=== PATIENT | female | born 1935 | race Caucasian/White ===

== ENCOUNTER → 2017-07-09 12:25 | Outpatient (CLI) | payer MEDICARE, SELFPAY ==
[2017-07-09 12:56] LABS: CREATININE FINGERSTICK 1.2 mg/dL (0.55-1.02)
--- NOTE | 2017-07-09 13:00 | CT_ITS ---
STUDY: CTA CHEST REASON FOR EXAM: Female, 82 years old. Dilatation of the aortic root. RADIATION DOSAGE (If Supplied By Facility): CTDIvol = ( 22.95 ) mGy, DLP = ( 491.21 ) mGycm TECHNIQUE: The examination was performed with the intravenous administration of 100 ml of Isovue 370 contrast material. Post-processing of the angiographic images was performed, with multiplanar reformation and 3D reconstruction. Individualized dose optimization techniques were used for this CT. COMPARISON: CTA of the chest, August 03, 2013. FINDINGS: Normal enhancement of the main pulmonary artery and right and left pulmonary arteries. Normal enhancement of the bilateral peripheral pulmonary arteries. There is no demonstrated pulmonary embolism. The root of the aorta measures 4 x 4.2 cm at the level of the pulmonary artery bifurcation (image 165, series 2). This tapers into the arch. There is no demonstrated aortic dissection. Normal heart and pericardium. Normal mediastinum. Normal hilar regions. Normal visualized trachea and bronchi. The lungs are well expanded. Normal pulmonary parenchyma. Normal pleura. Normal chest wall structures. There are degenerative changes of thoracic spine. There is a small type I hiatal hernia unchanged from prior study. CT/CTA Chest W/WO Contrast IMPRESSION: 1. 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 This currently measures 4 x 4.2 cm. 2. Hiatal hernia. Electronically Signed: Ethan Moser DO at 13:19 EST Tel [phone], Service support ,
== END ==
PROVIDERS: Family Provider Internal Medicine; Visit Provider Physician Assistant Medical
DX: I77.810 Thoracic aortic ectasia (principal); I10 Essential (primary) hypertension
CPT/HCPCS: 71275; Q9967

== ENCOUNTER 2017-10-30 11:50 | Emergency (ER) | payer MEDICARE, SELFPAY ==
[2017-10-30 11:52] VITALS: BP 156/82; PULSE 68; RESP 18; TEMP 36.7; O2SAT 97; BMI 30.9
--- NOTE | 2017-10-30 13:59 | ED.VISSUMM ---
- ER Visit Summary Date of Service: 10/30/17 Chief Complaint: Right lower lateral back pain History of Present Illness: The patient is a 82 F landing on her right lower lateral back pain for last 3 days. States is constant. Worse with movement. No recent falls or trauma. No fever. No history of back pain. She is on no blood thinners. She denies any nausea, vomiting or constipation. No dysuria. No urinary retention or incontinence. She has a history of chronic intermittent diarrhea. Denies any melena. Physical Examination: Well-appearing older female. Vital signs are stable afebrile. She does not look septic or toxic. She is in no acute distress. H EENT exam unremarkable. Lungs clear to auscultation. Heart regular rhythm no murmur. Chest wall nontender. Abdomen soft. Nontender nondistended. Normal bowel sounds. No peritoneal signs. No right upper or right lower quadrant tenderness. No pulsatile mass. No distention. No signs of obstruction. She is moving both the upper and lower extremities. They are neurovascularly intact. She is a strong DP pulse. There is no calf tenderness or swelling. She has normal range of motion motor strength and sensation of both lower extremities. The plantar flexion intact. Negative straight leg raise bilaterally. Normal 5 out of 5 motor strength with dorsi and plantar flexion. Cauda equina. Normal medial thigh sensation. Back exam the cervical, thoracic and lumbar spine are all nontender. There is no ecchymosis or bruising. No redness or warmth. Is a tenderness over her right SI joint consistent with acute sciatica. Left is unremarkable.. Test Results: None Emergency Department Course and Treatment: Will be treated with [place] for pain. Treatment Plan: [place] for pain 20 no refill. Ice to her right sciatica. Limited Motrin for inflammation. Follow-up with her primary care physician if not improving. Disposition: Discharge Impression: Right lower lateral back pain secondary to sciatica This note was generated with [employer] dictation software. It may contain incorrect words, spelling, and punctuation that were not noted in review of the chart prior to signing ED Disposition - Plan for ED Patient: Chief Complaint: Back Referrals: Jessica Ingram DO [Primary Care Provider] -
--- NOTE | 2017-10-30 14:04 | DCINST.ED_ITS ---
ED Disposition - Plan for ED Patient: Disposition: Home or Assisted Living Chief Complaint: Back Instructions: ED Sciatica Prescriptions: Hydrocodone Bitart/Apap 5-325 [[place] 5MG-325MG] 1 - 2 tab PO Q4H PRN PRN #20 tab PRN Reason: Pain Referrals: Jessica Ingram DO [Primary Care Provider] - 1 Week if not improving Additional Instructions: Ice to right lower back. Motrin 2 pills twice a day to help with inflammation in the back. [place] for pain. Plenty of fluids and fiber to prevent constipation. Follow-up your primary care physician if not improving.
[2017-10-30] MEDS: HYDROcodone Bitartrate/Apap 5/325 Tablet PO (14:07)
[2017-10-30 14:09] VITALS: BP 152/95; PULSE 65; RESP 16; O2SAT 98
== END 2017-10-30 14:11 | disposition home or self-care (01) ==
PROVIDERS: Emergency Provider Emergency Medicine
DX: M54.41 Lumbago with sciatica, right side (principal); K52.9 Noninfective gastroenteritis and colitis, unspecified; J44.9 Chronic obstructive pulmonary disease, unspecified; I10 Essential (primary) hypertension; Z85.828 Personal history of other malignant neoplasm of skin; Z79.82 Long term (current) use of aspirin; Z79.899 Other long term (current) drug therapy
CPT/HCPCS: 99283

== ENCOUNTER → 2017-10-31 09:46 | Outpatient (CLI) | payer MEDICARE, SELFPAY ==
--- NOTE | 2017-10-31 09:49 | RAD_ITS ---
PROCEDURE: Fluoroscopic guided Hip Injection DATE: October 31, 2017. INDICATION: Female, 82 years old. Chronic left hip pain. PHYSICIAN: Pb Fontaine M.D. MEDICATIONS: 6 mg of betamethasone and 3 cc of 1% lidocaine. 2% Lidocaine administered subcutaneously for local anesthesia. ACCESS SITE: Left hip. NEEDLE: 22-gauge spinal needle. FLUOROSCOPY TIME (if supplied): (33 seconds) minutes/seconds FINDINGS: The risks, benefits, and alternatives to the procedure were explained to the patient. The specific risks of bleeding, infection, and neurovascular injury were detailed and accepted. Witnessed informed consent was obtained. A 22-gauge spinal needle was positioned under right graphic fluoroscopic localization. Approximately 2 cc of Isovue-300 instilled for localization purposes. Medication was then injected. The patient tolerated the procedure well without any immediate complications. RAD/Inj/Asp Samson Jt Should/Hip/Knee IMPRESSION: 1. Successful fluoroscopic guided hip injection. Electronically Signed: Pb Fontaine MD at 11:20 EDT Tel [phone], Service support ,
== END ==
PROVIDERS: Visit Provider Specialist
DX: M25.552 Pain in left hip (principal); G89.29 Other chronic pain; S72.142D Displaced intertrochanteric fracture of left femur, subsequent encounter for closed fracture with routine healing; X58.XXXD Exposure to other specified factors, subsequent encounter
CPT/HCPCS: 20610; 77002; Q9967; J0702

== ENCOUNTER 2018-04-22 10:54 | Emergency (ER) | payer MEDICARE, SELFPAY ==
[2018-04-22 10:55] VITALS: BP 112/82; PULSE 74; RESP 17; TEMP 36.8; O2SAT 93; BMI 31.3
--- NOTE | 2018-04-22 11:16 | RAD_ITS ---
STUDY: X-RAY - ABDOMEN/PELVIS REASON FOR EXAM: Female, 83 years old. Constipation. Recent hip fracture. TECHNIQUE: Two AP supine views of the abdomen and pelvis. COMPARISON: None. FINDINGS: There is elevation of the right hemidiaphragm. There is a moderate amount of colonic fecal material. The visualized liver, spleen and kidneys are grossly normal in size and morphology. Prior cholecystectomy. Normal soft tissue structures. The patient is status post intramedullary pinning of the left intertrochanteric fracture. RAD/Abdomen Single View IMPRESSION: Moderate amount of fecal material is seen in the colon. Electronically Signed: Pb Fontaine MD at 11:39 EST Tel [phone], Service support ,
--- NOTE | 2018-04-22 11:16 | ED.VISSUMM ---
- ER Visit Summary Date of Service: 04/22/18 Chief Complaint: Constipation History of Present Illness: The patient is a 83 F history of hypertension and cholesterol. Patient states the last 3-4 days she said constipation. Mild nausea. No significant pain. No vomiting. No melena. States when she tries to have a bowel movement feels like something is pushing down on her lower rectum and anal area. She does not believe she is around a colonoscopy. She denies any weight change. Today she was able to have a very small bowel move. She denies any fever or chills. No dysuria. Physical Examination: Well-appearing older female. Vital signs are stable. She is afebrile. She is in no distress. H EENT exam unremarkable. Neck nontender. Lungs clear to auscultation bilaterally. Heart regular rhythm no murmur. Abdomen soft. Nontender. Nondistended. Normal bowel sounds. No peritoneal signs. No signs of obstruction. Moving all 4 extremities. Back nontender. Neurologically she is awake alert with no focal motor deficits. Her daughter is present in the room I did a rectal exam with her daughter bedside. There are no external masses. On rectal exam I do not feel any hemorrhoids or internal masses. There was no gross blood. She had hard brown stool. Test Results: Single view KUB shows shows increased stool. Otherwise no acute abnormality. Left prosthetic hip. Read both of myself and the radiologist. Emergency Department Course and Treatment: Repeat exam patient is doing well at 1220. Abdomen benign. She will be discharged home with magnesium citrate. Treatment Plan: Follow-up with primary care physician. Consider outpatient colonoscopy. Disposition: Discharge Impression: Acute constipation This note was generated with [employer] dictation software. It may contain incorrect words, spelling, and punctuation that were not noted in review of the chart prior to signing ED Disposition - Plan for ED Patient: Chief Complaint: Constipation Referrals: Jessica Ingram DO [Primary Care Provider] -
[2018-04-22 11:31] VITALS: BP 115/78; PULSE 78; RESP 14; O2SAT 98
[2018-04-22 12:22] VITALS: BP 121/74; PULSE 72; RESP 15; O2SAT 98
--- NOTE | 2018-04-22 12:22 | ED.DEP ---
ED Disposition - Plan for ED Patient: Disposition: Home or Assisted Living Chief Complaint: Constipation Referrals: Jessica Ingram DO [Primary Care Provider] - 3-5 Days if not improving Additional Instructions: Drink the magnesium citrate and should have a bowel movement within 2 hours. Follow-up with your primary care physician. May want to consider an outpatient colonoscopy.
[2018-04-22] MEDS: Magnesium Citrate 300 ML PO (12:41)
== END 2018-04-22 12:44 | disposition home or self-care (01) ==
PROVIDERS: Emergency Provider Emergency Medicine
DX: K59.00 Constipation, unspecified (principal); I10 Essential (primary) hypertension; Z79.899 Other long term (current) drug therapy; Z85.828 Personal history of other malignant neoplasm of skin; Z96.642 Presence of left artificial hip joint
CPT/HCPCS: 74018; 99282

== ENCOUNTER → 2018-07-31 15:08 | Outpatient (CLI) | payer MEDICARE, SELFPAY ==
--- NOTE | 2018-07-31 15:09 | ECHOD_ITS ---
Reason For Study: Dyspnea/SOB Procedure This was a 2D Doppler, Color Flow transthoracic echocardiogram. The study was technically difficult. Exam performed in department. Left Ventricle Normal LV size. Apical false tendon noted. Left ventricular systolic function is normal. The estimated ejection fraction is 65 %. Diastolic function is indeterminate. No regional wall motion abnormalities noted. Right Ventricle Normal RV size. Normal systolic function. Atria Normal left atrium. Normal right atrium. Prominent eustachian valve. No doppler evidence for ASD. Mitral Valve There is moderate mitral annular calcification. Extension of the mitral annular calcification onto the base of the posterior mitral valve leaflet. Mild (1+) mitral valve insufficiency. Tricuspid Valve Normal tricuspid valve. Trivial tricuspid valve insufficiency. Right ventricular systolic pressure estimated to be 21 mmHg. Aortic Valve Trisinus/trileaflet aortic valve. Normal aortic valve. Trivial aortic valve insufficiency. Pulmonic Valve The pulmonic valve is not well visualized. Trivial pulmonic valve insufficiency. Great Vessels Mildly dilated aortic root. Pericardium/Pleural No pericardial effusion. MMode/2D Measurements & Calculations LVIDd: 3.8 cm IVSd: 1.2 cm Ao root diam: 4.0 cm LVIDs: 2.2 cm LVPWd: 1.1 cm RVDd: 2.8 cm FS: 42.8 % LAV(MOD-bp): 41.5 ml LVAd ap4: 22.0 cm2 SV(MOD-sp4): 38.1 ml LAV(MOD-bp) Indexed: 21.7 ml/m2 EDV(MOD-sp4): 56.4 ml LAV(MOD-sp2): 39.7 ml EDV(sp4-el): 57.9 ml LAV(MOD-sp4): 42.0 ml LVAs ap4: 10.9 cm2 ESV(MOD-sp4): 18.3 ml ESV(sp4-el): 18.2 ml EF(MOD-sp4): 67.5 % EF(sp4-el): 68.6 % SV(sp4-el): 39.7 ml LA A4 area: 15.0 cm2 LA dimension(2D): 3.3 cm RA A4 area: 12.9 cm2 Doppler Measurements & Calculations MV E max kiel: 71.7 cm/sec Lat Peak E' Kiel: 4.4 cm/sec Med Peak E' Kiel: 4.1 cm/sec MV A max kiel: 100.8 cm/sec E/E' lat: 16.3 E/E' med: 17.6 MV E/A: 0.71 Ao V2 max: 118.6 cm/sec LV V1 max: 96.7 cm/sec PA V2 max: 108.8 cm/sec Ao max P.6 mmHg LV V1 max P.7 mmHg Ao V2 mean: 85.9 cm/sec Ao mean P.2 mmHg Ao V2 VTI: 26.2 cm PI end-d kiel: 77.0 cm/sec TR max kiel: 212.2 cm/sec TR max P.0 mmHg Interpretation Summary The study was technically difficult. Left ventricular systolic function is normal. The estimated ejection fraction is 65 %. Apical false tendon noted. There is moderate mitral annular calcification. Extension of the mitral annular calcification onto the base of the posterior mitral valve leaflet. Mild (1+) mitral valve insufficiency. Trivial tricuspid valve insufficiency. Trivial aortic valve insufficiency. Trivial pulmonic valve insufficiency. Mildly dilated aortic root. Right ventricular systolic pressure estimated to be 21 mmHg. Diastolic function is indeterminate. Prominent eustachian valve. Ordering Physician: Chano Whitt Referring Physician: Jessica Ingram Performed By: Salma Whitt, JUANYCS, RVT
== END ==
PROVIDERS: Referring Provider Nurse Practitioner Family; Visit Provider Nurse Practitioner Family
DX: I25.10 Atherosclerotic heart disease of native coronary artery without angina pectoris (principal); I77.810 Thoracic aortic ectasia; R06.09 Other forms of dyspnea
CPT/HCPCS: 93306

== ENCOUNTER → 2018-08-07 14:17 | Outpatient (CLI) | payer MEDICARE, SELFPAY ==
--- NOTE | 2018-08-07 14:21 | CT_ITS ---
STUDY: CTA CHEST REASON FOR EXAM: Female, 83 years old. Thoracic aneurysm RADIATION DOSAGE (If Supplied By Facility): CTDIvol = ( 12.46 ) mGy, DLP = ( 433.88 ) mGycm TECHNIQUE: The examination was performed with the intravenous administration of Isovue 370 100mL IV. Post-processing of the angiographic images was performed, with multiplanar reformation and 3D reconstruction. Individualized dose optimization techniques were used for this CT. COMPARISON: July 09, 2017 and CTA chest FINDINGS: Normal enhancement of the main pulmonary artery and right and left pulmonary arteries. Normal enhancement of the bilateral peripheral pulmonary arteries. There is no demonstrated pulmonary embolism. Borderline dilatation of the ascending aorta measuring up to 4 cm in diameter appears less conspicuous. There is no demonstrated aortic dissection. Normal heart and pericardium. Mild cardiomegaly. Normal mediastinum. Normal hilar regions. Normal visualized trachea and bronchi. The lungs are well expanded. Normal pulmonary parenchyma. Normal pleura. Normal chest wall structures. Normal osseous structures. Small hiatal hernia. CT/CTA Chest W/WO Contrast IMPRESSION: Borderline aneurysmal ectasia ascending aorta appears less conspicuous Electronically Signed: Riaz Saul MD at 18:04 EST , Service support ,
[2018-08-07 14:41] LABS: CREATININE FINGERSTICK 1.2 mg/dL (0.55-1.02)
== END ==
PROVIDERS: Referring Provider Nurse Practitioner Family; Visit Provider Nurse Practitioner Family
DX: I71.9 Aortic aneurysm of unspecified site, without rupture (principal); I77.810 Thoracic aortic ectasia
CPT/HCPCS: 71275; Q9967

== ENCOUNTER 2019-02-11 10:09 | Observation (INO) | payer MEDICARE, SELFPAY ==
[2019-02-11] VITALS (14 sets, daily range): BP systolic 119–156; BP diastolic 71–99; PULSE 69–114; RESP 16–19; TEMP 36.6–36.8; O2SAT 95–99; BMI 29.0; BMI 26.8; BMI 26.9
--- NOTE | 2019-02-11 10:17 | CT_ITS ---
STUDY: CT BRAIN WITHOUT CONTRAST REASON FOR EXAM: Female, 83 years old. Syncopal episode. RADIATION DOSAGE (If Supplied By Facility): CTDIvol = ( 44.99 ) mGy, DLP = ( 745.49 ) mGycm TECHNIQUE: Transaxial CT imaging of the brain was performed without administration of intravenous contrast material. Individualized dose optimization techniques were used for this CT. COMPARISON: No relevant priors. FINDINGS: Normal soft tissue structures. Normal calvarium. There is mild cerebral atrophy with widening of the extra-axial spaces and ventricular dilatation. There are areas of decreased attenuation within the white matter tracts of the supratentorial brain, consistent with microvascular disease changes. Normal basal ganglia and thalami. Normal brainstem. Normal cerebellum. There is no intracranial hemorrhage. There are no findings of an acute ischemic infarction. Atherosclerotic calcification of the vertebral arteries and the cavernous portions of the internal carotid arteries bilaterally. Minimal mucosal thickening of the lateral wall of the left maxillary sinus. CT/Brain/Head without Contrast IMPRESSION: Chronic involutional changes of the brain. Electronically Signed: Pb oFntaine, at 11:08 EDT , Service support ,
--- NOTE | 2019-02-11 10:18 | EKG12_ITS ---
Test Reason : AM Blood Pressure : / mmHG Vent. Rate : 082 BPM Atrial Rate : 082 BPM P-R Int : 200 ms QRS Dur : 078 ms QT Int : 374 ms P-R-T Axes : 064 010 061 degrees QTc Int : 436 ms Sinus rhythm with Premature atrial complexes Inferior infarct , age undetermined Abnormal ECG When compared with ECG of 11-FEB-2019 10:20, MANUAL COMPARISON REQUIRED, DATA IS UNCONFIRMED Confirmed by CHRISTINE ÁLVAREZ ([id number]), online content editor SHWETHA UMAÑA ([id number]) on 02/13/2019 2:06:08 PM Referred By: Leydi Castillo Confirmed By:CHRISTINE ÁLVAREZ
--- NOTE | 2019-02-11 10:23 | ED.DCSUM_ITS ---
History of Present Illness Chief Complaint: Syncope Informant: Patient Onset: Today Context: Sudden Onset Current Severity: Moderate Maximum Severity: Moderate Narrative: The patient presents after syncopal episode. She states she is been in her normal state of health. She was actually doing physical therapy this morning. She states that she did not take her medications this morning. The patient states that over the past few days she is been in her normal state of health. She states that she went to physical therapy and then went to the grocery store with her daughter. States that she got out of the car and was walking in, she began to feel lightheaded and nauseated. She states that she sat down but did not lose consciousness. Shortly thereafter, she was walking through the grocery store and had a return of symptoms. She sat down but then passed out. The patient states she has passed out before. She does think that she struck her head. She denies any vomiting. She has a history of vertigo, but states this feels different. She denies exertional dyspnea or chest pain. Prior similar symptoms: Yes Recent Illness/Hospitalization: No Past Medical History - Allergies and Home Meds Allergies/Adverse Reactions: Allergies No Known Allergies Allergy (Verified 02/11/19 10:12) Primary Care Physician: Jessica Ingram DO [NON-STAFF] - Prior records reviewed: Yes Past Medical History: - Surgical History: - - colonoscopy Smoking Status: Never smoker - Family History Maternal Family History: Reports: Cancer Paternal Family History: Reports: Cancer Review of Systems General: Denies: Chills, Fever, Sweats Eyes: Denies: Visual changes - bilaterally, Diplopia ENT: Denies: Rhinorrhea, Sore throat Cardiovascular: Denies: Chest pain, Palpitations Respiratory: Denies: Dyspnea, Cough, Dyspnea on exertion Gastrointestinal: Denies: Abdominal pain, Nausea, Vomiting, Diarrhea, Melena, Hematochezia Genitourinary: Denies: Dysuria, Hematuria, Frequency Musculoskeletal: Denies: Back pain, Extremity Pain Skin: Denies: Rash, Wounds Neurological: Denies: Headache, Weakness, Numbness Physical Exam Vital Signs/Narrative: Vital Signs Temp Pulse Resp BP Pulse Ox 02/11/19 10:09 98 F 114 H 18 122/74 H 98 Inital Vital Signs reviewed: Yes General: Well nourished, Well developed, No Acute Distress Head: Normocephalic, Atraumatic Eyes: Perrl, EOMI ENT: Moist mucous membranes, No rhinorrhea Neck: Supple, Nontender Cardiovascular: Regular rate, Regular rhythm, No murmurs Respiratory: No distress, CTA bilaterally, Chest nontender Abdomen: Soft, Nontender, Nondistended, Normal bowel sounds Back: Nontender, Normal Inspection Extremities: Nontender, No edema Skin: Normal color, No rash Neurological: Alert, Oriented x3, Cranial nerves II-XII grossly intact, Normal Strength, Normal Sensation Psychological: Normal affect, Normal Mood Diagnostic/Tx/Re-eval Chest X-Ray - ED: 2 View, Normal, Heart, Lungs, Mediastinum Clinical Impression(s) from Imaging Studies Brain CT 02/11/19 10:17 IMPRESSION: Chronic involutional changes of the brain. Electronically Signed: Pb Fontaine, at 11:08 EDT , Service support , Chest X-Ray 02/11/19 10:45 IMPRESSION: Hyperinflation. Findings suggestive of mild linear scarring at the lung bases. Electronically Signed: Pb Fontaine, at 11:09 EDT , Service support , Abnormal Lab Results 02/11/19 02/11/19 10:25 10:25 WBC 9.3 RBC 5.18 Hgb 15.2 H Hct 46.2 MCV 89.2 MCH 29.3 MCHC 32.9 RDW Std Deviation 54.4 H RDW Coeff of Eam 16.9 H Plt Count 315 MPV 10.2 Immature Gran % (Auto) 0.900 Neut % (Auto) 75.2 H Lymph % (Auto) 17.5 L [place] % (Auto) 5.4 Eos % (Auto) 0.6 Baso % (Auto) 0.4 Absolute Neuts (auto) 7.0 Absolute Lymphs (auto) 1.63 Nucleated RBC % 0 Sodium 140 Potassium 4.2 Chloride 108 H Carbon Dioxide 23.0 Anion Gap 9 BUN 17 Creatinine 1.00 Estim Creat Clear Calc 41.30 Est GFR (MDRD) Af Amer 68 Est GFR (MDRD) Non-Af 56 L BUN/Creatinine Ratio 17.0 Glucose 108 H Calcium 9.5 Total Bilirubin 0.90 AST 21 ALT 21 Alkaline Phosphatase 113 Troponin I < 0.015 Total Protein 7.4 Albumin 3.7 Globulin 3.7 Albumin/Globulin Ratio 1.0 - Rhythm Strip Rhythm Strip: Sinus Rhythm Rate: 80 Ectopy: PAC(s) - EKG Initial EKG Interpretation: Sinus Rhythm, No Acute Injury Pattern Prior: Unchanged - Medical Decision Making The patient presents to the emergency department after syncopal event. She states that she was walking, got lightheaded and flushed. She sat down but then passed out. She is still feeling mildly lightheaded. She did strike her head. I obtained a head CT which is unremarkable. EKG shows sinus rhythm without acute ischemic change. The patient was observed. She was still feeling mildly symptomatic. Her x-ray shows no evidence of volume overload. Orthostatics were negative. Screening labs are unremarkable. At this point, given the patient's advanced age and syncopal episode, I do feel that she would benefit from observation with syncope work-up. Patient was discussed with the hospitalist. Impression 1. Syncope ED Disposition - Plan for ED Patient: Referrals: Jessica Ingram DO [NON-STAFF] -
[2019-02-11 10:35] LABS: Absolute Lymphocyte Count 1.63 X10^3/uL (0.83-4.51); Basophil# 0.04 X10^3/uL; Basophil% 0.4 % (0-1); Eosinophil# 0.06 X10^3/uL; Eosinophils% 0.6 % (0-5); Hematocrit 46.2 % (37-47); Hemoglobin 15.2 g/dL (12.0-15.0); Lymphocyte # 1.63 X10^3/ul (4.0); Lymphocyte % 17.5 % (19-41); Mean Corp Hgb Conc 32.9 g/dL (32-36); Mean Corpuscular Hgb 29.3 pg (27.0-32.0); Mean Corpuscular Volume 89.2 fL (81-99); Mean Platelet Vol. 10.2 fl (6.2-12.0); Monocyte% 5.4 % (0-10); NRBC Flagged by Analyzer 0 % (0-5); Neutrophil # 7.02 X10^3/uL (2.7-7.7); Neutrophil % 75.2 % (47-70); Platelet Count 315 K/mm3 (150-450); RBC Distribution Width CV 16.9 % (11.6-14.6); RBC Distribution Width SD 54.4 fl (35.1-43.9); Red Blood Count 5.18 M/mm3 (4.2-5.4); White Blood Count 9.3 K/mm3 (4.4-11.0)
--- NOTE | 2019-02-11 10:45 | RAD_ITS ---
STUDY: X-RAY CHEST REASON FOR EXAM: Female, 83 years old. Shortness of breath. TECHNIQUE: Single AP portable view of the chest. COMPARISON: Comparison is made with prior examination dated November 03, 2016. FINDINGS: EKG electrodes are seen. Hyperinflation. Minimal degree of increased markings at the lung bases suggestive of mild basilar scarring. There is no demonstrated pleural abnormality. Normal size heart. Normal mediastinum and neymar. Normal visualized pulmonary arteries. There is atherosclerotic calcification of the aortic arch with tortuosity. There are diffuse degenerative changes of the visualized thoracic spine. Normal visualized ribs, clavicles, and shoulders. There is no demonstrated abnormality of the visualized soft tissue structures of the upper abdomen. RAD/Chest 1 View (Portable) IMPRESSION: Hyperinflation. Findings suggestive of mild linear scarring at the lung bases. Electronically Signed: Pb Fontaine, at 11:09 EDT , Service support ,
[2019-02-11] MEDS: Ondansetron 4 MG/2 ML Vial IV (10:56)
[2019-02-11] MEDS: 0.9% Normal Saline 1,000 ML 1000 ML IV (10:56)
[2019-02-11 11:01] LABS: AST(SGOT) 21 U/L (15-37); Alanine Aminotransfer ALT/SGPT 21 U/L (13-56); Albumin, Serum 3.7 g/dL (3.2-5.0); Alkaline Phosphatase 113 U/L (45-117); Anion Gap 9 (5-15); BUN 17 mg/dL (7-18); Calcium,Total 9.5 mg/dL (8.5-10.1); Chloride 108 mmol/L (98-107); EST Glomerular Filtration Rate 56 mL/min (>60); Est Glom Filt Rate - Afr Amer 68 mL/min (>60); Globulin 3.7 g/dL (2.2-4.2); Glucose 108 mg/dL (74-106); Potassium 4.2 mmol/L (3.5-5.1); Protein, Total 7.4 g/dL (6.4-8.2); Sodium Level 140 mmol/L (136-145)
--- NOTE | 2019-02-11 11:42 | NURSING ---
PCU SYNCOPE ASHELFAH
[2019-02-11 11:45] LABS: Mucous, Urine 0 SEEN /hpf (<or=2+); Red Blood Cells-Urine 0 SEEN /hpf (0-5)
--- NOTE | 2019-02-11 11:51 | PCM.HP.STD ---
Problem List (1) Syncope Status: Acute (2) Atherosclerosis of [place] coronary artery of [place] heart without angina pectoris Status: Chronic (3) Essential hypertension Status: Chronic (4) Dilated aortic root Status: Chronic (5) PSVT (paroxysmal supraventricular tachycardia) Status: Chronic (6) COPD (chronic obstructive pulmonary disease) Status: Chronic (7) HLD (hyperlipidemia) Status: Chronic Qualifiers: Hyperlipidemia type: pure hypercholesterolemia Qualified Code(s): E78.00 - Pure hypercholesterolemia, unspecified History of Present Illness Date of Admission: 02/11/19 Chief Complaint: Syncope. The patient is a 83 year old F with past medical history as mentioned above presented to the emergency room because of syncope. This morning, patient was at the store for shopping and while walking, she started feeling dizzy, became lightheaded and she sat down. Her daughter in law was with her. Patient felt better and she stood up again, felt dizzy and lightheaded, became nauseated and she passed out for several seconds. According to the patient's [id number], patient passed out only for few seconds and she woke up and became oriented and alert very quick. Patient denied any chest pain at that time, denied palpitation or shortness of breath. Patient states that she did not take her medication this morning and she eat. Also, patient complained of intermittent chest pain, that has been going on for several months, left-sided chest pain, associated with occasional shortness of breath and without aggravating or relieving factors. She mentioned that today before she passed out, she had no chest pain. No reported seizure activity, tongue biting, back rolling of her eyes or incontinence. The [id number] mentioned that she had similar episodes of syncope around 3-4 times in the last 3 months. In the emergency department, patient was slightly tachycardic, other vital signs were stable. Orthostatic vitals were normal. Her routine blood work was unremarkable. LFT was normal. EKG revealed normal sinus rhythm, normal NV interval, normal QRS, normal QTC, no evidence of acute ischemic changes or cardiac arrhythmias. Troponin is negative. Chest x-ray showed hyperinflation, no acute findings. CT scan brain showed no acute hemorrhage or infarct. She is being admitted for syncope for evaluation. Past Medical History Past Medical History (Chronic Problems): Chronic Problems (Last Reviewed 07/08/18 @ 15:03 by Chelo Capps) Atherosclerosis of [place] coronary artery of [place] heart without angina pectoris (Chronic) Essential hypertension (Chronic) Dilated aortic root (Chronic) PSVT (paroxysmal supraventricular tachycardia) (Chronic) COPD (chronic obstructive pulmonary disease) (Chronic) HLD (hyperlipidemia) (Chronic) Medical History: Medical History (Last Reviewed 07/08/18 @ 15:03 by Chelo Capps) Atherosclerosis of [place] coronary artery of [place] heart without angina pectoris (Chronic) I25.10 Essential hypertension (Chronic) I10 Dilated aortic root (Chronic) I77.810 PSVT (paroxysmal supraventricular tachycardia) (Chronic) I47.1 COPD (chronic obstructive pulmonary disease) (Chronic) J44.9 HLD (hyperlipidemia) (Chronic) E78.5 Allergies No Known Allergies Allergy (Verified 02/11/19 10:12) Home Medications: Ambulatory Orders Medication Instructions Recorded Calcium (Elemental) [Os-[place] 500] 500 mg PO BIDCM #1 tab 11/09/16 Cholecalciferol (VIT D3) [Vitamin 1,000 unit PO DAILYCM tab 11/09/16 D3] Folic Acid 1 mg PO BIDCM tab 11/09/16 Alendronate Sodium [Fosamax] 70 mg PO Q7D@0700 #4 tab 11/23/16 Atorvastatin Calcium [Lipitor] 40 mg PO QHS #30 tab 11/23/16 Ferrous Sulfate 325 mg PO DAILYCM #30 tab 11/23/16 amlodipine 10 mg tablet 10 mg PO DAILY 03/27/18 etodolac 500 mg tablet 500 mg PO DAILY PRN tab 03/27/18 lisinopril 20 mg tablet 40 mg PO QDAY tab 03/27/18 metoprolol tartrate 50 mg tablet 50 mg PO DAILY tab 03/27/18 Surgical History: Surgical History (Last Reviewed 07/08/18 @ 15:03 by Chelo Capps) S/p left hip fracture Onset Date: ~2016 Z87.81 Surgical History: - - colonoscopy. Left hip cephalic medullary nail for left hip fracture. Psychiatric History: No pertinent psych hx [employer] History: No pertinent [employer] history Lives: With Family Smoking Status: Former smoker Alcohol: None Drugs: None - *Family History Maternal History Items: Cancer Paternal History Items: Cancer Review of Systems Constitutional: Denies: Anorexia, Chills, Fever, Weakness Eyes: Denies: Blurred vision, Double vision, Drainage, Redness HEENT: Denies: Difficulty Hearing, Ear Pain, Eye Pain, Nasal Congestion, Sore Throat Cardiovascular: Reports: Light Headedness, Syncope. Denies: Chest Pain, Chest Pressure, Chest Tightness, Heaviness, Orthopnea, Palpitations, Paroxysmal Noc. Dyspnea Respiratory: Denies: Cough, Pleuritic Pain, Shortness of Breath, Sputum production, Wheezing Gastrointestinal: Reports: Nausea. Denies: Abdominal Pain, Constipation, Diarrhea, Vomiting Genitourinary: Denies: Dysuria, Frequency, Hematuria Musculoskeletal: Denies: Arm Pain, Back Pain, Foot Pain Skin: Denies: Dryness, Rash Neurological: Denies: Balance problems, Blurred vision, Double vision, Slurred speech, Confusion, Headaches, Incoordination, Numbness Psychiatric: Denies: Anxiety, Depression Endocrine: Denies: Change in Body Habitus, Polydipsia, Polyuria VTE Information - Inpt Only VTE Present on Admission: No VTE Mechan Device Prophylaxis: None VTE Pharm Prophylaxis ordered?: Yes Patient Problems: Active and Suspected Problems (Last Reviewed 07/08/18 @ 15:03 by Chelo Capps) Syncope (Acute) - Physical Exam General: Alert, Oriented x3, Cooperative, No apparent distress HEENT: Atraumatic, PERRLA, EOMI, Normocephalic Oral: Moist Mucosa, No Gingival or Mucosal Lesions/ Ulcerations Neck: Supple, No JVD, Negative Carotid Bruits, Trachea Midline, Thyroid Normal Size and Texture Lungs: Clear to auscultation, Normal air movement, No rhonchi, No wheeze, No rales, Diminished Cardiovascular: Regular rate, Regular Rhythm, Normal S1, Normal S2, No murmurs, PMI Normal Abdomen: Bowel Sounds Present, Soft, Non Tender, Non-Distended, No Hepato-splenomegaly Extremities: No clubbing, No cyanosis, Edema - Nonpitting edema. Skin: No rashes, No breakdown Lymphatic: No Cervical, Supraclavicular, or Inguinal Adenopathy Neurological: Cranial nerves II-XII grossly intact, Motor Exam 5/5 strength throughout Psych/Mental Status: Normal Affect, Appropriate, Alert and oriented to time, place, person, mood and affect Vital Signs Temp Pulse Resp BP Pulse Ox 98 F 91 18 156/76 H 99 02/11/19 10:09 02/11/19 11:39 02/11/19 11:39 02/11/19 11:39 02/11/19 11:39 Oxygen Delivery Method Room Air Weight: 180 lb Body Mass Index (BMI) 29.0 Laboratory Tests Past 24 Hrs 02/11/19 02/11/19 02/11/19 10:25 10:25 11:33 WBC 9.3 RBC 5.18 Hgb 15.2 H Hct 46.2 MCV 89.2 MCH 29.3 MCHC 32.9 RDW Std Deviation 54.4 H RDW Coeff of Ema 16.9 H Plt Count 315 MPV 10.2 Immature Gran % (Auto) 0.900 Neut % (Auto) 75.2 H Lymph % (Auto) 17.5 L [place] % (Auto) 5.4 Eos % (Auto) 0.6 Baso % (Auto) 0.4 Absolute Neuts (auto) 7.0 Absolute Lymphs (auto) 1.63 Nucleated RBC % 0 Sodium 140 Potassium 4.2 Chloride 108 H Carbon Dioxide 23.0 Anion Gap 9 BUN 17 Creatinine 1.00 Estim Creat Clear Calc 41.30 Est GFR (MDRD) Af Amer 68 Est GFR (MDRD) Non-Af 56 L BUN/Creatinine Ratio 17.0 Glucose 108 H Calcium 9.5 Total Bilirubin 0.90 AST 21 ALT 21 Alkaline Phosphatase 113 Troponin I < 0.015 Total Protein 7.4 Albumin 3.7 Globulin 3.7 Albumin/Globulin Ratio 1.0 Urine Color Pending Urine Clarity Pending Urine pH Pending Ur Specific [place] Pending Urine Protein Pending Urine Glucose (UA) Pending Urine Ketones Pending Urine Occult Blood Pending Urine Nitrite Pending Urine Bilirubin Pending Urine Urobilinogen Pending Ur Leukocyte Esterase Pending Urine RBC Pending Urine WBC Pending Ur Squamous Epith Cells Pending Urine Bacteria Pending Urine Mucus Pending Clinical Impression(s) from Imaging Studies Brain CT 02/11/19 10:17 IMPRESSION: Chronic involutional changes of the brain. Electronically Signed: Pb Fontaine, at 11:08 EDT , Service support , Chest X-Ray 02/11/19 10:45 IMPRESSION: Hyperinflation. Findings suggestive of mild linear scarring at the lung bases. Electronically Signed: Pb Fontaine, at 11:09 EDT , Service support , Assessment/Plan All Active Problems (Last Reviewed 07/08/18 @ 15:03 by Chelo Capps) Syncope (Acute) This is an 83 years old female patient presented to the emergency room because of syncope and she is being admitted for evaluation. #1 syncope: Unclear etiology, likely due to cardiogenic etiology. No reported seizure activity. EKG reviewed as above, unremarkable. CT scan brain showed no acute findings. Orthostatic vitals were unremarkable. Routine blood work was unremarkable. Troponin was negative. Plan: Admit to PCU for observation, cardiac monitoring, serial cardiac enzymes, 2D echocardiogram, bilateral carotid Doppler, IV fluids, Tylenol as needed, IV antiemetics, repeat orthostatic vitals tomorrow morning, PT OT evaluation and treatment. #2 intermittent chest pain: Initially, patient did not mention any chest pain but when her daughter and [id number] started talking about seeing a neurologist and cardiology, patient mentioned that she has been having intermittent chest pain. EKG revealed no acute ischemic changes. Troponin is negative. Patient had cardiac catheterization on Oct, 2016 that revealed single visit CAD of the RCA with 10 to 25% stenosis, possibly dilated aortic root. Plan: Cardiac monitoring, serial cardiac enzymes, repeat EKG tomorrow morning. At this time, I do not think patient will need further cardiac work-up if her cardiac enzymes are negative. #3 CAD: Without history of prior cardiac interventions. Plan as above, continue statins, metoprolol and lisinopril. #4 hypertension: Blood pressure stable, continue Norvasc, lisinopril and metoprolol. #5 COPD: Clinically stable, pulse ox is maintained on room air. Plan for albuterol as needed. #6 hyperlipidemia: Continue statins. 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 Plan for 2D echocardiogram as above. #8 DVT prophylaxis on subcu Lovenox. This note was generated with [employer] dictation software. It may contain incorrect words, spelling, and punctuation that were not noted in checking the note before signing. Code Visit OBSV E&M: 30746 Initial observation care L3
[2019-02-11 12:04] LABS: Color, Urine Yellow (Yellow); Glucose, Dipstick Normal (Normal); Ketone-Dipstick Negative (Negative); Leukocyte Esterase-Dipstick 500 /ul (Negative); Nitrite-Dipstick Negative (Negative); Occult Blood-Urine Negative /ul (Negative); Protein-Dipstick Negative (Negative); Urine Bilirubin Dipstick Negative (Negative); Urine Clarity Clear (Clear); Urine Urobilinogen Normal (Normal)
[2019-02-11 12:09] LABS: White Blood Cells 0-5 SEEN /hpf (0-5)
[2019-02-11 12:10] LABS: Bacteria 1+ /hpf (None Seen); Squamous Epithelial Cells - UA 0-5 SEEN /hpf (5-10)
--- NOTE | 2019-02-11 12:19 | CDU_ITS ---
Reason For Study: syncope Rt. Velocities/BP Lt. Velocities/BP Prox CCA 53.9/9.5 cm/sec. Prox CCA 63.0/12.1 cm/sec. Mid CCA 63.0/9.5 cm/sec. Mid CCA 66.9/8.2 cm/sec. Dist CCA 57.8/10.8 cm/sec. Dist CCA 65.6/12.1 cm/sec. Prox ICA 60.4/12.1 cm/sec. Prox ICA 57.8/12.1 cm/sec. Mid ICA 49.9/10.8 cm/sec. Mid ICA 53.8/12.1 cm/sec. Dist ICA 60.4/14.7 cm/sec. Dist ICA 60.4/14.7 cm/sec. Rt. ICA/CCA = 1.0. Lt. ICA/CCA = .9. Prox ECA 104.7 cm/sec. Prox ECA 68.2 cm/sec. Rt. Vert. 53.9/14.7 cm/sec. Lt. Vert. 30.5/8.8 cm/sec. Right Extracranial There is intimal thickening but no significant atherosclerotic plaque noted in the right common carotid artery. There is heterogeneous, irregular atherosclerotic plaque noted in the right internal carotid artery. There is intimal thickening but no significant atherosclerotic plaque noted in the right external carotid artery. Antegrade flow is noted in the right vertebral artery. Left Extracranial There is intimal thickening but no significant atherosclerotic plaque noted in the left common carotid artery. There is intimal thickening but no significant atherosclerotic plaque noted in the left internal carotid artery. There is intimal thickening but no significant atherosclerotic plaque noted in the left external carotid artery. Antegrade flow is noted in the left vertebral artery. Procedure Carotid Duplex 49617. The exam was diagnostic. Exam performed portable in patient room. Interpretation Summary Mild irregular plague right distal common carotid, proximal internal and external carotids. <50% stenosis right internal carotid <50% stenosis right external carotid Intimal thickening left distal common carotid and proximal left internal and external carotids <50% stenosis left internal carotid <50% stenosis left external carotid Patent and antegrade vertebrals bilaterally Ordering Physician: Leydi Castillo Performed By: Jack Etienne RVT
--- NOTE | 2019-02-11 12:19 | ECHOD_ITS ---
Reason For Study: Syncope Procedure This was a 2D Doppler, Color Flow transthoracic echocardiogram. The exam was of adequate technical quality. Exam performed portable in patient room. Left Ventricle Normal LV size. Sigmoid septum. Apical false tendon noted. Left ventricular systolic function is normal. The estimated ejection fraction is 65 %. Diastolic function is indeterminate. Right Ventricle Normal RV size. Normal systolic function. Atria The left atrium is mildly enlarged. Normal right atrium. Prominent eustachian valve. No doppler evidence for ASD. Mitral Valve There is moderate mitral annular calcification. Extension of the mitral annular calcification onto the posterior mitral valve leaflet. Trivial mitral valve insufficiency. Tricuspid Valve Normal tricuspid valve. Trivial tricuspid valve insufficiency. Right ventricular systolic pressure estimated to be 32 mmHg. Aortic Valve Trisinus/trileaflet aortic valve. Normal aortic valve. Pulmonic Valve The pulmonic valve is not well visualized. Trivial pulmonic valve insufficiency. Great Vessels Mildly dilated aortic root. Pericardium/Pleural No pericardial effusion. MMode/2D Measurements & Calculations LVIDd: 3.9 cm IVSd: 1.8 cm Ao root diam: 4.0 cm LVIDs: 1.9 cm LVPWd: 1.1 cm LA dimension: 3.7 cm FS: 50.4 % LAV(MOD-bp): 57.3 ml LA A4 area: 17.5 cm2 RA A4 area: 14.8 cm2 LAV(MOD-bp) Indexed: 30.3 ml/m2 LAV(MOD-sp2): 56.5 ml LAV(MOD-sp4): 50.3 ml Time Measurements MV dec time: 0.21 sec Doppler Measurements & Calculations MV E max kiel: 91.7 cm/sec Lat Peak E' Kiel: 4.5 cm/sec Med Peak E' Kiel: 6.1 cm/sec MV A max kiel: 113.2 cm/sec E/E' lat: 20.6 E/E' med: 15.1 MV E/A: 0.81 MV V2 max: 129.0 cm/sec MV P1/2t max kiel: 124.2 cm/sec Ao V2 max: 113.9 cm/sec MV max P.7 mmHg MV P1/2t: 65.6 msec Ao max P.2 mmHg MV V2 mean: 68.3 cm/sec MV dec slope: 554.7 cm/sec2 MV mean P.3 mmHg MVA(P1/2t): 3.4 cm2 MV V2 VTI: 41.5 cm AI max kiel: 446.5 cm/sec LV V1 max: 100.8 cm/sec MR max kiel: 543.5 cm/sec AI max P.7 mmHg LV V1 max P.1 mmHg MR max P.2 mmHg AI dec slope: 232.5 cm/sec2 AI P1/2t: 562.4 msec PA V2 max: 115.6 cm/sec TR max kiel: 267.5 cm/sec TR max P.7 mmHg Interpretation Summary Left ventricular systolic function is normal. The estimated ejection fraction is 65 %. Sigmoid septum. Apical false tendon noted. The left atrium is mildly enlarged. There is moderate mitral annular calcification. Extension of the mitral annular calcification onto the posterior mitral valve leaflet. Trivial mitral valve insufficiency. Trivial tricuspid valve insufficiency. Trivial pulmonic valve insufficiency. Mildly dilated aortic root. Right ventricular systolic pressure estimated to be 32 mmHg. Diastolic function is indeterminate. Prominent eustachian valve. Ordering Physician: Leydi Castillo Referring Physician: Chase Maxwell M.D. Performed By: Johan Ralph RCS
[2019-02-11] MEDS: 0.9% Normal Saline 1,000 ML 75 ML IV (12:41)
[2019-02-12] VITALS (8 sets, daily range): BP systolic 132–162; BP diastolic 75–105; PULSE 70–141; RESP 18; TEMP 36.6–36.7; O2SAT 95–97
[2019-02-12] MEDS: Enoxaparin 30 MG/0.3 ML Syringe SC (05:01)
--- NOTE | 2019-02-12 05:55 | EKG12_ITS ---
Test Reason : SYNCOPE Blood Pressure : / mmHG Vent. Rate : 076 BPM Atrial Rate : 076 BPM P-R Int : 158 ms QRS Dur : 074 ms QT Int : 366 ms P-R-T Axes : 012 006 056 degrees QTc Int : 411 ms Normal sinus rhythm Possible Inferior infarct , age undetermined Abnormal ECG Confirmed by CHRISTINE ÁLVAREZ ([id number]), research editor SHWETHA UMAÑA ([id number]) on 02/12/2019 1:42:52 PM Referred By: Leydi Castillo Confirmed By:CHRISTINE ÁLVAREZ
--- NOTE | 2019-02-12 07:59 | DCINST_ITS ---
- Discharge Diagnoses Current Active Problems: Current Active and Chronic Problems (Last Updated 02/11/19 @ 11:52 by Leydi Castillo MD) Syncope (Acute) You will use the following diet at home:: Cardiac Your food should be the consistency of: Regular Discharge Activity: Return to Normal Activity Weight Bearing Status: Weight bearing as tolerated Call your doctor if you observe: Fever of 101 or Higher, Shortness of breath, Dizziness, Fainting spells, Chest pain, Increased palpitations (irregular heartbeat), Uncontrolled pain Instructions: Taking Your Blood Pressure, Controlling High Blood Pressure Allergies/Adverse Reactions: Allergies No Known Allergies Allergy (Verified 02/11/19 10:12) Medications to take at Discharge amlodipine 10 mg tablet 10 mg PO DAILY 03/27/18 lisinopril 20 mg tablet 40 mg PO QDAY tab 03/27/18 metoprolol tartrate 50 mg tablet 50 mg PO BID tab 03/27/18 Acetaminophen 500 mg PO PRN PRN 02/11/19 Alendronate Sodium [Fosamax] 70 mg PO Q7D@0700 02/11/19 Aspirin E.C. [Ecotrin] 81 mg PO DAILY@0800 02/11/19 Atorvastatin Calcium [Lipitor] 40 mg PO QHS 02/11/19 Cholecalciferol (VIT D3) [Vitamin D3] 1,000 unit PO DAILYCM 02/11/19 Ferrous Sulfate 325 mg PO DAILYCM 02/11/19 Folic Acid 1 mg PO DAILY 02/11/19 Hydrochlorothiazide [Hctz] 25 mg PO DAILY 02/11/19 Meclizine HCl 25 mg PO TID PRN 02/11/19 Melatonin 5 mg SL QHS PRN 02/11/19 Ondansetron HCl [Zofran] 4 mg PO DAILY PRN 02/11/19 Polyethylene Glycol 3350 [Miralax] 17 gm PO DAILY 02/11/19 Primary Care Physician: Jessica Ingram DO [NON-STAFF] - Please follow up with your Primary Care Physician in: 1 week. Test Results: Test results from this visit will be discussed in further detail at your follow- up appointment, if applicable.
[2019-02-12] MEDS: Lisinopril 40 MG Tablet PO (08:31)
[2019-02-12] MEDS: Ferrous Sulfate 325 MG Tablet PO (08:31)
[2019-02-12] MEDS: amLODIPine 10 MG Tablet PO (08:31)
[2019-02-12] MEDS: Aspirin E.C. 81 MG Tablet PO (08:31)
[2019-02-12] MEDS: Folic Acid 1 MG Tablet PO (08:31)
[2019-02-12] MEDS: Metoprolol Tartrate 50 MG Tablet PO (08:31)
--- NOTE | 2019-02-12 11:46 | PCM.DC.SUM ---
Discharge Date and Diagnosis Date of Admission: 02/11/19 Date of Discharge: 02/12/19 - Primary Discharge Diagnosis #1 syncopal episode, unclear etiology, could be due to vasovagal syncope. #2 intermittent chest pain, ACS ruled out. - Secondary Discharge Diagnosis Chronic Problems (Last Updated 02/11/19 @ 11:52 by Leydi Castillo MD) Atherosclerosis of grayling coronary artery of grayling heart without angina pectoris (Chronic) Essential hypertension (Chronic) Dilated aortic root (Chronic) PSVT (paroxysmal supraventricular tachycardia) (Chronic) COPD (chronic obstructive pulmonary disease) (Chronic) HLD (hyperlipidemia) (Chronic) Hospital Course and Treatment Imaging Results: Clinical Impression(s) from Imaging Studies Brain CT 02/11/19 10:17 IMPRESSION: Chronic involutional changes of the brain. Electronically Signed: Pb Fontaine, at 11:08 EDT , Service support , Chest X-Ray 02/11/19 10:45 IMPRESSION: Hyperinflation. Findings suggestive of mild linear scarring at the lung bases. Electronically Signed: Pb Fontaine, at 11:09 EDT , Service support , Operations: - Procedures: 2-D Echocardiogram, EKG Summary of Care Provided: Patient seen and examined on the day of discharge and appeared to be stable to discharge home. Today, she denies any symptoms. She denies chest pain, shortness of breath, dizziness, lightheadedness, palpitation. Her vital signs have been stable. The patient is a 83 year old F admitted because of syncopal episode for evaluation. Also, she complained of intermittent chest pain that has been going on for some time but not on the day of admission. There was no clear etiology identified for her syncopal episode. Based on her symptoms, her syncopal episode likely cardiogenic and it is unlikely to be neurogenic. No reported seizure activity, tongue biting or incontinence. Her EKG revealed normal sinus rhythm without evidence of cardiac arrhythmias or acute ischemic changes. Troponin was negative. CT scan brain showed no acute findings. Her orthostatic vitals were unremarkable. Her routine blood work was unremarkable. Chest x-ray showed no acute findings. Urinalysis showed no evidence of infection. 2D echocardiogram revealed normal LV size and function, ejection fraction was 65%, mildly dilated aortic root, RVSP of 32, other findings reviewed without evidence of major valvular heart disease that can explain her syncopal episode. Bilateral carotid Doppler revealed less than 50% stenosis of the right and left internal and external carotid arteries. Telemetry showed no evidence of cardiac arrhythmias while patient admitted. Patient had a cardiac catheterization back on Oct, 2016 that showed single-vessel CAD of the RCA with 10 to 25% stenosis. There was no indication to pursue any further cardiac work-up at this time. ACS ruled out. On the day of admission, patient mentioned that she did not take her medication and she did not eat. Her blood sugar was normal on admission. Patient discharged home in a stable medical condition, restarted back on her previous home medications without any changes, recommended to keep close monitoring of her blood pressure and heart rate, follow-up with PCP in 1 week. - Physical Exam General: Alert, Oriented x3, Cooperative, No apparent distress HEENT: Atraumatic, PERRLA, EOMI, Normocephalic Oral: Moist Mucosa, No Gingival or Mucosal Lesions/ Ulcerations Neck: Supple, No JVD, Negative Carotid Bruits, Trachea Midline, Thyroid Normal Size and Texture Lungs: Clear to auscultation, Normal air movement, No rhonchi, No wheeze, No rales, Diminished Cardiovascular: Regular rate, Regular Rhythm, Normal S1, Normal S2, PMI Normal Abdomen: Bowel Sounds Present, Soft, Non Tender, Non-Distended, No Hepato-splenomegaly Extremities: No clubbing, No cyanosis, No edema Skin: No rashes, No breakdown Lymphatic: No Cervical, Supraclavicular, or Inguinal Adenopathy Neurological: Cranial nerves II-XII grossly intact, Motor Exam 5/5 strength throughout Psych/Mental Status: Normal Affect, Appropriate, Alert and oriented to time, place, person, mood and affect Vital Signs Temp Pulse Resp BP Pulse Ox 98.1 F 106 H 18 144/105 H 97 02/12/19 08:30 02/12/19 08:31 02/12/19 08:30 02/12/19 08:30 02/12/19 08:30 Oxygen Delivery Method Room Air Weight: 176 lb 9.444 oz Body Mass Index (BMI) 26.8 Intake and Output for Last 24 Hours 02/10/19 02/11/19 02/12/19 23:59 23:59 23:59 Intake Total 1240 / 1480 1480 / 1480 Balance 1240 / 1480 1480 / 1480 Laboratory Tests Past 24 Hrs 02/11/19 02/11/19 02/11/19 11:33 13:02 16:08 Troponin I < 0.015 < 0.015 Urine Color Yellow Urine Clarity Clear Urine pH 8.0 Ur Specific [place] 1.010 Urine Protein Negative Urine Glucose (UA) Normal Urine Ketones Negative Urine Occult Blood Negative Urine Nitrite Negative Urine Bilirubin Negative Urine Urobilinogen Normal Ur Leukocyte Esterase 500 H Urine RBC 0 SEEN Urine WBC 0-5 SEEN Ur Squamous Epith Cells 0-5 SEEN Urine Bacteria 1+ Urine Mucus 0 SEEN Discharge Activity: Return to Normal Activity Weight Bearing Status: Weight bearing as tolerated Call your doctor if you observe: Fever of 101 or Higher, Shortness of breath, Dizziness, Fainting spells, Chest pain, Increased palpitations (irregular heartbeat), Uncontrolled pain Home Medications: Medications to take at Discharge amlodipine 10 mg tablet 10 mg PO DAILY 03/27/18 lisinopril 20 mg tablet 40 mg PO QDAY tab 03/27/18 metoprolol tartrate 50 mg tablet 50 mg PO BID tab 03/27/18 Acetaminophen 500 mg PO PRN PRN 02/11/19 Alendronate Sodium [Fosamax] 70 mg PO Q7D@0702/11/19 Aspirin E.C. [Ecotrin] 81 mg PO DAILY@0802/11/19 Atorvastatin Calcium [Lipitor] 40 mg PO QHS 02/11/19 Cholecalciferol (VIT D3) [Vitamin D3] 1,000 unit PO DAILYCM 02/11/19 Ferrous Sulfate 325 mg PO DAILYCM 02/11/19 Folic Acid 1 mg PO DAILY 02/11/19 Hydrochlorothiazide [Hctz] 25 mg PO DAILY 02/11/19 Meclizine HCl 25 mg PO TID PRN 02/11/19 Melatonin 5 mg SL QHS PRN 02/11/19 Ondansetron HCl [Zofran] 4 mg PO DAILY PRN 02/11/19 Polyethylene Glycol 3350 [Miralax] 17 gm PO DAILY 02/11/19 Primary Care Physician: Jessica Ingram DO [NON-STAFF] - Please follow up with your Primary Care Physician in: 1 week. Patient Instructions: Controlling High Blood Pressure, Taking Your Blood Pressure Disposition: Home Minutes spent on discharge:: 25 Patient Condition:: Stable Medical Necessity - Tobacco Use Smoking Status: Former smoker Meaningful Use Info Meaningful Use Diagnoses (Choose all that apply): None applicable Code Visit OBSV E&M: 77538 Observation care discharge
== END 2019-02-12 08:00 | disposition home or self-care (01) ==
LOC: ED 11:22 → PCU 11:42
PROVIDERS: Admitting Provider Hospitalist; Emergency Provider Emergency Medicine; Family Provider Internal Medicine; PCP Internal Medicine; Referring Provider Hospitalist; Visit Provider Hospitalist
DX: R55 Syncope and collapse (principal); R07.89 Other chest pain; I25.10 Atherosclerotic heart disease of native coronary artery without angina pectoris; I10 Essential (primary) hypertension; J44.9 Chronic obstructive pulmonary disease, unspecified; E78.5 Hyperlipidemia, unspecified; R94.31 Abnormal electrocardiogram [ECG] [EKG]; I08.1 Rheumatic disorders of both mitral and tricuspid valves; I47.1 Supraventricular tachycardia; I77.819 Aortic ectasia, unspecified site; Z79.899 Other long term (current) drug therapy; Z79.82 Long term (current) use of aspirin; Z87.891 Personal history of nicotine dependence
CPT/HCPCS: 36415; 70450; 71045; 80053; 81001; 84484; 85025; 93005; 93306; 93880; 96361; 96372; 96374; 99218; 99285; J7030; A4216; G0378; J2405

== ENCOUNTER 2019-06-20 15:55 | Emergency (ER) | payer MEDICARE, SELFPAY ==
[2019-06-20 15:55] VITALS: BMI 29.0
[2019-06-20 15:56] VITALS: BP 149/107; PULSE 76; RESP 16; TEMP 36.7; O2SAT 93; BMI 30.7
--- NOTE | 2019-06-20 16:02 | RAD_ITS ---
STUDY: X-RAY CHEST REASON FOR EXAM: Female, 84 years old. Productive cough, shortness of breath TECHNIQUE: PA and lateral views of the chest. COMPARISON: February 11, 2019, November 03, 2016 FINDINGS: The lungs are clear and expanded. There is no demonstrated pleural abnormality. Normal size heart. Normal mediastinum and neymar. Normal visualized pulmonary arteries. Normal visualized aortic arch and descending thoracic aorta. There are diffuse degenerative changes of the visualized thoracic spine. Normal visualized ribs, clavicles, and shoulders. There is no demonstrated abnormality of the visualized soft tissue structures of the upper abdomen. RAD/Chest PA and Lateral IMPRESSION: Lung markings are stable. There is no visualized acute focal infiltrate. Electronically Signed: Alana Alanis MD at 16:22 EST Tel , Service support ,
--- NOTE | 2019-06-20 16:52 | ED.DCSUM_ITS ---
- ER Visit Summary Date of Service: 06/20/19 Chief Complaint: Shortness of breath History of Present Illness: The patient is a 84 F who presents with shortness of breath that began today. Patient states it has been waxing and waning throughout the day. Patient states she did have some slight pain in her chest earlier today but states this has resolved. Patient states it only lasted a few minutes. Patient states nothing makes her chest pain or breathing any worse or any better. Patient admits to a recent upper respiratory infection. Patient has been using Flonase with minimal relief. Patient denies any cough. Patient states she does have a history of COPD. Physical Examination: Vital signs are stable. Patient is afebrile. Patient is in no acute distress. Oral mucosa is pink and moist. Neck is supple. Trachea is midline. There is no JVD. Heart was regular rate and rhythm. Lungs are clear and equal bilaterally. Abdomen is soft. Bowel sounds are normal. There is no tenderness. Cranial nerves II through XII are intact. There are no focal motor or sensory deficits noted. Test Results: PA and lateral chest x-ray was obtained. There is no acute cardiopulmonary process. This was interpreted by the radiologist and myself. Emergency Department Course and Treatment: Patient was given an albuterol inhaler prescription. Patient was instructed to follow-up with her primary care physician in 5 to 7 days. Patient and family understood and were agreeable with the plan. All questions were answered. Disposition: Discharge home Impression: 1. Viral upper respiratory infection 2. COPD This note was generated with [employer] dictation software. It may contain incorrect words, spelling, and punctuation that were not noted in review of the chart prior to signing ED Disposition - Plan for ED Patient: Disposition: Home or Assisted Living Diagnosis: Viral upper respiratory infection, COPD (chronic obstructive pulmonary disease) Instructions: Copd Flare, URI, Viral, No Abx (Adult) Prescriptions: Albuterol Inhaler [Ventolin Hfa] 1 - 2 puff INHALATION Q4H PRN PRN #1 inhaler PRN Reason: Wheezing Prescription Printed Referrals: Chase Maxwell MD [Primary Care Provider] - 5-7 Days
[2019-06-20 17:07] VITALS: RESP 18
== END 2019-06-20 17:10 | disposition home or self-care (01) ==
PROVIDERS: Emergency Provider Emergency Medicine; Family Provider Internal Medicine; PCP Internal Medicine
DX: J44.9 Chronic obstructive pulmonary disease, unspecified (principal); J06.9 Acute upper respiratory infection, unspecified; I10 Essential (primary) hypertension; M81.0 Age-related osteoporosis without current pathological fracture; Z79.82 Long term (current) use of aspirin; Z79.899 Other long term (current) drug therapy
CPT/HCPCS: 71046; 99282

== ENCOUNTER 2020-05-20 20:16 | Emergency (ER) | payer MEDICARE, MEDICAID, SELFPAY ==
[2020-05-20 20:17] VITALS: BP 115/67; PULSE 88; RESP 16; TEMP 36.6; O2SAT 97; BMI 29.0
--- NOTE | 2020-05-20 20:43 | CT_ITS ---
HISTORY: FALL S/P FALL, CHEST PAIN, COVID+ TECHNIQUE: Helically acquired images were obtained of the chest. A radiation dose optimization technique was used for this scan. IV Contrast dosage and agent: None. COMPARISON: Most recent chest x-ray is from about [address] earlier[address] recent [address] scan is from August 07, 2018. Chest CT before that is from July 09, 2017. CT scan of the chest before that is from August 03, 2013. FINDINGS: # of images incl. paperwork: [id number] LUNGS AND LARGE AIRWAYS: Trace dependent atelectasis is present and is similar. Minimal scarring within the lingula is similar. Overall lungs are slightly hyperexpanded. No pulmonary contusion. No pneumonia. PLEURA: No pleural effusions. No pneumothorax. BONES: Chronic mild kyphosis persists. Superior endplate insufficiency fracture at the L1 level is chronic. On the lowest portion of the study, within the L3 vertebral body, which is not been imaged on any of the previous CT scans of the chest, there is a sclerotic focus measuring 2.1 cm within the anterior aspect of the superior portion of the L3 vertebral body that is incompletely imaged. It does not appear to be destructive. It is not expansile. It has fairly well-defined margins. There is no soft tissue component. Many enthesophytes are present at the intervertebral disc spaces. These are greater on the right than the left, away from the pulsation to the descending thoracic aorta. Facet arthropathy is present. There may be some ankylosing to the facet joints within the upper thoracic spine. HEART AND PERICARDIUM: The heart is not enlarged. A tiny pericardial effusion is present. Coronary artery calcific ASCVD is present VESSELS: Elongation of the thoracic aorta with atherosclerotic plaque, but without aneurysm MEDIASTINUM AND MATY: Some mediastinal lymph nodes but these are not pathologic by size or number. Is very small hiatal hernia. SOFT TISSUES: Included thyroid gland is unremarkable. There is no axillary, supraclavicular or lower cervical adenopathy. UPPER ABDOMEN: Cholecystectomy clips. CT/Chest without Contrast IMPRESSION: No acute disease perceived. Within the L3 vertebral body, which has not been imaged on any of the patient's previous chest CTs there is a 2.1 cm sclerotic focus of unknown etiology, but has a benign appearance. Individualized dose optimization techniques were used for this CT. at 2127 Reported and signed by: Sajan Beckwith MD Electronically Signed: Sajan Beckwith MD at 21:26 EST Tel , Service support ,
[2020-05-20] MEDS: oxyCODONE 5 MG Tablet PO (21:01)
--- NOTE | 2020-05-20 21:11 | ED.DCSUM_ITS ---
- ER Visit Summary Date of Service: 05/20/20 Chief Complaint: Left chest wall pain History of Present Illness: The patient is a 85 F who presents with left chest wall pain. She states that earlier today she tripped and fell. She landed on her left-hand side. She is having pain in the left chest wall area. She denies any her head or having any LOC. Pain is worse when she breathes on the left- hand side of her chest wall. She took nothing for this pain at home. She went to [facility] where she had x-rays which were negative and she was discharged home with what sounds like Lidoderm patches. She then came here for a second opinion. She is having no abdominal pain. She denies any back or neck pain. Physical Examination: Vital signs reviewed. HEENT exam unremarkable. Heart is regular rate and rhythm without murmurs. Lungs are clear to auscultation. Her chest is tender in the left upper anterior and lateral chest wall area. No ecchymosis is seen. Abdomen is soft and nontender. Extremities reveal no edema. Skin exam normal. Neurologic exam normal. Test Results: CT of the chest shows chronic changes of the vertebral spine. There are no rib fractures seen. Emergency Department Course and Treatment: Patient was given oxycodone for pain control. Her pain is improved with this. I do not see any acute traumatic injury on imaging. Patient does have Lidoderm patches that she can use at home. I feel that this is appropriate. I do not feel that narcotics would be great since she is already a fall risk. Patient will call her doctor tomorrow for follow-up Treatment Plan: [] Disposition: Discharge Impression: Chest wall contusion This note was generated with [employer] dictation software. It may contain incorrect words, spelling, and punctuation that were not noted in review of the chart prior to signing ED Disposition - Plan for ED Patient: Disposition: Home or Assisted Living Instructions: ED Chest Wall Contusion Referrals: Chase Maxwell MD [Primary Care Provider] -
[2020-05-20 22:00] VITALS: BP 116/71; PULSE 78; RESP 16; O2SAT 98
== END 2020-05-20 22:01 | disposition home or self-care (01) ==
PROVIDERS: Emergency Provider Emergency Medicine; PCP Internal Medicine
DX: S20.219A Contusion of unspecified front wall of thorax, initial encounter (principal); W01.0XXA Fall on same level from slipping, tripping and stumbling without subsequent striking against object, initial encounter; Y93.9 Activity, unspecified; Y92.9 Unspecified place or not applicable; Y99.9 Unspecified external cause status; Z79.82 Long term (current) use of aspirin; Z79.899 Other long term (current) drug therapy
CPT/HCPCS: 71250; 99283

== ENCOUNTER 2021-01-21 17:45 | Emergency (ER) | payer MEDICARE, MEDICAID, SELFPAY ==
[2021-01-21 17:46] VITALS: BP 161/76; PULSE 97; RESP 18; TEMP 36.3; O2SAT 91; BMI 26.1
[2021-01-21 17:47] VITALS: BP 161/76; PULSE 97; RESP 18; TEMP 36.3; O2SAT 91
[2021-01-21 18:29] VITALS: O2SAT 93
[2021-01-21 19:39] VITALS: PULSE 77; O2SAT 98
--- NOTE | 2021-01-21 19:45 | EKG12_ITS ---
Test Reason : SOB Blood Pressure : / mmHG Vent. Rate : 085 BPM Atrial Rate : 074 BPM P-R Int : 178 ms QRS Dur : 080 ms QT Int : 380 ms P-R-T Axes : 074 -06 062 degrees QTc Int : 452 ms Sinus rhythm with Premature supraventricular complexes Inferior infarct , age undetermined Abnormal ECG Confirmed by DONNIE MARSHALL, DARIEN ([id number]), editor newspaper BRUNO HARRISON ([id number]) on 01/25/2021 9:13:16 AM Referred By: Confirmed By:DARIEN FIELDS MD
--- NOTE | 2021-01-21 19:47 | EX.ED.DYSGE1 ---
HPI History of Present Illness Chief Complaint: Cold Sx Informant: patient Narrative Narrative: 85-year-old female presents to the emergency department stating that she does not feel well. States that yesterday she felt lightheaded when she woke today she had clear rhinorrhea. She notes that her voice seems different. She states that she has not had much of a cough. No reported fevers. No diarrhea or headache. No earache. No sore throat. She states that she continues to feel like she may pass out. She occasionally gets nauseous. She was recently admitted at [place] for pulmonary embolism. No chest pain. 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 COPD (chronic obstructive pulmonary disease) Essential hypertension PSVT (paroxysmal supraventricular tachycardia) Pulmonary air embolism Pure hypercholesterolemia Home Medications amlodipine 10 mg tablet 10 mg PO DAILY 03/27/18 [History Last Taken Unknown] lisinopril 20 mg tablet 40 mg PO QDAY tab 03/27/18 [History Last Taken Unknown] metoprolol tartrate 50 mg tablet 50 mg PO BID tab 03/27/18 [History Last Taken Unknown] alendronate 70 mg PO Q7D@0700 02/11/19 [History Last Taken Unknown] aspirin 81 mg PO DAILY@0800 02/11/19 [History Last Taken Unknown] atorvastatin 40 mg PO QHS 02/11/19 [History Last Taken Unknown] cholecalciferol (vitamin D3) 1,000 unit PO DAILYCM 02/11/19 [History Last Taken Unknown] ferrous sulfate 325 mg PO DAILYCM 02/11/19 [History Last Taken Unknown] folic acid 1 mg PO DAILY 02/11/19 [History Last Taken Unknown] hydrochlorothiazide 25 mg PO DAILY 02/11/19 [History Last Taken Unknown] meclizine 25 mg PO TID PRN 02/11/19 [History Last Taken Unknown] melatonin 5 mg SL QHS PRN 02/11/19 [History Last Taken Unknown] ondansetron HCl 4 mg PO DAILY PRN 02/11/19 [History Last Taken Unknown] albuterol sulfate 1 - 2 puff INHALATION Q4H PRN PRN #1 inhaler 06/20/19 [Rx Last Taken Unknown] ondansetron 4 mg PO Q6H PRN PRN #10 tab 01/21/21 [Rx Last Taken Unknown] Allergy/AdvReac Type Severity Reaction Status Date / Time No Known Allergies Allergy Verified 01/21/21 17:47 Surgical History S/p left hip fracture (~2017) Social History Smoking Status: Never smoker caffeine: Yes Type: carbonated beverages, coffee and tea ROS ROS ED Constitutional Constitutional ED: Denies chills or weight loss Eyes Eyes: Denies change in vision or diplopia ENT ENT ED: Reports rhinorrhea; Denies ear pain or sore throat Cardiovascular Cardiovascular: Reports other Details: Intermittent near syncope ; Denies chest pain, orthopnea, palpitations or racing heartbeat Respiratory/Chest Respiratory/Chest: Denies cough, dyspnea or orthopnea Gastrointestinal Gastrointestinal: Reports nausea; Denies abdominal pain, diarrhea or vomiting Genitourinary Genitourinary ED: Denies dysuria, hematuria or urinary frequency Musculoskeletal Musculoskeletal: Denies arthralgias or myalgias Integumentary Denies abscess or rash Neurologic Neurologic: Denies headache(s) or weakness Psychiatric Psychiatric: Denies anxiety, depression, suicidal ideation or suicidal thoughts Endocrine Endocrinology: Denies polydipsia, polyphagia or polyuria Allergic/Immunologic Allergic/Immunologic ED: Denies mouth swelling, tongue swelling or urticaria EXAM Physical Exam Const Vital Signs: 01/21/21 17:46 01/21/21 17:47 01/21/21 18:29 Temperature 97.3 F L 97.3 F L Temperature Source Temporal Temporal Pulse Rate 97 97 Pulse Rate [Lying] Pulse Rate [Sitting] Pulse Rate [Standing] Respiratory Rate 18 18 Respiratory Effort Normal Respiratory Depth Normal Respiratory Pattern Normal Blood Pressure 161/76 H 161/76 H Blood Pressure [Lying] Blood Pressure [Sitting] Blood Pressure [Standing] Blood Pressure Mean 104 104 Blood Pressure Mean [Lying] Blood Pressure Mean [Sitting] Blood Pressure Mean [Standing] Pulse Ox 91 91 Oxygen Delivery Method Room Air Room Air Room Air 01/21/21 19:39 01/21/21 20:49 Temperature Temperature Source Pulse Rate 77 Pulse Rate [Lying] 79 Pulse Rate [Sitting] 75 Pulse Rate [Standing] 75 Respiratory Rate Respiratory Effort Respiratory Depth Respiratory Pattern Blood Pressure Blood Pressure [Lying] 166/98 H Blood Pressure [Sitting] 157/90 H Blood Pressure [Standing] 154/83 H Blood Pressure Mean Blood Pressure Mean [Lying] 120 Blood Pressure Mean [Sitting] 112 Blood Pressure Mean [Standing] 106 Pulse Ox 98 Oxygen Delivery Method Room Air Positive well nourished and well developed General Appearance ED: well developed HEENT Reports normocephalic, head/scalp atraumatic, TM's clear and moist mucous membranes HEENT Narrative: Turbinate edema with clear rhinorrhea Tympanic Membrane ED: Yes TM's clear Eyes PERRL and EOMs intact bilaterally Neck no lymphadenopathy, supple and no JVD Resp normal respiratory effort and clear to auscultation bilaterally Cardio regular rate, regular rhythm and no murmurs GI normal to inspection, nondistended, normoactive bowel sounds and non-tender Palpation: soft Back/Spine no CVA tenderness and normal ROM Extremity normal to inspection General Extremety ED: Negative for edema General Extremity: Negative for edema Neuro oriented x3 and CN's II-XII intact bilaterally Sensorium / Orientation: alert Motor Exam: strength 5/5 throughout Psych mental status grossly normal Mood & Affect: Negative for depressed or tearful Skin no rashes or lesions noted and no wounds MDM MDM MDM Narrative Medical decision making narrative: Patient white count is slightly elevated at 12.1. BMP negative. Troponin 8.9. Chest x-ray is clear. Covid test is negative. She is orthostatic negative. No events on the monitor. This point patient will be discharged home. Lab Data Attestation: I reviewed the patient's lab results. Labs: Laboratory Results - last 24 hr 01/21/21 01/21/21 18:47 18:47 WBC 12.1 H RBC 6.24 H Hgb 17.0 H Hct 54.1 H MCV 86.7 MCH 27.2 MCHC 31.4 L RDW Std Deviation 66.3 H RDW Coeff of Ema 21.8 H Plt Count 416 MPV 10.4 Immature Gran % (Auto) 0.600 Neut % (Auto) 83.0 H Lymph % (Auto) 8.8 L [place] % (Auto) 6.1 Eos % (Auto) 1.1 Baso % (Auto) 0.4 Absolute Neuts (auto) 10.0 H Absolute Lymphs (auto) 1.06 Nucleated RBC % 0 Platelet Estimate ADEQUATE RBC Morphology N CHROM Anisocytosis 1+ Ovalocytes 1+ Sodium 141 Potassium 3.5 Chloride 109 H Carbon Dioxide 25.0 Anion Gap 7 BUN 16 Creatinine 0.93 Estim Creat Clear Calc 42.91 Est GFR (MDRD) Af Amer 74 Est GFR (MDRD) Non-Af 61 BUN/Creatinine Ratio 17.2 Glucose 110 H Calcium 9.2 Troponin I High Sens 8.9 Radiography Diagnostic Testing: Radiology Impression Chest X-Ray 01/21/21 20:05 IMPRESSION: No radiographic evidence of acute cardiopulmonary disease. at 2053 Reported and signed by: Jason Mccloud MD Electronically Signed: Jason Mccloud MD at 20:52 EDT Tel , Service support , EKG Initial EKG: Attestation: I personally reviewed and interpreted this EKG as follows: Comments: Sinus rhythm with PAC with a ventricular rate of 85 bpm Discharge Plan Triage Chief Complaint: Cold Sx ED Provider: Jc Hess Dx/Rx/DC Orders Clinical Impression: Nausea, Near syncope, Viral URI Instructions: ED URI, Viral, No Abx (Adult) Prescriptions: New ondansetron [ondansetron] 4 MG tablet 4 mg PO Q6H PRN PRN (Reason: Nausea) Qty: 10 RF: 0 No Action lisinopril 20 mg tablet 40 mg PO QDAY RF: 0 amlodipine 10 mg tablet 10 mg PO DAILY RF: 0 metoprolol tartrate 50 mg tablet 50 mg PO BID RF: 0 ondansetron HCl 4 MG tablet 4 mg PO DAILY PRN (Reason: Nausea) RF: 0 aspirin 81 MG tablet 81 mg PO DAILY@0800 RF: 0 meclizine 25 MG tablet 25 mg PO TID PRN (Reason: Dizziness) RF: 0 hydrochlorothiazide 25 MG tablet 25 mg PO DAILY RF: 0 atorvastatin 40 MG tablet 40 mg PO QHS RF: 0 alendronate 70 MG tablet 70 mg PO Q7D@0700 RF: 0 ferrous sulfate 325 MG tablet 325 mg PO DAILYCM RF: 0 folic acid 1 MG tablet 1 mg PO DAILY RF: 0 cholecalciferol (vitamin D3) 1,000 UNIT tablet 1,000 unit PO DAILYCM RF: 0 melatonin 5 MG tablet, sublingual 5 mg SL QHS PRN (Reason: Insomnia) RF: 0 albuterol sulfate 1 INHALER inhaler 1 - 2 puff inhalation Q4H PRN PRN (Reason: Wheezing) Qty: 1 RF: 0 Primary Care Provider: Chase Maxwell Referrals: Chase Maxwell MD [Primary Care Provider] - 1 Week if not improving Disposition Disposition: Home, Self Care
[2021-01-21 20:01] LABS: Absolute Lymphocyte Count 1.06 X10^3/uL (0.83-4.51); Basophil# 0.05 X10^3/uL; Basophil% 0.4 % (0-1); Eosinophil# 0.13 X10^3/uL; Eosinophils% 1.1 % (0-5); Hematocrit 54.1 % (37-47); Lymphocyte # 1.06 X10^3/ul (0.83-4.51); Lymphocyte % 8.8 % (19-41); Mean Corp Hgb Conc 31.4 g/dL (32-36); Mean Corpuscular Hgb 27.2 pg (27.0-32.0); Mean Corpuscular Volume 86.7 fL (81-99); Mean Platelet Vol. 10.4 fl (6.2-12.0); Monocyte# 0.74 X10^3/uL; Monocyte% 6.1 % (0-10); NRBC Flagged by Analyzer 0 % (0-5); Neutrophil # 10.01 X10^3/uL (2.7-7.7); POSITIVE MORPHOLOGY YES; Platelet Count 416 K/mm3 (150-450); RBC Distribution Width CV 21.8 % (11.6-14.6); RBC Distribution Width SD 66.3 fl (35.1-43.9); Red Blood Count 6.24 M/mm3 (4.2-5.4); White Blood Count 12.1 K/mm3 (4.4-11.0)
--- NOTE | 2021-01-21 20:05 | RAD_ITS ---
HISTORY: near syncope EXAMINATION/TECHNIQUE: XR Chest 1 View: Portable upright AP chest x-ray COMPARISON: 06/20/19 FINDINGS: LINES/DEVICES: None. LUNGS: Stable coarsening of interstitial markings. No airspace disease, consolidations or pleural effusion. MEDIASTINUM AND CARDIOVASCULAR STRUCTURES: Cardiac silhouette not enlarged. Central airways and mediastinal contour are unremarkable. BONES AND SOFT TISSUES: No acute bony abnormalities. RAD/Chest 1 View (Portable) IMPRESSION: No radiographic evidence of acute cardiopulmonary disease. at 2053 Reported and signed by: Jason Mccloud MD Electronically Signed: Jason Mccloud MD at 20:52 EDT Tel , Service support ,
[2021-01-21] MEDS: Ondansetron 4 MG/2 ML Vial IV (20:08)
[2021-01-21 20:11] LABS: Differential Indicated SCAN CRITERIA MET
[2021-01-21 20:15] LABS: Anion Gap 7 (5-15); BUN 16 mg/dL (7-18); BUN/Creat Ratio 17.2 RATIO (10-20); Calcium,Total 9.2 mg/dL (8.5-10.1); Chloride 109 mmol/L (98-107); Creatinine, Serum 0.93 mg/dL (0.55-1.02); EST Glomerular Filtration Rate 61 mL/min (>60); Est Glom Filt Rate - Afr Amer 74 mL/min (>60); Estimated Creatinine Clearance 42.91 ml/min; Glucose 110 mg/dL (74-106); Potassium 3.5 mmol/L (3.5-5.1); Sodium Level 141 mmol/L (136-145); Troponin-I HS 8.9 pg/mL (3.0-53.7)
[2021-01-21 20:49] VITALS: BP 154/83; BP 157/90; BP 166/98; PULSE 75; PULSE 79
[2021-01-21 20:57] LABS: Anisocytosis 1+; Ovalocyte 1+; Platelet Estimate ADEQUATE (ADEQ); Red Cell Morphology N CHROM NORMAL (NORM C&C)
== END 2021-01-21 21:27 | disposition home or self-care (01) ==
PROVIDERS: Emergency Provider Emergency Medicine; PCP Internal Medicine
DX: R11.0 Nausea (principal); R55 Syncope and collapse; J06.9 Acute upper respiratory infection, unspecified; R42 Dizziness and giddiness; Z20.822 Contact with and (suspected) exposure to COVID-19; D72.829 Elevated white blood cell count, unspecified; J34.89 Other specified disorders of nose and nasal sinuses; I25.10 Atherosclerotic heart disease of native coronary artery without angina pectoris; I10 Essential (primary) hypertension; I47.1 Supraventricular tachycardia; E78.00 Pure hypercholesterolemia, unspecified; J44.9 Chronic obstructive pulmonary disease, unspecified; Z79.82 Long term (current) use of aspirin; Z79.899 Other long term (current) drug therapy; Z86.711 Personal history of pulmonary embolism
CPT/HCPCS: 71045; 80048; 84484; 85025; 87426; 87804; 93005; 96374; 99285; A4216; J2405

== ENCOUNTER 2021-02-03 10:36 | Emergency (ER) | payer MEDICARE, MEDICAID, SELFPAY ==
[2021-02-03 10:38] VITALS: BP 154/84; PULSE 62; RESP 16; TEMP 36.1; O2SAT 100; BMI 27.1
--- NOTE | 2021-02-03 11:42 | RAD_ITS ---
STUDY: X-RAY - RIGHT TIBIA AND FIBULA REASON FOR EXAM: Female, 85 years old. Fall TECHNIQUE: 2 view(s) of the tibia and fibula were obtained. COMPARISON: None. FINDINGS: Normal visualized tibia. Normal visualized fibula. Soft tissue swelling. RAD/Tibia & Fibula 2 Views IMPRESSION: Soft tissue swelling. Electronically Signed: bP Fontaine MD at 11:56 EDT , Service support ,
--- NOTE | 2021-02-03 11:43 | ED.VIS.FALL ---
HPI HPI - Fall History of Present Illness Chief Complaint: Fall Informant: patient and family Narrative Narrative: Patient is an 85-year-old female with a past medical history of blood clots on with a believed to be Eliquis. She presents to the emergency department after a fall injuring her right busby. This fall occurred this past Sunday. She has been able to ambulate but that has been painful to do so. She has not otherwise been treating it with anything. There has been swelling to the anterior part of the busby as well as bruising. She denies any calf pain. No weakness or loss of sensation going down the leg. She has a small skin tear to the left forearm but otherwise denies any other injury. She denies hitting her head or losing consciousness. PFSH [facility] Medical History Ascending aorta dilatation Atherosclerosis of [place] coronary artery of [place] heart without angina pectoris COPD (chronic obstructive pulmonary disease) Essential hypertension PSVT (paroxysmal supraventricular tachycardia) Pulmonary air embolism Pure hypercholesterolemia Home Medications amlodipine 10 mg tablet 10 mg PO DAILY 03/27/18 [History Last Taken Unknown] lisinopril 20 mg tablet 40 mg PO QDAY tab 03/27/18 [History Last Taken Unknown] metoprolol tartrate 50 mg tablet 50 mg PO BID tab 03/27/18 [History Last Taken Unknown] alendronate 70 mg PO Q7D@0700 02/11/19 [History Last Taken Unknown] aspirin 81 mg PO DAILY@0800 02/11/19 [History Last Taken Unknown] atorvastatin 40 mg PO QHS 02/11/19 [History Last Taken Unknown] cholecalciferol (vitamin D3) 1,000 unit PO DAILYCM 02/11/19 [History Last Taken Unknown] ferrous sulfate 325 mg PO DAILYCM 02/11/19 [History Last Taken Unknown] folic acid 1 mg PO DAILY 02/11/19 [History Last Taken Unknown] hydrochlorothiazide 25 mg PO DAILY 02/11/19 [History Last Taken Unknown] meclizine 25 mg PO TID PRN 02/11/19 [History Last Taken Unknown] melatonin 5 mg SL QHS PRN 02/11/19 [History Last Taken Unknown] ondansetron HCl 4 mg PO DAILY PRN 02/11/19 [History Last Taken Unknown] albuterol sulfate 1 - 2 puff INHALATION Q4H PRN PRN #1 inhaler 06/20/19 [Rx Last Taken Unknown] ondansetron 4 mg PO Q6H PRN PRN #10 tab 01/21/21 [Rx Last Taken Unknown] Allergy/AdvReac Type Severity Reaction Status Date / Time No Known Allergies Allergy Verified 02/03/21 10:37 Surgical History S/p left hip fracture (~2017) Social History Smoking Status: Never smoker caffeine: Yes Type: carbonated beverages, coffee and tea ROS ROS ED Constitutional Constitutional ED: Denies chills or fever(s) ENT ENT ED: Denies epistaxis Cardiovascular Cardiovascular: Denies chest pain Respiratory/Chest Respiratory/Chest: Denies cough or dyspnea Gastrointestinal Gastrointestinal: Denies abdominal pain, nausea or vomiting Musculoskeletal Musculoskeletal: Reports myalgias; Denies back pain or neck pain Integumentary Reports Abrasions; Denies rash Neurologic Neurologic: Denies dizziness, headache(s) or weakness EXAM Physical Exam Const Vital Signs: 02/03/21 10:38 Temperature 97.0 F L Temperature Source Temporal Pulse Rate 62 Respiratory Rate 16 Blood Pressure 154/84 H Blood Pressure Mean 107 Pulse Ox 100 Oxygen Delivery Method Room Air Positive well nourished and well developed General Appearance ED: well developed and NAD HEENT Reports normocephalic, head/scalp atraumatic and moist mucous membranes Eyes PERRL and EOMs intact bilaterally Neck supple General: Negative for tenderness Chest Wall inspection of chest normal Resp normal respiratory effort and clear to auscultation bilaterally Auscultation: Negative for rales, rhonchi or wheezes Cardio regular rate, regular rhythm and no murmurs GI normal to inspection, nondistended, normoactive bowel sounds and non-tender Palpation: soft; Negative for guarding or rebound tenderness present Extremity full ROM Neuro no sensory deficits noted Sensorium / Orientation: alert Motor Exam: strength 5/5 throughout Psych mental status grossly normal Skin Skin Narrative: Bruising with mild swelling to the right anterior busby. This is tender to touch. No signs of infection including cellulitis or abscess. This is consistent with previous hematoma/ecchymosis. MDM MDM MDM Narrative Medical decision making narrative: Patient presents the ED for a fall injuring her right busby on blood thinners. This fall occurred 5 days ago. Will check x-ray as the family was concerned she broke this. I believe that this is most likely a contusion given the trauma on the blood thinners. Low concern for blood clot. Will recommend symptomatic treatment with compression, ice, elevation and Tylenol. X-ray did not reveal any evidence of trauma to the bones. This time will recommend symptomatic treatment. Return precautions are reviewed with her. She is to follow-up with her PCP. All questions were answered. Radiography Diagnostic Testing: Radiology Impression Tibia/Fibula X-Ray 02/03/21 11:42 IMPRESSION: Soft tissue swelling. Electronically Signed: Pb Fontaine MD at 11:56 EDT , Service support , Discharge Plan Triage Chief Complaint: Fall ED Provider: Chema Vila Dx/Rx/DC Orders Clinical Impression: Contusion Instructions: Bruises (Contusions) Prescriptions: No Action lisinopril 20 mg tablet 40 mg PO QDAY RF: 0 amlodipine 10 mg tablet 10 mg PO DAILY RF: 0 metoprolol tartrate 50 mg tablet 50 mg PO BID RF: 0 ondansetron HCl 4 MG tablet 4 mg PO DAILY PRN (Reason: Nausea) RF: 0 aspirin 81 MG tablet 81 mg PO DAILY@0800 RF: 0 meclizine 25 MG tablet 25 mg PO TID PRN (Reason: Dizziness) RF: 0 hydrochlorothiazide 25 MG tablet 25 mg PO DAILY RF: 0 atorvastatin 40 MG tablet 40 mg PO QHS RF: 0 alendronate 70 MG tablet 70 mg PO Q7D@0700 RF: 0 ferrous sulfate 325 MG tablet 325 mg PO DAILYCM RF: 0 folic acid 1 MG tablet 1 mg PO DAILY RF: 0 cholecalciferol (vitamin D3) 1,000 UNIT tablet 1,000 unit PO DAILYCM RF: 0 melatonin 5 MG tablet, sublingual 5 mg SL QHS PRN (Reason: Insomnia) RF: 0 albuterol sulfate 1 INHALER inhaler 1 - 2 puff inhalation Q4H PRN PRN (Reason: Wheezing) Qty: 1 RF: 0 ondansetron [ondansetron] 4 MG tablet 4 mg PO Q6H PRN PRN (Reason: Nausea) Qty: 10 RF: 0 Primary Care Provider: Chase Maxwell Referrals: Chase Maxwell MD [Primary Care Provider] - 1 Week if not improving Disposition Disposition: Home, Self Care Discharge Date/Time: 02/03/21 13:20
== END 2021-02-03 13:20 | disposition home or self-care (01) ==
LOC: ED 13:17
PROVIDERS: Emergency Provider Emergency Medicine; PCP Internal Medicine
DX: S51.812A Laceration without foreign body of left forearm, initial encounter (principal); S80.11XA Contusion of right lower leg, initial encounter; W19.XXXA Unspecified fall, initial encounter; Y93.9 Activity, unspecified; Y92.9 Unspecified place or not applicable; Y99.9 Unspecified external cause status; I25.10 Atherosclerotic heart disease of native coronary artery without angina pectoris; I10 Essential (primary) hypertension; I47.1 Supraventricular tachycardia; E78.00 Pure hypercholesterolemia, unspecified; Z79.82 Long term (current) use of aspirin; Z79.899 Other long term (current) drug therapy; Z86.718 Personal history of other venous thrombosis and embolism
CPT/HCPCS: 73590; 99282

== ENCOUNTER 2021-03-13 10:05 | Emergency (ER) | payer MEDICARE, MEDICAID, SELFPAY ==
[2021-03-13 10:06] VITALS: BP 133/86; PULSE 72; RESP 17; TEMP 36.6; O2SAT 99; BMI 26.3
--- NOTE | 2021-03-13 10:22 | CT_ITS ---
STUDY: CT BRAIN WITHOUT CONTRAST REASON FOR EXAM: Female, 86 years old. fall RADIATION DOSAGE (If Supplied By Facility): CTDIvol = ( 44.99 ) mGy, DLP = ( 829.85 ) mGycm TECHNIQUE: Transaxial CT imaging of the brain was performed without administration of intravenous contrast material. Individualized dose optimization techniques were used for this CT. COMPARISON: None. FINDINGS: There is cerebral atrophy with widening of the extra-axial spaces and ventricular dilatation. There are areas of decreased attenuation within the white matter tracts of the supratentorial brain, consistent with microvascular disease changes. There is no intracranial hemorrhage. There are no findings of an acute ischemic infarction. Normal soft tissue structures. Normal visualized paranasal sinuses. CT/Brain/Head without Contrast IMPRESSION: There is no intracranial hemorrhage. Electronically Signed: Nando Livingston MD at 11:28 EDT Tel , Service support ,
--- NOTE | 2021-03-13 10:24 | EX.ED.GENINJ ---
HPI History of Present Illness Chief Complaint: Fall Informant: patient Onset/Context/Timing Onset: Yesterday Mechanism/Context: Fall Location of pain/injuries: Right thigh, Right Knee and Right lower leg Current Severity: Moderate Maximum Severity: Moderate Narrative Narrative: Patient presents after a fall that occurred yesterday. She states she was in a small camper and fell striking her right leg. She did strike her head. She does not believe she lost consciousness. She is on a blood thinner but is unsure which one. After reviewing records it does appear that she is on Eliquis. Patient states this morning when she got up her right leg was hurting her so bad she was unable to walk on it. 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 COPD (chronic obstructive pulmonary disease) Essential hypertension PSVT (paroxysmal supraventricular tachycardia) Pulmonary air embolism Pure hypercholesterolemia Home Medications amlodipine 10 mg tablet 10 mg PO DAILY 03/27/18 [History Last Taken Unknown] lisinopril 20 mg tablet 40 mg PO QDAY tab 03/27/18 [History Last Taken Unknown] metoprolol tartrate 50 mg tablet 50 mg PO BID tab 03/27/18 [History Last Taken Unknown] alendronate 70 mg PO Q7D@0700 02/11/19 [History Last Taken Unknown] aspirin 81 mg PO DAILY@0800 02/11/19 [History Last Taken Unknown] atorvastatin 40 mg PO QHS 02/11/19 [History Last Taken Unknown] cholecalciferol (vitamin D3) 1,000 unit PO DAILYCM 02/11/19 [History Last Taken Unknown] ferrous sulfate 325 mg PO DAILYCM 02/11/19 [History Last Taken Unknown] folic acid 1 mg PO DAILY 02/11/19 [History Last Taken Unknown] hydrochlorothiazide 25 mg PO DAILY 02/11/19 [History Last Taken Unknown] meclizine 25 mg PO TID PRN 02/11/19 [History Last Taken Unknown] melatonin 5 mg SL QHS PRN 02/11/19 [History Last Taken Unknown] ondansetron HCl 4 mg PO DAILY PRN 02/11/19 [History Last Taken Unknown] albuterol sulfate 1 - 2 puff INHALATION Q4H PRN PRN #1 inhaler 06/20/19 [Rx Last Taken Unknown] ondansetron 4 mg PO Q6H PRN PRN #10 tab 01/21/21 [Rx Last Taken Unknown] Allergy/AdvReac Type Severity Reaction Status Date / Time No Known Allergies Allergy Verified 03/13/21 10:06 Surgical History S/p left hip fracture (~2017) Social History Smoking Status: Never smoker caffeine: Yes Type: carbonated beverages, coffee and tea ROS ROS ED Constitutional Constitutional ED: Denies chills or fever(s) Eyes Eyes: Denies change in vision ENT ENT ED: Denies sore throat Cardiovascular Cardiovascular: Denies chest pain Respiratory/Chest Respiratory/Chest: Denies cough or dyspnea Gastrointestinal Gastrointestinal: Denies abdominal pain, diarrhea, nausea or vomiting Genitourinary Genitourinary ED: Denies dysuria Musculoskeletal Musculoskeletal: Reports arthralgias; Denies back pain Integumentary Denies rash Neurologic Neurologic: Reports weakness; Denies headache(s) Allergic/Immunologic Allergic/Immunologic ED: Denies urticaria EXAM Physical Exam Const Vital Signs: 03/13/21 10:06 03/13/21 10:56 Temperature 97.9 F Temperature Source Temporal Pulse Rate 72 Respiratory Rate 17 Respiratory Effort Normal Non-Labored Respiratory Depth Normal Respiratory Pattern Normal Blood Pressure 133/86 H Blood Pressure Mean 101 Pulse Ox 99 Oxygen Delivery Method Room Air Positive well nourished and well developed General Appearance ED: well developed HEENT Reports normocephalic HEENT Narrative: 2 cm long linear scab noted at the hairline along the upper forehead. No surrounding ecchymosis. Eyes PERRL and EOMs intact bilaterally Neck supple Chest Wall inspection of chest normal and palpation of chest normal Resp normal respiratory effort and clear to auscultation bilaterally Cardio regular rate and regular rhythm GI normal to inspection, nondistended, normoactive bowel sounds Palpation: soft Back/Spine no CVA tenderness Extremity Extremity Narrative: Diffuse tenderness to palpation throughout the right lower extremity. Bilateral symmetric edema is noted. Neuro oriented x3 Sensorium / Orientation: alert Psych mental status grossly normal MDM MDM MDM Narrative Medical decision making narrative: CT scan of the head was ordered. Femur and tib-fib x-rays ordered on the right lower extremity. Patient was given Tylenol for pain. Radiography Diagnostic Testing: Radiology Impression Brain CT 03/13/21 10:22 IMPRESSION: There is no intracranial hemorrhage. Electronically Signed: Nando Livingston MD at 11:28 EDT Tel , Service support , Femur X-Ray 03/13/21 10:45 IMPRESSION: 1. No acute fracture of the right femur. 2. 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 3. Faint atherosclerotic vascular calcifications noted. Electronically Signed: Harmeet Moncada MD at 11:18 EDT , Service support , Tibia/Fibula X-Ray 03/13/21 10:45 IMPRESSION: 1. No acute fracture of the right tibia and fibula. 2. Soft tissue swelling in the mid to distal third of the lower leg. 3. Degenerative arthrosis at the right knee. Electronically Signed: Harmeet Moncada MD at 11:19 EDT , Service support , Treatment and Re-Evaluation Comments:: X-rays of the right femur and tib-fib per my interpretation showed no acute fracture. Radiology rotation is reviewed. There is evidence of significant arthrosis of the knee. CT scan of the head reveals no acute hemorrhage. Patient was able to get up and ambulate with a wheeled walker to the restroom and back. Test results discussed with her. Nomi wrap will be applied to the right knee. She has both a cane and walker to use at home. She is to follow-up with her primary care physician in the next 3 to 5 days. Discharge Plan Triage Chief Complaint: Fall ED Provider: Kerry Cruz Dx/Rx/DC Orders Clinical Impression: Right knee sprain Instructions: ED Knee Sprain Prescriptions: No Action lisinopril 20 mg tablet 40 mg PO QDAY RF: 0 amlodipine 10 mg tablet 10 mg PO DAILY RF: 0 metoprolol tartrate 50 mg tablet 50 mg PO BID RF: 0 ondansetron HCl 4 MG tablet 4 mg PO DAILY PRN (Reason: Nausea) RF: 0 aspirin 81 MG tablet 81 mg PO DAILY@0800 RF: 0 meclizine 25 MG tablet 25 mg PO TID PRN (Reason: Dizziness) RF: 0 hydrochlorothiazide 25 MG tablet 25 mg PO DAILY RF: 0 atorvastatin 40 MG tablet 40 mg PO QHS RF: 0 alendronate 70 MG tablet 70 mg PO Q7D@0700 RF: 0 ferrous sulfate 325 MG tablet 325 mg PO DAILYCM RF: 0 folic acid 1 MG tablet 1 mg PO DAILY RF: 0 cholecalciferol (vitamin D3) 1,000 UNIT tablet 1,000 unit PO DAILYCM RF: 0 melatonin 5 MG tablet, sublingual 5 mg SL QHS PRN (Reason: Insomnia) RF: 0 albuterol sulfate 1 INHALER inhaler 1 - 2 puff inhalation Q4H PRN PRN (Reason: Wheezing) Qty: 1 RF: 0 ondansetron [ondansetron] 4 MG tablet 4 mg PO Q6H PRN PRN (Reason: Nausea) Qty: 10 RF: 0 Primary Care Provider: Chase Maxwell Referrals: Chase Maxwell MD [Primary Care Provider] - 3-5 Days Disposition Disposition: Home, Self Care
[2021-03-13] MEDS: Acetaminophen 500 MG Tablet 1000 MG PO (10:33)
--- NOTE | 2021-03-13 10:45 | RAD_ITS ---
STUDY: X-RAY - RIGHT FEMUR REASON FOR STUDY: Female, 86 years old. Injury TECHNIQUE: Frontal and lateral view(s) of the femur on 4 images. COMPARISON: None. FINDINGS: There is some degenerative periarticular spurring of the medial femoral condyle and medial tibial plateau. Otherwise, normal visualized femur. Mild atherosclerotic intimal vascular calcifications are present. There is tricompartmental generative narrowing of the knee joint spaces. There is no demonstrated fracture or destructive process. RAD/Femur Min 2 Views IMPRESSION: 1. No acute fracture of the right femur. 2. 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 3. Faint atherosclerotic vascular calcifications noted. Electronically Signed: Harmeet Moncada MD at 11:18 EDT , Service support ,
--- NOTE | 2021-03-13 10:45 | RAD_ITS ---
STUDY: X-RAY - RIGHT TIBIA AND FIBULA REASON FOR EXAM: Female, 86 years old. Injury TECHNIQUE: 2 view(s) of the tibia and fibula were obtained. COMPARISON: None. FINDINGS: Normal visualized tibia. Normal visualized fibula. There is no demonstrated acute fracture. Moderate to moderately severe narrowing of the medial femorotibial joint compartment at the knee, and mild to moderate narrowing in the lateral compartment. There is chondrocalcinosis in the femorotibial joint compartments. Superficial soft tissue swelling noted in the lateral aspect of the mid to distal right lower leg. RAD/Tibia & Fibula 2 Views IMPRESSION: 1. No acute fracture of the right tibia and fibula. 2. Soft tissue swelling in the mid to distal third of the lower leg. 3. Degenerative arthrosis at the right knee. Electronically Signed: Harmeet Moncada MD at 11:19 EDT , Service support ,
== END 2021-03-13 12:05 | disposition home or self-care (01) ==
PROVIDERS: Emergency Provider Emergency Medicine; PCP Internal Medicine
DX: S83.91XA Sprain of unspecified site of right knee, initial encounter (principal); S09.90XA Unspecified injury of head, initial encounter; W01.10XA Fall on same level from slipping, tripping and stumbling with subsequent striking against unspecified object, initial encounter; Y93.9 Activity, unspecified; Y92.9 Unspecified place or not applicable; Y99.9 Unspecified external cause status; I25.10 Atherosclerotic heart disease of native coronary artery without angina pectoris; J44.9 Chronic obstructive pulmonary disease, unspecified; I47.1 Supraventricular tachycardia; I10 Essential (primary) hypertension; E78.00 Pure hypercholesterolemia, unspecified; Z79.01 Long term (current) use of anticoagulants; Z79.82 Long term (current) use of aspirin; Z79.899 Other long term (current) drug therapy
CPT/HCPCS: 70450; 73552; 73590; 99283

== ENCOUNTER 2021-04-18 14:56 | Emergency (ER) | payer MEDICARE, MEDICAID, SELFPAY ==
[2021-04-18 14:58] VITALS: BP 143/71; PULSE 83; RESP 16; TEMP 36.6; O2SAT 96; BMI 25.8
[2021-04-18 15:52] LABS: Absolute Neutrophil Count 10.6 X10^3/uL (2.0-7.7); Basophil# 0.06 X10^3/uL; Basophil% 0.4 % (0-1); Eosinophils% 0.7 % (0-5); Hemoglobin 17.2 g/dL (12.0-15.0); Lymphocyte % 15.6 % (19-41); Mean Corp Hgb Conc 30.7 g/dL (32-36); Mean Corpuscular Volume 88.1 fL (81-99); Mean Platelet Vol. 10.6 fl (6.2-12.0); Monocyte# 0.56 X10^3/uL; Monocyte% 4.2 % (0-10); NRBC Flagged by Analyzer 0 % (0-5); Neutrophil % 78.6 % (47-70); Platelet Count 421 K/mm3 (150-450); RBC Distribution Width CV 19.1 % (11.6-14.6); RBC Distribution Width SD 58.2 fl (35.1-43.9); Red Blood Count 6.37 M/mm3 (4.2-5.4); White Blood Count 13.5 K/mm3 (4.4-11.0)
[2021-04-18 15:58] LABS: POSITIVE COUNT NO; POSITIVE DIFFERENTIAL NO; POSITIVE MORPHOLOGY NO
[2021-04-18 15:59] LABS: Hematocrit 56.1 % (37-47)
[2021-04-18 16:04] LABS: Anion Gap 5 (5-15); BUN 15 mg/dL (7-18); BUN/Creat Ratio 16.6 RATIO (10-20); Calcium,Total 9.5 mg/dL (8.5-10.1); Chloride 108 mmol/L (98-107); EST Glomerular Filtration Rate 63 mL/min (>60); Est Glom Filt Rate - Afr Amer 76 mL/min (>60); Estimated Creatinine Clearance 43.56 ml/min; Glucose 95 mg/dL (74-106); Potassium 4.3 mmol/L (3.5-5.1); Sodium Level 140 mmol/L (136-145)
--- NOTE | 2021-04-18 17:35 | CT_ITS ---
EXAM: CT SPINE - CERVICAL WITHOUT IV REASON FOR EXAM: Female, 86 years old. NECK PAIN injury Individualized dose optimization techniques were used for this CT. TECHNIQUE: Multiplanar images were obtained of the cervical spine. IV contrast was not utilized. COMPARISON: None. FINDINGS: The vertebral bodies do maintain their height. The odontoid process is intact. There is no anterolisthesis or fracture. No pre-vertebral soft tissue swelling is seen. The intravertebral disc height is lost. There are scattered lymph nodes in the neck. There are degenerative changes of the osseous structures. There is bilateral facet arthropathy. There are scattered levels of foraminal stenosis. There are vascular calcifications. There are vascular calcifications. CT/Spine Cervical without Contras IMPRESSION: Degenerative changes of the cervical spine. There are no acute findings. Electronically Signed: Rafy Fortune MD at 19:41 EST , Service support ,
--- NOTE | 2021-04-18 17:35 | EKG12_ITS ---
Test Reason : SYNCOPE Blood Pressure : / mmHG Vent. Rate : 106 BPM Atrial Rate : 106 BPM P-R Int : 186 ms QRS Dur : 070 ms QT Int : 316 ms P-R-T Axes : 081 -03 062 degrees QTc Int : 419 ms Sinus tachycardia with Premature atrial complexes Anteroseptal infarct , age undetermined , cannot be excluded Abnormal ECG Confirmed by ANGÉLICA MARSHALL, ARLYN ([id number]), editor managing director BRUNO HARRISON ([id number]) on 04/20/2021 9:18:15 AM Referred By: CELESTINE Confirmed By:ARLYN LINDSAY MD
--- NOTE | 2021-04-18 17:35 | CT_ITS ---
STUDY: CT BRAIN WITHOUT CONTRAST REASON FOR EXAM: Female, 86 years old. FALL AFTER SYNCOPE A FEW DAYS AGO HX:COPD,HTN,HLD,PSVT injury TECHNIQUE: Transaxial CT imaging of the brain was performed without administration of intravenous contrast material. Individualized dose optimization techniques were used for this CT. COMPARISON: 03.13.21 FINDINGS: Normal calvarium. Normal soft tissues. Normal size ventricles and extra-axial spaces for the patient''s age. There are areas of decreased attenuation within the white matter tracts of the supratentorial brain, consistent with microvascular disease changes. Normal basal ganglia and thalami. Normal brainstem. Normal cerebellum. There is no intracranial hemorrhage. There are no findings of an acute ischemic infarction. Normal visualized paranasal sinuses. ASPECTS 10 CT/Brain/Head without Contrast IMPRESSION: There are no acute intracranial findings. Electronically Signed: Rafy Fortune MD at 19:40 EST , Service support ,
--- NOTE | 2021-04-18 17:43 | EX.ED.DYSGE1 ---
HPI History of Present Illness Chief Complaint: Syncope Informant: patient and family Narrative Narrative: Patient [id number] presents here with daughter evaluation of right shoulder injury occurring 3 days ago after falling outside. States she was just walking around got lightheaded falling down onto cement. Hit her right shoulder and her head. She states she must of passed out prior. No chest pains or shortness of breath. Denies any cardiac history. She does take Eliquis for history of blood clots. Denies headache or visual changes. Pain worse in right shoulder with movement. She is on [place] at home last dose was 2 hours ago. Denies any back pain. Able to ambulate at home. Denies nausea or vomiting. [facility] Medical History Ascending aorta dilatation Atherosclerosis of [place] coronary artery of [place] heart without angina pectoris COPD (chronic obstructive pulmonary disease) Essential hypertension PSVT (paroxysmal supraventricular tachycardia) Pulmonary air embolism Pure hypercholesterolemia Home Medications amlodipine 10 mg tablet 10 mg PO DAILY 03/27/18 [History Last Taken Unknown] lisinopril 20 mg tablet 40 mg PO QDAY tab 03/27/18 [History Last Taken Unknown] metoprolol tartrate 50 mg tablet 50 mg PO BID tab 03/27/18 [History Last Taken Unknown] alendronate 70 mg PO Q7D@0700 02/11/19 [History Last Taken Unknown] aspirin 81 mg PO DAILY@0800 02/11/19 [History Last Taken Unknown] atorvastatin 40 mg PO QHS 02/11/19 [History Last Taken Unknown] cholecalciferol (vitamin D3) 1,000 unit PO DAILYCM 02/11/19 [History Last Taken Unknown] ferrous sulfate 325 mg PO DAILYCM 02/11/19 [History Last Taken Unknown] folic acid 1 mg PO DAILY 02/11/19 [History Last Taken Unknown] hydrochlorothiazide 25 mg PO DAILY 02/11/19 [History Last Taken Unknown] meclizine 25 mg PO TID PRN 02/11/19 [History Last Taken Unknown] melatonin 5 mg SL QHS PRN 02/11/19 [History Last Taken Unknown] ondansetron HCl 4 mg PO DAILY PRN 02/11/19 [History Last Taken Unknown] albuterol sulfate 1 - 2 puff INHALATION Q4H PRN PRN #1 inhaler 06/20/19 [Rx Last Taken Unknown] ondansetron 4 mg PO Q6H PRN PRN #10 tab 01/21/21 [Rx Last Taken Unknown] nitrofurantoin monohyd/m-cryst [Macrobid] 100 mg PO Q12H 5 Days #10 cap 04/18/21 [Rx Last Taken Unknown] Allergy/AdvReac Type Severity Reaction Status Date / Time No Known Allergies Allergy Verified 04/18/21 15:01 Surgical History S/p left hip fracture (~2017) Social History Smoking Status: Never smoker caffeine: Yes Type: carbonated beverages, coffee and tea ROS ROS ED Constitutional Constitutional ED: Denies chills, fever(s) or sweats Eyes Eyes: Denies change in vision ENT ENT ED: Denies dysphagia or sore throat Cardiovascular Cardiovascular: Denies chest pain, leg edema, palpitations or racing heartbeat Respiratory/Chest Respiratory/Chest: Denies cough, dyspnea or dyspnea on exertion Gastrointestinal Gastrointestinal: Denies abdominal pain, diarrhea, nausea or vomiting Genitourinary Genitourinary ED: Denies dysuria, hematuria or urinary frequency Musculoskeletal Musculoskeletal: Reports other Details: Right shoulder pain ; Denies back pain, extremity pain or neck pain Integumentary Denies rash or wounds Neurologic Neurologic: Denies headache(s), paresthesias or weakness EXAM Physical Exam Const Vital Signs: 04/18/21 14:58 04/18/21 19:00 04/18/21 20:48 Temperature 98 F Temperature Source Temporal Pulse Rate 83 98 74 Respiratory Rate 16 22 H 15 Blood Pressure 143/71 H Blood Pressure Mean 95 Pulse Ox 96 96 Oxygen Delivery Method Room Air Room Air 04/18/21 20:49 Temperature Temperature Source Pulse Rate 74 Respiratory Rate 16 Blood Pressure Blood Pressure Mean Pulse Ox Oxygen Delivery Method Positive well nourished and well developed Constitutional Narrative: Uncomfortable with movement right shoulder. Nontoxic. GCS 15. General Appearance ED: well developed HEENT Reports moist mucous membranes HEENT Narrative: Small ecchymosis contusion right temporal, no bleeding or defects. No lacerations. No hemotympanum. No facial tenderness. normocephalic and atraumatic Eyes PERRL, EOMs intact bilaterally and conjunctivae normal General Eye ED: Yes normal appearance of both eyes Neck no lymphadenopathy and supple Neck Narrative: No midline tenderness or step-offs. General: Negative for tenderness Chest Wall Chest: Negative for tenderness Resp normal respiratory effort and normal air movement Effort and Inspection: symmetric chest movement; Negative for respiratory distress Cardio regular rate, regular rhythm and no murmurs Peripheral Pulses: pulses 2+ throughout GI normal to inspection, nondistended, normoactive bowel sounds and non-tender Palpation: Negative for guarding or rebound tenderness present Back/Spine no CVA tenderness and no thoracic nor lumbar tenderness Cervical Spine: Negative for cervical spine tenderness Thoracic Spine / Upper Back: Negative for thoracic spinal tenderness or paraspinal muscle tenderness Lumbar Spine / Lower Back: Negative for lumbar spinal tenderness Extremity Extremity Narrative: Right upper extremity: No clavicular tenderness or acromioclavicular tenderness. There is ecchymosis of the proximal shoulder without deformities. Pain with movement. Skin intact. No elbow tenderness. Neurovascular intact distally. Left upper extremity without pain. Neuro vas intact distally. Lower extremities bilateral negative logroll. No swelling or deformities. Pulses were intact distally. General Extremety ED: Yes tenderness; Negative for edema General Extremity: Negative for edema Neuro oriented x3 and no sensory deficits noted Sensorium / Orientation: awake and alert Skin no rashes or lesions noted and no wounds MDM MDM MDM Narrative Medical decision making narrative: Patient on Eliquis scalp contusion trauma scans head and neck negative. Treated with fentanyl. X-ray right shoulder negative for fracture reviewed by myself and read by radiology.. Labs white count 13.5. Creatinine 0.9. Urine was added noted signs of infection. Culture sent. She started on Macrobid. For comfort due to pain she did bring in a shoulder sling which was placed on she will remove multiple times a day to move. She has [place] at home. She will follow-up with her PCP. All questions were answered. Patient is being discharged under pandemic conditions under declared global, national and state disaster activation, with limited medical resources. Patient and community understands this. Results discussed in layman's terms to the patient satisfaction. All questions answered in layman's terms. Patient understands importance of follow-up care as directed. Patient has been instructed to return to the ED immediately if new symptoms, problems, or questions occur. We mutually agree with the plan of disposition. The patient understand that they may call or return with any questions or concerns at any time. Lab Data Labs: Laboratory Results - last 24 hr 04/18/21 04/18/21 04/18/21 15:45 15:45 19:43 WBC 13.5 H RBC 6.37 H Hgb 17.2 H Hct 56.1 H MCV 88.1 MCH 27.0 MCHC 30.7 L RDW Std Deviation 58.2 H RDW Coeff of Ema 19.1 H Plt Count 421 MPV 10.6 Immature Gran % (Auto) 0.500 Neut % (Auto) 78.6 H Lymph % (Auto) 15.[address] [place] % (Auto) 4.2 Eos % (Auto) 0.7 Baso % (Auto) 0.4 Absolute Neuts (auto) 10.6 H Absolute Lymphs (auto) 2.10 Nucleated RBC % 0 Sodium 140 Potassium 4.3 Chloride 108 H Carbon Dioxide 27.0 Anion Gap 5 BUN 15 Creatinine 0.90 Estim Creat Clear Calc 43.56 Est GFR (MDRD) Af Amer 76 Est GFR (MDRD) Non-Af 63 BUN/Creatinine Ratio 16.6 Glucose 95 Calcium 9.5 Urine Color Straw Urine Clarity Sl. Cloudy Urine pH 6.0 Ur Specific [place] 1.015 Urine Protein 30 H Urine Glucose (UA) Normal Urine Ketones Negative Urine Occult Blood 10 H Urine Nitrite Positive H Urine Bilirubin Negative Urine Urobilinogen Normal Ur Leukocyte Esterase 100 H Urine RBC 0 SEEN Urine WBC 0-5 SEEN Ur Squamous Epith Cells 0-5 SEEN Urine Bacteria 3+ Urine Mucus 0 SEEN Radiography Diagnostic Testing: Clinical Impression(s) from Imaging Studies Brain CT 04/18/21 17:35 IMPRESSION: There are no acute intracranial findings. Electronically Signed: Rafy Fortune MD at 19:40 EST , Service support , Cervical Spine CT 04/18/21 17:35 IMPRESSION: Degenerative changes of the cervical spine. There are no acute findings. Electronically Signed: Rafy Fortune MD at 19:41 EST , Service support , Shoulder X-Ray 04/18/21 19:20 IMPRESSION: There are no acute findings of the shoulder. Electronically Signed: Rafy Fortune MD at 19:38 EST , Service support , EKG Initial EKG: Attestation: I personally reviewed and interpreted this EKG as follows: Comments: Sinus arrhythmia rate of 106 with PACs. 2 separate runs of sinus tach, noting normal PDP intervals. Discharge Plan Triage Chief Complaint: Syncope Other Complaint: Upper Extremity Injury ED Provider: Jf Oreilly Dx/Rx/DC Orders Clinical Impression: Syncope, Contusion of right shoulder, Contusion of scalp, Acute UTI Instructions: Urinary Tract Infections in Women, Causes of Syncope, ED Scalp Contusion, ED Shoulder Contusion Prescriptions: New nitrofurantoin monohyd/m-cryst [Macrobid] 100 mg capsule 100 mg PO Q12H 5 Days Qty: 10 RF: 0 No Action lisinopril 20 mg tablet 40 mg PO QDAY RF: 0 amlodipine 10 mg tablet 10 mg PO DAILY RF: 0 metoprolol tartrate 50 mg tablet 50 mg PO BID RF: 0 ondansetron HCl 4 MG tablet 4 mg PO DAILY PRN (Reason: Nausea) RF: 0 aspirin 81 MG tablet 81 mg PO DAILY@0800 RF: 0 meclizine 25 MG tablet 25 mg PO TID PRN (Reason: Dizziness) RF: 0 hydrochlorothiazide 25 MG tablet 25 mg PO DAILY RF: 0 atorvastatin 40 MG tablet 40 mg PO QHS RF: 0 alendronate 70 MG tablet 70 mg PO Q7D@0700 RF: 0 ferrous sulfate 325 MG tablet 325 mg PO DAILYCM RF: 0 folic acid 1 MG tablet 1 mg PO DAILY RF: 0 cholecalciferol (vitamin D3) 1,000 UNIT tablet 1,000 unit PO DAILYCM RF: 0 melatonin 5 MG tablet, sublingual 5 mg SL QHS PRN (Reason: Insomnia) RF: 0 albuterol sulfate 1 INHALER inhaler 1 - 2 puff inhalation Q4H PRN PRN (Reason: Wheezing) Qty: 1 RF: 0 ondansetron [ondansetron] 4 MG tablet 4 mg PO Q6H PRN PRN (Reason: Nausea) Qty: 10 RF: 0 Primary Care Provider: hCase Maxwell Referrals: Chase Maxwell MD [Primary Care Provider] - 3-5 Days Activity Restrictions/Additional Instructions: CT head and neck negative. Right shoulder x-ray negative. Use sling for comfort. Remove out of sling and move your arm multiple times a day. Urinary tract infection found on labs. Your antibiotic sent to your pharmacy. Take as prescribed. Follow-up with your doctor for reevaluation. Disposition Disposition: Home, Self Care Discharge Date/Time: 04/18/21 20:49
[2021-04-18] MEDS: fentaNYL 100 MCG/2 ML Ampul 50 MCG IV (18:50)
[2021-04-18 19:00] VITALS: PULSE 98; RESP 22; O2SAT 96
--- NOTE | 2021-04-18 19:20 | RAD_ITS ---
STUDY: XR Shoulder Min 2 Views REASON FOR EXAM: Female, 86 years old. PAIN TECHNIQUE: XR Shoulder Min 2 Views COMPARISON: None. FINDINGS: Normal glenohumeral articulation. There is degenerative arthrosis of the acromioclavicular joint without inferior osseous spur formation. Normal acromion. Normal humeral head and visualized proximal humerus. The soft tissue structures are unremarkable. Normal visualized pulmonary apex. RAD/Shoulder min 2 Views IMPRESSION: There are no acute findings of the shoulder. Electronically Signed: Rafy Fortune MD at 19:38 EST , Service support ,
[2021-04-18 19:50] LABS: Mucous, Urine 0 SEEN /hpf (<or=2+); Red Blood Cells-Urine 0 SEEN /hpf (0-5)
[2021-04-18 19:58] LABS: Color, Urine Straw (Yellow); Glucose, Dipstick Normal (Normal); Ketone-Dipstick Negative (Negative); Leukocyte Esterase-Dipstick 100 /ul (Negative); Nitrite-Dipstick Positive (Negative); Occult Blood-Urine 10 /ul (Negative); Protein-Dipstick 30 mg/dl (Negative); Specific Gravity, Urine 1.015 (1.002-1.030); Urine Bilirubin Dipstick Negative (Negative); Urine Clarity Sl. Cloudy (Clear); Urine Urobilinogen Normal (Normal)
[2021-04-18 20:08] LABS: Bacteria 3+ /hpf (None Seen); Squamous Epithelial Cells - UA 0-5 SEEN /hpf (5-10); White Blood Cells 0-5 SEEN /hpf (0-5)
[2021-04-18] MEDS: Nitrofurantoin Macrocrystals 100 MG Capsule PO (20:41)
[2021-04-18 20:48] VITALS: PULSE 74; RESP 15
[2021-04-18 20:49] VITALS: PULSE 74; RESP 16
== END 2021-04-18 20:49 | disposition home or self-care (01) ==
PROVIDERS: Emergency Provider Emergency Medicine; PCP Internal Medicine
DX: R55 Syncope and collapse (principal); N39.0 Urinary tract infection, site not specified; S00.03XA Contusion of scalp, initial encounter; S40.011A Contusion of right shoulder, initial encounter; W19.XXXA Unspecified fall, initial encounter; Y93.01 Activity, walking, marching and hiking; Y92.9 Unspecified place or not applicable; Y99.9 Unspecified external cause status; I25.10 Atherosclerotic heart disease of native coronary artery without angina pectoris; J44.9 Chronic obstructive pulmonary disease, unspecified; I47.1 Supraventricular tachycardia; I10 Essential (primary) hypertension; E78.00 Pure hypercholesterolemia, unspecified; Z79.82 Long term (current) use of aspirin; Z79.899 Other long term (current) drug therapy; Z86.718 Personal history of other venous thrombosis and embolism
CPT/HCPCS: 70450; 72125; 73030; 80048; 81001; 85025; 87077; 87086; 87088; 87186; 93005; 96374; 99285; A4216

== ENCOUNTER 2021-09-28 14:21 | Emergency (ER) | payer MEDICARE, MEDICAID, SELFPAY ==
[2021-09-28 14:22] VITALS: BP 151/86; PULSE 92; RESP 15; TEMP 36.4; O2SAT 95; BMI 27.1
[2021-09-28 14:32] VITALS: BP 157/93; PULSE 90; RESP 16; TEMP 36.4; O2SAT 97
--- NOTE | 2021-09-28 14:41 | EKG12_ITS ---
Test Reason : SOB Blood Pressure : / mmHG Vent. Rate : 087 BPM Atrial Rate : 087 BPM P-R Int : 214 ms QRS Dur : 074 ms QT Int : 390 ms P-R-T Axes : 080 -43 049 degrees QTc Int : 469 ms Sinus rhythm with 1st degree A-V block with Premature supraventricular complexes Left axis deviation Septal infarct , age undetermined Inferior infarct , age undetermined Abnormal ECG Confirmed by ELOISA MARSHALL, MOLLY ([id number]), video editor BRUNO HARRISON ([id number]) on 09/29/2021 12:48:43 P M Referred By: HOMERO Confirmed By:HENRIETTA MAIN MD
[2021-09-28 14:47] VITALS: BP 127/82; BP 141/81; BP 145/78; PULSE 102; PULSE 90
--- NOTE | 2021-09-28 14:49 | EDS_ITS ---
HPI History of Present Illness Chief Complaint: Shortness of Breath Informant: patient and family Onset/Context/Timing Timing: Intermittent Quality: Positive for Dyspnea on exertion and Wheezing Current Severity: Mild Maximum Severity: Moderate Worsened by: Exertion Relieved by: Rest and Albuterol (But not today) Associated Symptoms Negative for cough Chest Pain: Positive for None Narrative Narrative: Patient presenting with several complaints. She states she is dyspneic and feels like her COPD/wheezing, worse when she walks, it has been going on for multiple weeks, she uses her albuterol inhaler every day, maybe once or twice a day. Today seemed worse, she took some puffs from her albuterol inhaler and did not help. She denies any chest pain but states that she feels some mild tightness in her lungs. She denies any cough, fevers, chills. She has chronic edema in her legs that is unchanged. She is on HCTZ, no furosemide. On Eliquis no bleeding. Additionally, she was sitting on the couch today and feeling okay, she stood up quickly and went to the kitchen to get some cookies and felt lightheaded and then got to the point where she felt near syncopal and nauseated. She sat back down with the help of family, light on the couch, and she ended up feeling better with time. She did not have any palpitations or acute chest discomfort with this, and no other symptoms. She was seen several months ago for similar episode, and she states she gets lightheaded every time she gets up quickly and this has been going on for longer than she can remember. She states she has drank a bottle of water today and it is 2-3 PM. She has been eating normally. Urinating normally, except oftentimes when she has a bowel movement she has some urinary incontinence which is not new. She denies any burning. 1-2 weeks ago, she was admitted overnight at [facility] because she was having some swelling versus drooping on the left side of her lower face and she had a swollen left olecranon process. They told her she may have had a TIA, and they put her on an antibiotic that she is still taking, and the elbow is completely better/gone. She has had some mild diarrhea without blood, however. 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 COPD (chronic obstructive pulmonary disease) Essential hypertension PSVT (paroxysmal supraventricular tachycardia) Pulmonary air embolism Pure hypercholesterolemia Home Medications amlodipine 10 mg tablet 10 mg PO DAILY 03/27/18 [History Last Taken Unknown] lisinopril 20 mg tablet 40 mg PO QDAY tab 03/27/18 [History Last Taken Unknown] metoprolol tartrate 50 mg tablet 50 mg PO BID tab 03/27/18 [History Last Taken Unknown] atorvastatin 40 mg PO QHS 02/11/19 [History Last Taken Unknown] cholecalciferol (vitamin D3) 1,000 unit PO DAILYCM 02/11/19 [History Last Taken Unknown] folic acid 1 mg PO DAILY 02/11/19 [History Last Taken Unknown] hydrochlorothiazide 25 mg PO DAILY 02/11/19 [History Last Taken Unknown] meclizine 25 mg PO TID PRN 02/11/19 [History Last Taken Unknown] melatonin 5 mg SL QHS PRN 02/11/19 [History Last Taken Unknown] albuterol sulfate 1 - 2 puff INHALATION Q4H PRN PRN #1 inhaler 06/20/19 [Rx Last Taken Unknown] ondansetron 4 mg PO Q6H PRN PRN #10 tab 01/21/21 [Rx Last Taken Unknown] amoxicillin 1,000 mg PO BID 09/28/21 [History Last Taken Unknown] apixaban [Eliquis] 5 mg PO BID 09/28/21 [History Last Taken Unknown] clarithromycin 500 mg PO BID 09/28/21 [History Last Taken Unknown] lansoprazole 30 mg PO BID 09/28/21 [History Last Taken Unknown] Allergy/AdvReac Type Severity Reaction Status Date / Time No Known Allergies Allergy Verified 09/28/21 14:25 Surgical History S/p left hip fracture (~2017) Social History Smoking Status: Never smoker caffeine: Yes Type: carbonated beverages, coffee and tea ROS ROS ED Constitutional Constitutional ED: Denies chills or fever(s) Eyes Eyes: Denies change in vision or diplopia ENT ENT ED: Denies rhinorrhea or sore throat Cardiovascular Cardiovascular: Reports lightheadedness and pedal edema; Denies chest pain or palpitations Respiratory/Chest Respiratory/Chest: Reports chest tightness, cough, dyspnea, dyspnea on exertion and wheezing Gastrointestinal Gastrointestinal: Reports diarrhea; Denies abdominal pain, nausea or vomiting Genitourinary Genitourinary ED: Denies dysuria or hematuria Musculoskeletal Musculoskeletal: Denies back pain or neck pain Integumentary Denies abscess or rash Neurologic Neurologic: Denies headache(s), paresthesias or weakness Psychiatric Psychiatric: Denies anxiety or suicidal thoughts EXAM Physical Exam Const Vital Signs: 09/28/21 14:22 09/28/21 14:32 09/28/21 14:47 Temperature 97.6 F L 97.6 F L Temperature Source Temporal Temporal Pulse Rate 92 90 Pulse Rate [Lying] 90 Pulse Rate [Sitting (for 1 minute prior to obtaining)] 90 Pulse Rate [Standing (for 1 minute prior to obtaining)] 102 H Respiratory Rate 15 16 Respiratory Effort Short of Breath Respiratory Depth Normal Respiratory Pattern Normal Blood Pressure 151/86 H 157/93 H Blood Pressure [Lying] 145/78 H Blood Pressure [Sitting (for 1 minute prior to obtaining)] 141/81 H Blood Pressure [Standing (for 1 minute prior to obtaining)] 127/82 H Blood Pressure Mean 107 114 Blood Pressure Mean [Lying] 100 Blood Pressure Mean [Sitting (for 1 minute prior to obtaining)] 101 Blood Pressure Mean [Standing (for 1 minute prior to obtaining)] 97 Pulse Ox 95 97 Oxygen Delivery Method Room Air Room Air 09/28/21 15:04 09/28/21 16:31 Temperature 98.1 F Temperature Source Oral Pulse Rate 88 86 Pulse Rate [Lying] Pulse Rate [Sitting (for 1 minute prior to obtaining)] Pulse Rate [Standing (for 1 minute prior to obtaining)] Respiratory Rate 24 H 19 H Respiratory Effort Respiratory Depth Respiratory Pattern Normal Blood Pressure 149/66 H Blood Pressure [Lying] Blood Pressure [Sitting (for 1 minute prior to obtaining)] Blood Pressure [Standing (for 1 minute prior to obtaining)] Blood Pressure Mean 93 Blood Pressure Mean [Lying] Blood Pressure Mean [Sitting (for 1 minute prior to obtaining)] Blood Pressure Mean [Standing (for 1 minute prior to obtaining)] Pulse Ox 95 Oxygen Delivery Method Room Air Positive well nourished and well developed General Appearance ED: well developed and NAD HEENT Reports moist mucous membranes normocephalic and atraumatic Eyes PERRL and EOMs intact bilaterally Neck full ROM and supple Resp normal respiratory effort and clear to auscultation bilaterally Resp Narrative: diminished throughout, symmetrically Effort and Inspection: able to speak in complete sentences and symmetric chest movement Cardio regular rate, regular rhythm, no murmurs and no JVD Rate: Negative for tachycardic GI non-tender and non-distended Auscultation: normoactive bowel sounds Palpation: soft Back/Spine no CVA tenderness General Back: other FROM Extremity normal to inspection General Extremety ED: Yes edema; Negative for pulses abnormal or tenderness General Extremity: edema bilateral lower extremity Details: moderate; Negative for pulses abnormal Neuro oriented x3, CN's II-XII intact bilaterally and no sensory deficits noted Sensorium / Orientation: awake and alert Motor Exam: strength 5/5 throughout Skin no rashes or lesions noted and no wounds MDM MDM MDM Narrative Medical decision making narrative: Cardiac work-up negative/normal, she has a mild leukocytosis that is nonspecific, 2 view chest x-ray my interpretation is negative for anything acute, radiology in agreement. We did some orthostatics and they were borderline, she did not get hypotensive but she did get lightheaded. I reviewed her prior echo that was done within the past 1 to 2 years. It does not show any type of significant CHF or severe valvular disorders. She was given 500 cc IV fluid bolus, and on reevaluation she was able to stand up and go to bedside commode and back to the bed without any symptoms or dizziness. Additionally, she was given a duo nebulizer treatment and her dyspnea which was mild to begin with, and her chest tightness all resolved and she felt much better. This is an ongoing issue for her. She has no cough or increased sputum production to suggest a true COPD exacerbation, so I do not think steroids are in order or indicated at this time especially given the edema in her legs which could be worsened by steroids. Advised to follow-up for reevaluation, we discussed reasons to return and I advised her to drink more water than she has at home and get up slowly, she does have a walker, I advised her that whenever she has been sitting for a while to get up and use her walker to just stand and pause for a few minutes to get her bearings instead of taking off ambulating initially. Daughter agrees with this, patient is agreeable, she is discharged in stable improved condition. Lab Data Attestation: I reviewed the patient's lab results. Labs: Laboratory Results - last 24 hr 09/28/21 09/28/21 09/28/21 14:50 14:50 14:50 WBC 11.8 H RBC 6.32 H Hgb 14.4 Hct 49.0 H MCV 77.5 L MCH 22.8 L MCHC 29.4 L RDW Std Deviation 58.3 H RDW Coeff of Ema 22.0 H Plt Count 343 Immature Gran % (Auto) 0.600 Neut % (Auto) 77.0 H Lymph % (Auto) 16.2 L [place] % (Auto) 4.5 Eos % (Auto) 1.4 Baso % (Auto) 0.3 Absolute Neuts (auto) 9.1 H Absolute Lymphs (auto) 1.91 Nucleated RBC % 0 RBC Morphology N CHROM Anisocytosis 1+ Ovalocytes 1+ Sodium 138 Potassium 3.9 Chloride 105 Carbon Dioxide 27.0 Anion Gap 6 BUN 13 Creatinine 0.92 Estim Creat Clear Calc 42.61 Est GFR (MDRD) Af Amer 75 Est GFR (MDRD) Non-Af 62 BUN/Creatinine Ratio 14.1 Glucose 141 H Calcium 9.0 Troponin I High Sens 34 B-Natriuretic Peptide 67.6 Radiography Diagnostic Testing: Clinical Impression(s) from Imaging Studies Chest X-Ray 09/28/21 16:05 IMPRESSION: No acute radiographic abnormalities. 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) Comments: PACs Discharge Plan Triage Chief Complaint: Shortness of Breath ED Provider: Don Christensen Dx/Rx/DC Orders Clinical Impression: Dyspnea, COPD (chronic obstructive pulmonary disease), Postural dizziness with near syncope Instructions: Orthostatic Hypotension Prescriptions: No Action lisinopril 20 mg tablet 40 mg PO QDAY RF: 0 amlodipine 10 mg tablet 10 mg PO DAILY RF: 0 metoprolol tartrate 50 mg tablet 50 mg PO BID RF: 0 meclizine 25 MG tablet 25 mg PO TID PRN (Reason: Dizziness) RF: 0 hydrochlorothiazide 25 MG tablet 25 mg PO DAILY RF: 0 atorvastatin 40 MG tablet 40 mg PO QHS RF: 0 folic acid 1 MG tablet 1 mg PO DAILY RF: 0 cholecalciferol (vitamin D3) 1,000 UNIT tablet 1,000 unit PO DAILYCM RF: 0 melatonin 5 MG tablet, sublingual 5 mg SL QHS PRN (Reason: Insomnia) RF: 0 albuterol sulfate 1 INHALER inhaler 1 - 2 puff inhalation Q4H PRN PRN (Reason: Wheezing) Qty: 1 RF: 0 ondansetron [ondansetron] 4 MG tablet 4 mg PO Q6H PRN PRN (Reason: Nausea) Qty: 10 RF: 0 amoxicillin 500 mg capsule 1,000 mg PO BID RF: 0 clarithromycin 500 mg tablet 500 mg PO BID RF: 0 lansoprazole 30 mg capsule,delayed release(DR/EC) 30 mg PO BID RF: 0 Eliquis 5 mg tablet 5 mg PO BID RF: 0 Primary Care Provider: Chase Maxwell Referrals: Chase Maxwell MD [Primary Care Provider] - 3-5 Days Activity Restrictions/Additional Instructions: Drink more fluids throughout the day, and get up slowly, we encourage you to pa use with your walker after getting up when you have been sitting for a while, to ensure that you do not get too lightheaded before you start walking. Disposition Disposition: Home, Self Care
[2021-09-28 15:00] LABS: Absolute Lymphocyte Count 1.91 X10^3/uL (0.83-4.51); Absolute Neutrophil Count 9.1 X10^3/uL (2.0-7.7); Basophil# 0.04 X10^3/uL; Basophil% 0.3 % (0-1); Eosinophil# 0.17 X10^3/uL; Eosinophils% 1.4 % (0-5); Hemoglobin 14.4 g/dL (12.0-15.0); Lymphocyte # 1.91 X10^3/ul (0.83-4.51); Lymphocyte % 16.2 % (19-41); Mean Corp Hgb Conc 29.4 g/dL (32-36); Mean Corpuscular Hgb 22.8 pg (27.0-32.0); Mean Corpuscular Volume 77.5 fL (81-99); Monocyte# 0.53 X10^3/uL; Monocyte% 4.5 % (0-10); NRBC Flagged by Analyzer 0 % (0-5); Neutrophil # 9.06 X10^3/uL (2.7-7.7); POSITIVE MORPHOLOGY YES; Platelet Count 343 K/mm3 (150-450); RBC Distribution Width SD 58.3 fl (35.1-43.9); Red Blood Count 6.32 M/mm3 (4.2-5.4); White Blood Count 11.8 K/mm3 (4.4-11.0)
[2021-09-28 15:02] LABS: Differential Indicated SCAN CRITERIA MET
[2021-09-28] MEDS: Ipratropium/Albuterol Sulfate 3 ML AMPUL.NEB INHALATION (15:02)
[2021-09-28 15:04] VITALS: PULSE 88; RESP 24
[2021-09-28 15:10] LABS: BNP,B-Type NATRIURETIC PEPTIDE 67.6 pg/mL (0-100)
[2021-09-28 15:14] LABS: Anion Gap 6 (5-15); BUN 13 mg/dL (7-18); BUN/Creat Ratio 14.1 RATIO (10-20); Chloride 105 mmol/L (98-107); Creatinine, Serum 0.92 mg/dL (0.55-1.02); EST Glomerular Filtration Rate 62 mL/min (>60); Est Glom Filt Rate - Afr Amer 75 mL/min (>60); Estimated Creatinine Clearance 42.61 ml/min; Glucose 141 mg/dL (74-106); Potassium 3.9 mmol/L (3.5-5.1); Sodium Level 138 mmol/L (136-145); Troponin-I HS 34 pg/mL (3.0-54.0)
[2021-09-28 15:22] LABS: Anisocytosis 1+; Ovalocyte 1+; Red Cell Morphology N CHROM NORMAL (NORM C&C)
--- NOTE | 2021-09-28 16:05 | RAD_ITS ---
INDICATION: dyspnea EXAMINATION/TECHNIQUE: X-RAY - XR Chest 2 Views COMPARISON: 01/21/2021. FINDINGS: The lungs are clear. Tortuous and calcified thoracic aorta. The heart is not enlarged. No pleural effusion or pneumothorax. Degenerative changes of the thoracic spine. RAD/Chest PA and Lateral IMPRESSION: No acute radiographic abnormalities. Electronically Signed: Juan Ramon Gould MD at 16:44 EDT ,
[2021-09-28 16:31] VITALS: BP 149/66; PULSE 86; RESP 19; TEMP 36.7; O2SAT 95
[2021-09-28 17:10] VITALS: BP 167/84; PULSE 103; PULSE 93; RESP 16; RESP 22; TEMP 36.7; O2SAT 97
== END 2021-09-28 17:22 | disposition home or self-care (01) ==
PROVIDERS: Emergency Provider Emergency Medicine; PCP Internal Medicine; Visit Provider Emergency Medicine
DX: R06.00 Dyspnea, unspecified (principal); J44.9 Chronic obstructive pulmonary disease, unspecified; R55 Syncope and collapse; I25.10 Atherosclerotic heart disease of native coronary artery without angina pectoris; E78.00 Pure hypercholesterolemia, unspecified; I10 Essential (primary) hypertension; R60.0 Localized edema; R32 Unspecified urinary incontinence; R19.7 Diarrhea, unspecified
CPT/HCPCS: 71046; 80048; 83880; 84484; 85025; 93005; 94640; 96360; 99285; J7030; A4216

== ENCOUNTER 2022-07-05 11:17 | Inpatient (IN) | payer MEDICARE, MEDICAID, SELFPAY ==
[2022-07-05] VITALS (10 sets, daily range): BP systolic 128–166; BP diastolic 73–95; PULSE 61–96; RESP 16–25; TEMP 36.1–36.8; O2SAT 92–98; BMI 24.2; BMI 29.8
--- NOTE | 2022-07-05 11:40 | CT_ITS ---
STUDY: CT CERVICAL SPINE WITHOUT CONTRAST REASON FOR EXAM: Female, 87 years old. Trauma, pain RADIATION DOSAGE (If Supplied By Facility): CTDIvol = ( 17.09 ) mGy, DLP = ( 393.75 ) mGycm TECHNIQUE: High resolution transaxial imaging was performed without contrast material. Sagittal and coronal images were reconstructed. Individualized dose optimization techniques were used for this CT. COMPARISON: Comparison is made with prior study dated 04/28/2017. FINDINGS: Partial opacification of the medial aspect of the left mastoid air cells. Normal craniovertebral junction. There are degenerative changes of the anterior atlantoaxial articulation. Normal odontoid process. Normal cervical lordosis. Facet joint osteoarthritis. C2-3: Facet joint osteoarthritis and hypertrophy. Mild degree of right neural foraminal stenosis. C3-4: Mild degree of disc space narrowing. Facet joint osteoarthritis and hypertrophy. Mild bilateral neural foraminal stenosis slightly more prominent on the right side. C4-5: Mild degree of disc space narrowing. Facet joint osteoarthritis and hypertrophy on the left side with a moderate degree of left neural foraminal stenosis. C5-6: Mild degree of disc space narrowing. Uncovertebral arthrosis. Facet joint osteoarthritis and hypertrophy with bilateral neural foraminal stenosis. Spondylosis. C6-7: Mild degree of disc space narrowing. Uncovertebral arthrosis and spondylosis. No significant stenosis seen. C7-T1: Normal endplates. Normal disc height and morphology. Normal central canal and intervertebral neuroforamina. Atherosclerotic plaque formation of the carotid bifurcations. CT/Spine Cervical without Contras IMPRESSION: Multilevel degenerative changes, as described above. Electronically Signed: Pb Fontaine MD at 14:03 EST ,
--- NOTE | 2022-07-05 11:40 | CT_ITS ---
STUDY: CT CHEST WITHOUT CONTRAST REASON FOR EXAM: Female, 87 years old. Pain, trauma RADIATION DOSAGE (If Supplied By Facility): CTDIvol = ( 13.48 ) mGy, DLP = ( 495.29 ) mGycm TECHNIQUE: Transaxial imaging was performed without the administration of intravenous contrast material. Multiplanar coronal and sagittal images were reformatted. Individualized dose optimization techniques were used for this CT. COMPARISON: Comparison is made with prior CT scan of the chest dated 05/20/2020. FINDINGS: CHEST There is a 1.3 cm hypodense nodule in the anterior aspect of the left lobe of the thyroid suggestive of a possible adenoma. Stable scarring in the lung apices more prominent on the right lung apex with evidence of bronchiectasis. Stable calcified granuloma in the right upper lobe. Mild increased markings at the lung bases. This has progressed as compared to prior study and most likely represents atelectasis superimposed on progressive scarring. There is also evidence of irregular scarring in the anterior aspect of the left lower lobe. There is no demonstrated pleural abnormality. There are calcifications of the coronary arteries. There are multiple small lymph nodes within the mediastinum, which are normal in size and morphology most compatible with reactive lymph hyperplasia. Normal hilar regions. Normal unenhanced pulmonary arteries. There is atherosclerotic calcification of the aortic arch with tortuosity and elongation of the aortic arch and descending thoracic aorta. There are multi-level degenerative changes of the thoracic spine. Increased kyphosis. Stable mild loss of height of the superior endplate of the L1 vertebrae. Moderate sized hiatal hernia. CT/Chest without Contrast IMPRESSION: Scarring in the lung apices worse on the right side as well as in the lower lobes. Electronically Signed: Pb Fontaine MD at 14:09 EST ,
--- NOTE | 2022-07-05 11:40 | CT_ITS ---
STUDY: CT BRAIN WITHOUT CONTRAST REASON FOR EXAM: Female, 87 years old. Head injury RADIATION DOSAGE (If Supplied By Facility): CTDIvol = ( 44.99 ) mGy, DLP = ( 779.24 ) mGycm TECHNIQUE: Transaxial CT imaging of the brain was performed without administration of intravenous contrast material. Individualized dose optimization techniques were used for this CT. COMPARISON: Comparison is made with prior study dated 04/18/2021. FINDINGS: Normal soft tissue structures. Normal calvarium. There is mild cerebral atrophy with widening of the extra-axial spaces and ventricular dilatation. There are areas of decreased attenuation within the white matter tracts of the supratentorial brain, consistent with microvascular disease changes. Normal basal ganglia and thalami. Normal brainstem. Normal cerebellum. There is no intracranial hemorrhage. There are no findings of an acute ischemic infarction. Atherosclerotic calcification of the vertebral arteries and cavernous portions of the internal carotid arteries bilaterally. Normal visualized paranasal sinuses. CT/Brain/Head without Contrast IMPRESSION: Chronic involutional changes of the brain. Electronically Signed: Pb Fontaine MD at 14:00 EST ,
--- NOTE | 2022-07-05 11:56 | EX.ED.DYSGE1 ---
HPI History of Present Illness Chief Complaint: Other, Pain/Inj Informant: patient and family Narrative Narrative: Patient is an 87-year-old female with history of coronary artery disease, hypertension, ascending aortic dilation, syncope, COPD, proximal SVT and long-term use of Eliquis for atrial fibrillation for the family. She is presenting with multiple falls. Patient supposed to use a walker but does not like to do it. She lives with his other son and [id number]. Her [id number] is currently at the bedside. Apparently patient had a fall last night between 9 and 11 PM. She landed on her knees and then hit her face. No report of loss of conscious. Apparently she just lost her footing. The family picked her up and put her back in bed. Patient another fall between 3 and 4 AM however she was able to get her self back up. She is not sure if she passed out without second fall. She is currently complaining of body aches pretty diffusely but also of some right-sided neck pain and right chest pain. The daughter states that she tries to move around too fast so that is why she does not use her walker. She drinks lots of fluids and I do not think she is dehydrated. No complaints of nausea, vomiting or change with appetite/urination. Patient's chest pain is worse with direct palpation or movement. She states she feels short of breath because of the pain in her chest. Has bruising on her knees from the fall last night. No other complaints at this time. [facility] Medical History Ascending aorta dilatation Atherosclerosis of [place] coronary artery of [place] heart without angina pectoris COPD (chronic obstructive pulmonary disease) Essential hypertension PSVT (paroxysmal supraventricular tachycardia) Pulmonary air embolism Pure hypercholesterolemia Home Medications amlodipine 10 mg tablet 10 mg PO DAILY BLOOD PRESSURE 03/27/18 [History Last Taken 07/05/22] metoprolol tartrate 50 mg tablet 50 mg PO BID HEART 03/27/18 [History Last Taken 07/05/22] atorvastatin 40 mg tablet 40 mg PO QHS CHOLESTROL 02/11/19 [History Last Taken 07/04/22] cholecalciferol (vitamin D3) 25 mcg (1,000 unit) tablet 1,000 unit PO DAILY SUPPLEMENT 02/11/19 [History Last Taken 07/05/22] apixaban 5 mg tablet (Eliquis) 5 mg PO BID BLOOD THINNER 09/28/21 [History Last Taken 07/05/22] albuterol sulfate 90 mcg/actuation aerosol inhaler 1 - 2 puff INHALATION Q4H PRN Wheezing 07/05/22 [History Last Taken Unknown] allopurinol 300 mg tablet 300 mg PO DAILY GOUT 07/05/22 [History Last Taken 07/05/22] cfgvfnz-fzdvnqhub-ocrg tablet 1 tab PO QHS SUPPLEMENT 07/05/22 [History Last Taken 07/04/22] lisinopril 40 mg tablet 40 mg PO DAILY BLOOD PRESSURE 07/05/22 [History Last Taken 07/05/22] meloxicam 15 mg tablet 15 mg PO QHS JOINT PAIN 07/05/22 [History Last Taken 07/04/22] ondansetron 4 mg disintegrating tablet 4 mg PO Q6H PRN Nausea 07/05/22 [History Last Taken Unknown] Allergy/AdvReac Type Severity Reaction Status Date / Time No Known Allergies Allergy Verified 07/05/22 11:21 Surgical History S/p left hip fracture (~2016) Social History Smoking Status: Never smoker caffeine: Yes Type: carbonated beverages, coffee and tea ROS ROS ED Constitutional Constitutional ED: Denies chills or fever(s) Eyes Eyes: Denies blurry vision or change in vision ENT ENT ED: Denies rhinorrhea or sore throat Cardiovascular Cardiovascular: Reports chest pain; Denies palpitations Respiratory/Chest Respiratory/Chest: Reports dyspnea; Denies cough Gastrointestinal Gastrointestinal: Denies abdominal pain, nausea or vomiting Genitourinary Genitourinary ED: Denies dysuria or urinary frequency Musculoskeletal Musculoskeletal: Reports arthralgias, myalgias and neck pain; Denies back pain Integumentary Reports other Details: bruising to bilateral knees ; Denies rash Neurologic Neurologic: Reports weakness; Denies headache(s) or paresthesias Psychiatric Psychiatric: Denies anxiety or depression Hematologic/Lymphatic Hematologic/Lymphatic: Reports easy bleeding and easy bruising EXAM Physical Exam Const Vital Signs: 07/05/22 11:19 07/05/22 11:31 07/05/22 11:31 Temperature 97 F L Temperature Source Temporal Pulse Rate 71 69 Respiratory Rate 18 25 H Respiratory Effort Normal Non-Labored Respiratory Pattern Normal Blood Pressure 166/92 H 152/95 H Blood Pressure Mean 116 114 Pulse Ox 98 95 Oxygen Delivery Method Room Air Room Air 07/05/22 12:30 07/05/22 13:30 Temperature Temperature Source Pulse Rate 61 67 Respiratory Rate 17 19 H Respiratory Effort Respiratory Pattern Blood Pressure 142/73 H 137/85 H Blood Pressure Mean 96 102 Pulse Ox 94 92 Oxygen Delivery Method Room Air Room Air Positive well nourished and well developed General Appearance ED: well developed and NAD HEENT Reports TM's clear and moist mucous membranes HEENT Narrative: Tympanum. No obvious signs of facial or head trauma. Tympanic Membrane ED: Yes TM's clear Eyes PERRL and EOMs intact bilaterally Neck supple Neck Narrative: No midline tenderness. Patient points to her right lateral neck is an area of pain Chest Wall inspection of chest normal Chest Narrative: No chest wall crepitus. Tenderness palpation of the right anterior chest wall. Resp normal respiratory effort and clear to auscultation bilaterally Cardio regular rate, regular rhythm and no murmurs GI normal to inspection, nondistended, normoactive bowel sounds and non-tender Back/Spine no CVA tenderness Cervical Spine: Negative for cervical spine tenderness Thoracic Spine / Upper Back: Negative for thoracic spinal tenderness Lumbar Spine / Lower Back: Negative for lumbar spinal tenderness Extremity Extremity Narrative: No obvious deformity. Pelvis is stable. No rotational deformity of the lower extremities. Patient has prepatellar effusion to the right knee. Normal range of motion of bilateral knees. Normal leg roll bilaterally. Neuro oriented x3, CN's II-XII intact bilaterally and no sensory deficits noted Sensorium / Orientation: alert Motor Exam: strength 5/5 throughout and general weakness Psych mental status grossly normal Mood & Affect: anxious and tearful Skin Skin Narrative: Ecchymosis to the bilateral knees Trauma: Negative for abrasion Wounds: Negative for wounds noted MDM MDM MDM Narrative Medical decision making narrative: Patient presents with 2 falls in the last 24 hours. She is complaining of bilateral knee pain as well as right-sided chest pain which is suspect to be more associated with her fall. She is on chronic anticoagulation with Eliquis. CT of the head obtained to rule out acute intracranial hemorrhage. In addition CT of the neck obtained she is having pain and to rule out cervical spine fracture. These are negative for any acute process. She is complaining of significant chest pain my concern is that she could have pulmonary contusion versus rib fracture. CT of the chest obtained which which does not show any acute process. She does have some chronic scarring. Bilateral knee x-rays as well as right hip/pelvic x-ray shows chronic arthritic changes but no acute fracture or acute bony process. This interpreted by myself as well as radiology. Patient's lab work shows a leukocytosis with a white blood cell count of 17.2. She has elevated immature granulocyte count of 1.3 and neutrophil predominance. BMP is normal as well as her CK and her troponin. Do not think this is ACS. EKG does not show any acute ischemic changes. Urinalysis does show positive nitrates with 0-5 white blood cells and 2+ bacteria. Given her generalized weakness, falls, leukocytosis and urinalysis we will treat her for UTI. I do think should benefit for admission and possible evaluation for physical therapy/OT. She is started on Rocephin and urine culture sent. Patient and family agreeable with plan of care. Patient bam hemodynamically stable to ER. At this time she does not meet criteria for sepsis. Lab Data Attestation: I reviewed the patient's lab results. Labs: Laboratory Results - last 24 hr 07/05/22 07/05/22 07/05/22 11:55 11:55 11:55 WBC 17.2 H RBC 6.77 H Hgb 13.4 Hct 48.8 H MCV 72.1 L MCH 19.8 L MCHC 27.5 L RDW Std Deviation 58.0 H RDW Coeff of Ema 24.3 H Plt Count 367 Immature Gran % (Auto) 1.300 H Neut % (Auto) 84.9 H Lymph % (Auto) 8.1 L [place] % (Auto) 3.1 Eos % (Auto) 2.3 Baso % (Auto) 0.3 Absolute Neuts (auto) 14.6 H Absolute Lymphs (auto) 1.39 Nucleated RBC % 0 Sodium 140 Potassium 4.3 Chloride 111 H Carbon Dioxide 23.0 Anion Gap 6 BUN 24 H Creatinine 0.98 Estim Creat Clear Calc 39.29 Est GFR (MDRD) Af Amer 70 Est GFR (MDRD) Non-Af 58 L BUN/Creatinine Ratio 24.6 H Glucose 111 H Calcium 9.2 Total Creatine Kinase 49 Troponin I High Sens 8 Urine Color Urine Clarity Urine pH Ur Specific [place] Urine Protein Urine Glucose (UA) Urine Ketones Urine Occult Blood Urine Nitrite Urine Bilirubin Urine Urobilinogen Ur Leukocyte Esterase Urine RBC Urine WBC Ur Squamous Epith Cells Urine Bacteria Urine Mucus 07/05/22 13:55 WBC RBC Hgb Hct MCV MCH MCHC RDW Std Deviation RDW Coeff of Ema Plt Count Immature Gran % (Auto) Neut % (Auto) Lymph % (Auto) [place] % (Auto) Eos % (Auto) Baso % (Auto) Absolute Neuts (auto) Absolute Lymphs (auto) Nucleated RBC % Sodium Potassium Chloride Carbon Dioxide Anion Gap BUN Creatinine Estim Creat Clear Calc Est GFR (MDRD) Af Amer Est GFR (MDRD) Non-Af BUN/Creatinine Ratio Glucose Calcium Total Creatine Kinase Troponin I High Sens Urine Color Yellow Urine Clarity Sl Cldy Urine pH 5.0 Ur Specific [place] 1.015 Urine Protein 30 H Urine Glucose (UA) Normal Urine Ketones Negative Urine Occult Blood Negative Urine Nitrite Positive H Urine Bilirubin Negative Urine Urobilinogen Normal Ur Leukocyte Esterase Trace Urine RBC 0 SEEN Urine WBC 0-5 SEEN Ur Squamous Epith Cells 0 SEEN Urine Bacteria 2+ Urine Mucus 0 SEEN Radiography Diagnostic Testing: Clinical Impression(s) from Imaging Studies Brain CT 07/05/22 11:40 IMPRESSION: Chronic involutional changes of the brain. Electronically Signed: Pb Fontaine MD at 14:00 EST , Cervical Spine CT 07/05/22 11:40 IMPRESSION: Multilevel degenerative changes, as described above. Electronically Signed: Pb Fontaine MD at 14:03 EST , Chest CT 07/05/22 11:40 IMPRESSION: Scarring in the lung apices worse on the right side as well as in the lower lobes. Electronically Signed: Pb Fontaine MD at 14:09 EST , Hip/Pelvis X-Ray 07/05/22 13:00 IMPRESSION: Degenerative changes. No acute fracture or dislocation is seen. Electronically Signed: Pb Fontaine MD at 13:56 EST , Knee X-Ray 07/05/22 13:00 IMPRESSION: Degenerative arthrosis. Chondrocalcinosis. Electronically Signed: Pb Fontaine MD at 13:53 EST , Knee X-Ray 07/05/22 13:00 IMPRESSION: Degenerative arthrosis. Chondrocalcinosis. Electronically Signed: Pb Fontaine MD at 13:54 EST , Rhythm Strip Rhythm Strip: Sinus Rhythm Rate: 75 Ectopy: None EKG Initial EKG: Attestation: I personally reviewed and interpreted this EKG as follows: Interpretation: Sinus Rhythm Comments: Sinus rhythm at a rate of 79 bpm First-degree AV block with a NV interval of 212 Normal QRS and QTc Left axis deviation Normal ST segments Compared to prior EKG on 09/28/2021, no significant changes Discharge Plan Dx/Rx/DC Orders Clinical Impression: UTI (urinary tract infection), Fall, Contusion Disposition Disposition: Acute Care Hospital [facility] Discharge Date/Time: 07/05/22 15:40
[2022-07-05 12:07] LABS: Absolute Lymphocyte Count 1.39 X10^3/uL (0.83-4.51); Absolute Neutrophil Count 14.6 X10^3/uL (2.0-7.7); Basophil# 0.05 X10^3/uL; Basophil% 0.3 % (0-1); Eosinophil# 0.39 X10^3/uL; Eosinophils% 2.3 % (0-5); Hematocrit 48.8 % (37-47); Hemoglobin 13.4 g/dL (12.0-15.0); Lymphocyte # 1.39 X10^3/ul (0.83-4.51); Lymphocyte % 8.1 % (19-41); Mean Corp Hgb Conc 27.5 g/dL (32-36); Mean Corpuscular Hgb 19.8 pg (27.0-32.0); Mean Corpuscular Volume 72.1 fL (81-99); Monocyte# 0.54 X10^3/uL; Monocyte% 3.1 % (0-10); NRBC Flagged by Analyzer 0 % (0-5); Neutrophil # 14.64 X10^3/uL (2.7-7.7); Neutrophil % 84.9 % (47-70); POSITIVE MORPHOLOGY YES; Platelet Count 367 K/mm3 (150-450); RBC Distribution Width CV 24.3 % (11.6-14.6); Red Blood Count 6.77 M/mm3 (4.2-5.4); White Blood Count 17.2 K/mm3 (4.4-11.0)
[2022-07-05] MEDS: Ondansetron 4 MG/2 ML Vial IV (12:15)
[2022-07-05] MEDS: Morphine 2 MG/ML Syringe IV (12:15)
[2022-07-05] MEDS: 0.9% Normal Saline 1,000 ML 150 ML IV ×2 (12:15→23:56)
[2022-07-05 12:22] LABS: Anion Gap 6 (5-15); BUN 24 mg/dL (7-18); BUN/Creat Ratio 24.6 RATIO (10-20); Calcium,Total 9.2 mg/dL (8.5-10.1); Chloride 111 mmol/L (98-107); Creatinine, Serum 0.98 mg/dL (0.55-1.02); EST Glomerular Filtration Rate 58 mL/min (>60); Est Glom Filt Rate - Afr Amer 70 mL/min (>60); Estimated Creatinine Clearance 39.29 ml/min; Glucose 111 mg/dL (74-106); Potassium 4.3 mmol/L (3.5-5.1); Sodium Level 140 mmol/L (136-145); Troponin-I HS (w/2H Reflex) 8 pg/mL (3.0-54.0)
[2022-07-05 12:37] LABS: Differential Indicated SCAN CRITERIA MET
--- NOTE | 2022-07-05 13:00 | RAD_ITS ---
STUDY: X-RAY - RIGHT KNEE REASON FOR EXAM: Female, 87 years old. Pain following a fall. TECHNIQUE: 4 view(s) of the knee. COMPARISON: None. FINDINGS: Normal visualized distal femur. Normal visualized proximal tibia and fibula. Normal proximal tibiofibular articulation. There is severe degenerative arthrosis of the medial femorotibial compartment with severe joint space narrowing. Normal lateral femorotibial compartment. There is moderate degenerative arthrosis of the patellofemoral articulation. Chondrocalcinosis. RAD/Knee 4 or More Views IMPRESSION: Degenerative arthrosis. Chondrocalcinosis. Electronically Signed: Pb Fontaine MD at 13:54 EST ,
--- NOTE | 2022-07-05 13:00 | RAD_ITS ---
STUDY: X-RAY - PELVIS AND RIGHT HIP REASON FOR EXAM: Female, 87 years old. Pain, fall TECHNIQUE: 3 views of the pelvis and hip. COMPARISON: None. FINDINGS: There is a non-specific bowel gas pattern. There are atherosclerotic vascular calcifications of the pelvic arteries. There is narrowing with cortical sclerosis and osteophyte formation of the sacroiliac joint consistent with degenerative osteoarthritic changes. Normal bilateral superior and inferior pubic rami. There is narrowing with sclerosis of the pubic symphysis. Normal bilateral ischial tuberosities. Normal visualized femoral head. There is osteoarthritic spur formation of the acetabular rim. There is moderate articular joint space narrowing of the hip. Prior ORIF of the left intertrochanteric fracture utilizing compressive screw and intramedullary arvind fixation device. RAD/HIP, UNI W/ Pelvis 2-3 Views IMPRESSION: Degenerative changes. No acute fracture or dislocation is seen. Electronically Signed: Pb Fontaine MD at 13:56 EST ,
--- NOTE | 2022-07-05 13:00 | RAD_ITS ---
STUDY: X-RAY - LEFT KNEE REASON FOR EXAM: Female, 87 years old. Pain following a fall. Swelling and discoloration. TECHNIQUE: 4 view(s) of the knee. COMPARISON: None. FINDINGS: Medullary arvind is seen within the femur. Normal visualized proximal tibia and fibula. Normal proximal tibiofibular articulation. There is severe degenerative arthrosis of the medial femorotibial compartment with severe joint space narrowing. There is severe degenerative arthrosis of the lateral femorotibial compartment with severe joint space narrowing. There is severe degenerative arthrosis of the patellofemoral articulation. Calcification of the bilateral menisci in keeping with chondrocalcinosis. RAD/Knee 4 or More Views IMPRESSION: Degenerative arthrosis. Chondrocalcinosis. Electronically Signed: Pb Fontaine MD at 13:53 EST ,
[2022-07-05 13:08] LABS: CPK Total, Creatine Kinase 49 U/L (26-192)
[2022-07-05 13:59] LABS: Reflex Troponin-HS? (from REC) Y
[2022-07-05 14:01] LABS: Mucous, Urine 0 SEEN /hpf (<or=2+); Red Blood Cells-Urine 0 SEEN /hpf (0-5); Squamous Epithelial Cells - UA 0 SEEN /hpf (5-10)
[2022-07-05 14:04] LABS: Color, Urine Yellow (Yellow)
[2022-07-05 14:05] LABS: Glucose, Dipstick Normal (Normal); Urine Clarity Sl Cldy (Clear)
[2022-07-05 14:06] LABS: Ketone-Dipstick Negative (Negative); Protein-Dipstick 30 mg/dl (Negative); Specific Gravity, Urine 1.015 (1.002-1.030); Urine Bilirubin Dipstick Negative (Negative)
[2022-07-05 14:07] LABS: Nitrite-Dipstick Positive (Negative); Occult Blood-Urine Negative /ul (Negative); Urine Urobilinogen Normal (Normal)
[2022-07-05 14:08] LABS: Leukocyte Esterase-Dipstick Trace /ul (Negative)
[2022-07-05 14:12] LABS: White Blood Cells 0-5 SEEN /hpf (0-5)
[2022-07-05 14:13] LABS: Bacteria 2+ /hpf (None Seen)
--- NOTE | 2022-07-05 14:48 | HP.PCM.HOS_ITS ---
HPI - General General Date of Admission: 07/05/22 Chief Complaint: mechanical falls HPI Narrative URSULA CRUMP, is a 87 F with a PMH as outlined who presents via the ED on 07/05/2022 with a complaint of mechanical falls. She is on eliquis for afib. She has fallen twice over the last 24 hours. SHe is supposed to use a walker but has not been very compliant with this. She lives with her son and daughter in law. She fell the night before admission, and said she landed on her knees and hit her face. Family assisted back into bed. In the early hours of this morning patient also fell again and there was concern about whether she passed out or not. She was able to get herself back up into bed. He complained of generalized body pain including right-sided neck pain and chest pain which was noted to be mechanical fall. Patient admitted to drinking lots of fluids frequently. She denied any nausea, vomiting, fever or chills or any burning with urination or any offensive urine. Review of systems otherwise negative. Vitals in the ED were blood pressure 137/85, pulse rate of 67 and respiratory rate of 19 and she was saturating at 92% on room air. CBC showed WBC of 17.2 with hemoglobin of 13.4 and platelets of 367. Chemistry shows sodium of 140 with potassium of 4.3 and bicarb of 23. Urinalysis showed evidence of UTI with 2+ bacteria. CT of the brain showed no acute intracranial pathology and CT of the cervical spine showed multilevel degenerative changes. Chest CT showed scarring in the lung apices worse on the right side as well as in the lower lobes. Pelvic x-ray showed degenerative changes and knee x-rays showed degenerative arthrosis and chondrocalcinosis. She has been admitted to be managed for debility due to frequent mechanical falls as well as UTI. [facility] Medical History (Updated 07/05/22 @ 16:33 by Salma Lawler) Ascending aorta dilatation Atherosclerosis of [place] coronary artery of [place] heart without angina pectoris COPD (chronic obstructive pulmonary disease) Dementia Essential hypertension Osteoporosis PSVT (paroxysmal supraventricular tachycardia) Pulmonary air embolism Pure hypercholesterolemia Home Medications amlodipine 10 mg tablet 10 mg PO DAILY BLOOD PRESSURE 03/27/18 [History Last Taken 07/05/22] metoprolol tartrate 50 mg tablet 50 mg PO BID HEART 03/27/18 [History Last Taken 07/05/22] atorvastatin 40 mg tablet 40 mg PO QHS CHOLESTROL 02/11/19 [History Last Taken 07/04/22] cholecalciferol (vitamin D3) 25 mcg (1,000 unit) tablet 1,000 unit PO DAILY SUPPLEMENT 02/11/19 [History Last Taken 07/05/22] apixaban 5 mg tablet (Eliquis) 5 mg PO BID BLOOD THINNER 09/28/21 [History Last Taken 07/05/22] albuterol sulfate 90 mcg/actuation aerosol inhaler 1 - 2 puff INHALATION Q4H PRN Wheezing 07/05/22 [History Last Taken Unknown] allopurinol 300 mg tablet 300 mg PO DAILY GOUT 07/05/22 [History Last Taken 07/05/22] srfsfro-mwwxgjigl-qekq tablet 1 tab PO QHS SUPPLEMENT 07/05/22 [History Last Taken 07/04/22] lisinopril 40 mg tablet 40 mg PO DAILY BLOOD PRESSURE 07/05/22 [History Last Taken 07/05/22] meloxicam 15 mg tablet 15 mg PO QHS JOINT PAIN 07/05/22 [History Last Taken 07/04/22] ondansetron 4 mg disintegrating tablet 4 mg PO Q6H PRN Nausea 07/05/22 [History Last Taken Unknown] Allergy/AdvReac Type Severity Reaction Status Date / Time No Known Allergies Allergy Verified 07/05/22 11:21 Surgical History S/p left hip fracture (~2017) Social History Smoking Status: Former smoker caffeine: Yes Type: carbonated beverages, coffee and tea ROS Constitutional Constitutional: Reports fatigue, malaise and weakness; Denies anorexia, change in weight, chills or fever(s) Eyes Eyes: Denies change in vision ENT HEENT: Denies dysphagia, headache(s) or sore throat Cardiovascular Cardiovascular: Denies chest pain, dyspnea on exertion, edema, lightheadedness, orthopnea, paroxysmal nocturnal dyspnea, rapid heart rate or syncope Respiratory/Chest Respiratory/Chest: Denies cough, dyspnea, productive cough, shortness of breath at rest or shortness of breath with exertion Gastrointestinal Gastrointestinal: Denies abdominal pain, constipation, diarrhea, nausea or vomiting Genitourinary Genitourinary: Denies burning urination, dysuria or urinary frequency Musculoskeletal Musculoskeletal: Denies arthralgias or joint pain Neurologic Neurologic: Reports syncope; Denies confusion, dizziness, focal weakness, headache(s), numbness, seizure-like activity, seizures or tremor(s) Psychiatric Psychiatric: Denies anxiety or depression Hematologic/Lymphatic Hematologic/Lymphatic: Denies anemia Vital Signs Vital Signs Vital Signs: 07/05/22 11:19 07/05/22 11:31 07/05/22 11:31 Temperature 97 F L Temperature Source Temporal Pulse Rate 71 69 Respiratory Rate 18 25 H Respiratory Effort Normal Non-Labored Respiratory Pattern Normal Blood Pressure 166/92 H 152/95 H Blood Pressure Mean 116 114 Pulse Ox 98 95 Oxygen Delivery Method Room Air Room Air 07/05/22 12:30 07/05/22 13:30 Temperature Temperature Source Pulse Rate 61 67 Respiratory Rate 17 19 H Respiratory Effort Respiratory Pattern Blood Pressure 142/73 H 137/85 H Blood Pressure Mean 96 102 Pulse Ox 94 92 Oxygen Delivery Method Room Air Room Air Weight Weight: 150 lb Body Mass Index (BMI) 24.2 Physical Exam Const alert, oriented x3 and no apparent distress General Appearance: cooperative HEENT head/scalp atraumatic, hearing grossly normal bilaterally and moist oral mucous membranes Mouth: oral and palatal mucosa normal Eyes PERRL, EOMs intact bilaterally and conjunctivae normal Neck no lymphadenopathy, supple and no JVD Resp normal respiratory effort, no retractions, no use of accessory muscles and clear to auscultation bilaterally Cardio regular rate, regular rhythm, S1 normal heart sound, S2 normal heart sound and no murmurs GI normal to inspection, nondistended, normoactive bowel sounds, soft to palpation, non-tender and non-distended Extremity normal to inspection, full ROM and no clubbing, cyanosis or edema Neuro oriented x3, CN's II-XII intact bilaterally, moves all extremities and no focal motor deficits Sensorium / Orientation: awake and alert Motor Exam: strength 5/5 throughout Psych affect normal Results Lab / Micro Data Result Diagrams: 07/05/22 11:55 07/05/22 11:55 Labs: Laboratory Results - last 24 hr 07/05/22 11:55: WBC 17.2 H, RBC 6.77 H, Hgb 13.4, Hct 48.8 H, MCV 72.1 L, MCH 19.8 L, MCHC 27.5 L, RDW Std Deviation 58.0 H, RDW Coeff of Ema 24.3 H, Plt Count 367, Immature Gran % (Auto) 1.300 H, Neut % (Auto) 84.9 H, Lymph % (Auto) 8.1 L, [place] % (Auto) 3.1, Eos % (Auto) 2.3, Baso % (Auto) 0.3, Absolute Neuts (auto) 14.6 H, Absolute Lymphs (auto) 1.39, Nucleated RBC % 0 07/05/22 11:55: Sodium 140, Potassium 4.3, Chloride 111 H, Carbon Dioxide 23.0, Anion Gap 6, BUN 24 H, Creatinine 0.98, Estim Creat Clear Calc 39.29, Est GFR (MDRD) Af Amer 70, Est GFR (MDRD) Non-Af 58 L, BUN/Creatinine Ratio 24.6 H, G lucose 111 H, Calcium 9.2, Troponin I High Sens 8 07/05/22 11:55: Total Creatine Kinase 49 07/05/22 13:55: Urine Color Yellow, Urine Clarity Sl Cldy, Urine pH 5.0, Ur Specific [place] 1.015, Urine Protein 30 H, Urine Glucose (UA) Normal, Urine Ketones Negative, Urine Occult Blood Negative, Urine Nitrite Positive H, Urine Bilirubin Negative, Urine Urobilinogen Normal, Ur Leukocyte Esterase Trace, Urine RBC 0 SEEN, Urine WBC 0-5 SEEN, Ur Squamous Epith Cells 0 SEEN, Urine Bacteria 2+, Urine Mucus 0 SEEN Rhythm Strip Rhythm Strip: Sinus Rhythm Rate: 75 Ectopy: None Radiology Impression Brain CT 07/05/22 11:40 IMPRESSION: Chronic involutional changes of the brain. Electronically Signed: Pb Fontaine MD at 14:00 EST , Cervical Spine CT 07/05/22 11:40 IMPRESSION: Multilevel degenerative changes, as described above. Electronically Signed: Pb Fontaine MD at 14:03 EST , Chest CT 07/05/22 11:40 IMPRESSION: Scarring in the lung apices worse on the right side as well as in the lower lobes. Electronically Signed: Pb Fontaine MD at 14:09 EST , Hip/Pelvis X-Ray 07/05/22 13:00 IMPRESSION: Degenerative changes. No acute fracture or dislocation is seen. Electronically Signed: Pb Fontaine MD at 13:56 EST , Knee X-Ray 07/05/22 13:00 IMPRESSION: Degenerative arthrosis. Chondrocalcinosis. Electronically Signed: Pb Fontaine MD at 13:53 EST , Knee X-Ray 07/05/22 13:00 IMPRESSION: Degenerative arthrosis. Chondrocalcinosis. Electronically Signed: Pb Fontaine MD at 13:54 EST , Assessment & Plan Assessment/Plan (1) Syncope: (2) Fall: (3) UTI (urinary tract infection): PLAN: Plan #Debility due to mechanical fall * admit to med surg * PT/OT consult * xrays only significant for bilateral knee arthrosis with chondrocalcinosis * fall precautions * check orthostatics * hydrate gently with IVF NS @ 125cc/hr x 2 bags * #UTI * urinalysis showed 2+ bacteria * check urine culture * start on IV ceftriaxone * #Afib: * on eliquis and metoprolol. * Hold eliquis for now due to frequent falls. * Will discuss with family about stopping it- family agreeable to stopping eliquis while she is in the hospital due to concerns about increased risk of mechanical falls and resultant brain bleed if she hits her head. They will decide about her not continuing on blood thinners or otherwise when she is ready for discharge. #COPD: not in exacerbation. on breathing treatment with bronchodilators #hyperlipidemia: on atorvastatin #Hypertension: on amlodipine, lisinopril and metoprolol DVT prophylaxis: SCDs. Eliquis held for now due to frequent falls COde status:DNRCCA * Patient's family counseled extensively about different types of CODE STATUS including full code, DNR CCA and DNR CCA. They elect for patient to be DNRCCA no intubation * Total [id number] time 16 minutes. Charges/Coding Visit Charges Inpatient E&M: 15434 Init Hosp L3 Procedures Hospitalists Procedures: 14435 Advncd Care Plan 30 Min
[2022-07-05] MEDS: Ceftriaxone 1 GM/50 ML BAG IV (14:55)
[2022-07-05 16:08] LABS: Troponin-I HS 7 pg/mL (3.0-54.0)
[2022-07-05] MEDS: oxyCODONE 5 MG Tablet PO (19:34)
[2022-07-05] MEDS: Acetaminophen 325 MG Tablet 650 MG PO (19:35)
[2022-07-05] MEDS: Metoprolol Tartrate 50 MG Tablet PO (21:29)
[2022-07-05] MEDS: Atorvastatin Calcium 40 MG Tablet PO (21:29)
[2022-07-05] MEDS: Meloxicam 15 MG Tablet PO (21:29)
[2022-07-06 04:00] VITALS: BP 153/68; BP 153/78; PULSE 73; PULSE 96; RESP 18; TEMP 36.6; O2SAT 96
[2022-07-06 05:58] LABS: Absolute Lymphocyte Count 2.32 X10^3/uL (0.83-4.51); Absolute Neutrophil Count 10.7 X10^3/uL (2.0-7.7); Basophil# 0.03 X10^3/uL; Basophil% 0.2 % (0-1); Eosinophil# 0.22 X10^3/uL; Eosinophils% 1.6 % (0-5); Hematocrit 45.3 % (37-47); Hemoglobin 12.1 g/dL (12.0-15.0); Lymphocyte # 2.32 X10^3/ul (0.83-4.51); Lymphocyte % 16.7 % (19-41); Mean Corp Hgb Conc 26.7 g/dL (32-36); Mean Corpuscular Hgb 19.7 pg (27.0-32.0); Mean Corpuscular Volume 73.8 fL (81-99); Monocyte# 0.42 X10^3/uL; NRBC Flagged by Analyzer 0.1 % (0-5); Neutrophil # 10.73 X10^3/uL (2.7-7.7); Neutrophil % 77.2 % (47-70); POSITIVE MORPHOLOGY YES; Platelet Count 326 K/mm3 (150-450); RBC Distribution Width CV 24.1 % (11.6-14.6); Red Blood Count 6.14 M/mm3 (4.2-5.4); White Blood Count 13.9 K/mm3 (4.4-11.0)
[2022-07-06 06:23] LABS: Anion Gap 7 (5-15); BUN 25 mg/dL (7-18); BUN/Creat Ratio 21.9 RATIO (10-20); Calcium,Total 8.7 mg/dL (8.5-10.1); Chloride 112 mmol/L (98-107); Creatinine, Serum 1.14 mg/dL (0.55-1.02); EST Glomerular Filtration Rate 48 mL/min (>60); Est Glom Filt Rate - Afr Amer 58 mL/min (>60); Estimated Creatinine Clearance 33.78 ml/min; Glucose 94 mg/dL (74-106); Potassium 4.4 mmol/L (3.5-5.1); Sodium Level 141 mmol/L (136-145)
[2022-07-06 06:24] LABS: Differential Indicated SCAN CRITERIA MET
[2022-07-06 06:39] LABS: Anisocytosis 2+; Microcytosis 2+; Ovalocyte 1+
[2022-07-06] MEDS: 0.9% Normal Saline 1,000 ML 150 ML IV (07:00)
--- NOTE | 2022-07-06 07:17 | PCM.PN.HOSP ---
Subjective Subjective Mrs. Murphy is a 87-year-old white female who presented to the emergency department on 07/05/2022 with mechanical falls. She evidently had fallen twice in the last 24 hours prior to presentation. She is supposed to use a walker but has not been compliant. She lives with her son and [id number]. She fell the night before admission and hit her knees and her face. The family assisted her back to bed at that time. In the early hours of the morning on the day of admission she also fell and there was concern whether or not she passed out. She at that time she was able to get herself back to bed. On presentation she complained of some generalized pain including right-sided neck pain and chest pain which was the result of her mechanical falls. She denied any other concurrent symptoms. Vital signs on presentation were overall unremarkable. Her UA was consistent with UTI. CT of the head was unremarkable. CT of the chest shows scarring in the apices right greater than left as well as in bilateral lower lobes. Pelvic is 3 showed no acute findings and the patient was admitted for mechanical falls and debility with UTI. Patient reports her weakness has been worsening over the last month. She has had several falls with 2 being in the last 48 hours prior to admission. She has no injuries fortunately. She has been having some diarrhea over the last week with 3-5 bouts daily. No sick contacts that she knows of. No significant dysuria. Okay with placement if need be but would prefer to go home with son and placement as a last resort. Objective Data Objective Data Vital Signs: Vital Signs Temp Pulse Resp BP Pulse Ox O2 Del Method O2 Flow Rate 98 F 96 18 153/68 H 96 Nasal Cannula 2 07/06/22 04:00 07/06/22 04:00 07/06/22 04:00 07/06/22 04:00 07/06/22 04:00 07/06/22 04:00 07/06/22 04:00 Oxygen Flow Rate (L/min) 2 Oxygen Delivery Method Nasal Cannula Weight: 83.9 kg Body Mass Index (BMI) 29.8 Intake & Output: Intake and Output for Last 24 Hours 07/04/22 07/05/22 07/06/22 23:59 23:59 23:59 Intake Total 1050 / 1050 Output Total 150 / 150 Balance 1050 / 1050 -150 / -150 Lab / Micro Data Result Diagrams: 07/06/22 05:34 07/06/22 05:34 Labs: Laboratory Results - last 24 hr 07/05/22 11:55: WBC 17.2 H, RBC 6.77 H, Hgb 13.4, Hct 48.8 H, MCV 72.1 L, MCH 19.8 L, MCHC 27.5 L, RDW Std Deviation 58.0 H, RDW Coeff of Ema 24.3 H, Plt Count 367, Immature Gran % (Auto) 1.300 H, Neut % (Auto) 84.9 H, Lymph % (Auto) 8.1 L, Delta % (Auto) 3.1, Eos % (Auto) 2.3, Baso % (Auto) 0.3, Absolute Neuts (auto) 14.6 H, Absolute Lymphs (auto) 1.39, Nucleated RBC % 0 07/05/22 11:55: Sodium 140, Potassium 4.3, Chloride 111 H, Carbon Dioxide 23.0, Anion Gap 6, BUN 24 H, Creatinine 0.98, Estim Creat Clear Calc 39.29, Est GFR (MDRD) Af Amer 70, Est GFR (MDRD) Non-Af 58 L, BUN/Creatinine Ratio 24.6 H, Glucose 111 H, Calcium 9.2, Troponin I High Sens 8 07/05/22 11:55: Total Creatine Kinase 49 07/05/22 13:55: Urine Color Yellow, Urine Clarity Sl Cldy, Urine pH 5.0, Ur Specific [place] 1.015, Urine Protein 30 H, Urine Glucose (UA) Normal, Urine Ketones Negative, Urine Occult Blood Negative, Urine Nitrite Positive H, Urine Bilirubin Negative, Urine Urobilinogen Normal, Ur Leukocyte Esterase Trace, Urine RBC 0 SEEN, Urine WBC 0-5 SEEN, Ur Squamous Epith Cells 0 SEEN, Urine Bacteria 2+, Urine Mucus 0 SEEN 07/05/22 15:47: Troponin I High Sens 7 07/06/22 05:34: WBC 13.9 H, RBC 6.14 H, Hgb 12.1, Hct 45.3, MCV 73.8 L, MCH 19.7 L, MCHC 26.7 L, RDW Std Deviation 60.0 H, RDW Coeff of Ema 24.1 H, Plt Count 326, Immature Gran % (Auto) 1.300 H, Neut % (Auto) 77.2 H, Lymph % (Auto) 16.7 L, Delta % (Auto) 3.0, Eos % (Auto) 1.6, Baso % (Auto) 0.2, Absolute Neuts (auto) 10.7 H, Absolute Lymphs (auto) 2.32, Nucleated RBC % 0.1, Anisocytosis 2+, Microcytosis 2+, Ovalocytes 1+ 07/06/22 05:34: Sodium 141, Potassium 4.4, Chloride 112 H, Carbon Dioxide 22.0, Anion Gap 7, BUN 25 H, Creatinine 1.14 H, Estim Creat Clear Calc 33.78, Est GFR (MDRD) Af Amer 58 L, Est GFR (MDRD) Non-Af 48 L, BUN/Creatinine Ratio 21.9 H, Glucose 94, Calcium 8.7 Radiography Diagnostic Testing: Radiology Impression Brain CT 07/05/22 11:40 IMPRESSION: Chronic involutional changes of the brain. Electronically Signed: Pb Fontaine MD at 14:00 EST , Cervical Spine CT 07/05/22 11:40 IMPRESSION: Multilevel degenerative changes, as described above. Electronically Signed: Pb Fontaine MD at 14:03 EST Reading Location ID and State: [id number] / [employer] , Service support , Chest CT 07/05/22 11:40 IMPRESSION: Scarring in the lung apices worse on the right side as well as in the lower lobes. Electronically Signed: Pb Fontaine MD at 14:09 EST , Hip/Pelvis X-Ray 07/05/22 13:00 IMPRESSION: Degenerative changes. No acute fracture or dislocation is seen. Electronically Signed: Pb Fontaine MD at 13:56 EST , Knee X-Ray 07/05/22 13:00 IMPRESSION: Degenerative arthrosis. Chondrocalcinosis. Electronically Signed: Pb Fontaine MD at 13:53 EST , Knee X-Ray 07/05/22 13:00 IMPRESSION: Degenerative arthrosis. Chondrocalcinosis. Electronically Signed: Pb Fontaine MD at 13:54 EST , Rhythm Strip Rhythm Strip: Sinus Rhythm Rate: 75 Ectopy: None Physical Exam Const alert, oriented x3 and no apparent distress Constitutional Narrative: Overweight, elderly, white female sitting up in bed, [id number] at bedside, patient appears comfortable and nontoxic HEENT head/scalp atraumatic and moist oral mucous membranes HEENT Narrative: Edentulous, Mallampati 2, no thrush Head and Scalp: normocephalic Resp normal respiratory effort, no retractions, no use of accessory muscles and clear to auscultation bilaterally Auscultation: Negative for crackles, rhonchi or wheezes Cardio regular rate, regular rhythm, S1 normal heart sound, S2 normal heart sound, no murmurs, no rub, no gallops and no clicks GI normal to inspection, nondistended, normoactive bowel sounds, soft to palpation and non-tender Extremity no clubbing, cyanosis or edema Extremity Narrative: 2+ pedal pulses Neuro oriented x3, moves all extremities and no focal motor deficits Speech: speech normal Psych affect normal Assessment & Plan Assessment/Plan (1) UTI (urinary tract infection): (2) Fall: (3) Debility: (4) Leukocytosis: (5) Microcytosis: (6) Diarrhea: PLAN: Plan Debility/mechanical falls -PT/OT consult pending -No acute findings on x-ray concerning for fractures -Continue fall precautions -Orthostatic vitals are pending -Case management consultation for possible placement Microcytosis without anemia -Iron studies do appear that the patient is iron deficient with a low iron and iron saturation and a TIBC of 405 -We will start supplemental iron -Fortunately patient is not anemic at this time Diarrhea -Patient with 3-5 bouts daily -This is new over the last week -C. difficile and enteric pathogens are pending -If negative would consider as needed Imodium Leukocytosis -Improving -Check COVID with leukocytosis and debility UTI -UA did show nitrites with no leuk esterase and 2+ bacteria but no white cells -Patient is asymptomatic -I highly doubt that this is an active infection and is most likely consistent with pyuria and asymptomatic bacteriuria -We will await culture results and if colony counts are less than 100,000 discontinue antibiotics -Was placed on ceftriaxone at admission History of gout -Continue home allopurinol Ascending aortic dilation -Outpatient follow-up -No acute issues History of CAD/HTN/HPL Continue metoprolol 50 mg p.o. twice daily -Continue lisinopril 40 mg daily Continue amlodipine 10 mg daily History of paroxysmal SVT -Eliquis on hold secondary to frequent falls -Continue metoprolol COPD -Patient carries this diagnosis but was a never smoker -Given this is unlikely that she has baseline COPD -Patient on room air at baseline -As needed albuterol -Patient is on no home inhalers Vitamin D deficiency -Restart home vitamin D supplementation at discharge Osteoarthritis -Patient is on meloxicam at baseline -We will continue for now but need to watch closely DVT prophylaxis -SCDs -Subcu Lovenox CODE STATUS -DNR CCA with no intubation per discussion on admission Charges/Coding Visit Charges Inpatient E&M: 27359 Subs Hosp L2
[2022-07-06 07:58] LABS: Iron 25 ug/dL (50-170); Iron Binding Capacity,Total 405 ug/dL (250-450); PERCENT IRON SATURATION 6.2 % (15.0-55.0)
[2022-07-06 10:00] VITALS: BP 146/74; PULSE 83; RESP 16; TEMP 37.1; O2SAT 93
[2022-07-06] MEDS: Cholecalciferol (VIT D3) 25 MCG TABLET (1,000 UNITS) PO (10:16)
[2022-07-06] MEDS: Ceftriaxone 1 GM/50 ML BAG IV (10:16)
[2022-07-06 10:17] VITALS: BP 146/74; PULSE 83
[2022-07-06] MEDS: Metoprolol Tartrate 50 MG Tablet PO ×2 (10:17→20:29)
[2022-07-06] MEDS: Allopurinol 300 MG Tablet PO (10:17)
[2022-07-06] MEDS: Lisinopril 40 MG Tablet PO (10:17)
[2022-07-06] MEDS: amLODIPine 10 MG Tablet PO (10:17)
[2022-07-06] MEDS: Enoxaparin 40 MG/0.4 ML Syringe SC (13:01)
[2022-07-06] MEDS: FLU VACC QS2022-23(6MOS UP)/PF 60 MCG/0.5 ML SYRINGE IM (13:01)
--- NOTE | 2022-07-06 15:00 | CASEMGMT ---
KOBY REA DC Planning Assessment: Face to Face with patient for initial transition planning/care coordination assessment. Pt alert, answering questions appropriately, and agreeable to participating in assessment with DIL and son at bedside. LEXY Manzo assisted with answering questions with patient. KOBY REA introduced self and role at [facility], pt and family voices understanding. Care providers, pharmacy, and demographics verified. Admission Dx: UTI, falls PCP: Hans Specialists: none Preferred Pharmacy: [facility] Insurance: [employer] Prescription Benefit: Yes Living Will/HPOA: DIL Anais states they are completed and notarized but they have not been given the final ok by an county attorney. Explained that an county attorney does not need to provide final approval if notarized. Recommended they be brought in for review by the staff to verify if they have been completed and are legal documents. LEXY Manzo expressed understanding. LNOK: sons Living Arrangements: Pt lives with oldest son and DIL in a house trailer with 2-3 steps w/handrail to enter. Pt has been independent with ADLs but family (primarily DILs) assist with all household tasks. Pt has a walker but does not use this routinely instead pt furniture walks. Transportation: family transports as needed. pt does not drive DME: walker; has a medical alert button but it is not currently active. HHC: None; Vianney REA to visit q6 months but has not visited since pt moved in with her son (per DIL Anais) SNF: None Plan: Pt and family prefer for pt to return to son's home at discharge. Pt's LEXY Manzo states that if pt receives some therapy first that would be best to ensure she is strong enough. SNF discussed but pt, pt's son, and LEXY Manzo all agreed that a SNF will be a last resort. Will monitor for PT/OT evaluation findings and pt's clinical progression and assist with DC planning needs as further determined. Rita Hancock RN CM
--- NOTE | 2022-07-06 16:42 | CASEMGMT ---
Social Work Note Referral Source: KOBY Solorzano Referral Reason: HCPOA KOBY Solorzano informed SW patient's son, Driss, was wanting to discuss HCPOA paperwork regarding patient. RN states patient is alert and oriented. SW to follow up. SW met with patient and patient's family and introduced herself and role as [facility] [employer] Technical Officer. SW requested permission to speak to patient with family present, patient agreed. SW inquired about patient's knowledge of and interest in HCPOA, patient stated she was interested and had some knowledge. Patient was alert and orientated, laying in hospital bed and agreeable to complete HCPOA documents. SW assisted patient in completing her HCPOA documents, educating patient about her agents abilities and limitations. Patient selected her son Driss as her first agent and son Bryson as her second agent. Patient was not interested in completing Living Will document. JIMY reviewed the HCPOA document with KOBY Solorzano present to witness, RN and SW signed as witnesses. Patient was given the original document to keep and encouraged to bring HCPOA documents to any medical appointment. 2 copies of patient's HCPOA document given to patient's son Driss per patient's request (for Driss and Bryson). Copy of HCPOA in patient's chart. SW inquired if patient would like her contacts updated to Jie as they are currently her DIL, patient agreed. No other needs voiced at this time, SW remains available if needs arise. Erika Ray SENIOR RESEARCH FELLOW, ANTOINETTE
[2022-07-06 17:58] VITALS: BP 148/78; PULSE 78; RESP 18; TEMP 36.9; O2SAT 96
--- NOTE | 2022-07-06 18:48 | NURSING ---
report called to [facility] with no questions. family aware of visiting hours and room assignment. all belongings packed and sent with pt via bed
[2022-07-06 20:13] VITALS: BP 136/64; PULSE 79; RESP 18; TEMP 36.9; O2SAT 97
[2022-07-06 20:29] VITALS: BP 136/64; PULSE 79
[2022-07-06] MEDS: Atorvastatin Calcium 40 MG Tablet PO (20:29)
[2022-07-06] MEDS: Meloxicam 15 MG Tablet PO (20:29)
[2022-07-06] MEDS: 0.9% Saline Lock 10 ML Syringe IV (20:30)
[2022-07-07] VITALS (8 sets, daily range): BP systolic 118–155; BP diastolic 70–77; PULSE 64–84; RESP 18; TEMP 36.6–37.1; O2SAT 88–95
[2022-07-07 07:43] LABS: Absolute Lymphocyte Count 2.62 X10^3/uL (0.83-4.51); Absolute Neutrophil Count 10.3 X10^3/uL (2.0-7.7); Basophil# 0.04 X10^3/uL; Basophil% 0.3 % (0-1); Eosinophils% 2.2 % (0-5); Hematocrit 41.9 % (37-47); Hemoglobin 11.5 g/dL (12.0-15.0); Lymphocyte # 2.62 X10^3/ul (0.83-4.51); Lymphocyte % 18.8 % (19-41); Mean Corp Hgb Conc 27.4 g/dL (32-36); Mean Corpuscular Hgb 19.8 pg (27.0-32.0); Mean Corpuscular Volume 72.2 fL (81-99); Monocyte# 0.56 X10^3/uL; NRBC Flagged by Analyzer 0 % (0-5); Neutrophil % 74.1 % (47-70); POSITIVE MORPHOLOGY YES; Platelet Count 303 K/mm3 (150-450); RBC Distribution Width CV 24.2 % (11.6-14.6); White Blood Count 13.9 K/mm3 (4.4-11.0)
[2022-07-07 07:49] LABS: Differential Indicated SCAN CRITERIA MET
[2022-07-07 08:11] LABS: Anion Gap 6 (5-15); BUN 29 mg/dL (7-18); BUN/Creat Ratio 29.6 RATIO (10-20); Calcium,Total 8.6 mg/dL (8.5-10.1); Chloride 113 mmol/L (98-107); Creatinine, Serum 0.98 mg/dL (0.55-1.02); EST Glomerular Filtration Rate 57 mL/min (>60); Est Glom Filt Rate - Afr Amer 69 mL/min (>60); Estimated Creatinine Clearance 39.29 ml/min; Glucose 87 mg/dL (74-106); Potassium 4.2 mmol/L (3.5-5.1); Sodium Level 140 mmol/L (136-145)
[2022-07-07 08:42] LABS: Anisocytosis 2+
[2022-07-07 08:44] LABS: Hypochromasia 1+; Microcytosis 1+; Ovalocyte 2+; Polychromasia 1+
[2022-07-07 08:46] LABS: Tear Drop Cell RARE
[2022-07-07] MEDS: Enoxaparin 40 MG/0.4 ML Syringe SC (10:10)
[2022-07-07] MEDS: Ensure Plus High Protein 120 ML LIQUID PO ×2 (10:10→11:27)
[2022-07-07] MEDS: Allopurinol 300 MG Tablet PO (10:12)
[2022-07-07] MEDS: Cholecalciferol (VIT D3) 25 MCG TABLET (1,000 UNITS) PO (10:12)
[2022-07-07] MEDS: 0.9% Saline Lock 10 ML Syringe IV (10:18)
[2022-07-07] MEDS: Metoprolol Tartrate 50 MG Tablet PO (10:18)
[2022-07-07] MEDS: amLODIPine 10 MG Tablet PO (10:19)
[2022-07-07] MEDS: Lisinopril 40 MG Tablet PO (10:19)
[2022-07-07] MEDS: Ceftriaxone 1 GM/50 ML BAG IV (10:26)
[2022-07-07] MEDS: Ferrous Sulfate 325 MG Tablet PO (11:27)
--- NOTE | 2022-07-07 12:30 | CASEMGMT ---
Addendum entered by Nely Mckeon 07/07/22 12:44: Also discussed outpt therapy with patient and patient declined. Original Note: Reviewed therapy notes, KOBY REA in to pt room, pt sitting up in chair in no distress. Discussed how pt did with therapy, she feels she did well. Pt states she would like to return home post hospitalization. Discussed HHC with her, pt states that she wouldn't mind having HHC but not where she is now. She states that her home is a dump. She states she does have heat and water she states things are piled up. She states the home is small and she can get around just fine. She states she doesn't want to be there but they are moving to another mobile home soon. Provided patient a list of HHC providers including quality and resource use data and consistent with the patient?s preferred geographic region, medical needs, and insurance network were provided from the [employer] Guide. Pt to keep list in case she feels she needs HHC once moved. She is aware to contact her PCP for this. Pt has a walker at home and denies further homegoing needs.
--- NOTE | 2022-07-07 14:55 | DCINST_ITS ---
Discharge Instructions Diet Discharge Diet: No restrictions Activity Discharge Activity: Return to Normal Activity Weight Bearing Status: Full weight bearing Follow Up Care Test Results: Test results from this visit will be discussed in further detail at your follow- up appointment, if applicable. Discharge Plan Admission Admit Date/Time: 07/05/22 15:00 Primary Reason for Your Visit: Urinary tract infection, Norovirus infection Attending Provider: Naveen Hermosillo Primary Care Provider: Chase Maxwell Consulting Providers: Brittney Duque ; Karishma gN Discharge Orders/Prescriptions Prescriptions: New acetaminophen [Tylenol] 325 mg Tablet 650 mg PO Q6H PRN PRN (Reason: Pain 1-10 Or Fever) Qty: 1 0RF ferrous sulfate [FeroSul] 325 mg (65 mg iron) Tablet 325 mg PO 1200,1700 Qty: 60 0RF cephalexin 500 mg capsule 500 mg PO BID Qty: 4 0RF Rx Instructions: start on 07/08/22 Continued amlodipine 10 mg tablet 10 mg PO DAILY metoprolol tartrate 50 mg tablet 50 mg PO BID atorvastatin 40 MG tablet 40 mg PO QHS cholecalciferol (vitamin D3) 1,000 UNIT tablet 1,000 unit PO DAILY Eliquis 5 mg tablet 5 mg PO BID allopurinol 300 mg tablet 300 mg PO DAILY lisinopril 40 mg tablet 40 mg PO DAILY albuterol sulfate 1 INHALER HFA aerosol inhaler 1 - 2 puff INHALATION Q4H PRN (Reason: Wheezing) ondansetron 4 MG tablet,disintegrating 4 mg PO Q6H PRN (Reason: Nausea) [id number]-[id number] Tablet 1 tab PO QHS Discontinued meloxicam 15 mg tablet 15 mg PO QHS Referrals / Follow Up: Chase Maxwell MD [Primary Care Provider] - Within 2 Weeks Disposition Disposition (needs filled in before D/C Order can be placed): Home, Self Care
--- NOTE | 2022-07-07 15:07 | DS.PCM_ITS ---
Providers Date of Admission: 07/05/22 Date of Discharge: 07/07/22 Primary Care Physician: Dr. Chase Maxwell MD Reason For Visit: MECHANICAL FALLS, UTI Diagnosis Discharge Diagnosis (1) UTI (urinary tract infection): Status: Acute Code(s): N39.0 - Urinary tract infection, site not specified (2) Fall: Status: Acute Code(s): W19.XXXA - Unspecified fall, initial encounter (3) Debility: Status: Acute Code(s): R53.81 - Other malaise (4) Leukocytosis: Status: Acute Code(s): D72.829 - Elevated white blood cell count, unspecified (5) Microcytosis: Status: Acute Code(s): R71.8 - Other abnormality of red blood cells (6) Diarrhea: Status: Acute Code(s): R19.7 - Diarrhea, unspecified Plan 1. Acute debility #2 acute cystitis #3 essential hypertension #4 hyperlipidemia #5 coronary artery disease #6 paroxysmal atrial fibrillation #7 hypercoagulable state secondary to paroxysmal atrial fibrillation Medications at Discharge Home Medications amlodipine 10 mg tablet 10 mg PO DAILY BLOOD PRESSURE 03/27/18 metoprolol tartrate 50 mg tablet 50 mg PO BID HEART 03/27/18 atorvastatin 40 mg tablet 40 mg PO QHS CHOLESTROL 02/11/19 cholecalciferol (vitamin D3) 25 mcg (1,000 unit) tablet 1,000 unit PO DAILY SUPP LEMENT 02/11/19 apixaban 5 mg tablet (Eliquis) 5 mg PO BID BLOOD THINNER 09/28/21 albuterol sulfate 90 mcg/actuation aerosol inhaler 1 - 2 puff INHALATION Q4H PRN Wheezing 07/05/22 allopurinol 300 mg tablet 300 mg PO DAILY GOUT 07/05/22 [id number]-rpnvowaem-jdtn tablet 1 tab PO QHS SUPPLEMENT 07/05/22 lisinopril 40 mg tablet 40 mg PO DAILY BLOOD PRESSURE 07/05/22 ondansetron 4 mg disintegrating tablet 4 mg PO Q6H PRN Nausea 07/05/22 acetaminophen 325 mg tablet (Tylenol) 650 mg PO Q6H PRN PRN Pain 1-10 Or Fever #1 TAB 07/07/22 cephalexin 500 mg capsule 500 mg PO BID #4 caps 07/07/22 ferrous sulfate 325 mg (65 mg iron) tablet (FeroSul) 325 mg PO 1200,1700 #60 tabs 07/07/22 Hospital Course Operations None Procedures None Summary of Care Provided Minutes Spent on Discharge: 31 Hospital Course: This 87-year-old white female was seen in the emergency room after sustaining multiple falls at home, patient was supposed to use her walker but does not often use it. Work-up in the emergency room revealed an elevated white blood cell count at 17.2, BUN was slightly elevated at 24, urinalysis revealed +2 bacteria, positive nitrates, 0 RBCs, and 0-5 WBCs. Chronic arthritic changes were noted on her imaging studies but she had no acute fractures. Patient was admitted to [place] [id number], she was seen in consultation by PT and OT, and she was given IV Rocephin for cystitis. Discussions were carried out the patient and she decided that she would like to return home rather than go to an extended care facility.. On 07/07/2022, patient was seen and examined: On examination she appeared in good health and spirits, she does not appear to be in any distress. Vital signs as documented. Skin warm and dry and without overt rashes. Neck without JVD, thyroid appears normal, trachea is midline, neck is supple. Lungs clear, normal air movement was noted. Heart exam notable for regular rhythm, normal sounds and absence of murmurs, rubs or gallops. Abdomen unremarkable and without evidence of organomegaly, masses, or abdominal aortic enlargement, bowel sounds are present in all 4 quadrants, no abdominal tenderness was noted. Extremities nonedematous, no cyanosis was noted, no clubbing was noted. Neuro: Cranial nerves II through XII are grossly intact, no focal motor deficits were noted, sensation to light touch and pinprick is intact, motor exam 5/5 throughout. Psych: Patient is alert and oriented x3, she does not appear anxious or depressed, she does not appear agitated. Patient was discharged home in stable condition on 07/07/2022 Weight / BMI Weight Weight: 83.9 kg Body Mass Index (BMI) 29.8 ABG / Lab / Microbiology Data Result Diagrams: 07/07/22 06:40 07/07/22 06:40 Laboratory: Laboratory Results - last 24 hr 07/07/22 06:40: WBC 13.9 H, RBC 5.80 H, Hgb 11.5 L, Hct 41.9, MCV 72.2 L, MCH 19.8 L, MCHC 27.4 L, RDW Std Deviation 59.0 H, RDW Coeff of Ema 24.2 H, Plt Count 303, MPV TNP, Immature Gran % (Auto) 0.600, Neut % (Auto) 74.1 H, Lymph % (Auto) 18.8 L, [place] % (Auto) 4.0, Eos % (Auto) 2.2, Baso % (Auto) 0.3, Absolute Neuts (auto) 10.3 H, Absolute Lymphs (auto) 2.62, Nucleated RBC % 0, Polychromasia 1+, Hypochromasia 1+, Anisocytosis 2+, Microcytosis 1+, Tear Drop Cells RARE, Ovalocytes 2+ 07/07/22 06:40: Sodium 140, Potassium 4.2, Chloride 113 H, Carbon Dioxide 21.0, Anion Gap 6, BUN 29 H, Creatinine 0.98, Estim Creat Clear Calc 39.29, Est GFR (MDRD) Af Amer 69, Est GFR (MDRD) Non-Af 57 L, BUN/Creatinine Ratio 29.6 H, Glucose 87, Calcium 8.6 Microbiology: Microbiology 07/06/22 10:30 Stool Enteric Bacteriology - Final Norovirus 07/05/22 13:55 Urine Catheter - Catheter Urine Culture - Final Raoultella planticola 07/06/22 10:30 Stool C. difficile DNA Amplification - Final 07/06/22 08:45 Nasal Secretion SARS-CoV-2 Antigen (Rapid) - Final D/C Instructions Discharge Diet: No restrictions Weight Bearing Status: Full weight bearing Meaningful Use Info Meaningful Use Diagnoses (Choose all that apply): None applicable Discharge Plan Admission Admit Date/Time: 07/05/22 15:00 Primary Reason for Your Visit: Urinary tract infection, Norovirus infection Attending Provider: Naveen Hermosillo Primary Care Provider: Chase Maxwell Consulting Providers: Brittney Duque ; Karishma Ng Discharge Orders/Prescriptions Prescriptions: New acetaminophen [Tylenol] 325 mg Tablet 650 mg PO Q6H PRN PRN (Reason: Pain 1-10 Or Fever) Qty: 1 0RF ferrous sulfate [FeroSul] 325 mg (65 mg iron) Tablet 325 mg PO 1200,1700 Qty: 60 0RF cephalexin 500 mg capsule 500 mg PO BID Qty: 4 0RF Rx Instructions: start on 07/08/22 Continued amlodipine 10 mg tablet 10 mg PO DAILY metoprolol tartrate 50 mg tablet 50 mg PO BID atorvastatin 40 MG tablet 40 mg PO QHS cholecalciferol (vitamin D3) 1,000 UNIT tablet 1,000 unit PO DAILY Eliquis 5 mg tablet 5 mg PO BID allopurinol 300 mg tablet 300 mg PO DAILY lisinopril 40 mg tablet 40 mg PO DAILY albuterol sulfate 1 INHALER HFA aerosol inhaler 1 - 2 puff INHALATION Q4H PRN (Reason: Wheezing) ondansetron 4 MG tablet,disintegrating 4 mg PO Q6H PRN (Reason: Nausea) [id number]-[id number]-[id number] Tablet 1 tab PO QHS Discontinued meloxicam 15 mg tablet 15 mg PO QHS Referrals / Follow Up: Chase Maxwell MD [Primary Care Provider] - Within 2 Weeks Disposition Disposition (needs filled in before D/C Order can be placed): Home, Self Care Charges/Coding Visit Charges Inpatient E&M: 87977 Disch Hosp >30min
== END 2022-07-07 16:00 | disposition home or self-care (01) | DRG 690 ==
LOC: ED 11:57 → MS3 15:25
PROVIDERS: Internal Medicine; Admitting Provider Student in an Organized Health Care Education/Training Program; Emergency Provider Emergency Medicine; PCP Internal Medicine; Visit Provider Internal Medicine
DX: N30.00 Acute cystitis without hematuria (principal); D68.69 Other thrombophilia; I48.0 Paroxysmal atrial fibrillation; E55.9 Vitamin D deficiency, unspecified; E61.1 Iron deficiency; R55 Syncope and collapse; J44.9 Chronic obstructive pulmonary disease, unspecified; E78.00 Pure hypercholesterolemia, unspecified; I25.10 Atherosclerotic heart disease of native coronary artery without angina pectoris; I10 Essential (primary) hypertension; M17.0 Bilateral primary osteoarthritis of knee; S80.01XA Contusion of right knee, initial encounter; S80.02XA Contusion of left knee, initial encounter; M16.11 Unilateral primary osteoarthritis, right hip; R19.7 Diarrhea, unspecified; W01.10XA Fall on same level from slipping, tripping and stumbling with subsequent striking against unspecified object, initial encounter; M11.261 Other chondrocalcinosis, right knee; M11.262 Other chondrocalcinosis, left knee; M10.9 Gout, unspecified; R53.81 Other malaise; R29.6 Repeated falls; Z23 Encounter for immunization; Z66 Do not resuscitate; Z79.01 Long term (current) use of anticoagulants; Z79.1 Long term (current) use of non-steroidal anti-inflammatories (NSAID); Z79.899 Other long term (current) drug therapy; Z87.891 Personal history of nicotine dependence
CPT/HCPCS: 36415; 70450; 71250; 72125; 73502; 73564; 80048; 81001; 82550; 83540; 83550; 84484; 85025; 87077; 87086; 87088; 87186; 87493; 87506; 87811; 93005; 97162; 97166; 99284; G0008; J7030; 90686; A4216; J2405

== ENCOUNTER 2023-06-06 16:38 | Emergency (ER) | payer MEDICARE, MEDICAID, SELFPAY ==
[2023-06-06 16:41] VITALS: BP 137/101; PULSE 79; RESP 16; TEMP 36.2; O2SAT 96; BMI 29.2
[2023-06-06 17:02] VITALS: BP 117/83; PULSE 76; RESP 16; O2SAT 98
--- NOTE | 2023-06-06 17:12 | RAD_ITS ---
EXAM: XR CHEST, 2 VIEWS CLINICAL INDICATION: Cough for 2 weeks TECHNIQUE: Frontal and lateral views of the chest. COMPARISON: 09/28/[address] chest, 07/05/2022 FINDINGS: LUNGS AND PLEURAL SPACES: No significant abnormality. No consolidation or edema. No pneumothorax. No effusion. HEART: No significant abnormality. Cardiac silhouette not enlarged. MEDIASTINUM: Central airways and mediastinal contour are unremarkable. BONES/JOINTS: Degenerative changes in the spine. No acute fracture. SOFT TISSUES: No significant abnormality. VASCULATURE: Atherosclerosis. RAD/Chest PA and Lateral IMPRESSION: No acute findings in the chest. Electronically Signed: Francisco Brooks DO at 17:29 EST ,
[2023-06-06 17:15] LABS: Absolute Lymphocyte Count 1.24 X10^3/uL (0.83-4.51); Basophil# 0.02 X10^3/uL; Basophil% 0.2 % (0-1); Eosinophil# 0.04 X10^3/uL; Eosinophils% 0.5 % (0-5); Hemoglobin 14.2 g/dL (12.0-15.0); Lymphocyte # 1.24 X10^3/ul (0.83-4.51); Lymphocyte % 15.2 % (19-41); Mean Corpuscular Hgb 38.5 pg (27.0-32.0); Mean Corpuscular Volume 116.5 fL (81-99); Mean Platelet Vol. 11.9 fl (6.2-12.0); Monocyte# 0.74 X10^3/uL; Monocyte% 9.1 % (0-10); NRBC Flagged by Analyzer 0 % (0-5); Neutrophil % 73.4 % (47-70); POSITIVE MORPHOLOGY YES; Platelet Count 117 K/mm3 (150-450); RBC Distribution Width CV 16.3 % (11.6-14.6); RBC Distribution Width SD 69.9 fl (35.1-43.9); Red Blood Count 3.69 M/mm3 (4.2-5.4); White Blood Count 8.2 K/mm3 (4.4-11.0)
--- NOTE | 2023-06-06 17:20 | EX.ED.DYSGE1 ---
HPI History of Present Illness Chief Complaint: Weakness Detail of Chief Complaint: Fell twice within 8 hours. She has not certain why she is here. Informant: patient, family and other (Daughter who is POA) Limited: dementia Onset/Context/Timing Onset: Yesterday Context: Sudden Onset Timing: Intermittent Quality: Fell twice Location: At home Current Severity: Generalized weakness Maximum Severity: Unable to determine Worsened by: Nothing per patient Relieved by: Not applicable Associated Symptoms Associated Symptoms: None Narrative Narrative: Patient is a 88-year-old woman. She does have mild dementia. She does not know the month, day of the week, day of the month or holiday season. Patient denies headache. She denies change in vision. She denies ringing or ears. She does endorse dry mouth and thirst. She denies chest pain. She denies shortness of breath. She denies abdominal pain. She denies vomiting or diarrhea. Her stool is a dark black-green. She is on iron. It is not tarry or maroon-colored. She does not recall having any urinary symptoms. Daughter states she has vertigo and had vertigo for years. She denies any vertiginous symptoms. When she fell she did not become lightheaded and had no symptoms. She just fell. There is no history of head trauma. There is no history of loss of conscious. 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 COPD (chronic obstructive pulmonary disease) Debility Dementia Essential hypertension Fall Leukocytosis Microcytosis Osteoporosis PSVT (paroxysmal supraventricular tachycardia) Pulmonary air embolism Pure hypercholesterolemia UTI (urinary tract infection) Home Medications amlodipine 10 mg tablet 10 mg PO DAILY BLOOD PRESSURE 03/27/18 [History Last Taken 07/05/22] metoprolol tartrate 50 mg tablet 50 mg PO BID HEART 03/27/18 [History Last Taken 07/05/22] atorvastatin 40 mg tablet 40 mg PO QHS CHOLESTROL 02/11/19 [History Last Taken 07/04/22] cholecalciferol (vitamin D3) 25 mcg (1,000 unit) tablet 1,000 unit PO DAILY SUPPLEMENT 02/11/19 [History Last Taken 07/05/22] apixaban 5 mg tablet (Eliquis) 5 mg PO BID BLOOD THINNER 09/28/21 [History Last Taken 07/05/22] albuterol sulfate 90 mcg/actuation aerosol inhaler 1 - 2 puff INHALATION Q4H PRN Wheezing 07/05/22 [History Last Taken Unknown] allopurinol 300 mg tablet 300 mg PO DAILY GOUT 07/05/22 [History Last Taken 07/05/22] bemstnu-vewsxpton-vhgh tablet 1 tab PO QHS SUPPLEMENT 07/05/22 [History Last Taken 07/04/22] lisinopril 40 mg tablet 40 mg PO DAILY BLOOD PRESSURE 07/05/22 [History Last Taken 07/05/22] ondansetron 4 mg disintegrating tablet 4 mg PO Q6H PRN Nausea 07/05/22 [History Last Taken Unknown] acetaminophen 325 mg tablet (Tylenol) 650 mg (2 x 325 mg) PO Q6H PRN PRN Pain 1-10 Or Fever #1 TAB 07/07/22 [Rx Last Taken Unknown] cephalexin 500 mg capsule 500 mg PO BID #4 caps 07/07/22 [Rx Last Taken Unknown] ferrous sulfate 325 mg (65 mg iron) tablet (FeroSul) 325 mg PO 1200,1700 #60 tabs 07/07/22 [Rx Last Taken Unknown] cephalexin 500 mg capsule 500 mg PO Q8H #21 CAPSULES 06/06/23 [Rx Last Taken Unknown] Allergy/AdvReac Type Severity Reaction Status Date / Time No Known Allergies Allergy Verified 07/05/22 11:21 Surgical History S/p left hip fracture (~2016) Social History (Updated 06/06/23 @ 17:[address] Noam Farris MD) household members: family Smoking Status: Former smoker caffeine: Yes Type: carbonated beverages, coffee and tea ROS ROS ED Review of Systems ROS Unobtainable: due to mental status Constitutional Constitutional ED: Denies chills or fever(s) Eyes Eyes: Denies blurry vision, change in vision or diplopia ENT ENT ED: Denies rhinorrhea Cardiovascular Cardiovascular: Denies chest pain, orthopnea, palpitations or paroxysmal nocturnal dyspnea Respiratory/Chest Respiratory/Chest: Reports cough; Denies dyspnea, dyspnea on exertion, orthopnea or paroxysmal nocturnal dyspnea Gastrointestinal Gastrointestinal: Denies abdominal pain, diarrhea, melena or vomiting Genitourinary Genitourinary ED: Denies dysuria, hematuria or urinary frequency Musculoskeletal Musculoskeletal: Denies arthralgias, back pain or myalgias Integumentary Denies rash Neurologic Neurologic: Reports weakness; Denies headache(s) or paresthesias Hematologic/Lymphatic Hematologic/Lymphatic: Reports systems reviewed and no addt'l complaints, except as documented EXAM Physical Exam Const Vital Signs: 06/06/23 16:41 06/06/23 17:02 06/06/23 17:48 Temperature 97.2 F L Temperature Source Temporal Pulse Rate 79 76 Pulse Rate [Lying] 69 Pulse Rate [Sitting (for 1 minute prior to obtaining)] 65 Pulse Rate [Standing (for 1 minute prior to obtaining)] 64 Respiratory Rate 16 16 Blood Pressure 137/101 H 117/83 H Blood Pressure [Lying] 124/57 H Blood Pressure [Sitting (for 1 minute prior to obtaining)] 119/59 L Blood Pressure [Standing (for 1 minute prior to obtaining)] 103/77 Blood Pressure Mean 113 94 Blood Pressure Mean [Lying] 79 Blood Pressure Mean [Sitting (for 1 minute prior to obtaining)] 79 Blood Pressure Mean [Standing (for 1 minute prior to obtaining)] 85 Pulse Ox 96 98 Oxygen Delivery Method Room Air Room Air Positive well nourished and well developed Constitutional Narrative: Patient is an elderly confused pleasant patient who appears in no distress. General Appearance ED: well developed and NAD; Negative for cyanotic, diaphoretic or pallor HEENT Reports dry mucous membranes HEENT Narrative: Head is atraumatic and normocephalic. There is no clinical signs of basilar skull fracture. There is no septal deviation hematoma. Posterior pharynx is normal. Mouth ED: Yes dry mucous membranes Mouth: dry mucous membranes Eyes PERRL and EOMs intact bilaterally Eyes Narrative: There is no nystagmus. There is no junctional hemorrhage. General Eye ED: Negative for pale conjunctiva or scleral icterus Neck no lymphadenopathy, supple and no JVD Chest Wall inspection of chest normal and palpation of chest normal Resp normal respiratory effort and clear to auscultation bilaterally Cardio regular rate, regular rhythm, S1 normal heart sound, S2 normal heart sound and no murmurs GI normal to inspection, nondistended, normoactive bowel sounds, non-tender, non-distended and no masses; Negative for hepatosplenomegaly GI Narrative: There is no palpable pulsatile mass. There is no abdominal bruit. Back/Spine no CVA tenderness Cervical Spine: Negative for cervical spine tenderness Thoracic Spine / Upper Back: Negative for thoracic spinal tenderness Lumbar Spine / Lower Back: Negative for lumbar spinal tenderness Extremity normal to inspection General Extremety ED: Negative for tenderness Neuro No oriented x3, CN's II-XII intact bilaterally and no sensory deficits noted Neuro Narrative: There is no dysmetria. There is no clonus or Babinski sign right or left. DTRs are 2+ and symmetric. Sensorium / Orientation: alert and orientation impaired Motor Exam: strength 5/5 throughout Psych mental status grossly normal Skin no rashes or lesions noted, no wounds and No skin turgor normal General Skin Exam: Negative for elasticity normal, jaundice or pallor MDM MDM MDM Narrative Medical decision making narrative: Clinically patient appears dehydrated. She may have fallen due to orthostatic hypotension. Will obtain orthostatic vitals. She received a liter of fluid. BMP was obtained to assess renal function, CO2 anion gap and electrolytes. CBC to assess H&H. Chest x-ray was ordered because she has had a cough for over 2 weeks. This was obtained to evaluate for infiltrate. Deceived Bactrim double strength in the emergency room. She was discharged with single strength since she has an estimated GFR of 38 and is 88 years of age. Patient was told that her falls may be due to folate or B12 deficiency. The results for those test will not be back today. She will need to follow-up with her doctor regarding the results of the folate and B12 level. Since there is severe warning interaction between lisinopril and Bactrim DS the Bactrim DS was canceled. Patient was treated with cephalexin. She is not presently on cephalexin Lab Data Attestation: I reviewed the patient's lab results. Lab results narrative: Patient's MCV have been low end of normal to low consistent with iron deficiency anemia. Her MCV now is 116. This would suggest possible folate or B12 deficiency. H&H is normal. BUN and creatinine are elevated from baseline at 25 and 1.39. Glucose slight elevated 115 with normal CO2 and anion gap. Estimated GFR was 38. B12 returned prior to discharge and is within normal limits. Folate is still pending. Labs: Laboratory Results - last 24 hr 12/06/06/23 06/06/23 17:00 17:16 18:07 WBC 8.2 RBC 3.69 L Hgb 14.2 Hct 43.0 MCV 116.5 H MCH 38.5 H MCHC 33.0 RDW Std Deviation 69.9 H RDW Coeff of Ema 16.3 H Plt Count 117 L MPV 11.9 Immature Gran % (Auto) 1.600 H Neut % (Auto) 73.4 H Lymph % (Auto) 15.2 L [place] % (Auto) 9.1 Eos % (Auto) 0.5 Baso % (Auto) 0.2 Absolute Neuts (auto) 6.0 Absolute Lymphs (auto) 1.24 Nucleated RBC % 0 Platelet Estimate SLT DEC RBC Morphology N CHROM Anisocytosis 2+ Macrocytosis 2+ Ovalocytes RARE Sodium 138 Potassium 3.7 Chloride 106 Carbon Dioxide 27.0 Anion Gap 5 BUN 25 H Creatinine 1.39 H Estim Creat Clear Calc 27.20 Est GFR (MDRD) Af Amer 46 L Est GFR (MDRD) Non-Af 38 L BUN/Creatinine Ratio 18.0 Glucose 115 H Calcium 8.6 Vitamin B12 530 Urine Color Yellow Urine Clarity Sl. Cloudy Urine pH 5.0 Ur Specific [place] 1.020 Urine Protein 30 H Urine Glucose (UA) Normal Urine Ketones Negative Urine Occult Blood 10 H Urine Nitrite Negative Urine Bilirubin Negative Urine Urobilinogen 1 H Ur Leukocyte Esterase 500 H Urine RBC 0 SEEN Urine WBC 25-50 SEEN Ur Squamous Epith Cells 0 SEEN Urine Bacteria 2+ Urine Mucus 0 SEEN Radiography Chest X-Ray - ED: 2 View and Read by ED Physician (Independently reviewed and interpreted by me as negative for any acute process. Cardiac silhouette and size normal. Lung parenchyma reveals mild chronic changes. Perihilar regions normal. Osseous structures are unremarkable. 1707.) Diagnostic Testing: Clinical Impression(s) from Imaging Studies Chest X-Ray 06/06/23 17:12 IMPRESSION: No acute findings in the chest. Electronically Signed: Francisco Brooks DO at 17:29 EST , Rhythm Strip Rhythm Strip: Sinus Rhythm Rate: 92 Ectopy: None Treatment and Re-Evaluation :: X interview with patient and family. Plan is discharge to home with outpatient follow-up and obtaining results of folate and B12 level. Discharge Plan Triage Chief Complaint: Weakness ED Provider: Noam Farris Dx/Rx/DC Orders Clinical Impression: Urinary tract infection in female, Essential hypertension, Atherosclerosis of [place] coronary artery of [place] heart without angina pectoris, Pure hypercholesterolemia, Creatinine elevation, Chronic kidney disease, stage 3a, Macrocytosis without anemia, Falls, At high risk for falls Prescriptions: New cephalexin [cephalexin] 500 mg capsule 500 mg PO Q8H Qty: 21 0RF No Action amlodipine 10 mg tablet 10 mg PO DAILY metoprolol tartrate 50 mg tablet 50 mg PO BID atorvastatin 40 MG tablet 40 mg PO QHS cholecalciferol (vitamin D3) 1,000 UNIT tablet 1,000 unit PO DAILY Eliquis 5 mg tablet 5 mg PO BID allopurinol 300 mg tablet 300 mg PO DAILY lisinopril 40 mg tablet 40 mg PO DAILY albuterol sulfate 1 INHALER HFA aerosol inhaler 1 - 2 puff INHALATION Q4H PRN (Reason: Wheezing) ondansetron 4 MG tablet,disintegrating 4 mg PO Q6H PRN (Reason: Nausea) [id number]-[id number]-[id number] Tablet 1 tab PO QHS acetaminophen [Tylenol] 325 mg Tablet 650 mg PO Q6H PRN PRN (Reason: Pain 1-10 Or Fever) Qty: 1 0RF ferrous sulfate [FeroSul] 325 mg (65 mg iron) Tablet 325 mg PO 1200,1700 Qty: 60 0RF cephalexin 500 mg capsule 500 mg PO BID Qty: 4 0RF Rx Instructions: start on 07/08/22 Primary Care Provider: Chase Maxwell Referrals: Chase Maxwell MD [Primary Care Provider] - 3-5 Days Disposition Disposition: Home, Self Care
[2023-06-06 17:36] LABS: Anion Gap 5 (5-15); BUN 25 mg/dL (7-18); Calcium,Total 8.6 mg/dL (8.5-10.1); Chloride 106 mmol/L (98-107); Creatinine, Serum 1.39 mg/dL (0.55-1.02); EST Glomerular Filtration Rate 38 mL/min (>60); Est Glom Filt Rate - Afr Amer 46 mL/min (>60); Glucose 115 mg/dL (74-106); Potassium 3.7 mmol/L (3.5-5.1); Sodium Level 138 mmol/L (136-145)
[2023-06-06 17:48] VITALS: BP 103/77; BP 119/59; BP 124/57; PULSE 64; PULSE 65; PULSE 69
[2023-06-06 17:49] LABS: Mucous, Urine 0 SEEN /hpf (<or=2+); Red Blood Cells-Urine 0 SEEN /hpf (0-5); Squamous Epithelial Cells - UA 0 SEEN /hpf (5-10)
[2023-06-06 17:51] LABS: Differential Indicated SCAN CRITERIA MET
[2023-06-06 17:53] LABS: Anisocytosis 2+; Platelet Estimate SLT DEC (ADEQ); Red Cell Morphology N CHROM NORMAL (NORM C&C)
[2023-06-06 17:54] LABS: Macrocytosis 2+; Ovalocyte RARE
[2023-06-06 18:17] LABS: Color, Urine Yellow (Yellow); Glucose, Dipstick Normal (Normal); Ketone-Dipstick Negative (Negative); Leukocyte Esterase-Dipstick 500 /ul (Negative); Nitrite-Dipstick Negative (Negative); Occult Blood-Urine 10 /ul (Negative); Protein-Dipstick 30 mg/dl (Negative); Urine Bilirubin Dipstick Negative (Negative); Urine Clarity Sl. Cloudy (Clear); Urine Urobilinogen 1 mg/dl (Normal)
[2023-06-06 18:23] LABS: Bacteria 2+ /hpf (None Seen); White Blood Cells 25-50 SEEN /hpf (0-5)
[2023-06-06 18:36] LABS: Vitamin B12 530 pg/mL (211-911)
[2023-06-06 18:47] VITALS: BP 137/83; PULSE 86; RESP 16; O2SAT 98
[2023-06-06] MEDS: Cephalexin 250 MG Capsule 500 MG PO (19:01)
== END 2023-06-06 19:10 | disposition home or self-care (01) ==
PROVIDERS: Emergency Provider Emergency Medicine; PCP Internal Medicine; Visit Provider Emergency Medicine
DX: N39.0 Urinary tract infection, site not specified (principal); F03.A0 Unspecified dementia, mild, without behavioral disturbance, psychotic disturbance, mood disturbance, and anxiety; J44.9 Chronic obstructive pulmonary disease, unspecified; N18.31 Chronic kidney disease, stage 3a; I25.10 Atherosclerotic heart disease of native coronary artery without angina pectoris; E78.00 Pure hypercholesterolemia, unspecified; I12.9 Hypertensive chronic kidney disease with stage 1 through stage 4 chronic kidney disease, or unspecified chronic kidney disease; D75.89 Other specified diseases of blood and blood-forming organs; R29.6 Repeated falls; Z79.01 Long term (current) use of anticoagulants; Z79.899 Other long term (current) drug therapy; Z87.891 Personal history of nicotine dependence
CPT/HCPCS: 71046; 80048; 81001; 82607; 82746; 85025; 87086; 87088; 87186; 99285; P9612; A4216

== ENCOUNTER 2023-10-13 11:25 | Inpatient (IN) | payer MEDICARE, MEDICAID, SELFPAY ==
[2023-10-13] VITALS (9 sets, daily range): BP systolic 135–168; BP diastolic 79–105; PULSE 62–133; RESP 15–24; TEMP 36.8–37; O2SAT 95–98; BMI 30.2; BMI 29.0
--- NOTE | 2023-10-13 11:36 | EKG12_ITS ---
Test Reason : WEAKNESS Blood Pressure : / mmHG Vent. Rate : 090 BPM Atrial Rate : 000 BPM P-R Int : 000 ms QRS Dur : 064 ms QT Int : 350 ms P-R-T Axes : 000 -08 038 degrees QTc Int : 428 ms Atrial fibrillation Nonspecific ST abnormality Abnormal ECG Confirmed by DONNIE MARSHALL, DARIEN ([id number]), editor house organ MARISSA MUSA ([id number]) on 10/15/2023 7:04:45 AM Referred By: Confirmed By:DARIEN FIELDS MD
--- NOTE | 2023-10-13 11:43 | EX.ED.DYSGE1 ---
HPI History of Present Illness Chief Complaint: Dizziness Detail of Chief Complaint: Lightheadedness, near fall x 3, diarrhea Informant: patient and spouse/S.O. Limited: dementia (She has been staying with her sister so does not have complete details.) Onset/Context/Timing Onset: Days (Per diarrhea for 4 to 5 days.) Context: Sudden Onset Timing: Intermittent Quality: Watery diarrhea Location: GI Maximum Severity: Moderate Worsened by: Nothing Relieved by: Nothing Associated Symptoms Associated Symptoms: Lightheadedness with near fall. Patient on anticoagulant, Eliquis Narrative Narrative: Patient is a 8-year-old woman. She is a poor informant due to dementia. Patient is not feeling well. She states she has diarrhea. states her sister told him that she is having 4-5 loose stools a day. She states it is black. She is on iron. She has not taken Pepto-Bismol or Kaopectate recently. She does endorse thirst and dry mouth. She does endorse lightheadedness. She was unaware that her heart rate was 130+. Patient denies headache. She denies change in vision. She denies ringing or ears. She denies trouble with speech. She denies chest discomfort or shortness of breath. She denies abdominal pain. She denies urologic symptoms. She denies leg pain or swelling. She does report problems with her lungs. She is presently not a smoker. Prior similar symptoms: No Recent Illness/Hospitalization: No PFSH PFS Medical History Ascending aorta dilatation Atherosclerosis of [place] coronary artery of [place] heart without angina pectoris COPD (chronic obstructive pulmonary disease) Debility Dementia Essential hypertension Fall Leukocytosis Microcytosis Osteoporosis PSVT (paroxysmal supraventricular tachycardia) Pulmonary air embolism Pure hypercholesterolemia UTI (urinary tract infection) Home Medications amlodipine 10 mg tablet 10 mg PO DAILY BLOOD PRESSURE 03/27/18 [History Last Taken 07/05/22] metoprolol tartrate 50 mg tablet 50 mg PO BID HEART 03/27/18 [History Last Taken 07/05/22] atorvastatin 40 mg tablet 40 mg PO QHS CHOLESTROL 02/11/19 [History Last Taken 07/04/22] cholecalciferol (vitamin D3) 25 mcg (1,000 unit) tablet 1,000 unit PO DAILY SUPPLEMENT 02/11/19 [History Last Taken 07/05/22] apixaban 5 mg tablet (Eliquis) 5 mg PO BID BLOOD THINNER 09/28/21 [History Last Taken 07/05/22] albuterol sulfate 90 mcg/actuation aerosol inhaler 1 - 2 puff INHALATION Q4H PRN Wheezing 07/05/22 [History Last Taken Unknown] allopurinol 300 mg tablet 300 mg PO DAILY GOUT 07/05/22 [History Last Taken 07/05/22] agbouwt-fbwvptsbn-nhwj tablet 1 tab PO QHS SUPPLEMENT 07/05/22 [History Last Taken 07/04/22] lisinopril 40 mg tablet 40 mg PO DAILY BLOOD PRESSURE 07/05/22 [History Last Taken 07/05/22] ondansetron 4 mg disintegrating tablet 4 mg PO Q6H PRN Nausea 07/05/22 [History Last Taken Unknown] acetaminophen 325 mg tablet (Tylenol) 650 mg (2 x 325 mg) PO Q6H PRN PRN Pain 1-10 Or Fever #1 TAB 07/07/22 [Rx Last Taken Unknown] cephalexin 500 mg capsule 500 mg PO BID #4 caps 07/07/22 [Rx Last Taken Unknown] ferrous sulfate 325 mg (65 mg iron) tablet (FeroSul) 325 mg PO 1200,1700 #60 tabs 07/07/22 [Rx Last Taken Unknown] cephalexin 500 mg capsule 500 mg PO Q8H #21 CAPSULES 06/06/23 [Rx Last Taken Unknown] Allergy/AdvReac Type Severity Reaction Status Date / Time No Known Allergies Allergy Verified 10/13/23 11:26 Surgical History S/p left hip fracture (~2017) Social History household members: family Smoking Status: Former smoker caffeine: Yes Type: carbonated beverages, coffee and tea ROS ROS ED Constitutional Constitutional ED: Reports sweats; Denies chills, fever(s) or subjective Eyes Eyes: Denies blurry vision, change in vision or diplopia ENT ENT ED: Denies ear pain, rhinorrhea or sore throat Cardiovascular Cardiovascular: Denies chest pain, orthopnea, palpitations or racing heartbeat Respiratory/Chest Respiratory/Chest: Denies cough, dyspnea, dyspnea on exertion or orthopnea Gastrointestinal Gastrointestinal: Reports diarrhea and melena; Denies abdominal pain, nausea or vomiting Genitourinary Genitourinary ED: Denies dysuria, hematuria or urinary frequency Musculoskeletal Musculoskeletal: Denies back pain or neck pain Integumentary Denies rash Neurologic Neurologic: Reports weakness; Denies headache(s) or paresthesias Endocrine Endocrinology: Denies cold intolerance or heat intolerance Hematologic/Lymphatic Hematologic/Lymphatic: Reports systems reviewed and no addt'l complaints, except as documented EXAM Physical Exam Const Vital Signs: 10/13/23 11:27 10/13/23 11:31 10/13/23 13:06 Temperature 98.6 F 98.6 F 98.6 F Temperature Source Oral Oral Temporal Pulse Rate 133 H 133 H 72 Respiratory Rate 24 H 16 17 Blood Pressure 135/90 H 135/90 H 159/79 H Blood Pressure Mean 105 105 105 Pulse Ox 97 98 98 Oxygen Delivery Method Room Air Room Air Room Air 10/13/23 14:00 Temperature 98.6 F Temperature Source Temporal Pulse Rate 63 Respiratory Rate 17 Blood Pressure 156/90 H Blood Pressure Mean 112 Pulse Ox 98 Oxygen Delivery Method Room Air Positive well nourished and well developed Constitutional Narrative: Patient's heart rate is 133 on the monitor. Narrow complex. There is no obvious P waves. General Appearance ED: well developed; Negative for pallor HEENT Reports dry mucous membranes HEENT Narrative: Head is atraumatic normocephalic. Ears normal. Nares patent. Posterior pharynx is normal. Mouth ED: Yes dry mucous membranes Mouth: dry mucous membranes Eyes PERRL and EOMs intact bilaterally General Eye ED: Negative for pale conjunctiva or scleral icterus Neck no lymphadenopathy, supple and no JVD Chest Wall inspection of chest normal and palpation of chest normal Resp normal respiratory effort and clear to auscultation bilaterally Cardio regular rhythm, S1 normal heart sound, S2 normal heart sound and no murmurs Rate: tachycardic GI normal to inspection, nondistended, normoactive bowel sounds, non-distended and no masses; Negative for non-tender or hepatosplenomegaly Auscultation: hypoactive bowel sounds Palpation: soft and tender epigastric; Negative for guarding, splenomegaly or mass Back/Spine no CVA tenderness Extremity normal to inspection General Extremety ED: Yes edema; Negative for tenderness General Extremity: edema Neuro No oriented x3 and CN's II-XII intact bilaterally Sensorium / Orientation: alert Psych mental status grossly normal Mood & Affect: anxious Skin no rashes or lesions noted, no wounds and No skin turgor normal General Skin Exam: Negative for jaundice or pallor MDM MDM MDM Narrative Medical decision making narrative: Monitor reveals a sinus tach tachycardia narrow complex without P waves. Review of prior records in case patient has history of paroxysmal supraventricular tachycardia. Will obtain twelve-lead EKG. When patient was asked to come the left side to perform rectal exam she converted to sinus rhythm. Clinically patient is dehydrated. IV fluids were ordered. BMP was ordered to assess renal function and electrolytes and specifically evaluate for hypokalemia. Since she does appear pale we will obtain CBC to assess H&H. Because of reported black stools stool sent for Hemoccult testing. Is a blackish green consistent with person taking iron tablets. History & Record Review Additional record(s) reviewed:: Prior ED visit and Prior labs Lab Data Attestation: I reviewed the patient's lab results. Lab results narrative: CBC is unremarkable. MCV is elevated at 113. Basic metabolic panel is unremarkable. Estimated GFR 67. Labs: Laboratory Results - last 24 hr 10/13/23 11:45 WBC 7.1 RBC 3.60 L Hgb 13.8 Hct 40.8 MCV 113.3 H MCH 38.3 H MCHC 33.8 RDW Std Deviation 55.3 H RDW Coeff of Ema 13.2 Plt Count 260 MPV 10.4 Immature Gran % (Auto) 0.600 Neut % (Auto) 71.5 H Lymph % (Auto) 20.7 [place] % (Auto) 5.3 Eos % (Auto) 1.5 Baso % (Auto) 0.4 Absolute Neuts (auto) 5.1 Absolute Lymphs (auto) 1.48 Nucleated RBC % 0 Sodium 141 Potassium 3.7 Chloride 110 H Carbon Dioxide 26.0 Anion Gap 5 BUN 10 Creatinine 0.86 Estim Creat Clear Calc 51.64 Est GFR (MDRD) Af Amer 81 Est GFR (MDRD) Non-Af 67 BUN/Creatinine Ratio 11.7 Glucose 106 Calcium 9.4 Rhythm Strip Rhythm Strip: Narrow complex tachycardia with without visible P waves Rate: 133 Ectopy: None EKG Initial EKG: Attestation: I personally reviewed and interpreted this EKG as follows: Interpretation: Atrial Fibrillation (Rate is 90. QRS duration 64. QT duration 350 ms. [place] is normal. There is nonseptic ranges noted. There is no acute ischemia.) Treatment and Re-Evaluation :: Patient's alarm triggered. Patient went from a sinus rhythm which is different than her twelve-lead EKG which was A-fib to a narrow complex tachycardia rate of 145. This may represent flutter with a 2-1 block. I believe there is a P wave before the T wave. It is regular. Patient is on metoprolol. Will administer 5 mg metoprolol IV push for her rapid narrow complex tachycardia. Discharge Plan Triage Chief Complaint: Dizziness ED Provider: Noam Farris Dx/Rx/DC Orders Clinical Impression: Orthostatic lightheadedness, Essential hypertension, Atherosclerosis of [place] coronary artery of [place] heart without angina pectoris, Pure hypercholesterolemia, Near syncope, Narrow complex tachycardia, Anticoagulant long-term use Prescriptions: No Action amlodipine 10 mg tablet 10 mg PO DAILY metoprolol tartrate 50 mg tablet 50 mg PO BID atorvastatin 40 MG tablet 40 mg PO QHS cholecalciferol (vitamin D3) 1,000 UNIT tablet 1,000 unit PO DAILY Eliquis 5 mg tablet 5 mg PO BID allopurinol 300 mg tablet 300 mg PO DAILY lisinopril 40 mg tablet 40 mg PO DAILY albuterol sulfate 1 INHALER HFA aerosol inhaler 1 - 2 puff INHALATION Q4H PRN (Reason: Wheezing) ondansetron 4 MG tablet,disintegrating 4 mg PO Q6H PRN (Reason: Nausea) [id number] Tablet 1 tab PO QHS acetaminophen [Tylenol] 325 mg Tablet 650 mg PO Q6H PRN PRN (Reason: Pain 1-10 Or Fever) Qty: 1 0RF ferrous sulfate [FeroSul] 325 mg (65 mg iron) Tablet 325 mg PO 1200,1700 Qty: 60 0RF cephalexin 500 mg capsule 500 mg PO BID Qty: 4 0RF Rx Instructions: start on 07/08/22 cephalexin [cephalexin] 500 mg capsule 500 mg PO Q8H Qty: 21 0RF Primary Care Provider: Chase Maxwell Referrals: Chase Maxwell MD [Primary Care Provider] -
[2023-10-13] MEDS: 0.9% Normal Saline (500mL Bag) 500 ML 1000 ML IV (12:05)
[2023-10-13 12:13] LABS: Absolute Lymphocyte Count 1.48 X10^3/uL (0.83-4.51); Absolute Neutrophil Count 5.1 X10^3/uL (2.0-7.7); Basophil# 0.03 X10^3/uL; Basophil% 0.4 % (0-1); Eosinophil# 0.11 X10^3/uL; Eosinophils% 1.5 % (0-5); Hematocrit 40.8 % (37-47); Hemoglobin 13.8 g/dL (12.0-15.0); Lymphocyte # 1.48 X10^3/ul (0.83-4.51); Lymphocyte % 20.7 % (19-41); Mean Corp Hgb Conc 33.8 g/dL (32-36); Mean Corpuscular Hgb 38.3 pg (27.0-32.0); Mean Corpuscular Volume 113.3 fL (81-99); Mean Platelet Vol. 10.4 fl (6.2-12.0); Monocyte# 0.38 X10^3/uL; Monocyte% 5.3 % (0-10); NRBC Flagged by Analyzer 0 % (0-5); Neutrophil % 71.5 % (47-70); Platelet Count 260 K/mm3 (150-450); RBC Distribution Width CV 13.2 % (11.6-14.6); RBC Distribution Width SD 55.3 fl (35.1-43.9); White Blood Count 7.1 K/mm3 (4.4-11.0)
[2023-10-13 12:29] LABS: Anion Gap 5 (5-15); BUN 10 mg/dL (7-18); BUN/Creat Ratio 11.7 RATIO (10-20); Calcium,Total 9.4 mg/dL (8.5-10.1); Chloride 110 mmol/L (98-107); Creatinine, Serum 0.86 mg/dL (0.55-1.02); EST Glomerular Filtration Rate 67 mL/min (>60); Est Glom Filt Rate - Afr Amer 81 mL/min (>60); Estimated Creatinine Clearance 51.64 ml/min; Glucose 106 mg/dL (74-106); Potassium 3.7 mmol/L (3.5-5.1); Sodium Level 141 mmol/L (136-145)
[2023-10-13] MEDS: Metoprolol Tartrate 5 MG/5 ML Vial IV (15:21)
--- NOTE | 2023-10-13 15:24 | HP.PCM.HOS_ITS ---
HPI - General General Date of Admission: 10/13/23 Date of Service: 10/13/23 Chief Complaint: 3 near fall situation, near syncope, acute on chronic diarrhea. HPI Narrative URSULA CRUMP, is a 88 F was brought to ED by EMS for nearly 3 falls today. Patient accompanied with her daughter who is the main caregiver. EMS noted states that her daughter said she has almost 3 falls today. Feeling very weak. She also has diarrhea 4-5 loose bowel movement, black in color but she also on Pepto-Bismol with. No loss of consciousness. History of dementia. The patient is states he had diarrhea 4-5 bowel movement for long time probably about 10 y ears and she takes Imodium. She did not take any recent antibiotic. But her diarrhea has more increased in frequency for last 3 days about 5-6 and liquid in consistency. She feels dizzy and lightheaded and feels her legs gave out but could not differentiate whether knee joint or hip joint. Patient is only on a walker. 3 near fall situation happened today and patient was caught behind by daughter therefore no actual fall or head injury. Patient also felt dizziness and lightheadedness prior to near fall situations In ED, patient also was found to have SVT on the monitor. She has history of A- fib on anticoagulant. Patient was further admitted [facility] Medical History Ascending aorta dilatation Atherosclerosis of [place] coronary artery of [place] heart without angina pectoris COPD (chronic obstructive pulmonary disease) Debility Dementia Essential hypertension Fall Leukocytosis Microcytosis Osteoporosis PSVT (paroxysmal supraventricular tachycardia) Pulmonary air embolism Pure hypercholesterolemia UTI (urinary tract infection) Home Medications amlodipine 10 mg tablet 10 mg PO DAILY BLOOD PRESSURE 03/27/18 [History Last Ta leanne 10/12/23] metoprolol tartrate 50 mg tablet 50 mg PO BID HEART 03/27/18 [History Last Taken 10/12/23] atorvastatin 40 mg tablet 40 mg PO QHS CHOLESTROL 02/11/19 [History Last Taken 10/12/23] cholecalciferol (vitamin D3) 25 mcg (1,000 unit) tablet 1,000 unit PO DAILY SUPPLEMENT 02/11/19 [History Last Taken 10/12/23] apixaban 5 mg tablet (Eliquis) 5 mg PO BID BLOOD THINNER 09/28/21 [History Last Taken 10/12/23] albuterol sulfate 90 mcg/actuation aerosol inhaler 1 - 2 puff INHALATION Q4H PRN Wheezing 07/05/22 [History Last Taken 10/12/23] allopurinol 300 mg tablet 300 mg PO DAILY GOUT 07/05/22 [History Last Taken 10/12/23] hihjafa-vlzdslhbp-zrxd tablet 1 tab PO QHS SUPPLEMENT 07/05/22 [History Last Taken 10/12/23] ferrous sulfate 325 mg (65 mg iron) tablet (FeroSul) 325 mg PO 1200,1700 SUP PLEMENT #60 tabs 07/07/22 [Rx Last Taken 10/12/23] acetaminophen 325 mg tablet (Tylenol) 650 mg PO Q6H PRN Pain 1-10 Or Fever 10/13/23 [History Last Taken 10/12/23] escitalopram oxalate 10 mg tablet 10 mg PO DAILY DEPRESSION 10/13/23 [History Last Taken 10/12/23] hydroxyurea 500 mg capsule 500 mg PO DAILY ANEMIA 10/13/23 [History Last Taken 10/12/23] lisinopril 20 mg tablet 20 mg PO DAILY BLOOD PRESSURE 10/13/23 [History Last Taken 10/12/23] mirtazapine 15 mg tablet 15 mg PO QHS DEPRESSION 10/13/23 [History Last Taken 10/12/23] pantoprazole 20 mg tablet,delayed release 20 mg PO DAILY HEARTBURN 10/13/23 [History Last Taken 10/12/23] Allergy/AdvReac Type Severity Reaction Status Date / Time No Known Allergies Allergy Verified 10/13/23 11:26 Surgical History S/p left hip fracture (~2017) Social History household members: family housing: house Smoking Status: Former smoker caffeine: Yes Type: carbonated beverages, coffee and tea ROS ROS Narrative Patient has history of mild dementia therefore most of the ROS obtained by her daughter near the bedside Constitutional: Reports increasing fatigue and weakness. No fever. HEENT: Reports systems reviewed and no addt'l complaints, except as documented Respiratory/Chest: No acute shortness of breath or respiratory distress or wheezing. CVS: No chest pain or increased shortness of breath Gastrointestinal: Denies coffee ground emesis, hematemesis or vomiting Genitourinary: Denies burning urination or new urinary tract symptoms Musculoskeletal: Denies acute joint pain or limited range of motion. No acute injury. Chronic arthritis and loss of balance. Neurologic: Denies seizure-like symptoms. No syncope or loss of conscious. Gets tired easily and fall asleep skin: No ulcer. No rash Endocrinology: Reports systems reviewed and no addt'l complaints, except as documented Hematologic/Lymphatic: Reports systems reviewed and no addt'l complaints, except as documented Rest 14 ROS are negative except as mentioned in HPI Vital Signs Vital Signs Vital Signs: 10/13/23 11:27 10/13/23 11:31 10/13/23 13:06 Temperature 98.6 F 98.6 F 98.6 F Temperature Source Oral Oral Temporal Pulse Rate 133 H 133 H 72 Respiratory Rate 24 H 16 17 Blood Pressure 135/90 H 135/90 H 159/79 H Blood Pressure Mean 105 105 105 Pulse Ox 97 98 98 Oxygen Delivery Method Room Air Room Air Room Air 10/13/23 14:00 10/13/23 15:00 10/13/23 15:11 Temperature 98.6 F 98.6 F 98.6 F Temperature Source Temporal Temporal Pulse Rate 63 63 63 Respiratory Rate 17 15 17 Blood Pressure 156/90 H 165/87 H 168/82 H Blood Pressure Mean 112 113 110 Pulse Ox 98 97 97 Oxygen Delivery Method Room Air Room Air Weight Weight: 187 lb 13.341 oz Body Mass Index (BMI) 30.2 Results Lab / Micro Data 10/13/23 11:45 10/13/23 11:45 Labs: Laboratory Results - last 24 hr 10/13/23 11:45: WBC 7.1, RBC 3.60 L, Hgb 13.8, Hct 40.8, MCV 113.3 H, MCH 38.3 H , MCHC 33.8, RDW Std Deviation 55.3 H, RDW Coeff of Ema 13.2, Plt Count 260, MPV 10.4, Immature Gran % (Auto) 0.600, Neut % (Auto) 71.5 H, Lymph % (Auto) 20.7, [place] % (Auto) 5.3, Eos % (Auto) 1.5, Baso % (Auto) 0.4, Absolute Neuts (auto) 5.1, Absolute Lymphs (auto) 1.48, Nucleated RBC % 0, Sodium 141, Potassium 3.7, Chloride 110 H, Carbon Dioxide 26.0, Anion Gap 5, BUN 10, Creatinine 0.86, Estim Creat Clear Calc 51.64, Est GFR (MDRD) Af Amer 81, Est GFR (MDRD) Non-Af 67, BUN/Creatinine Ratio 11.7, Glucose 106, Calcium 9.4 Micro: Microbiology 10/13/23 11:45 Stool Stool Occult Blood (JESSE) - Final Rhythm Strip Rhythm Strip: Narrow complex tachycardia with without visible P waves Rate: 133 Ectopy: None Assessment & Plan Assessment/Plan (1) Near syncope: PLAN: Plan This 88-year-old female being evaluated for the 3-year for situation, generalized weakness, unable to ambulate herself on walker with debility and acute on chronic diarrhea 1. Near syncope with acute debility due to 3 near falls situations, compromised ADL, unable to ambulate on walker with increased fatigue: Patient is being admitted in PCU. 2. PSVT observed on cardiac cath technologist with history of PSVT and chronic A-fib on Eliquis: Patient had short run of PSVT which resolved spontaneously herself. Twelve-lead EKG sows A-fib. Patient was given metoprolol 5 mg IV push for PSVT. PSVT most likely patient did not had metoprolol in the morning on metoprolol continued. Eliquis dose decreased to 2.5 mg twice daily 3. Acute on chronic diarrhea: Stool for occult blood negative. Stool for l eukocyte, enteric bacterial panel and C. difficile ordered. Patient also on Pepto-Bismol and Imodium for long time. Hold Imodium until C. difficile and acute bacterial toxin and infection ruled out. Patient recently was discharged in June 2023 for debility due to fall and UTI on cephalexin 4. COPD: Not in exacerbation. Continue bronchodilator as needed. 5. Hypertension: On amlodipine lisinopril and metoprolol 6. Dyslipidemia on atorvastatin. 7. Chronic degenerative arthritis, right more than left worsening: PT and OT ordered. On Tylenol. DVT prophylaxis on Eliquis 5 mg twice daily continued Living will/advanced directive/end of life care: Patient does not living will or advanced directive. Patient's son is power of collections attorney for health but her main caregiver is her daughter who accompanied the patient in ED. After discussion of benefits/risks procedures involved with full code, DNR CC arrest and DNR CC, the patient and her daughter opted for DNR CC arrest with no intubation. Patient doesn't want artificial life support including intubation, tube feed, ventilator and/chest compression, central venous catheter, vasopressor and DC shock if needed Total time spent in [id number] encounter in discussion of advanced directive 17 minutes. Microbiology Past 72 Hours 10/13/23 11:45 Stool Stool Occult Blood (JESSE) - Final Laboratory Results 10/13/23 11:45: WBC 7.1, RBC 3.60 L, Hgb 13.8, Hct 40.8, MCV 113.3 H, MCH 38.3 H , MCHC 33.8, RDW Std Deviation 55.3 H, RDW Coeff of Ema 13.2, Plt Count 260, MPV 10.4, Immature Gran % (Auto) 0.600, Neut % (Auto) 71.5 H, Lymph % (Auto) 20.7, [place] % (Auto) 5.3, Eos % (Auto) 1.5, Baso % (Auto) 0.4, Absolute Neuts (auto) 5.1, Absolute Lymphs (auto) 1.48, Nucleated RBC % 0, Sodium 141, Potassium 3.7, Chloride 110 H, Carbon Dioxide 26.0, Anion Gap 5, BUN 10, Creatinine 0.86, Estim Creat Clear Calc 51.64, Est GFR (MDRD) Af Amer 81, Est GFR (MDRD) Non-Af 67, BUN/Creatinine Ratio 11.7, Glucose 106, Calcium 9.4 Charges/Coding Visit Charges Inpatient E&M: 85917 Init Hosp L3 Procedures Hospitalists Procedures: 00525 Advncd Care Plan 30 Min
[2023-10-13] MEDS: KCL 20MEQ in 0.45%NS 20 MEQ/1,000 ML IV.SOLN. 75 MEQ IV ×2 (17:51→18:11)
[2023-10-13] MEDS: 0.9% Saline Lock 10 ML Syringe IV (17:51)
[2023-10-13] MEDS: Metoprolol Tartrate 50 MG Tablet PO (21:44)
[2023-10-13] MEDS: Atorvastatin Calcium 40 MG Tablet PO (21:44)
[2023-10-13] MEDS: Mirtazapine 15 MG Tablet PO (21:44)
[2023-10-13] MEDS: APIXABAN 5 MG TABLET PO (21:44)
[2023-10-14] VITALS (7 sets, daily range): BP systolic 133–160; BP diastolic 68–85; PULSE 61–76; RESP 16–18; TEMP 36.6–37; O2SAT 94–98; BMI 29.0
[2023-10-14 05:59] LABS: Absolute Lymphocyte Count 1.72 X10^3/uL (0.83-4.51); Absolute Neutrophil Count 4.8 X10^3/uL (2.0-7.7); Basophil# 0.03 X10^3/uL; Basophil% 0.4 % (0-1); Eosinophil# 0.08 X10^3/uL; Eosinophils% 1.1 % (0-5); Hematocrit 39.3 % (37-47); Hemoglobin 13.1 g/dL (12.0-15.0); Lymphocyte # 1.72 X10^3/ul (0.83-4.51); Lymphocyte % 23.7 % (19-41); Mean Corp Hgb Conc 33.3 g/dL (32-36); Mean Corpuscular Hgb 37.8 pg (27.0-32.0); Mean Corpuscular Volume 113.3 fL (81-99); Mean Platelet Vol. 10.2 fl (6.2-12.0); Monocyte% 8.3 % (0-10); NRBC Flagged by Analyzer 0 % (0-5); Neutrophil # 4.76 X10^3/uL (2.7-7.7); Neutrophil % 65.4 % (47-70); Platelet Count 225 K/mm3 (150-450); RBC Distribution Width CV 13.3 % (11.6-14.6); RBC Distribution Width SD 54.9 fl (35.1-43.9); Red Blood Count 3.47 M/mm3 (4.2-5.4); White Blood Count 7.3 K/mm3 (4.4-11.0)
[2023-10-14 06:25] LABS: Anion Gap 4 (5-15); BUN 10 mg/dL (7-18); BUN/Creat Ratio 13.6 RATIO (10-20); Calcium,Total 9.1 mg/dL (8.5-10.1); Chloride 111 mmol/L (98-107); Creatinine, Serum 0.73 mg/dL (0.55-1.02); EST Glomerular Filtration Rate 80 mL/min (>60); Est Glom Filt Rate - Afr Amer 97 mL/min (>60); Estimated Creatinine Clearance 54.39 ml/min; Glucose 110 mg/dL (74-106); Potassium 3.7 mmol/L (3.5-5.1); Sodium Level 141 mmol/L (136-145); Thyroid Stim Hormone (TSH) 3.15 uIU/mL (0.358-3.74)
[2023-10-14 08:25] LABS: Ferritin 415 ng/mL (8-252); Iron 37 ug/dL (50-170); Iron Binding Capacity,Total 228 ug/dL (250-450); PERCENT IRON SATURATION 16.2 % (15.0-55.0)
[2023-10-14] MEDS: Pantoprazole Sodium 20 MG Tablet PO (10:28)
[2023-10-14] MEDS: amLODIPine 10 MG Tablet PO (10:28)
[2023-10-14] MEDS: Hydroxyurea 500 MG Capsule PO (10:28)
[2023-10-14] MEDS: Metoprolol Tartrate 50 MG Tablet PO ×2 (10:28→21:13)
[2023-10-14] MEDS: Lisinopril 20 MG Tablet PO (10:29)
[2023-10-14] MEDS: APIXABAN 5 MG TABLET PO ×2 (10:29→21:13)
[2023-10-14] MEDS: Escitalopram Oxalate 10 MG Tablet PO (10:29)
[2023-10-14] MEDS: Allopurinol 300 MG Tablet PO (10:29)
--- NOTE | 2023-10-14 11:16 | PCM.PN.HOSP ---
Reason for Visit Reason for Visit: Diagnoses Syncope and collapse (10/13/23) Subjective Subjective Patient admitted yesterday afternoon after presyncopal symptoms with 3 near falls at home and acute on chronic diarrhea. Patient was found to have an episode of SVT on cardiac monitoring on admit, resolved spontaneously. Patient was given IV fluid resuscitation on admission. Saw patient at bedside this morning, daughter present. Patient was sitting up fairly comfortably in bed, conversing normally, in no acute distress. States she feels moderately better this morning compared to yesterday. She had worked with physical therapy this morning prior to my arrival, was able to go from bed to bedside chair and up to the bathroom and denied any lightheadedness or dizziness with this. Has not had any diarrhea yet today. No other acute concerns currently. Objective Data Objective Data Vital Signs: Vital Signs Temp Pulse Resp BP Pulse Ox O2 Del Method 97.8 F 71 18 135/85 H 98 Room Air 10/14/23 09:35 10/14/23 10:28 10/14/23 09:35 10/14/23 09:35 10/14/23 09:35 10/14/23 09:35 Oxygen Delivery Method Room Air Weight: 81.7 kg Body Mass Index (BMI) 29.0 Intake & Output: Intake and Output for Last 24 Hours 10/12/23 10/13/23 10/14/23 23:59 23:59 23:59 Intake Total 940 / 1090 1390 / 1390 Output Total 575 / 575 Balance 940 / 865 815 / 815 Lab / Micro Data 10/14/23 05:45 10/14/23 05:45 Labs: Laboratory Results - last 24 hr 10/13/23 11:45: WBC 7.1, RBC 3.60 L, Hgb 13.8, Hct 40.8, MCV 113.3 H, MCH 38.3 H, MCHC 33.8, RDW Std Deviation 55.3 H, RDW Coeff of Ema 13.2, Plt Count 260, MPV 10.4, Immature Gran % (Auto) 0.600, Neut % (Auto) 71.5 H, Lymph % (Auto) 20.7, Jessamine % (Auto) 5.3, Eos % (Auto) 1.5, Baso % (Auto) 0.4, Absolute Neuts (auto) 5.1, Absolute Lymphs (auto) 1.48, Nucleated RBC % 0, Sodium 141, Potassium 3.7, Chloride 110 H, Carbon Dioxide 26.0, Anion Gap 5, BUN 10, Creatinine 0.86, Estim Creat Clear Calc 51.64, Est GFR (MDRD) Af Amer 81, Est GFR (MDRD) Non-Af 67, BUN/Creatinine Ratio 11.7, Glucose 106, Calcium 9.4, Magnesium 2.0 10/14/23 05:45: WBC 7.3, RBC 3.47 L, Hgb 13.1, Hct 39.3, MCV 113.3 H, MCH 37.8 H, MCHC 33.3, RDW Std Deviation 54.9 H, RDW Coeff of Ema 13.3, Plt Count 225, MPV 10.2, Immature Gran % (Auto) 1.100 H, Neut % (Auto) 65.4, Lymph % (Auto) 23.7, Jessamine % (Auto) 8.3, Eos % (Auto) 1.1, Baso % (Auto) 0.4, Absolute Neuts (auto) 4.8, Absolute Lymphs (auto) 1.72, Nucleated RBC % 0, Sodium 141, Potassium 3.7, Chloride 111 H, Carbon Dioxide 26.0, Anion Gap 4 L, BUN 10, Creatinine 0.73, Estim Creat Clear Calc 54.39, Est GFR (MDRD) Af Amer 97, Est GFR (MDRD) Non-Af 80, BUN/Creatinine Ratio 13.6, Glucose 110 H, Calcium 9.1, Iron 37 L, TIBC 228 L, Iron Saturation 16.2, Ferritin 415 H, Folate 14.20, TSH 3.15 Micro: Microbiology 10/14/23 10:20 Stool Stool Lactoferrin - Final 10/14/23 10:20 Stool Stool Occult Blood (JESSE) - Final 10/13/23 11:45 Stool Stool Occult Blood (JESSE) - Final Rhythm Strip Rhythm Strip: Narrow complex tachycardia with without visible P waves Rate: 133 Ectopy: None Physical Exam Const alert, oriented x3 and no apparent distress Constitutional Narrative: Elderly female, overweight, mildly fatigued appearing, otherwise sitting up comfortably in bed, conversing normally, no acute distress. General Appearance: cooperative and comfortable HEENT normocephalic, head/scalp atraumatic, hearing grossly normal bilaterally and nasal mucous membranes and turbinates normal Eyes PERRL, EOMs intact bilaterally and conjunctivae normal Neck full ROM Chest inspection of chest normal Resp normal respiratory effort, normal air movement, no use of accessory muscles and clear to auscultation bilaterally Cardio no murmurs and peripheral pulses 2+ throughout Cardio Narrative: A-fib, rate controlled. GI normal to inspection, nondistended, normoactive bowel sounds, soft to palpation, non-tender and non-distended Back/Spine normal ROM Extremity normal to inspection, full ROM and no pedal edema Skin no rashes or lesions noted Neuro moves all extremities and no focal motor deficits Speech: speech normal Psych mental status grossly normal Assessment & Plan Assessment/Plan (1) Near syncope: (2) PSVT (paroxysmal supraventricular tachycardia): PLAN: Plan Patient is an 88-year-old female who presented [facility] ED on 10/13/2023 with presyncopal symptoms with near falls and acute on chronic diarrhea. 1. Presyncopal symptoms with near falls; acute on chronic debility, improving ? PT/OT/case management following. Patient lives at home with daughter who provides 24-hour care. Patient independent with toileting and showers, uses 4-point walker for ambulation. Noted on 10/13 to be moderately independent with transfers, walked 150 feet with wheeled walker without any presyncopal symptoms. Suspect presyncope was due to mild volume depletion, now resolved. If patient remains stable overnight, likely okay for discharge home with no needs tomorrow. 2. Acute on chronic diarrhea, improving ? Has had chronic diarrhea for months, moderately improved with Imodium. Per family was having 4-5 loose stools daily over the past several days prior to admission. Stools noted to be black but patient is on iron supplementation. Hemoglobin stable at baseline and stool occult negative in ED. C. difficile negative, stool lactoferrin negative, enteric stool panel pending. Diarrhea has largely resolved. Continue Imodium as needed. 3. Episode paroxysmal SVT, resolved; chronic A-fib on Eliquis ? Noted to have short episode of SVT in the ED that resolved spontaneously. Stable in A-fib after that, did have RVR on admit which improved with IV fluids. Continue home Eliquis and Lopressor. Chronic medical conditions: ? Dementia: Not on any home medications. A&O x [address] at baseline. Complicates hospital course, care and prognosis. ? COPD: Stable on room air, not in acute exacerbation. Continue home inhalers. ? Hypertension: Stable. Continue home Lopressor, lisinopril, amlodipine. ? Hyperlipidemia: Continue home statin. ? Osteoarthritis: Tylenol as needed. ? History of gout: Continue home allopurinol. ? Depression: Stable. Continue home escitalopram and mirtazapine at night. ? Iron deficiency anemia: Hemoglobin 13.8 on admit, stable at baseline. Continue home iron supplement. ? GERD: Continue home PPI. DVT prophylaxis: Eliquis CODE STATUS: DNR CCA, DNI Expected disposition: Home, 1 to 2 days Total clinical time spent by myself addressing the patient's medical issues, reviewing all the data, and collaborating with patient's care team: 35 minutes. Charges/Coding Visit Charges Inpatient E&M: 11243 Subs Hosp L2
[2023-10-14] MEDS: Ferrous Sulfate 325 MG Tablet PO (13:10)
[2023-10-14] MEDS: Atorvastatin Calcium 40 MG Tablet PO (21:13)
[2023-10-14] MEDS: Mirtazapine 15 MG Tablet PO (21:13)
[2023-10-15 03:10] VITALS: BP 139/66; PULSE 68; RESP 16; TEMP 36.8; O2SAT 94
[2023-10-15 03:28] VITALS: BMI 29.0
[2023-10-15 06:28] LABS: Hematocrit 37.6 % (37-47); Hemoglobin 12.7 g/dL (12.0-15.0); Mean Corp Hgb Conc 33.8 g/dL (32-36); Mean Corpuscular Hgb 38.1 pg (27.0-32.0); Mean Corpuscular Volume 112.9 fL (81-99); Mean Platelet Vol. 10.1 fl (6.2-12.0); Platelet Count 235 K/mm3 (150-450); RBC Distribution Width CV 13.3 % (11.6-14.6); RBC Distribution Width SD 55.1 fl (35.1-43.9); Red Blood Count 3.33 M/mm3 (4.2-5.4); White Blood Count 7.9 K/mm3 (4.4-11.0)
[2023-10-15 06:47] LABS: Anion Gap 6 (5-15); BUN 17 mg/dL (7-18); Calcium,Total 9.1 mg/dL (8.5-10.1); Chloride 109 mmol/L (98-107); Creatinine, Serum 0.81 mg/dL (0.55-1.02); EST Glomerular Filtration Rate 71 mL/min (>60); Est Glom Filt Rate - Afr Amer 86 mL/min (>60); Estimated Creatinine Clearance 53.72 ml/min; Glucose 106 mg/dL (74-106); Potassium 3.7 mmol/L (3.5-5.1); Sodium Level 140 mmol/L (136-145)
[2023-10-15 07:38] VITALS: O2SAT 96
[2023-10-15 07:55] VITALS: BP 134/71; PULSE 71; RESP 18; TEMP 37; O2SAT 96
[2023-10-15] MEDS: amLODIPine 10 MG Tablet PO (07:59)
[2023-10-15] MEDS: Escitalopram Oxalate 10 MG Tablet PO (07:59)
[2023-10-15] MEDS: Allopurinol 300 MG Tablet PO (07:59)
[2023-10-15 08:00] VITALS: PULSE 71
[2023-10-15] MEDS: Metoprolol Tartrate 50 MG Tablet PO (08:00)
[2023-10-15] MEDS: Pantoprazole Sodium 20 MG Tablet PO (08:00)
[2023-10-15] MEDS: Hydroxyurea 500 MG Capsule PO (08:00)
[2023-10-15] MEDS: Lisinopril 20 MG Tablet PO (08:00)
[2023-10-15] MEDS: APIXABAN 5 MG TABLET PO (08:00)
[2023-10-15 08:05] LABS: Vitamin B12 431 pg/mL (211-911)
[2023-10-15] MEDS: Ferrous Sulfate 325 MG Tablet PO (11:41)
--- NOTE | 2023-10-15 13:26 | CASEMGMT ---
KOBY REA Assessment Face to Face with patient for initial transition planning/care coordination assessment. RN CM introduced self and role at [facility], pt voices understanding. Pt is A&Ox4 and is resting comfortably in bed and is calm. Pt daughter (Nick) at bedside. Care providers, pharmacy, and demographics verified. Admitting dx: Near Fall, Diarrhea PCP: Hans Specialists: Pt states that she sees a [facility] in [place] but is unsure of the name Preferred Pharmacy: [facility] Insurance: [email or web address] [employer] Prescription Benefit: Yes LNOK: Nick Langston (Daughter and caregiver), Driss Murphy (Az), Bryson Murphy (Son) Living Arrangements: Pt lives with her daughter Nick in a single story home with 4 steps to enter. Pt daughter states that they are in the process of building a ramp to enter the home ADLs/IADLs: Daughter assists Transportation: Daughter DME: W/C, FWW, BP Cuff. Pt daughter states that she is interested in a Hospital Bed at home. CM to follow HHC/SNF: Denies history or needs. Pt states that she is active with the waiver program Plan: 6-Click is 20. Therapy to see the pt again today. Pt states that she might be interested in attending OP therapy rather than HHC. KOBY Shipman CM updated and to follow. Eric Man RN, CM
--- NOTE | 2023-10-15 14:05 | CHAPLAIN ---
Type of Pastoral Visit _x__ Initial Visit ___ Follow-up Visit ___ On-call Visit ___ General Patient Visit ___ Spiritual Assessment ___ Family Conference ___ Bereavement ___ Rapid Response ___ Code Blue ___ Other (describe below) Pastoral Care Referral From _x__ Patient ___ Family ___ Nurse ___ Physician ___ Front Office Help ___ Exercise Scientist ___ Other (describe below) Sacrament/Intervention _x__ Active listening ___ Anointing ___ Judaism ___ Bereavement ___ Communion ___ Riddhi exploration ___ ___ Life review _x__ Prayer ___ Reconciliation ___ Sacrament of Sick _x__ Supportive presence ___ Wedding ___ Other (describe below) Pastoral Comments patient reports that she is supposed to go home today but hasn't been permitted yet; pt repeats this statement over and over in the visit; daughter is with her in the room and also appears somewhat impatient; offer of support, conversation to help divert attention and develop a positive focus; pt did agree that prayer would be helpful; time given to sit at bedside
--- NOTE | 2023-10-15 14:44 | DCINST_ITS ---
Discharge Instructions Diet Discharge Diet: No restrictions Activity Discharge Activity: Return to Normal Activity Dressing / Incision Call your doctor if you observe: Fever of 101 or Higher, Shortness of breath, Dizziness, Fainting spells, Swelling in the ankles, Chest pain and Increased palpitations (irregular heartbeat) Follow Up Care Test Results: Test results from this visit will be discussed in further detail at your follow- up appointment, if applicable. Discharge Plan Admission Admit Date/Time: 10/13/23 15:26 Attending Provider: Fabrizio Kidd Primary Care Provider: Chase Maxwell Consulting Providers: Jem Castaneda; Randall Miramontes Discharge Orders/Prescriptions Prescriptions: Continued amlodipine 10 mg tablet 10 mg PO DAILY metoprolol tartrate 50 mg tablet 50 mg PO BID atorvastatin 40 MG tablet 40 mg PO QHS cholecalciferol (vitamin D3) 1,000 UNIT tablet 1,000 unit PO DAILY Eliquis 5 mg tablet 5 mg PO BID allopurinol 300 mg tablet 300 mg PO DAILY albuterol sulfate 1 INHALER HFA aerosol inhaler 1 - 2 puff INHALATION Q4H PRN (Reason: Wheezing) [id number] Tablet 1 tab PO QHS ferrous sulfate [FeroSul] 325 mg (65 mg iron) Tablet 325 mg PO 1200,1700 Qty: 60 0RF hydroxyurea 500 mg capsule 500 mg PO DAILY pantoprazole 20 mg tablet,delayed release (DR/EC) 20 mg PO DAILY mirtazapine 15 mg tablet 15 mg PO QHS lisinopril 20 mg tablet 20 mg PO DAILY escitalopram oxalate 10 mg tablet 10 mg PO DAILY acetaminophen [Tylenol] 325 mg Tablet 650 mg PO Q6H PRN (Reason: Pain 1-10 Or Fever) Referrals / Follow Up: Chase Maxwell MD [Primary Care Provider] - Within 1 Month Disposition Disposition (needs filled in before D/C Order can be placed): Home, Self Care
--- NOTE | 2023-10-15 15:05 | PHA.DC.MR.R ---
Pharmacy [place] Med Reconciliation Pharmacy Service has performed discharge medication reconciliation for this patient. The patient's discharge medication list was reviewed for discrepancies and discrepancies were resolved. Medications at Discharge Home Medications amlodipine 10 mg tablet 10 mg PO DAILY BLOOD PRESSURE 03/27/18 metoprolol tartrate 50 mg tablet 50 mg PO BID HEART 03/27/18 atorvastatin 40 mg tablet 40 mg PO QHS CHOLESTROL 02/11/19 cholecalciferol (vitamin D3) 25 mcg (1,000 unit) tablet 1,000 unit PO DAILY SUPPLEMENT 02/11/19 apixaban 5 mg tablet (Eliquis) 5 mg PO BID BLOOD THINNER 09/28/21 albuterol sulfate 90 mcg/actuation aerosol inhaler 1 - 2 puff INHALATION Q4H PRN Wheezing 07/05/22 allopurinol 300 mg tablet 300 mg PO DAILY GOUT 07/05/22 [id number]-[id number] tablet 1 tab PO QHS SUPPLEMENT 07/05/22 ferrous sulfate 325 mg (65 mg iron) tablet (FeroSul) 325 mg PO 1200,1700 SUPPLEMENT #60 tabs 07/07/22 acetaminophen 325 mg tablet (Tylenol) 650 mg PO Q6H PRN Pain 1-10 Or Fever 10/13/23 escitalopram oxalate 10 mg tablet 10 mg PO DAILY DEPRESSION 10/13/23 hydroxyurea 500 mg capsule 500 mg PO DAILY ANEMIA 10/13/23 lisinopril 20 mg tablet 20 mg PO DAILY BLOOD PRESSURE 10/13/23 mirtazapine 15 mg tablet 15 mg PO QHS DEPRESSION 10/13/23 pantoprazole 20 mg tablet,delayed release 20 mg PO DAILY HEARTBURN 10/13/23
--- NOTE | 2023-10-15 15:35 | CASEMGMT ---
RN CM updated by therapy, no therapy recommended at discharge. RN CM in to discuss needs at discharge, daughter at bedside. Daughter inquired about hospital bed at discharge. RN CM updated daughter that patient does not have a qualifying diagnosis and insurance would not cover for hospital bed. Daughter states that her sister found 2 hospital beds at [facility]. KOBY REA provided information for [employer] and [employer]. Daughter had no further questions or concerns.
[2023-10-15 15:40] VITALS: BP 120/64; PULSE 61; RESP 18; TEMP 36.9; O2SAT 97
--- NOTE | 2023-10-15 16:07 | DS.PCM_ITS ---
Providers Date of Admission: 10/13/23 Primary Care Physician: Dr. Chase Maxwell MD Reason For Visit: NEAR FALL, DIARRHEA Diagnosis Discharge Diagnosis (1) Near syncope: Status: Acute Code(s): R55 - Syncope and collapse (2) PSVT (paroxysmal supraventricular tachycardia): Status: Chronic Code(s): I47.1 - Supraventricular tachycardia Medications at Discharge Home Medications amlodipine 10 mg tablet 10 mg PO DAILY BLOOD PRESSURE 03/27/18 metoprolol tartrate 50 mg tablet 50 mg PO BID HEART 03/27/18 atorvastatin 40 mg tablet 40 mg PO QHS CHOLESTROL 02/11/19 cholecalciferol (vitamin D3) 25 mcg (1,000 unit) tablet 1,000 unit PO DAILY SUPPLEMENT 02/11/19 apixaban 5 mg tablet (Eliquis) 5 mg PO BID BLOOD THINNER 09/28/21 albuterol sulfate 90 mcg/actuation aerosol inhaler 1 - 2 puff INHALATION Q4H PRN Wheezing 07/05/22 allopurinol 300 mg tablet 300 mg PO DAILY GOUT 07/05/22 [id number]-[id number]-vpjg tablet 1 tab PO QHS SUPPLEMENT 07/05/22 ferrous sulfate 325 mg (65 mg iron) tablet (FeroSul) 325 mg PO 1200,1700 SUPPL EMENT #60 tabs 07/07/22 acetaminophen 325 mg tablet (Tylenol) 650 mg PO Q6H PRN Pain 1-10 Or Fever 10/13/23 escitalopram oxalate 10 mg tablet 10 mg PO DAILY DEPRESSION 10/13/23 hydroxyurea 500 mg capsule 500 mg PO DAILY ANEMIA 10/13/23 lisinopril 20 mg tablet 20 mg PO DAILY BLOOD PRESSURE 10/13/23 mirtazapine 15 mg tablet 15 mg PO QHS DEPRESSION 10/13/23 pantoprazole 20 mg tablet,delayed release 20 mg PO DAILY HEARTBURN 10/13/23 Hospital Course Operations None Procedures None Summary of Care Provided Minutes Spent on Discharge: 38 Hospital Course: Per HPI: URSULA CRUMP, is a 88 F was brought to ED by EMS for nearly 3 falls today. Patient accompanied with her daughter who is the main caregiver. EMS noted states that her daughter said she has almost 3 falls today. Feeling very weak. She also has diarrhea 4-5 loose bowel movement, black in color but she also on Pepto-Bismol with. No loss of consciousness. History of dementia. The patient is states he had diarrhea 4-5 bowel movement for long time probably about 10 years and she takes Imodium. She did not take any recent antibiotic. But her diarrhea has more increased in frequency for last 3 days about 5-6 and liquid in consistency. She feels dizzy and lightheaded and feels her legs gave out but could not differentiate whether knee joint or hip joint. Patient is only on a walker. 3 near fall situation happened today and patient was caught behind by daughter therefore no actual fall or head injury. Patient also felt dizziness and lightheadedness prior to near fall situations In ED, patient also was found to have SVT on the monitor. She has history of A- fib on anticoagulant. Patient was further admitted Hospital Course: 1. Chronic debility with history of falls and presyncope/acute on chronic diarrhea?88-year-old female presents to the hospital with multiple falls and presyncope. This is likely due to a little bit of dehydration given her chronic diarrhea 4-5 loose stools daily. They were black in color however she states that she takes Pepto-Bismol and stool studies were negative for infections as well as blood. Today she felt much better and ambulated with physical therapy who did not feel that she needed any further physical therapy. I discussed the possibility of another day of observation however both she and her daughter would prefer to go home if possible today. She did not have any further presyncopal episodes or falls today and I discussed with them that if she were to have any further presyncopal episodes to either call her doctor or present back to the ER. They expressed understanding of the risk benefits of going home and would like to go home today. 2. Chronic A-fib, dementia, COPD, hypertension, hyperlipidemia, osteoarthritis, history of gout, depression, iron deficiency anemia, GERD are all chronic medical conditions which complicate her care. Her home medications were continued where appropriate Physical Exam Narrative General: Alert, Oriented x3, Cooperative, No apparent distress HEENT: Atraumatic, PERRLA, EOMI, Normocephalic Oral: Moist Mucosa Neck: Supple, No JVD Lungs: Clear to auscultation, Normal air movement, No rhonchi, No wheeze, No rales Cardiovascular: Regular rate, Regular Rhythm, Normal S1, Normal S2, No murmurs Abdomen: Soft, Non Tender, Non-Distended, No Hepato-splenomegaly Extremities: No edema, Capillary Refill Less than 3 Seconds Skin: No rashes, No breakdown Musculoskeletal: No Tenderness to Palpation of Joints or Extremities Neurological: No focal neurological deficits, Motor Exam 5/5 strength throughout, Sensory exam intact to light touch and pain Psych/Mental Status: Normal Affect, Appropriate Weight / BMI Weight Weight: 180 lb 1.883 oz Body Mass Index (BMI) 29.0 ABG / Lab / Microbiology Data 10/15/23 06:00 10/15/23 06:00 Laboratory: Laboratory Results - last 24 hr 10/14/23 05:45: Vitamin B12 431 10/15/23 06:00: WBC 7.9, RBC 3.33 L, Hgb 12.7, Hct 37.6, MCV 112.9 H, MCH 38.1 H , MCHC 33.8, RDW Std Deviation 55.1 H, RDW Coeff of Ema 13.3, Plt Count 235, MPV 10.1, Sodium 140, Potassium 3.7, Chloride 109 H, Carbon Dioxide 25.0, Anion Gap 6, BUN 17, Creatinine 0.81, Estim Creat Clear Calc 53.72, Est GFR (MDRD) Af Amer 86, Est GFR (MDRD) Non-Af 71, BUN/Creatinine Ratio 21.0 H, Glucose 106, Calcium 9.1 Microbiology: Microbiology 10/14/23 10:20 Stool Stool Lactoferrin - Final 10/14/23 10:20 Stool Enteric Bacteriology - Final 10/14/23 10:20 Stool Clostridioides difficile (PCR) - Final 10/14/23 10:20 Stool Stool Occult Blood (JESSE) - Final 10/13/23 11:45 Stool Stool Occult Blood (JESSE) - Final D/C Instructions Discharge Diet: No restrictions Call your doctor if you observe: Fever of 101 or Higher, Shortness of breath, Dizziness, Fainting spells, Swelling in the ankles, Chest pain and Increased palpitations (irregular heartbeat) Meaningful Use Info Meaningful Use Meaningful Use Diagnoses (Choose all that apply): None applicable Ischemic Stroke Statin Dosing Therapy Reference: STATIN DOSE THERAPY REFERENCE: * Patients > 75 years receive moderate or high dose statin therapy. * Patients 75 years or YOUNGER should receive HIGH intensity statin dose unless contraindicated. You will be required to document reason for non-treatment if statin daily dose does not meet guidelines. HIGH DOSE STATIN THERAPY DAILY Atorvastatin > than or = to 40 mg Rosuvastatin > than or = to 20 mg Amlodipine + Atorvastatin > than or = to 2.5/40 mg Ezetimibe + Simvastatin 10/80 mg Simvastatin 80mg Discharge Plan Admission Admit Date/Time: 10/13/23 15:26 Attending Provider: Fabrizio Kidd Primary Care Provider: Chase Maxwell Consulting Providers: Jem Castaneda; Randall Miramontes Discharge Orders/Prescriptions Prescriptions: Continued amlodipine 10 mg tablet 10 mg PO DAILY metoprolol tartrate 50 mg tablet 50 mg PO BID atorvastatin 40 MG tablet 40 mg PO QHS cholecalciferol (vitamin D3) 1,000 UNIT tablet 1,000 unit PO DAILY Eliquis 5 mg tablet 5 mg PO BID allopurinol 300 mg tablet 300 mg PO DAILY albuterol sulfate 1 INHALER HFA aerosol inhaler 1 - 2 puff INHALATION Q4H PRN (Reason: Wheezing) [id number] Tablet 1 tab PO QHS ferrous sulfate [FeroSul] 325 mg (65 mg iron) Tablet 325 mg PO 1200,1700 Qty: 60 0RF hydroxyurea 500 mg capsule 500 mg PO DAILY pantoprazole 20 mg tablet,delayed release (DR/EC) 20 mg PO DAILY mirtazapine 15 mg tablet 15 mg PO QHS lisinopril 20 mg tablet 20 mg PO DAILY escitalopram oxalate 10 mg tablet 10 mg PO DAILY acetaminophen [Tylenol] 325 mg Tablet 650 mg PO Q6H PRN (Reason: Pain 1-10 Or Fever) Referrals / Follow Up: Chase Maxwell MD [Primary Care Provider] - 10/18/23 10:45 am Disposition Disposition (needs filled in before D/C Order can be placed): Home, Self Care Charges/Coding Visit Charges Inpatient E&M: 35723 Disch Hosp >30min
== END 2023-10-15 15:47 | disposition home or self-care (01) | DRG 641 ==
LOC: ED 12:47 → PCU 15:14
PROVIDERS: Hospitalist; Admitting Provider Internal Medicine; Emergency Provider Emergency Medicine; PCP Internal Medicine; Visit Provider Family Medicine
DX: E86.0 Dehydration (principal); I47.10 Supraventricular tachycardia, unspecified; I48.20 Chronic atrial fibrillation, unspecified; F03.90 Unspecified dementia, unspecified severity, without behavioral disturbance, psychotic disturbance, mood disturbance, and anxiety; D50.9 Iron deficiency anemia, unspecified; J44.9 Chronic obstructive pulmonary disease, unspecified; I10 Essential (primary) hypertension; F32.A Depression, unspecified; E78.00 Pure hypercholesterolemia, unspecified; I25.10 Atherosclerotic heart disease of native coronary artery without angina pectoris; K52.9 Noninfective gastroenteritis and colitis, unspecified; K21.9 Gastro-esophageal reflux disease without esophagitis; M19.90 Unspecified osteoarthritis, unspecified site; M10.9 Gout, unspecified; R53.81 Other malaise; Z66 Do not resuscitate; Z79.01 Long term (current) use of anticoagulants; Z79.899 Other long term (current) drug therapy; Z91.81 History of falling; Z87.891 Personal history of nicotine dependence
CPT/HCPCS: 36415; 80048; 82274; 82607; 82728; 82746; 83540; 83550; 83630; 83735; 84443; 85025; 85027; 87493; 87506; 92610; 93005; 94668; 97162; 97166; 97530; 97535; 99285; A4216

== ENCOUNTER 2023-12-05 10:25 | Emergency (ER) | payer MEDICARE, MEDICAID, SELFPAY ==
[2023-12-05 10:26] VITALS: BP 135/73; PULSE 62; RESP 24; TEMP 36.2; O2SAT 96
--- NOTE | 2023-12-05 11:18 | EX.ED.GENINJ ---
HPI History of Present Illness Chief Complaint: Chest Other Informant: patient Onset/Context/Timing Onset: Days (5) Mechanism/Context: Fall Quality of Pain: Sharp Location: Left lower ribs Worsened by: Ambulation and certain movements Relieved by: Nothing Associated Symptoms Associated Symptoms: Negative for Parasthesias, Weakness, Loss of function, Inability to ambulate, Loss of consciousness or Amnesia Narrative Narrative: Patient presents with left rib pain that began after a fall 4 days ago. Patient states she tripped and fell and hit her left ribs on a stool. Patient denies any head injury or loss of consciousness. Patient states her pain is sharp. Patient states it is worse with certain movements and ambulation. Patient denies any paresthesias or weakness. Patient denies any shortness of breath. Patient admits to a mild cough. Patient denies any fevers or chills. Patient states her pain is localized to the left lower chest wall. [facility] Medical History Microcytosis Leukocytosis Debility Osteoporosis Dementia UTI (urinary tract infection) Fall Pulmonary air embolism Ascending aorta dilatation Pure hypercholesterolemia Atherosclerosis of [place] coronary artery of [place] heart without angina pectoris Essential hypertension PSVT (paroxysmal supraventricular tachycardia) COPD (chronic obstructive pulmonary disease) Home Medications ?Medication ?Instructions ?Recorded ?Last Taken ?Type amlodipine 10 mg tablet 10 mg PO DAILY BLOOD PRESSURE 03/27/18 10/12/23 History metoprolol tartrate 50 mg tablet 50 mg PO BID HEART 03/27/18 10/12/23 History atorvastatin 40 mg tablet 40 mg PO QHS CHOLESTROL 02/11/19 10/12/23 History cholecalciferol (vitamin D3) 25 1,000 unit PO DAILY SUPPLEMENT 02/11/19 10/12/23 History mcg (1,000 unit) tablet apixaban 5 mg tablet (Eliquis) 5 mg PO BID BLOOD THINNER 09/28/21 10/12/23 History albuterol sulfate 90 mcg/actuation 1 - 2 puff INHALATION Q4H PRN 07/05/22 10/12/23 History aerosol inhaler Wheezing allopurinol 300 mg tablet 300 mg PO DAILY GOUT 07/05/22 10/12/23 History hfrlhoy-[id number]-[id number] tablet 1 tab PO QHS SUPPLEMENT 07/05/22 10/12/23 History ferrous sulfate 325 mg (65 mg 325 mg PO 1200,1700 SUPPLEMENT #60 07/07/22 10/12/23 Rx iron) tablet (FeroSul) tabs acetaminophen 325 mg tablet 650 mg PO Q6H PRN Pain 1-10 Or 10/13/23 10/12/23 History (Tylenol) Fever escitalopram oxalate 10 mg tablet 10 mg PO DAILY DEPRESSION 10/13/23 10/12/23 History hydroxyurea 500 mg capsule 500 mg PO DAILY ANEMIA 10/13/23 10/12/23 History lisinopril 20 mg tablet 20 mg PO DAILY BLOOD PRESSURE 10/13/23 10/12/23 History mirtazapine 15 mg tablet 15 mg PO QHS DEPRESSION 10/13/23 10/12/23 History pantoprazole 20 mg tablet,delayed 20 mg PO DAILY HEARTBURN 10/13/23 10/12/23 History release hydrocodone-acetaminophen 5-325mg 1 tab PO Q6H PRN PRN Pain 3 days 12/05/23 Unknown Rx 5mg-325mg #10 TABLETS Allergy/AdvReac Type Severity Reaction Status Date / Time No Known Allergies Allergy Verified 10/13/23 11:26 Surgical History S/p left hip fracture (~2016) Social History household members: family housing: house Smoking Status: Former smoker caffeine: Yes Type: carbonated beverages, coffee and tea ROS ROS ED Constitutional Constitutional ED: Denies chills or fever(s) Eyes Eyes: Denies blurry vision or change in vision ENT ENT ED: Denies rhinorrhea or sore throat Cardiovascular Cardiovascular: Reports chest pain; Denies palpitations Respiratory/Chest Respiratory/Chest: Reports cough; Denies dyspnea Gastrointestinal Gastrointestinal: Denies nausea or vomiting Genitourinary Genitourinary ED: Denies dysuria or hematuria Musculoskeletal Musculoskeletal: Denies back pain or neck pain Integumentary Denies abscess or rash Neurologic Neurologic: Denies headache(s) or weakness Allergic/Immunologic Allergic/Immunologic ED: Denies mouth swelling or urticaria EXAM Physical Exam Const Vital Signs: 12/05/23 10:26 Temperature 97.2 F L Temperature Source Temporal Pulse Rate 62 Respiratory Rate 24 H Blood Pressure 135/73 H Blood Pressure Mean 93 Pulse Ox 96 Oxygen Delivery Method Room Air Positive well nourished and well developed General Appearance ED: well developed and NAD HEENT atraumatic Neck full ROM Chest Wall Chest Narrative: There is tenderness to palpation of the left lower ribs. There is no edema or ecchymosis. There is no bony crepitance or step-off. There is no subcutaneous emphysema noted. Resp normal respiratory effort and clear to auscultation bilaterally Cardio regular rhythm Rate: regular rate GI non-tender and non-distended Palpation: soft Extremity normal to inspection and full ROM Neuro oriented x3, CN's II-XII intact bilaterally, moves all extremities, no focal motor deficits and no sensory deficits noted Sensorium / Orientation: alert Motor Exam: strength 5/5 throughout Psych mental status grossly normal MDM MDM MDM Narrative Medical decision making narrative: Differential diagnosis includes rib fracture, contusion, pneumothorax, atelectasis, pneumonia. X-rays of the left ribs will be obtained to assess for rib fracture, pneumothorax, pneumonia, and atelectasis. Radiography Diagnostic Testing: Clinical Impression(s) from Imaging Studies Ribs w/Chest X-Ray 12/05/23 11:35 IMPRESSION: RIBS: Normal x-ray examination of the ribs. CHEST: Hyperinflation. Stable mild scarring. Electronically Signed: Pb Fontaine MD at 12:17 EDT , X-rays of the left ribs were obtained. There are 5 views. On my independent interpretation, there is no acute fracture. There is no pneumothorax noted. Radiologist also interpreted the x-ray and agrees. Treatment and Re-Evaluation Narrative: Patient was given a dose of Martin here. Patient was advised of her findings. Patient was given a prescription for a short course of Martin. Patient was instructed to take 10-15 deep breaths every hour while awake to prevent atelectasis and pneumonia. Patient was instructed to follow-up with her primary care physician in 5 to 7 days. Patient understood and was agreeable with the plan. All questions were answered. Discharge Plan Triage Chief Complaint: Chest Other ED Provider: Miguel Angel Carpenter Dx/Rx/DC Orders Clinical Impression: Chest wall contusion, Fall Instructions: ED Chest Wall Contusion Prescriptions: New hydrocodone-acetaminophen 5-325 mg tablet 1 tab PO Q6H PRN PRN (Reason: Pain) 3 Days Qty: 10 0RF No Action amlodipine 10 mg tablet 10 mg PO DAILY metoprolol tartrate 50 mg tablet 50 mg PO BID atorvastatin 40 MG tablet 40 mg PO QHS cholecalciferol (vitamin D3) 1,000 UNIT tablet 1,000 unit PO DAILY Eliquis 5 mg tablet 5 mg PO BID allopurinol 300 mg tablet 300 mg PO DAILY albuterol sulfate 1 INHALER HFA aerosol inhaler 1 - 2 puff INHALATION Q4H PRN (Reason: Wheezing) [id number] Tablet 1 tab PO QHS ferrous sulfate [FeroSul] 325 mg (65 mg iron) Tablet 325 mg PO 1200,1700 Qty: 60 0RF hydroxyurea 500 mg capsule 500 mg PO DAILY pantoprazole 20 mg tablet,delayed release (DR/EC) 20 mg PO DAILY mirtazapine 15 mg tablet 15 mg PO QHS lisinopril 20 mg tablet 20 mg PO DAILY escitalopram oxalate 10 mg tablet 10 mg PO DAILY acetaminophen [Tylenol] 325 mg Tablet 650 mg PO Q6H PRN (Reason: Pain 1-10 Or Fever) Primary Care Provider: Chase Maxwell Referrals: Chase Maxwell MD [Primary Care Provider] - 5-7 Days Print Language: Malawian Disposition Disposition: Home, Self Care
[2023-12-05] MEDS: HYDROcodone Bitartrate/Apap 5/325 Tablet PO (11:22)
--- NOTE | 2023-12-05 11:35 | RAD_ITS ---
STUDY: X-RAY - UNILATERAL RIBS ( LEFT ) WITH CHEST REASON FOR EXAM: Female, 88 years old. Trauma TECHNIQUE - RIBS: 4 view(s) of the ribs. TECHNIQUE - CHEST: Single PA view of the chest. COMPARISON: Comparison is made with prior chest radiograph dated June 06, 2023. FINDINGS - RIBS: Normal visualized ribs without a demonstrated fracture. FINDINGS - CHEST: Hyperinflation. Stable mild scarring at the bases. There is no demonstrated pleural abnormality. Normal size heart. Normal mediastinum and neymar. Normal visualized pulmonary arteries. There is atherosclerotic calcification of the aortic arch with tortuosity. There are diffuse degenerative changes of the visualized thoracic spine. Normal visualized ribs, clavicles, and shoulders. There is no demonstrated abnormality of the visualized soft tissue structures of the upper abdomen. RAD/Ribs Uni Min 3V w/PA Chest IMPRESSION: RIBS: Normal x-ray examination of the ribs. CHEST: Hyperinflation. Stable mild scarring. Electronically Signed: Pb Fontaine MD at 12:17 EDT ,
[2023-12-05 13:41] VITALS: BP 133/77; PULSE 87; RESP 18; TEMP 37.1; O2SAT 96
== END 2023-12-05 13:43 | disposition home or self-care (01) ==
PROVIDERS: Emergency Provider Emergency Medicine; PCP Internal Medicine; Visit Provider Emergency Medicine
DX: S20.212A Contusion of left front wall of thorax, initial encounter (principal); J44.9 Chronic obstructive pulmonary disease, unspecified; W18.09XA Striking against other object with subsequent fall, initial encounter; I25.10 Atherosclerotic heart disease of native coronary artery without angina pectoris; I10 Essential (primary) hypertension; E78.00 Pure hypercholesterolemia, unspecified; Z79.01 Long term (current) use of anticoagulants; Z79.899 Other long term (current) drug therapy; Z87.891 Personal history of nicotine dependence
CPT/HCPCS: 71101; 99282

== ENCOUNTER 2023-12-22 18:49 | Emergency (ER) | payer MEDICARE, MEDICAID, SELFPAY ==
[2023-12-22 18:51] VITALS: PULSE 71; RESP 18; TEMP 36.5; O2SAT 95
[2023-12-22] MEDS: Acetaminophen 500 MG Tablet 1000 MG PO (19:27)
--- NOTE | 2023-12-22 19:32 | CT_ITS ---
EXAM: CT CERVICAL SPINE WITHOUT INTRAVENOUS CONTRAST CLINICAL INDICATION: fall pain. TECHNIQUE: Helically acquired images were obtained of the cervical spine without intravenous contrast. 2D reformatted images were reviewed. This CT exam was performed using one or more of the following dose reduction techniques: automated exposure control, adjustment of the mA and/or kV according to patient size, and/or use of iterative reconstruction technique. COMPARISON: CT head and thoracic spine on the same date. CT cervical spine, 07/05/2022. FINDINGS: VERTEBRAE: Multilevel facet, uncovertebral joint, and endplate osteophytosis. No fracture. No traumatic subluxation. No discrete lytic or blastic abnormality. Normal alignment. Aside from degenerative changes, normal craniocervical junction and cervicothoracic junction. DISCS/SPINAL CANAL/NEURAL FORAMINA: Mild to moderate multilevel spinal canal stenosis. Multilevel intervertebral disc height loss. Mild to moderate multilevel neural foraminal narrowing. Multiple small disc bulges and/or herniations are identified. SOFT TISSUES: Elongation/ossification of the stylohyoid ligaments. No prevertebral soft tissue swelling. VASCULATURE: Partially visualized ascending aortic ectasia measuring at least 3.9 cm. Atherosclerosis. LYMPH NODES: No significant abnormality. No cervical adenopathy. MASTOID AIR CELLS: Left mastoid effusion. ESOPHAGUS: Patulous fluid filled esophagus. LUNG APICES: Scarring at the lung apices. CT/Spine Cervical without Contras IMPRESSION: Degenerative changes in the spine and other incidental findings as above. No evidence of acute spinal fracture or traumatic subluxation. Electronically Signed: Francisco Brooks DO at 21:08 EDT ,
--- NOTE | 2023-12-22 19:32 | CT_ITS ---
EXAM: CT HEAD WITHOUT INTRAVENOUS CONTRAST CLINICAL INDICATION: fall pain. TECHNIQUE: Multiple axial images were obtained of the head without intravenous contrast. This CT exam was performed using one or more of the following dose reduction techniques: automated exposure control, adjustment of the mA and/or kV according to patient size, and/or use of iterative reconstruction technique. COMPARISON: CT head, 07/05/2022 FINDINGS: BRAIN AND EXTRA-AXIAL SPACES: Chronic right cerebellar infarct. There is non-specific periventricular hypoattenuation which is most commonly related to chronic microvascular ischemic disease in a patient of this age. There is no mass, mass-effect, or shift of the midline structures. No evidence of acute infarct or acute intracranial hemorrhage. There is no evidence of pathologic extra-axial fluid. There is no hydrocephalus. Patent basal cisterns. BONES/JOINTS: No significant abnormality. No discrete lytic or blastic abnormalities. VASCULATURE: Arteriosclerosis. SINUSES: No significant findings. MASTOID AIR CELLS: No significant effusion. ORBITS: Right ocular lens extraction presumptively for the treatment of a cataract. Otherwise, no acute orbital pathology. CT/Brain/Head without Contrast IMPRESSION: Chronic ischemic changes. No CT evidence of acute intracranial pathology. Electronically Signed: Francisco Brooks DO at 21:17 EDT ,
--- NOTE | 2023-12-22 19:32 | EDS_ITS ---
HPI History of Present Illness Chief Complaint: Fall [facility] Medical History Microcytosis Leukocytosis Debility Osteoporosis Dementia UTI (urinary tract infection) Fall Pulmonary air embolism Ascending aorta dilatation Pure hypercholesterolemia Atherosclerosis of [place] coronary artery of [place] heart without angina pectoris Essential hypertension PSVT (paroxysmal supraventricular tachycardia) COPD (chronic obstructive pulmonary disease) Home Medications ?Medication ?Instructions ?Recorded ?Last Taken ?Type amlodipine 10 mg tablet 10 mg PO DAILY BLOOD PRESSURE 03/27/18 10/12/23 History metoprolol tartrate 50 mg tablet 50 mg PO BID HEART 03/27/18 10/12/23 History atorvastatin 40 mg tablet 40 mg PO QHS CHOLESTROL 02/11/19 10/12/23 History cholecalciferol (vitamin D3) 25 1,000 unit PO DAILY SUPPLEMENT 02/11/19 10/12/23 History mcg (1,000 unit) tablet apixaban 5 mg tablet (Eliquis) 5 mg PO BID BLOOD THINNER 09/28/21 10/12/23 History albuterol sulfate 90 mcg/actuation 1 - 2 puff INHALATION Q4H PRN 07/05/22 10/12/23 History aerosol inhaler Wheezing allopurinol 300 mg tablet 300 mg PO DAILY GOUT 07/05/22 10/12/23 History [id number] tablet 1 tab PO QHS SUPPLEMENT 07/05/22 10/12/23 History ferrous sulfate 325 mg (65 mg 325 mg PO 1200,1700 SUPPLEMENT #60 07/07/22 10/12/23 Rx iron) tablet (FeroSul) tabs acetaminophen 325 mg tablet 650 mg PO Q6H PRN Pain 1-10 Or 10/13/23 10/12/23 History (Tylenol) Fever escitalopram oxalate 10 mg tablet 10 mg PO DAILY DEPRESSION 10/13/23 10/12/23 History hydroxyurea 500 mg capsule 500 mg PO DAILY ANEMIA 10/13/23 10/12/23 History lisinopril 20 mg tablet 20 mg PO DAILY BLOOD PRESSURE 10/13/23 10/12/23 History mirtazapine 15 mg tablet 15 mg PO QHS DEPRESSION 10/13/23 10/12/23 History pantoprazole 20 mg tablet,delayed 20 mg PO DAILY HEARTBURN 10/13/23 10/12/23 History release hydrocodone-acetaminophen 5-325mg 1 tab PO Q6H PRN PRN Pain 3 days 12/05/23 Unknown Rx 5mg-325mg #10 TABLETS Allergy/AdvReac Type Severity Reaction Status Date / Time latex Allergy Rash Verified 12/22/23 18:51 Surgical History S/p left hip fracture (~2017) Social History household members: family housing: house Smoking Status: Former smoker caffeine: Yes Type: carbonated beverages, coffee and tea EXAM Physical Exam Const Vital Signs: 12/22/23 18:51 12/22/23 19:06 Temperature 97.7 F L Temperature Source Temporal Pulse Rate 71 Respiratory Rate 18 Respiratory Effort Normal Respiratory Depth Normal Respiratory Pattern Irregular Pulse Ox 95 Oxygen Delivery Method Room Air Room Air MDM MDM MDM Narrative Medical decision making narrative: I have personally performed a face to face assessment of the patient and have reviewed the GRACIE Note. I performed a substantive portion of the visit including all aspects of the following. My buchanan findings include: History is [patient presents to the emergency department after sustaining a fall yesterday. Patient apparently got a new rollator and she was trying to move her rollator back but the wheel got stuck in a crack and caused her to fall. She did hit her head but no loss of consciousness. Complaining mostly of pain in her low back and hips. Patient has been ambulatory since the fall. Patient describes some intermittent headaches. She describes some mild neck pain. Pat christy denies feeling lightheaded or dizzy prior to the fall.] Patient is on Eliquis for history of prior PEs. Exam is [HEENT-PERRLA, EOMI. Cranial nerves II through XII grossly intact. TMs clear. Mucous membranes moist. No adenopathy. Cardiovascular-regular rate and rhythm without murmur or ectopy Lungs-clear to auscultation, chest wall stable without crepitus or subcu emphysema Abdomen-normoactive bowel sounds, soft, nontender, no rebound or rigidity, no peritoneal signs. Extremities-intact ?4, normal range of motion, normal pulses, atraumatic] patient does have pain to the right hip with logrolling. There is no rotational deformity or shortening noted. Medical Decison Making [ ] Other additions or changes: [None] Discharge Plan Triage Chief Complaint: Fall ED Midlevel Provider: Josh Lemus ED Provider: Gianluca Davis Dx/Rx/DC Orders Prescriptions: No Action amlodipine 10 mg tablet 10 mg PO DAILY metoprolol tartrate 50 mg tablet 50 mg PO BID atorvastatin 40 MG tablet 40 mg PO QHS cholecalciferol (vitamin D3) 1,000 UNIT tablet 1,000 unit PO DAILY Eliquis 5 mg tablet 5 mg PO BID allopurinol 300 mg tablet 300 mg PO DAILY albuterol sulfate 1 INHALER HFA aerosol inhaler 1 - 2 puff INHALATION Q4H PRN (Reason: Wheezing) [id number] Tablet 1 tab PO QHS ferrous sulfate [FeroSul] 325 mg (65 mg iron) Tablet 325 mg PO 1200,1700 Qty: 60 0RF hydroxyurea 500 mg capsule 500 mg PO DAILY pantoprazole 20 mg tablet,delayed release (DR/EC) 20 mg PO DAILY mirtazapine 15 mg tablet 15 mg PO QHS lisinopril 20 mg tablet 20 mg PO DAILY escitalopram oxalate 10 mg tablet 10 mg PO DAILY acetaminophen [Tylenol] 325 mg Tablet 650 mg PO Q6H PRN (Reason: Pain 1-10 Or Fever) hydrocodone-acetaminophen 5-325 mg tablet 1 tab PO Q6H PRN PRN (Reason: Pain) 3 Days Qty: 10 0RF Primary Care Provider: Chase Maxwell Referrals: Chase Maxwell MD [Primary Care Provider] - Print Language: Yakut
--- NOTE | 2023-12-22 19:39 | EX.ED.DYSGE1 ---
HPI <TYESHA White - Last Filed: 12/22/23 21:49> History of Present Illness Chief Complaint: Fall Narrative Narrative: Patient is an 88-year-old female with history of blood clots, on Eliquis, slight dementia, hypertension hyperlipidemia who lives at home with her daughter presenting to the emergency department after mechanical fall. Patient was using a new walker which is a rollator, she did not quite know how to do it and lost her balance falling backwards. She denies any dizziness, lightheadedness. Denies any chest pain. Patient that she landed on her right hip, did strike the back of her head. She denies any LOC. This happened yesterday. Today, the daughter noticed that she was still complaining of pain, had worsening pain in her leg and is here for evaluation. PFSH <TYESHA White - Last Filed: 12/22/23 21:49> [facility] Medical History Microcytosis Leukocytosis Debility Osteoporosis Dementia UTI (urinary tract infection) Fall Pulmonary air embolism Ascending aorta dilatation Pure hypercholesterolemia Atherosclerosis of [place] coronary artery of [place] heart without angina pectoris Essential hypertension PSVT (paroxysmal supraventricular tachycardia) COPD (chronic obstructive pulmonary disease) Home Medications ?Medication ?Instructions ?Recorded ?Last Taken ?Type amlodipine 10 mg tablet 10 mg PO DAILY BLOOD PRESSURE 03/27/18 10/12/23 History metoprolol tartrate 50 mg tablet 50 mg PO BID HEART 03/27/18 10/12/23 History atorvastatin 40 mg tablet 40 mg PO QHS CHOLESTROL 02/11/19 10/12/23 History cholecalciferol (vitamin D3) 25 1,000 unit PO DAILY SUPPLEMENT 02/11/19 10/12/23 History mcg (1,000 unit) tablet apixaban 5 mg tablet (Eliquis) 5 mg PO BID BLOOD THINNER 09/28/21 10/12/23 History albuterol sulfate 90 mcg/actuation 1 - 2 puff INHALATION Q4H PRN 07/05/22 10/12/23 History aerosol inhaler Wheezing allopurinol 300 mg tablet 300 mg PO DAILY GOUT 07/05/22 10/12/23 History [id number]-[id number]-[id number] tablet 1 tab PO QHS SUPPLEMENT 07/05/22 10/12/23 History ferrous sulfate 325 mg (65 mg 325 mg PO 1200,1700 SUPPLEMENT #60 07/07/22 10/12/23 Rx iron) tablet (FeroSul) tabs acetaminophen 325 mg tablet 650 mg PO Q6H PRN Pain 1-10 Or 10/13/23 10/12/23 History (Tylenol) Fever escitalopram oxalate 10 mg tablet 10 mg PO DAILY DEPRESSION 10/13/23 10/12/23 History hydroxyurea 500 mg capsule 500 mg PO DAILY ANEMIA 10/13/23 10/12/23 History lisinopril 20 mg tablet 20 mg PO DAILY BLOOD PRESSURE 10/13/23 10/12/23 History mirtazapine 15 mg tablet 15 mg PO QHS DEPRESSION 10/13/23 10/12/23 History pantoprazole 20 mg tablet,delayed 20 mg PO DAILY HEARTBURN 10/13/23 10/12/23 History release hydrocodone-acetaminophen 5-325mg 1 tab PO Q6H PRN PRN Pain 3 days 12/05/23 Unknown Rx 5mg-325mg #10 TABLETS Allergy/AdvReac Type Severity Reaction Status Date / Time latex Allergy Rash Verified 12/22/23 18:51 Surgical History S/p left hip fracture (~2016) Social History household members: family housing: house Smoking Status: Former smoker caffeine: Yes Type: carbonated beverages, coffee and tea ROS <Josh Lemus NP-Alayna - Last Filed: 12/22/23 21:49> [facility] ROS Narrative Constitutional: Negative for fever, chills, weight loss, weakness Eyes: Negative for vision loss, vision change, double vision ENT: Negative for any sore throat, ear pain, congestion Cardiovascular: Negative for any chest pain, tightness, palpitations Respiratory: Negative for any cough, sputum production, hemoptysis, dyspnea, dyspnea on exertion, orthopnea Gastrointestinal: Negative for any abdominal pain, nausea, vomiting, diarrhea, constipation, blood in stool, blood in vomit : Negative for any urinary frequency, dysuria, retention, blood in urine Muscle skeletal: Negative for any neck pain. Positive for thoracic back pain, lumbar back pain, right hip pain Neurological: Negative for any headache, syncope, dizziness Skin: Negative for any rashes, itching, abrasions, lacerations Psychiatric: Negative for any depression, anxiety, stress, suicidal ideation, homicidal ideation Hematologic: Negative for any excessive bruising, easy bleeding EXAM <TYESHA White - Last Filed: 12/22/23 21:49> Physical Exam Narrative Exam Narrative: Vital signs reviewed. HEET: Head normocephalic atraumatic, TMs clear bilaterally. Posterior pharynx is clear, moist mucous membranes. Nares clear bilaterally. Pupils are equal round reactive light, negative for any hemotympanum or septal hematoma. Neck: Supple with no lymphadenopathy or tenderness. No signs of meningismus. Cardiac: Regular rate and rhythm no murmurs gallops or rubs, equal peripheral pulses bilaterally. Respiratory: Lungs clear to auscultation bilaterally. No chest tenderness. Abdomen: Soft, nontender, nondistended. No abdominal bruit or pulsatile masses. No hepatosplenomegaly Extremities: No peripheral edema, no signs of gross trauma or deformity. Active full range of motion of all extremities. Patient has intact extensor mechanism to the right leg, patient has not been is able to flex and extend at the hip. +2 pedal pulse. Neuro: Cranial nerves II through XII intact, no focal neurological deficits. Skin: Clean dry and intact with no rash, purpura, petechiae, vesicles or pustules. Backs/flank: No CVA tenderness, patient did have some pain to the thoracic spine midline, there is no step-off deformity, no obvious signs of trauma. Pain to the lower lumbar spine, this is exacerbated with movement. No signs of trauma. Psych: Normal mood and affect. No SI, HI or acute psychosis. Const Vital Signs: 12/22/23 18:51 12/22/23 19:06 12/22/23 20:50 Temperature 97.7 F L 97.8 F Temperature Source Temporal Oral Pulse Rate 71 64 Respiratory Rate 18 18 Respiratory Effort Normal Respiratory Depth Normal Respiratory Pattern Irregular Blood Pressure 131/67 H Blood Pressure Mean 88 Pulse Ox 95 98 Oxygen Delivery Method Room Air Room Air Room Air 12/22/23 21:50 Temperature 97.8 F Temperature Source Pulse Rate 67 Respiratory Rate 16 Respiratory Effort Respiratory Depth Respiratory Pattern Blood Pressure 131/67 H Blood Pressure Mean 88 Pulse Ox 98 Oxygen Delivery Method <Dr. Gianluca DavisDO - Last Filed: 12/22/23 23:34> Physical Exam Const Vital Signs: 12/22/23 18:51 12/22/23 19:06 12/22/23 20:50 Temperature 97.7 F L 97.8 F Temperature Source Temporal Oral Pulse Rate 71 64 Respiratory Rate 18 18 Respiratory Effort Normal Respiratory Depth Normal Respiratory Pattern Irregular Blood Pressure 131/67 H Blood Pressure Mean 88 Pulse Ox 95 98 Oxygen Delivery Method Room Air Room Air Room Air 12/22/23 21:50 Temperature 97.8 F Temperature Source Pulse Rate 67 Respiratory Rate 16 Respiratory Effort Respiratory Depth Respiratory Pattern Blood Pressure 131/67 H Blood Pressure Mean 88 Pulse Ox 98 Oxygen Delivery Method MDM <Josh Lemus AGAC - Last Filed: 12/22/23 21:49> MDM Radiography Diagnostic Testing: Clinical Impression(s) from Imaging Studies Brain CT 12/22/23 19:32 IMPRESSION: Chronic ischemic changes. No CT evidence of acute intracranial pathology. Electronically Signed: Francisco ZhusivakumarDO at 21:17 EDT , Cervical Spine CT 12/22/23 19:32 IMPRESSION: Degenerative changes in the spine and other incidental findings as above. No evidence of acute spinal fracture or traumatic subluxation. Electronically Signed: Francisco Brooks DO at 21:08 EDT , Hip/Pelvis X-Ray 12/22/23 19:40 IMPRESSION: No definite acute osseous abnormality. Degenerative changes and postoperative changes. Electronically Signed: Francisco Brooks DO at 21:19 EDT , Lumbar Spine X-Ray 12/22/23 19:40 IMPRESSION: Age-indeterminate compression fracture of L1 with less than 25% vertebral body height loss. Correlate for pain. Otherwise, degenerative changes throughout. Consider follow-up MRI or CT. Electronically Signed: Francisco Brooks DO at 21:10 EDT , Thoracic Spine X-Ray 12/22/23 19:40 IMPRESSION: L1 compression fracture is partially visualized on the frontal view. No additional acute osseous abnormalities. Degenerative changes. Electronically Signed: Francisco Brooks DO at 21:20 EDT , Treatment and Re-Evaluation :: Differential diagnosis includes however is not limited to: Closed head injury, skull fracture, intracranial bleeding, thoracic contusion, lumbar contusion, spinal fracture, right hip contusion, right hip fracture Patient appears to be in no obvious respiratory distress vital signs are stable, nontoxic-appearing. Presenting to the emergency department with complaints of a mechanical fall laying on her back, did strike her head. Patient has no headache however secondary to being on Eliquis, patient received a CT scan of the brain, cervical spine, x-rays of the thoracic lumbar and right hip will be obtained. Tylenol 1 g will be ordered. Patient will be reevaluated. All radiologic examinations were read, reviewed by the emergency department attending. From these reads, a plan of care will be put in place. Patient on reevaluation was feeling better. Patient's x-ray of the right hip showed no definite acute osseous abnormality. Degenerative changes. Patient's thoracic spine showed no additional acute osseous abnormality of the thoracic spine, lumbar spine x-ray shows an age-indeterminate compression fracture of L1 with less than 25% vertebral body height loss. Patient did have some pain there, this could be acute on chronic. CT scan of the brain showed chronic ischemic changes, no CT evidence of any acute process. Cervical spine CT showed no acute findings. After the patient's Tylenol she did feel better. She was able to ambulate to the bathroom with her walker. The daughter who she lives with feels comfortable taking her home. It is important that the patient continue to take Tylenol, ice and perform gentle stretching. They are happy with the plan of care, patient stable for discharge. <Dr. Gianluca Davis, DO - Last Filed: 12/22/23 23:34> [facility] Narrative Medical decision making narrative: I have personally performed a face to face assessment of the patient and have reviewed the GRACIE Note. I performed a substantive portion of the visit including all aspects of the following. My buchanan findings include: History is [patient presents to the emergency department after sustaining a fall yesterday. Patient states that she was using her rollator and tried to move it back when the wheel got stuck in a crack in the ground and she fell striking her head. She denies loss of consciousness. She also landed on her right hip. Complaining now of hip and back pain. Patient denies loss of consciousness. She has been ambulatory since the fall.] Exam is [HEENT-PERRLA, EOMI. Cranial nerves II through XII grossly intact. TMs clear. Mucous membranes moist. No adenopathy. No external evidence of trauma to her head. Mild diffuse C-spine tenderness on palpation. No bony step-offs or depressions noted. Cardiovascular-regular rate and rhythm without murmur or ectopy Lungs-clear to auscultation, chest wall stable without crepitus or subcu emphysema Abdomen-normoactive bowel sounds, soft, nontender, no rebound or rigidity, no peritoneal signs. Back exam-patient with mild diffuse tenderness over the thoracic and lumbar spine. No bony step-offs or depressions. No erythema or warmth noted to the skin. Extremities-intact ?4, normal range of motion, normal pulses, atraumatic] patient with mild tenderness over the right hip with logrolling. No deformity noted. Neurovascular intact distally. Medical Decison Making [patient presents with a fall that occurred yesterday. On blood thinners. She had a CT scan of the brain without contrast that was unremarkable. CT C-spine showed no fractures. Patient had x-rays of the thoracic and lumbar spine which did show an L1 compression fracture age-indeterminate. Given recent fall and complaint of back pain we will assume it may be acute.] Patient will take Tylenol for discomfort and does not anything stronger for pain. She is advised to follow-up with her primary care physician within next 3 to 5 days. Discharged home stable condition peer Other additions or changes: [None] Radiography Diagnostic Testing: Clinical Impression(s) from Imaging Studies Brain CT 12/22/23 19:32 IMPRESSION: Chronic ischemic changes. No CT evidence of acute intracranial pathology. Electronically Signed: Francisco Brooks DO at 21:17 EDT , Cervical Spine CT 12/22/23 19:32 IMPRESSION: Degenerative changes in the spine and other incidental findings as above. No evidence of acute spinal fracture or traumatic subluxation. Electronically Signed: Francisco Brooks DO at 21:08 EDT , Hip/Pelvis X-Ray 12/22/23 19:40 IMPRESSION: No definite acute osseous abnormality. Degenerative changes and postoperative changes. Electronically Signed: Francisco Brooks DO at 21:19 EDT , Lumbar Spine X-Ray 12/22/23 19:40 IMPRESSION: Age-indeterminate compression fracture of L1 with less than 25% vertebral body height loss. Correlate for pain. Otherwise, degenerative changes throughout. Consider follow-up MRI or CT. Electronically Signed: Francisco Brooks DO at 21:10 EDT , Thoracic Spine X-Ray 12/22/23 19:40 IMPRESSION: L1 compression fracture is partially visualized on the frontal view. No additional acute osseous abnormalities. Degenerative changes. Electronically Signed: Francisco Brooks DO at 21:20 EDT , Three-view x-rays of the right hip and pelvis obtained interpreted by myself as no evidence of fracture or dislocation. Radiology in agreement. Three-view x-rays lumbar spine obtained and interpreted by myself as compression fracture of L1. Radiology in agreement noted 25% vertebral body height loss but age indeterminant compression fracture. 2 view x-rays of the thoracic spine obtained interpreted by myself as no evidence of fracture or dislocation. Radiology did note L1 compression fracture which was also noted on lumbar spine x-rays. She also had degenerative changes. Discharge Plan Triage Chief Complaint: Fall ED Midlevel Provider: Josh Lemus ED Provider: Gianluca Davis Dx/Rx/DC Orders Clinical Impression: Fall, Contusion, Closed compression fracture of L1 vertebra Instructions: Bruises (Contusions), ED Fracture, Vertebral Compression Prescriptions: No Action amlodipine 10 mg tablet 10 mg PO DAILY metoprolol tartrate 50 mg tablet 50 mg PO BID atorvastatin 40 MG tablet 40 mg PO QHS cholecalciferol (vitamin D3) 1,000 UNIT tablet 1,000 unit PO DAILY Eliquis 5 mg tablet 5 mg PO BID allopurinol 300 mg tablet 300 mg PO DAILY albuterol sulfate 1 INHALER HFA aerosol inhaler 1 - 2 puff INHALATION Q4H PRN (Reason: Wheezing) [id number] Tablet 1 tab PO QHS ferrous sulfate [FeroSul] 325 mg (65 mg iron) Tablet 325 mg PO 1200,1700 Qty: 60 0RF hydroxyurea 500 mg capsule 500 mg PO DAILY pantoprazole 20 mg tablet,delayed release (DR/EC) 20 mg PO DAILY mirtazapine 15 mg tablet 15 mg PO QHS lisinopril 20 mg tablet 20 mg PO DAILY escitalopram oxalate 10 mg tablet 10 mg PO DAILY acetaminophen [Tylenol] 325 mg Tablet 650 mg PO Q6H PRN (Reason: Pain 1-10 Or Fever) hydrocodone-acetaminophen 5-325 mg tablet 1 tab PO Q6H PRN PRN (Reason: Pain) 3 Days Qty: 10 0RF Primary Care Provider: Chase Maxwell Referrals: Chase Maxwell MD [Primary Care Provider] - Activity Restrictions/Additional Instructions: Please continue to take Tylenol 1 g every 8 hours. Ice, heat, perform gentle stretching. Print Language: [place] Disposition Disposition: Home, Self Care Discharge Date/Time: 12/22/23 21:51
--- NOTE | 2023-12-22 19:40 | RAD_ITS ---
EXAM: XR THORACIC SPINE, 3 VIEWS CLINICAL INDICATION: fall pain. TECHNIQUE: Frontal, lateral and swimmer''s views of the thoracic spine. COMPARISON: Lumbar spine radiographs on the same date. FINDINGS: VERTEBRAE: L1 compression fracture is partially visualized on the frontal view. Multilevel facet arthrosis and endplate osteophytosis. No spondylolisthesis. Preservation of the normal thoracic kyphosis. DISC SPACES: Multilevel intervertebral disc height loss. VASCULATURE: Atherosclerosis. RAD/Thoracic Spine 3 Views IMPRESSION: L1 compression fracture is partially visualized on the frontal view. No additional acute osseous abnormalities. Degenerative changes. Electronically Signed: Francisco Brooks DO at 21:20 EDT ,
--- NOTE | 2023-12-22 19:40 | RAD_ITS ---
EXAM: XR LUMBOSACRAL SPINE, 2 OR 3 VIEWS CLINICAL INDICATION: fall pain. TECHNIQUE: Frontal and lateral views of the lumbar spine and sacrum. COMPARISON: Thoracic spine radiographs on the same date. FINDINGS: VERTEBRAE: Multilevel facet and endplate osteophytosis. Age-indeterminate compression fracture of L1 with less than 25% vertebral body height loss. [place] left lumbar curvature. Trace degenerative anterolisthesis of L3 upon L4 and L4 upon L5. No spondylolysis is identified. SACRUM/COCCYX: Symmetric arthrosis of the SI joints. DISC SPACES: Multilevel intervertebral disc height loss. VASCULATURE: Vascular calcifications. GASTROINTESTINAL TRACT: Normal as visualized. Included bowel gas pattern is non-obstructive. OTHER FINDINGS: Status post cholecystectomy. RAD/Lumbar Spine 2 or 3 Views IMPRESSION: Age-indeterminate compression fracture of L1 with less than 25% vertebral body height loss. Correlate for pain. Otherwise, degenerative changes throughout. Consider follow-up MRI or CT. Electronically Signed: Francisco Brooks DO at 21:10 EDT ,
--- NOTE | 2023-12-22 19:40 | RAD_ITS ---
EXAM: XR RIGHT HIP WITH PELVIS WHEN PERFORMED, 2 OR 3 VIEWS CLINICAL INDICATION: fall pain. TECHNIQUE: Two or three views of the right hip with pelvis when performed. COMPARISON: 07/05/2022. FINDINGS: BONES/JOINTS: Intramedullary fixation of the left femur. Degenerative changes in the lower lumbar spine and bilateral SI joints. Degenerative changes at the bilateral hips with joint space narrowing, articular sclerosis, and acetabular hypertrophy. No displaced fracture. No widening of the pubic symphysis. SOFT TISSUES: No significant abnormality. No soft tissue swelling or gas. VASCULATURE: Atherosclerosis. RAD/HIP, UNI W/ Pelvis 2-3 Views IMPRESSION: No definite acute osseous abnormality. Degenerative changes and postoperative changes. Electronically Signed: Francisco Brooks DO at 21:19 EDT ,
[2023-12-22 20:50] VITALS: BP 131/67; PULSE 64; RESP 18; TEMP 36.6; O2SAT 98
[2023-12-22 21:50] VITALS: BP 131/67; PULSE 67; RESP 16; TEMP 36.6; O2SAT 98
== END 2023-12-22 21:51 | disposition home or self-care (01) ==
PROVIDERS: Emergency Provider Emergency Medicine; PCP Internal Medicine; Visit Provider Emergency Medicine
DX: M48.56XA Collapsed vertebra, not elsewhere classified, lumbar region, initial encounter for fracture (principal); F03.90 Unspecified dementia, unspecified severity, without behavioral disturbance, psychotic disturbance, mood disturbance, and anxiety; J44.9 Chronic obstructive pulmonary disease, unspecified; M25.551 Pain in right hip; M54.2 Cervicalgia; I25.10 Atherosclerotic heart disease of native coronary artery without angina pectoris; E78.00 Pure hypercholesterolemia, unspecified; W19.XXXA Unspecified fall, initial encounter; I10 Essential (primary) hypertension; Z79.01 Long term (current) use of anticoagulants; Z79.899 Other long term (current) drug therapy; Z87.891 Personal history of nicotine dependence; W01.10XA Fall on same level from slipping, tripping and stumbling with subsequent striking against unspecified object, initial encounter; Y93.01 Activity, walking, marching and hiking
CPT/HCPCS: 70450; 72072; 72100; 72125; 73502; 99282

== ENCOUNTER 2024-01-09 11:07 | Inpatient (IN) | payer MEDICARE, MEDICAID, SELFPAY ==
[2024-01-09] VITALS (7 sets, daily range): BP systolic 136–167; BP diastolic 71–84; PULSE 63–74; RESP 14–18; TEMP 36.4–37; O2SAT 96–98; BMI 28.6; BMI 29.2
[2024-01-09] MEDS: Morphine 2 MG/ML Syringe IV ×2 (11:49→17:43)
[2024-01-09] MEDS: Ondansetron 4 MG/2 ML Vial IV (11:49)
[2024-01-09] MEDS: 0.9% Normal Saline (1000mL) 1,000 ML 999 ML IV (11:50)
[2024-01-09 12:05] LABS: Absolute Lymphocyte Count 2.43 X10^3/uL (0.83-4.51); Absolute Neutrophil Count 9.1 X10^3/uL (2.0-7.7); Basophil# 0.03 X10^3/uL; Basophil% 0.2 % (0-1); Eosinophil# 0.06 X10^3/uL; Eosinophils% 0.5 % (0-5); Hematocrit 41.7 % (37-47); Hemoglobin 14.1 g/dL (12.0-15.0); Lymphocyte # 2.43 X10^3/ul (0.83-4.51); Lymphocyte % 19.7 % (19-41); Mean Corp Hgb Conc 33.8 g/dL (32-36); Mean Corpuscular Hgb 37.6 pg (27.0-32.0); Mean Corpuscular Volume 111.2 fL (81-99); Mean Platelet Vol. 9.9 fl (6.2-12.0); Monocyte# 0.55 X10^3/uL; Monocyte% 4.5 % (0-10); NRBC Flagged by Analyzer 0 % (0-5); Neutrophil # 9.13 X10^3/uL (2.7-7.7); Platelet Count 245 K/mm3 (150-450); RBC Distribution Width CV 15.5 % (11.6-14.6); RBC Distribution Width SD 63.5 fl (35.1-43.9); Red Blood Count 3.75 M/mm3 (4.2-5.4); White Blood Count 12.3 K/mm3 (4.4-11.0)
--- NOTE | 2024-01-09 12:20 | RAD_ITS ---
STUDY: X-RAY - PELVIS REASON FOR EXAM: Female, 88 years old. One week history of left hip pain. TECHNIQUE: One view of the pelvis was obtained. COMPARISON: Comparison is made with prior examination dated July 05, 2022. FINDINGS: Moderate amount of fecal material is seen in the colon. Atherosclerotic calcification. Normal bilateral iliac wings, sacroiliac joints and visualized sacrum. Normal visualized bilateral superior and inferior pubic rami. Normal pubic symphysis. Normal ischial tuberosities. Normal visualized right femoral head. There is osteoarthritic spur formation of the right acetabular rim. There is severe articular joint space narrowing of the right hip. The patient is status post intramedullary arvind and compression screw fixation of the left intertrochanteric fracture. The fracture is healed. No acute abnormality is seen. Normal left acetabulum. There is severe articular joint space narrowing of the left hip. RAD/Pelvis 1 or 2 Views IMPRESSION: Joint space narrowing of both hip joints. Prior ORIF of the left intertrochanteric fracture as described. Electronically Signed: Pb Fontaine MD at 12:46 EDT ,
--- NOTE | 2024-01-09 12:20 | RAD_ITS ---
STUDY: X-RAY CHEST REASON FOR EXAM: Female, 88 years old. Cough and weakness. TECHNIQUE: Single AP portable view of the chest. COMPARISON: Comparison is made with prior study dated June 06, 2023. FINDINGS: There is hyperinflation of the lungs consistent with chronic obstructive lung disease (COPD). Scattered calcified granulomas. No acute infiltrate is seen. There is no demonstrated pleural abnormality. Normal size heart. Normal mediastinum and neymar. Normal visualized pulmonary arteries. There is atherosclerotic calcification of the aortic arch with tortuosity. There are diffuse degenerative changes of the visualized thoracic spine. There is degenerative osteoarthritis of the bilateral shoulders. There is no demonstrated abnormality of the visualized soft tissue structures of the upper abdomen. RAD/Chest 1 View (Portable) IMPRESSION: Hyperinflation. No acute abnormality is seen. Electronically Signed: Pb Fontaine MD at 12:48 EDT ,
[2024-01-09 12:25] LABS: ALB/GLOB Ratio 0.9 RATIO (0.9-2.4); AST(SGOT) 20 U/L (15-37); Alanine Aminotransfer ALT/SGPT 27 U/L (13-56); Albumin, Serum 3.6 g/dL (3.2-5.0); Alkaline Phosphatase 188 U/L (45-117); Anion Gap 7 (5-15); BUN 18 mg/dL (7-18); Calcium,Total 9.4 mg/dL (8.5-10.1); Chloride 103 mmol/L (98-107); Creatinine, Serum 1.06 mg/dL (0.55-1.02); EST Glomerular Filtration Rate 52 mL/min (>60); Est Glom Filt Rate - Afr Amer 63 mL/min (>60); Globulin 3.8 g/dL (2.2-4.2); Glucose 92 mg/dL (74-106); Potassium 3.9 mmol/L (3.5-5.1); Protein, Total 7.4 g/dL (6.4-8.2); Sodium Level 137 mmol/L (136-145); Troponin-I HS 11 pg/mL (3.0-54.0)
--- NOTE | 2024-01-09 12:35 | RAD_ITS ---
STUDY: X-RAY - RIGHT KNEE REASON FOR EXAM: Female, 88 years old. Right knee pain. TECHNIQUE: 2 view(s) of the knee. COMPARISON: None. FINDINGS: Normal visualized distal femur. Normal visualized proximal tibia and fibula. Normal proximal tibiofibular articulation. There is severe degenerative arthrosis of the medial femorotibial compartment with severe joint space narrowing. Moderate degree of joint space narrowing and chondrocalcinosis. There is mild degenerative arthrosis of the patellofemoral articulation. The soft tissue structures are unremarkable. RAD/Knee 1 or 2 Views IMPRESSION: Degenerative arthrosis. Chondrocalcinosis of the lateral meniscus. Electronically Signed: Pb Fontaine MD at 12:53 EDT ,
--- NOTE | 2024-01-09 12:35 | RAD_ITS ---
STUDY: X-RAY - RIGHT TIBIA AND FIBULA REASON FOR EXAM: Female, 88 years old. Left leg pain. TECHNIQUE: 2 view(s) of the tibia and fibula were obtained. COMPARISON: None. FINDINGS: Normal visualized tibia. Normal visualized fibula. The soft tissue structures are unremarkable. RAD/Tibia & Fibula 2 Views IMPRESSION: Normal x-ray examination of the tibia and fibula. Electronically Signed: Pb Fontaine MD at 12:48 EDT ,
--- NOTE | 2024-01-09 12:53 | EDS_ITS ---
HPI History of Present Illness Chief Complaint: Lower Extremity Injury Narrative Narrative: Patient is a 88-year-old female with past medical history of osteoporosis, dementia, UTI, hypertension, COPD, PE on Eliquis who presented to the emergency department with chief complaint of pain and inability to walk. Patient according to family by bedside noted that she fell about a week ago was evaluated here in noted that everything was normal at that point in time. She states that she got up to the restroom twice today and then on the third time she went to go the restroom she states that she could not get up she was in too much pain therefore they called EMS to have her brought here for further evaluation management. Patient is complaining lower extremity pain causing her inability to ambulate. They deny any falls after she was evaluated here from her last fall. [facility] Medical History Fibroids Microcytosis Leukocytosis Debility Osteoporosis Dementia UTI (urinary tract infection) Fall Pulmonary air embolism Ascending aorta dilatation Pure hypercholesterolemia Atherosclerosis of [place] coronary artery of [place] heart without angina pectoris Essential hypertension PSVT (paroxysmal supraventricular tachycardia) COPD (chronic obstructive pulmonary disease) Home Medications ?Medication ?Instructions ?Recorded ?Last Taken ?Type amlodipine 10 mg tablet 10 mg PO DAILY BLOOD PRESSURE 03/27/18 10/12/23 History metoprolol tartrate 50 mg tablet 50 mg PO BID HEART 03/27/18 10/12/23 History atorvastatin 40 mg tablet 40 mg PO QHS CHOLESTROL 02/11/19 10/12/23 History cholecalciferol (vitamin D3) 25 1,000 unit PO DAILY SUPPLEMENT 02/11/19 10/12/23 History mcg (1,000 unit) tablet apixaban 5 mg tablet (Eliquis) 5 mg PO BID BLOOD THINNER 09/28/21 10/12/23 History albuterol sulfate 90 mcg/actuation 1 - 2 puff INHALATION Q4H PRN 07/05/22 10/12/23 History aerosol inhaler Wheezing allopurinol 300 mg tablet 300 mg PO DAILY GOUT 07/05/22 10/12/23 History wlpfjrr-bkwkxmybs-vudc tablet 1 tab PO QHS SUPPLEMENT 07/05/22 10/12/23 History acetaminophen 325 mg tablet 650 mg PO Q6H PRN Pain 1-10 Or 10/13/23 10/12/23 History (Tylenol) Fever escitalopram oxalate 10 mg tablet 10 mg PO DAILY DEPRESSION 10/13/23 10/12/23 History hydroxyurea 500 mg capsule 500 mg PO DAILY ANEMIA 10/13/23 10/12/23 History lisinopril 20 mg tablet 20 mg PO DAILY BLOOD PRESSURE 10/13/23 10/12/23 History mirtazapine 15 mg tablet 15 mg PO QHS DEPRESSION 10/13/23 10/12/23 History pantoprazole 20 mg tablet,delayed 20 mg PO DAILY HEARTBURN 10/13/23 10/12/23 History release mupirocin 2 % topical ointment topical 01/09/24 Unknown History prednisone 10 mg tablet 10 mg PO DAILY 01/09/24 Unknown History triamcinolone acetonide 0.1 % applic topical 01/09/24 Unknown History topical cream Allergy/AdvReac Type Severity Reaction Status Date / Time latex Allergy Rash Verified 01/09/24 11:08 Surgical History S/p left hip fracture (~2017) Social History household members: family housing: house Smoking Status: Former smoker caffeine: Yes Type: carbonated beverages, coffee and tea ROS ROS ED ROS Narrative Constitutional: Denies fevers, chills, headaches Eyes: Denies changes with double vision blurry vision Cardiovascular: Denies chest pain palpitations Respiratory: Denies coughing wheezing shortness of breath Abdomen: Denies abdominal pain nausea vomit diarrhea : Denies urinary symptoms Neurological: Denies numbness, weakness, tingling Musculoskeletal: Complains of lower extremity pain as noted above and difficulty with walking secondary to pain Skin: Denies rashes or lesions EXAM Physical Exam Narrative Exam Narrative: General: Patient lying in bed rest comfortably did not appear to be in acute distress Head: Atraumatic, normocephalic Eyes: PERRL bilaterally, EOMI bilaterally, no conjunctival injection noted Neck: Soft, supple, trachea midline Cardiovascular: Regular rate and rhythm no murmurs gallops rubs noted Respiratory: Clear to auscultation bilaterally no rales rhonchi or wheezes noted Abdomen: No tenderness palpation, soft, nondistended, bowel sounds present x 4 Musculoskeletal: Patient has pain with attempted range of motion of her right knee and her right hip. All of the bony prominences palpated no pain elicited Extremities: +4/5 strength noted in the bilateral upper and lower extremities, no pedal edema on exam Neurological: Patient following commands knew that she was at [facility]. Sensation grossly intact in the bilateral lower extremities, no saddle anesthesia noted, NIH is 0 GCS 15 Skin: Warm, dry, intact Const Vital Signs: 01/09/24 11:08 01/09/24 13:07 Temperature 98.6 F Temperature Source Temporal Pulse Rate 65 65 Respiratory Rate 16 14 Blood Pressure 149/75 H 167/84 H Blood Pressure Mean 99 111 Pulse Ox 96 97 Oxygen Delivery Method Room Air Room Air MDM MDM MDM Narrative Medical decision making narrative: Patient is a 88-year-old female who presented to the emergency department with a chief complaint of generalized weakness, diffuse pain and inability to ambulate. Patient will have workup performed here on the differential diagnose includes but limited to hip fracture, femur fracture, tibial plateau fracture, electrolyte abnormality, UTI. Once workup is obtained reviewed she will be re evaluated. Patient x-rays of her chest reviewed and showed no acute abnormality seen. Patient's x-ray of her pelvis was reviewed and showed joint space narrowing of both hips prior ORIF of the left intertrochanteric fracture as described no acute fractures were noted. Patient x-ray of her knee showed degenerative arthrosis chondrocalcinosis of the lateral meniscus noted. Patient's x-ray of her tibia/fibula showed normal examination of the tib-fib. Patient's CBC reviewed showed a white blood count of 12,000, hemoglobin was 14.1, platelet count normal at 245. Patient sodium normal 137, potassium low at 3.9, creatinine was noted to be 1.06. Her baseline appears to be around 0.81. Patient AST and ALT were 2027 respectively, troponin normal 11. Patient urinalysis showed positive nitrates 100 leukocyte esterase with 1+ bacteria seen she was given a gram of Rocephin here in the emergency department. On reevaluation of the patient we attempted to ambulate her and she was unable to do so. She was having intractable pain and not able to ambulate therefore she will require admission here for her UTI, KENIA and intractable pain with inability to ambulate for potential placement. Patient case will be discussed with hospitalist. Patient's case discussed with hospitalist Dr. Boyer who will accept patient for admission. Patient and family numbers were notified at bedside with all question concerns answered they are agreeable with this plan. Lab Data Labs: Laboratory Results - last 24 hr 01/09/24 01/09/24 11:18 13:08 WBC 12.3 H RBC 3.75 L Hgb 14.1 Hct 41.7 MCV 111.2 H MCH 37.6 H MCHC 33.8 RDW Std Deviation 63.5 H RDW Coeff of Ema 15.5 H Plt Count 245 MPV 9.9 Immature Gran % (Auto) 1.100 H Neut % (Auto) 74.0 H Lymph % (Auto) 19.7 [place] % (Auto) 4.5 Eos % (Auto) 0.5 Baso % (Auto) 0.2 Absolute Neuts (auto) 9.1 H Absolute Lymphs (auto) 2.43 Nucleated RBC % 0 Sodium 137 Potassium 3.9 Chloride 103 Carbon Dioxide 27.0 Anion Gap 7 BUN 18 Creatinine 1.06 H Est GFR (MDRD) Af Amer 63 Est GFR (MDRD) Non-Af 52 L BUN/Creatinine Ratio 17.0 Glucose 92 Calcium 9.4 Total Bilirubin 1.10 H AST 20 ALT 27 Alkaline Phosphatase 188 H Troponin I High Sens 11 Total Protein 7.4 Albumin 3.6 Globulin 3.8 Albumin/Globulin Ratio 0.9 Urine Color Straw Urine Clarity Clear Urine pH 7.0 Ur Specific [place] 1.005 Urine Protein Negative Urine Glucose (UA) Normal Urine Ketones Negative Urine Occult Blood Negative Urine Nitrite Positive H Urine Bilirubin Negative Urine Urobilinogen Normal Ur Leukocyte Esterase 100 H Urine RBC 0 SEEN Urine WBC 0 SEEN Ur Squamous Epith Cells 0 SEEN Urine Bacteria 1+ Urine Mucus 0 SEEN Radiography Diagnostic Testing: Clinical Impression(s) from Imaging Studies Chest X-Ray 01/09/24 12:20 IMPRESSION: Hyperinflation. No acute abnormality is seen. Electronically Signed: Pb Fontaine MD at 12:48 EDT , Pelvis X-Ray 01/09/24 12:20 IMPRESSION: Joint space narrowing of both hip joints. Prior ORIF of the left intertrochanteric fracture as described. Electronically Signed: Pb Fontaine MD at 12:46 EDT , Knee X-Ray 01/09/24 12:35 IMPRESSION: Degenerative arthrosis. Chondrocalcinosis of the lateral meniscus. Electronically Signed: Pb Fontaine MD at 12:53 EDT , Tibia/Fibula X-Ray 01/09/24 12:35 IMPRESSION: Normal x-ray examination of the tibia and fibula. Electronically Signed: Pb Fontaine MD at 12:48 EDT , Discharge Plan Triage Chief Complaint: Lower Extremity Injury ED Provider: Sonu Feliz Dx/Rx/DC Orders Prescriptions: No Action amlodipine 10 mg tablet 10 mg PO DAILY metoprolol tartrate 50 mg tablet 50 mg PO BID atorvastatin 40 MG tablet 40 mg PO QHS cholecalciferol (vitamin D3) 1,000 UNIT tablet 1,000 unit PO DAILY Eliquis 5 mg tablet 5 mg PO BID allopurinol 300 mg tablet 300 mg PO DAILY albuterol sulfate 1 INHALER HFA aerosol inhaler 1 - 2 puff INHALATION Q4H PRN (Reason: Wheezing) [id number]-[id number] Tablet 1 tab PO QHS hydroxyurea 500 mg capsule 500 mg PO DAILY pantoprazole 20 mg tablet,delayed release (DR/EC) 20 mg PO DAILY mirtazapine 15 mg tablet 15 mg PO QHS lisinopril 20 mg tablet 20 mg PO DAILY escitalopram oxalate 10 mg tablet 10 mg PO DAILY acetaminophen [Tylenol] 325 mg Tablet 650 mg PO Q6H PRN (Reason: Pain 1-10 Or Fever) prednisone 10 mg tablet 10 mg PO DAILY Patient Comments: FINISHED WITH TAPER ON SUNDAY, TAKING ONE DAILY triamcinolone acetonide 0.1 % cream topical mupirocin 2 % ointment topical Primary Care Provider: Chase Maxwell Referrals: Chase Maxwell MD [Primary Care Provider] - Print Language: Tajik Disposition Disposition: Acute Care [facility]
[2024-01-09 13:18] LABS: Mucous, Urine 0 SEEN /hpf (<or=2+); Red Blood Cells-Urine 0 SEEN /hpf (0-5); Squamous Epithelial Cells - UA 0 SEEN /hpf (5-10); White Blood Cells 0 SEEN /hpf (0-5)
[2024-01-09 13:26] LABS: Color, Urine Straw (Yellow); Glucose, Dipstick Normal (Normal); Ketone-Dipstick Negative (Negative); Leukocyte Esterase-Dipstick 100 /ul (Negative); Nitrite-Dipstick Positive (Negative); Occult Blood-Urine Negative /ul (Negative); Protein-Dipstick Negative (Negative); Specific Gravity, Urine 1.005 (1.002-1.030); Urine Bilirubin Dipstick Negative (Negative); Urine Clarity Clear (Clear); Urine Urobilinogen Normal (Normal)
[2024-01-09 13:32] LABS: Bacteria 1+ /hpf (None Seen)
[2024-01-09] MEDS: Ceftriaxone 1 GM/50 ML BAG IV (13:52)
--- NOTE | 2024-01-09 14:32 | NURSING ---
MED SURG [place] UTI, KENIA, INTRACTABLE PAIN, UNABLE TO AMBULATE
--- NOTE | 2024-01-09 15:12 | HP.PCM.HOS_ITS ---
HPI - General General Date of Admission: 01/09/24 Date of Service: 01/09/24 Chief Complaint: Intractable hip pain and generalized weakness HPI Narrative URSULA CRUMP, is a 88-year-old female history of COPD, PE on Eliquis, hypertension, GERD, depression, gout who presented to [facility] ED 01/09/2024 with pain and inability to walk. She fell about 3 weeks ago and was evaluated in the ED and the only thing found was an age indeterminant L1 compression fracture and she was discharged home, today got up to use the restroom twice and on the third time she felt she could not get up due to pain and family called EMS to bring patient to the ED for further evaluation. She reports pain in bilateral lower extremities and generalized weakness. In the ED x-rays negative for acute process, patient vitally stable however patient had creatinine slightly up from baseline and UA consistent with UTI so she was given Rocephin. Attempted to ambulate patient however patient unable to ambulate so hospitalist contacted for admission. Patient evaluated at bedside with family members and they report that she has had neck and back pain since her fall several weeks ago and had initially improved however has been worse over the past several days. Pain is the same pain as it was just worse, was seen by her PCP last week and has been on steroids and Vicodin however has worsened despite that and she did not find the steroids helpful. The pain and neck is aching and on either side of her spine, the pain that she reports in her back and legs is in both hips and somewhat sacral in nature however she reports the primary pain is muscle aching in both hips down to the knee, no sharp pain, chronic diarrhea with no changes in bowel, does urinate frequently. Patient has some generalized weakness and at the end of the day after legs are swollen gets a little bit of decreased sensation in her feet which is not new. Does note some shortness of breath on exertion and leg swelling which is chronic. Patient largely aching all over. [facility] Medical History Fibroids Microcytosis Leukocytosis Debility Osteoporosis Dementia UTI (urinary tract infection) Fall Pulmonary air embolism Ascending aorta dilatation Pure hypercholesterolemia Atherosclerosis of [place] coronary artery of [place] heart without angina pectoris Essential hypertension PSVT (paroxysmal supraventricular tachycardia) COPD (chronic obstructive pulmonary disease) Home Medications ?Medication ?Instructions ?Recorded ?Last Taken ?Type amlodipine 10 mg tablet 10 mg PO DAILY BLOOD PRESSURE 03/27/18 10/12/23 History metoprolol tartrate 50 mg tablet 50 mg PO BID HEART 03/27/18 10/12/23 History atorvastatin 40 mg tablet 40 mg PO QHS CHOLESTROL 02/11/19 10/12/23 History cholecalciferol (vitamin D3) 25 1,000 unit PO DAILY SUPPLEMENT 02/11/19 10/12/23 History mcg (1,000 unit) tablet apixaban 5 mg tablet (Eliquis) 5 mg PO BID BLOOD THINNER 09/28/21 10/12/23 History albuterol sulfate 90 mcg/actuation 1 - 2 puff INHALATION Q4H PRN 07/05/22 10/12/23 History aerosol inhaler Wheezing allopurinol 300 mg tablet 300 mg PO DAILY GOUT 07/05/22 10/12/23 History cawocsz-mudltvnmk-gtnd tablet 1 tab PO QHS SUPPLEMENT 07/05/22 10/12/23 History acetaminophen 325 mg tablet 650 mg PO Q6H PRN Pain 1-10 Or 10/13/23 10/12/23 History (Tylenol) Fever escitalopram oxalate 10 mg tablet 10 mg PO DAILY DEPRESSION 10/13/23 10/12/23 History hydroxyurea 500 mg capsule 500 mg PO DAILY ANEMIA 10/13/23 10/12/23 History lisinopril 20 mg tablet 20 mg PO DAILY BLOOD PRESSURE 10/13/23 10/12/23 History mirtazapine 15 mg tablet 15 mg PO QHS DEPRESSION 10/13/23 10/12/23 History pantoprazole 20 mg tablet,delayed 20 mg PO DAILY HEARTBURN 10/13/23 10/12/23 History release mupirocin 2 % topical ointment topical 01/09/24 Unknown History prednisone 10 mg tablet 10 mg PO DAILY 01/09/24 Unknown History triamcinolone acetonide 0.1 % applic topical 01/09/24 Unknown History topical cream Allergy/AdvReac Type Severity Reaction Status Date / Time latex Allergy Rash Verified 01/09/24 11:08 Surgical History S/p left hip fracture (~2016) Social History household members: family housing: house Smoking Status: Former smoker caffeine: Yes Type: carbonated beverages, coffee and tea ROS ROS Narrative General: Denies fever/chills HENT: Denies headache EYES: Occasionally feels vision will be blurry Resp: Denies cough, some chronic shortness of breath on exertion Cardiac: Denies chest pain GI: Denies abdominal pain, some chronic diarrhea, denies nausea/vomiting : Urinates frequently Extremity: Has swelling in legs at end of day MSK: Generalized weakness Neuro: Feels like she has socks on her feet at the end of the day sometimes which is not new or changed Heme: Denies any bleeding or bruising Skin: Has a basal cell carcinoma on right shoulder Psychiatric: Distressed due to her pain Vital Signs Vital Signs Vital Signs: 01/09/24 11:08 01/09/24 13:07 01/09/24 15:00 Temperature 98.6 F Temperature Source Temporal Pulse Rate 65 65 74 Respiratory Rate 16 14 16 Blood Pressure 149/75 H 167/84 H 167/82 H Blood Pressure Mean 99 111 110 Pulse Ox 96 97 98 Oxygen Delivery Method Room Air Room Air Room Air 01/09/24 15:04 Temperature 97.7 F L Temperature Source Pulse Rate 70 Respiratory Rate 16 Blood Pressure 155/76 H Blood Pressure Mean 102 Pulse Ox 96 Oxygen Delivery Method Physical Exam Narrative General: Alert, oriented, appears uncomfortable HEENT: Atraumatic, normocephalic Eyes: Anicteric, normal conjunctiva, extraocular movements grossly intact Neck: Supple Respiratory: Clear to auscultation bilaterally, normal respiratory effort Cardiovascular: Regular rate GI: Soft, nontender, nondistended Extremities: Some wrinkles on legs, no significant pitting Musculoskeletal: Movement of lower extremity limited due to pain, patient tender diffusely over legs everywhere I touch/palpate, no tenderness over C-spine, good strength bilaterally in hands Neuro: No overt focal neurological deficits Skin: Basal cell carcinoma on back of right shoulder Psych: Cooperative Results Lab / Micro Data 01/09/24 11:18 01/09/24 11:18 Labs: Laboratory Results - last 24 hr 01/09/24 11:18: WBC 12.3 H, RBC 3.75 L, Hgb 14.1, Hct 41.7, MCV 111.2 H, MCH 37.6 H, MCHC 33.8, RDW Std Deviation 63.5 H, RDW Coeff of Ema 15.5 H, Plt Count 245, MPV 9.9, Immature Gran % (Auto) 1.100 H, Neut % (Auto) 74.0 H, Lymph % (Auto) 19.7, [place] % (Auto) 4.5, Eos % (Auto) 0.5, Baso % (Auto) 0.2, Absolute Neuts (auto) 9.1 H, Absolute Lymphs (auto) 2.43, Nucleated RBC % 0, Sodium 137, Potassium 3.9, Chloride 103, Carbon Dioxide 27.0, Anion Gap 7, BUN 18, C reatinine 1.06 H, Est GFR (MDRD) Af Amer 63, Est GFR (MDRD) Non-Af 52 L, BUN/Creatinine Ratio 17.0, Glucose 92, Calcium 9.4, Total Bilirubin 1.10 H, AST 20, ALT 27, Alkaline Phosphatase 188 H, Troponin I High Sens 11, Total Protein 7.4, Albumin 3.6, Globulin 3.8, Albumin/Globulin Ratio 0.9 01/09/24 13:08: Urine Color Straw, Urine Clarity Clear, Urine pH 7.0, Ur Specific [place] 1.005, Urine Protein Negative, Urine Glucose (UA) Normal, Urine Ketones Negative, Urine Occult Blood Negative, Urine Nitrite Positive H, Urine Bilirubin Negative, Urine Urobilinogen Normal, Ur Leukocyte Esterase 100 H, Urine RBC 0 SEEN, Urine WBC 0 SEEN, Ur Squamous Epith Cells 0 SEEN, Urine Bacteria 1+, Urine Mucus 0 SEEN Imaging Radiology Impression Chest X-Ray 01/09/24 12:20 IMPRESSION: Hyperinflation. No acute abnormality is seen. Electronically Signed: Pb Fontaine MD at 12:48 EDT , Pelvis X-Ray 01/09/24 12:20 IMPRESSION: Joint space narrowing of both hip joints. Prior ORIF of the left intertrochanteric fracture as described. Electronically Signed: Pb Fontaine MD at 12:46 EDT , Knee X-Ray 01/09/24 12:35 IMPRESSION: Degenerative arthrosis. Chondrocalcinosis of the lateral meniscus. Electronically Signed: Pb Fontaine MD at 12:53 EDT , Tibia/Fibula X-Ray 01/09/24 12:35 IMPRESSION: Normal x-ray examination of the tibia and fibula. Electronically Signed: Pb Fontaine MD at 12:48 EDT , Assessment & Plan Assessment/Plan (1) Hip pain: (2) COPD (chronic obstructive pulmonary disease): (3) Essential hypertension: (4) Hx pulmonary embolism: (5) Basal cell carcinoma: (6) Depression: (7) GERD (gastroesophageal reflux disease): PLAN: Plan #Back and hip pain with difficulty ambulating -Patient did have L1 compression fracture noted of undetermined age on 12/21 however pain primarily in hips with a little bit in the sacral area so do not think this is cause of pain -Xray of hips this admit with joint space narrowing and prior ORIF of left intertrochanteric fracture -Admit for pain control, PT/OT -Pt was on steroids outpt with no improvement and last dose was tomorrow so will hold on further steroids for now, especially given diffuse muscle pain -Pain primarily in hips and is aching in nature and down to knees making lumbar pathology seem less likely -Schedule tylenol, topical, prn pain medication as well -Can consider muscle relaxer or medication like Lyrica or gabapentin given her diffuse pain mostly which seems muscular if previous measures not helpful -Also of note patient is tender all over and tender when palpating legs diffusely, will check CK, vitamin D, TSH -Will hold atorvastatin acutely given diffuse pain and muscle aches # Concern for UTI -There is concern patient may have UTI given UA with nitrite, leuk esterase, bacteria -White blood cell count 12.3 -will send urine culture, as patient already began treatment with antibiotics will continue at this time pending culture results # Hypertension -Continue home medications # Renal insufficiency -Creatinine up to 1.06 with last value 3 months ago 0.81 -Is elevated but does not meet criteria for KENIA -Gentle IVF # COPD -As needed nebs # History of PE -Patient on Eliquis #GERD -Continue PPI # History of depression -Continue home meds # History of gout -On allopurinol #On hydroxyurea -pt reports thick blood and follows with heme/onc doctor for this but wasn't sure who or exactly what disorder she has #basal cell carcinoma -On right shoulder -scheduled for removal 01/24 #DVT ppx: On Eliquis Francie Boyer MD Time spent in the patient's overall evaluation,decision-making process, review of diagnostic data, adjustment of management, discussion with other providers, nursing nursing and ancillary staff involved in patient's care documentation, 60 Minutes Charges/Coding Visit Charges Inpatient E&M: 59829 Init Hosp L2
[2024-01-09 16:14] LABS: CPK Total, Creatine Kinase 45 U/L (26-192); Magnesium 2.8 mg/dL (1.6-2.6); Thyroid Stim Hormone (TSH) 4.06 uIU/mL (0.358-3.74)
[2024-01-09] MEDS: Lidocaine 5% Patch 2 PATCH TOPICAL (17:28)
[2024-01-09] MEDS: 0.9% Normal Saline (1000mL) 1,000 ML 50 ML IV (17:35)
[2024-01-09] MEDS: Metoprolol Tartrate 50 MG Tablet PO (20:59)
[2024-01-09] MEDS: APIXABAN 5 MG TABLET PO (20:59)
[2024-01-09] MEDS: Mirtazapine 15 MG Tablet PO (21:00)
[2024-01-09] MEDS: Acetaminophen 500 MG Tablet 1000 MG PO (21:00)
[2024-01-09] MEDS: Arthritis Pain Compound 60 CLICK TUBE TOPICAL (21:02)
[2024-01-10] VITALS (9 sets, daily range): BP systolic 115–152; BP diastolic 58–78; PULSE 60–74; RESP 16–18; TEMP 36.6–37.2; O2SAT 93–99
[2024-01-10] MEDS: Arthritis Pain Compound 60 CLICK TUBE TOPICAL ×3 (05:40→21:01)
[2024-01-10] MEDS: Acetaminophen 500 MG Tablet 1000 MG PO ×3 (05:40→21:00)
--- NOTE | 2024-01-10 07:30 | CASEMGMT ---
Social Work- Pt has directives on chart naming sons Lencho, primary agent, and Bryson, secondary agent. JOLANTA Morris
[2024-01-10 07:34] LABS: Absolute Lymphocyte Count 2.26 X10^3/uL (0.83-4.51); Absolute Neutrophil Count 6.1 X10^3/uL (2.0-7.7); Basophil# 0.02 X10^3/uL; Basophil% 0.2 % (0-1); Eosinophil# 0.11 X10^3/uL; Eosinophils% 1.2 % (0-5); Hematocrit 39.4 % (37-47); Hemoglobin 13.1 g/dL (12.0-15.0); Lymphocyte # 2.26 X10^3/ul (0.83-4.51); Lymphocyte % 24.7 % (19-41); Mean Corp Hgb Conc 33.2 g/dL (32-36); Mean Corpuscular Hgb 38.2 pg (27.0-32.0); Mean Corpuscular Volume 114.9 fL (81-99); Mean Platelet Vol. 10.2 fl (6.2-12.0); Monocyte# 0.55 X10^3/uL; NRBC Flagged by Analyzer 0 % (0-5); Neutrophil % 66.7 % (47-70); Platelet Count 205 K/mm3 (150-450); RBC Distribution Width CV 15.4 % (11.6-14.6); RBC Distribution Width SD 64.7 fl (35.1-43.9); Red Blood Count 3.43 M/mm3 (4.2-5.4); White Blood Count 9.2 K/mm3 (4.4-11.0)
[2024-01-10 08:48] LABS: ALB/GLOB Ratio 0.9 RATIO (0.9-2.4); AST(SGOT) 18 U/L (15-37); Alanine Aminotransfer ALT/SGPT 25 U/L (13-56); Albumin, Serum 2.9 g/dL (3.2-5.0); Alkaline Phosphatase 160 U/L (45-117); Anion Gap 3 (5-15); BUN 20 mg/dL (7-18); BUN/Creat Ratio 21.1 RATIO (10-20); Calcium,Total 8.5 mg/dL (8.5-10.1); Chloride 109 mmol/L (98-107); Creatinine, Serum 0.95 mg/dL (0.55-1.02); EST Glomerular Filtration Rate 59 mL/min (>60); Est Glom Filt Rate - Afr Amer 72 mL/min (>60); Estimated Creatinine Clearance 46.04 ml/min; Globulin 3.3 g/dL (2.2-4.2); Glucose 90 mg/dL (74-106); Potassium 4.5 mmol/L (3.5-5.1); Protein, Total 6.2 g/dL (6.4-8.2); Sodium Level 140 mmol/L (136-145)
[2024-01-10] MEDS: Ceftriaxone 1 GM/50 ML BAG IV (09:04)
[2024-01-10] MEDS: APIXABAN 5 MG TABLET PO ×2 (09:04→21:01)
[2024-01-10] MEDS: Cholecalciferol (VIT D3) 25 MCG TABLET (1,000 UNITS) PO (09:05)
[2024-01-10] MEDS: Allopurinol 300 MG Tablet PO (09:05)
[2024-01-10] MEDS: Escitalopram Oxalate 10 MG Tablet PO (09:05)
[2024-01-10] MEDS: amLODIPine 10 MG Tablet PO (09:05)
[2024-01-10] MEDS: Lisinopril 20 MG Tablet PO (09:05)
[2024-01-10 09:06] LABS: Vitamin D,25 Hydroxy 56.5 ng/mL
[2024-01-10] MEDS: Pantoprazole Sodium 20 MG Tablet PO (09:06)
[2024-01-10] MEDS: Hydroxyurea 500 MG Capsule PO (09:06)
[2024-01-10] MEDS: Lidocaine 5% Patch 2 PATCH TOPICAL (09:13)
--- NOTE | 2024-01-10 11:22 | CASEMGMT ---
Addendum entered by Beena Estrada 01/10/24 12:45: Social Work- Pt has CM through [facility], Ramonita Roca. SW called and left a voicemail regarding admit. JOLANTA Morris Original Note: Social Work- SW met with pt and family. Pt family states they are waiting for the phsyician to let them know what is recommended, but they would like pt to go back to daughter's home where she has been residing. Pt daughter states that pt has Outpatient Therapy scheduled for next week, as PCP had recommended prior to fall that pt needed PT. RNCM advised. SW to remain available to follow. JOLANTA Morris
--- NOTE | 2024-01-10 11:26 | CASEMGMT ---
Addendum entered by Nely Mckeon 01/10/24 14:26: Received acceptance from [facility] to start patient on Sunday. Pt made aware. Addendum entered by Nely Mckeon 01/10/24 12:14: TC to [facility], spoke with Katey, referral made. Will await decision. Addendum entered by Nely Mckeon 01/10/24 12:12: Patient was provided a list of [facility] providers including quality and resource use data and consistent with the patient?s preferred geographic region, medical needs, and insurance network were provided from the [employer] Guide. Pt and dtr asked RN RONA to read them the list with star ratings. RN RONA did so. Pt chose [facility] as first choice. Original Note: KOBY REA Assessment: Face to Face with pt for initial transition planning/care coordination assessment. KOBY REA introduced self and role at [facility], pt voices understanding and consents to assessment. Pt is A&O x3 and answers all questions appropriately at this time. Pt sitting up in chair with son, dtr and dtr in law present in room. Pt agreeable to assessment with family present. Care providers, pharmacy, and demographics verified/updated. Admitting Dx: intractable hip pain Strata Score: 3 PCP:Hans Specialists:blood doctor unsure of name; Ric Drew Preferred Pharmacy: [facility] Insurance: My Care [facility] Prescription Benefit: yes LNOK: Driss Murphy, son; Bryson Murphy, son Living Arrangements: Pt lives with dtr and son in law in a two story home with 4 steps to enter with a rail. Pt states she has [employer] and they are getting a ramp. Pt is able to bathe and dress self but dtr provides assistance with cooking, laundry and grocery shopping. Pt denies concerns at home. Transportation: Pt doesn't drive, dtr transports pt. DME:[facility] HHC/SNF:Denies hx of Pt states no concerns with going home at time of dc. Pt was supposed to start outpt therapy next week. Discussed with pt and family if she feels she can go to outpt therapy or if she needs home therapy until it is easier to get out and about. Pt is agreeable to [facility]. KOBY REA to provide list of options. Pt states no further concerns/needs. CM to follow. Advised pt to ask CM if any further question/concerns/needs arise, voices understanding. Pt Goal: Home with HHC Plan: Home with HHC Tegan WHALEN CM
[2024-01-10] MEDS: Metoprolol Tartrate 50 MG Tablet PO (12:23)
[2024-01-10] MEDS: 0.9% Saline Lock 10 ML Syringe IV (12:30)
--- NOTE | 2024-01-10 13:39 | PCM.PROGNOTE ---
Objective Data Objective Data Vital Signs: Vital Signs Temp Pulse Resp BP Pulse Ox O2 Del Method 97.9 F 74 16 152/78 H 93 Room Air 01/10/24 08:46 01/10/24 12:23 01/10/24 08:46 01/10/24 08:46 01/10/24 08:46 01/10/24 08:55 Oxygen Delivery Method Room Air Weight: 182 lb Body Mass Index (BMI) 29.2 Intake & Output: Intake and Output for Last 24 Hours 01/08/24 01/09/24 01/10/24 23:59 23:59 23:59 Intake Total 1250 / 1250 991.67 / 991.67 Output Total 450 / 450 450 / 450 Balance 800 / 800 541.67 / 541.67 Lab / Micro Data 01/10/24 06:58 01/10/24 06:58 Labs: Laboratory Results - last 24 hr 01/09/24 11:18: Magnesium 2.8 H, Total Creatine Kinase 45, TSH 4.06 H 01/10/24 06:58: WBC 9.2, RBC 3.43 L, Hgb 13.1, Hct 39.4, MCV 114.9 H, MCH 38.2 H, MCHC 33.2, RDW Std Deviation 64.7 H, RDW Coeff of Ema 15.4 H, Plt Count 205, MPV 10.2, Immature Gran % (Auto) 1.200 H, Neut % (Auto) 66.7, Lymph % (Auto) 24.7, [place] % (Auto) 6.0, Eos % (Auto) 1.2, Baso % (Auto) 0.2, Absolute Neuts (auto) 6.1, Absolute Lymphs (auto) 2.26, Nucleated RBC % 0, Sodium 140, Potassium 4.5, Chloride 109 H, Carbon Dioxide 28.0, Anion Gap 3 L, BUN 20 H, Creatinine 0.95, Estim Creat Clear Calc 46.04, Est GFR (MDRD) Af Amer 72, Est GFR (MDRD) Non-Af 59 L, BUN/Creatinine Ratio 21.1 H, Glucose 90, Calcium 8.5, Total Bilirubin 0.80, AST 18, ALT 25, Alkaline Phosphatase 160 H, Total Protein 6.2 L, Albumin 2.9 L, Globulin 3.3, Albumin/Globulin Ratio 0.9, Vitamin D 25-Hydroxy 56.5
--- NOTE | 2024-01-10 13:43 | PN_ITS ---
Subjective Subjective Patient seen and examined. She was admitted with a complaint of intractable right hip pain. Imaging showed no evidence of fracture. She has been managed for intractable right hip pain. Patient still complains of generalized pain though she says the pain in her hip is much better. She denies any fever or chills, palpitations, dizziness, nausea or vomiting or any other symptoms. Review of systems otherwise negative. She has remained hemodynamically stable. Objective Data Objective Data Vital Signs: Vital Signs Temp Pulse Resp BP Pulse Ox O2 Del Method 97.9 F 74 16 152/78 H 93 Room Air 01/10/24 08:46 01/10/24 12:23 01/10/24 08:46 01/10/24 08:46 01/10/24 08:46 01/10/24 08:55 Oxygen Delivery Method Room Air Weight: 182 lb Body Mass Index (BMI) 29.2 Intake & Output: Intake and Output for Last 24 Hours 01/08/24 01/09/24 01/10/24 23:59 23:59 23:59 Intake Total 1250 / 1250 991.67 / 991.67 Output Total 450 / 450 450 / 450 Balance 800 / 800 541.67 / 541.67 Lab / Micro Data 01/10/24 06:58 01/10/24 06:58 Labs: Laboratory Results - last 24 hr 01/09/24 11:18: Magnesium 2.8 H, Total Creatine Kinase 45, TSH 4.06 H 01/10/24 06:58: WBC 9.2, RBC 3.43 L, Hgb 13.1, Hct 39.4, MCV 114.9 H, MCH 38.2 H , MCHC 33.2, RDW Std Deviation 64.7 H, RDW Coeff of Ema 15.4 H, Plt Count 205, MPV 10.2, Immature Gran % (Auto) 1.200 H, Neut % (Auto) 66.7, Lymph % (Auto) 24.7, [place] % (Auto) 6.0, Eos % (Auto) 1.2, Baso % (Auto) 0.2, Absolute Neuts (auto) 6.1, Absolute Lymphs (auto) 2.26, Nucleated RBC % 0, Sodium 140, Potassium 4.5, Chloride 109 H, Carbon Dioxide 28.0, Anion Gap 3 L, BUN 20 H, Creatinine 0.95, Estim Creat Clear Calc 46.04, Est GFR (MDRD) Af Amer 72, Est GFR (MDRD) Non-Af 59 L, BUN/Creatinine Ratio 21.1 H, Glucose 90, Calcium 8.5, Total Bilirubin 0.80, AST 18, ALT 25, Alkaline Phosphatase 160 H, Total Protein 6.2 L, Albumin 2.9 L, Globulin 3.3, Albumin/Globulin Ratio 0.9, Vitamin D 25- Hydroxy 56.5 Physical Exam Const alert, oriented x3 and no apparent distress General Appearance: cooperative and well developed HEENT normocephalic, head/scalp atraumatic, moist oral mucous membranes and oropharynx normal Eyes PERRL and EOMs intact bilaterally Neck supple and no JVD Lymph Lymphatic: no lymphadenopathy noted and no lymphedema noted Resp normal respiratory effort, normal air movement and clear to auscultation bilaterally Cardio regular rate, regular rhythm, S1 normal heart sound, S2 normal heart sound and no murmurs GI normal to inspection, nondistended, normoactive bowel sounds, soft to palpation, non-tender and non-distended Extremity normal capillary refill, no clubbing, cyanosis or edema and no calf tenderness Extremity Narrative: generalised tenderness Skin General Skin Exam: no breakdown Neuro CN's II-XII intact bilaterally and no focal motor deficits Motor Exam: general weakness Psych thought process normal and cooperative Appearance: appropriate Assessment & Plan Assessment/Plan (1) Hip pain: PLAN: Plan #Intractable left hip pain * imaging done showed evidence of ORIF of left inertrochanteric fracture, and no new fracture * says hip pain is muc better * PT/OT On board * fall precautions * PO tylenol, oxycodone and IV morphine prn for pain. * # Probable UTI: WBC was 12.3 and urinalysis showed evidence of UTI. Bacteria. Urine cultures ordered. Started on IV ceftriaxone. Will monitor #Hypertension: #COPD: Not in exacerbation. Breathing treatments bronchodilators. 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 On hydroxyurea. #Basal cell carcinoma. Located on the right shoulder. Scheduled for removal on 01/25/2024 DVT prophylaxis: On Eliquis Disposition: Anticipate discharge in the next day or 2. Charges/Coding Visit Charges Inpatient E&M: 03852 Subs Hosp L2
--- NOTE | 2024-01-10 15:23 | CHAPLAIN ---
Type of Pastoral Visit _x__ Initial Visit ___ Follow-up Visit ___ On-call Visit ___ General Patient Visit ___ Spiritual Assessment ___ Family Conference ___ Bereavement ___ Rapid Response ___ Code Blue ___ Other (describe below) Pastoral Care Referral From _x__ Patient ___ Family ___ Nurse ___ Physician ___ Film Sound Coordinator ___ Claims Correspondence Clerk ___ Other (describe below) Sacrament/Intervention _x__ Active listening ___ Anointing ___ Rastafari ___ Bereavement ___ Communion ___ Riddhi exploration ___ ___ Life review _x__ Prayer ___ Reconciliation ___ Sacrament of Sick _x__ Supportive presence ___ Wedding ___ Other (describe below) Pastoral Comments patient is resting but awake; pt had just got off the phone with her daughter and told this metal rivet machine operator that; pt says she is not sure how she is and is unable to clearly give answer on her reason for being admitted; pt is pleasant otherwise and states no other concerns but to feel better and to walk with more strength and ability; pt welcomes a prayer and the presence of support
[2024-01-10] MEDS: Mirtazapine 15 MG Tablet PO (21:01)
[2024-01-11] VITALS (7 sets, daily range): BP systolic 116–150; BP diastolic 50–82; PULSE 59–72; RESP 16–18; TEMP 36.5–36.9; O2SAT 95–98
[2024-01-11] MEDS: Arthritis Pain Compound 60 CLICK TUBE TOPICAL ×3 (05:58→21:17)
[2024-01-11] MEDS: Acetaminophen 500 MG Tablet 1000 MG PO ×3 (05:58→21:18)
[2024-01-11 06:33] LABS: Absolute Neutrophil Count 6.4 X10^3/uL (2.0-7.7); Basophil# 0.03 X10^3/uL; Basophil% 0.3 % (0-1); Eosinophil# 0.15 X10^3/uL; Eosinophils% 1.5 % (0-5); Hemoglobin 12.8 g/dL (12.0-15.0); Lymphocyte % 24.8 % (19-41); Mean Corp Hgb Conc 32.8 g/dL (32-36); Mean Corpuscular Hgb 37.8 pg (27.0-32.0); Mean Platelet Vol. 10.1 fl (6.2-12.0); Monocyte# 0.56 X10^3/uL; Monocyte% 5.8 % (0-10); NRBC Flagged by Analyzer 0 % (0-5); Neutrophil % 66.2 % (47-70); POSITIVE MORPHOLOGY YES; Platelet Count 196 K/mm3 (150-450); RBC Distribution Width CV 15.2 % (11.6-14.6); RBC Distribution Width SD 65.2 fl (35.1-43.9); Red Blood Count 3.39 M/mm3 (4.2-5.4); White Blood Count 9.7 K/mm3 (4.4-11.0)
[2024-01-11 06:37] LABS: Differential Indicated SCAN CRITERIA MET
[2024-01-11 07:08] LABS: ALB/GLOB Ratio 0.9 RATIO (0.9-2.4); AST(SGOT) 19 U/L (15-37); Alanine Aminotransfer ALT/SGPT 22 U/L (13-56); Albumin, Serum 2.9 g/dL (3.2-5.0); Alkaline Phosphatase 161 U/L (45-117); Anion Gap 7 (5-15); BUN 27 mg/dL (7-18); Calcium,Total 8.9 mg/dL (8.5-10.1); Chloride 107 mmol/L (98-107); Creatinine, Serum 1.04 mg/dL (0.55-1.02); EST Glomerular Filtration Rate 53 mL/min (>60); Est Glom Filt Rate - Afr Amer 65 mL/min (>60); Estimated Creatinine Clearance 42.05 ml/min; Globulin 3.3 g/dL (2.2-4.2); Glucose 98 mg/dL (74-106); Potassium 4.1 mmol/L (3.5-5.1); Protein, Total 6.2 g/dL (6.4-8.2); Sodium Level 137 mmol/L (136-145)
[2024-01-11 07:32] LABS: Anisocytosis 2+
--- NOTE | 2024-01-11 08:44 | CASEMGMT ---
Social Work- JIMY received a return call from Ramonita @ [facility]. Ramonita reports that they have been trying to secure a hospital bed for pt and requested assistance with that while pt is in hospital; JIMY relayed request to RNCM. Pt is planning to return home with in-home PT/OT rather than outpatient as previously scheduled per RNCM; this was relayed to Ramonita. Plan: Home with [facility]
[2024-01-11] MEDS: Lisinopril 20 MG Tablet PO (10:02)
[2024-01-11] MEDS: Cholecalciferol (VIT D3) 25 MCG TABLET (1,000 UNITS) PO (10:02)
[2024-01-11] MEDS: Lidocaine 5% Patch 2 PATCH TOPICAL (10:03)
[2024-01-11] MEDS: amLODIPine 10 MG Tablet PO (10:04)
[2024-01-11] MEDS: Escitalopram Oxalate 10 MG Tablet PO (10:04)
[2024-01-11] MEDS: Pantoprazole Sodium 20 MG Tablet PO (10:04)
[2024-01-11] MEDS: Ceftriaxone 1 GM/50 ML BAG IV (10:04)
[2024-01-11] MEDS: Allopurinol 300 MG Tablet PO (10:04)
[2024-01-11] MEDS: APIXABAN 5 MG TABLET PO ×2 (10:04→21:17)
[2024-01-11] MEDS: Metoprolol Tartrate 50 MG Tablet PO (10:04)
[2024-01-11] MEDS: Hydroxyurea 500 MG Capsule PO (10:04)
[2024-01-11] MEDS: 0.9% Saline Lock 10 ML Syringe IV (10:05)
--- NOTE | 2024-01-11 10:17 | PN_ITS ---
Subjective Subjective Patient seen and examined. She was comfortable in bed and had no active complaints. Review of systems is otherwise negative. Objective Data Objective Data Vital Signs: Vital Signs Temp Pulse Resp BP Pulse Ox O2 Del Method 97.9 F 72 17 144/78 H 97 Room Air 01/11/24 06:02 01/11/24 10:04 01/11/24 06:02 01/11/24 10:04 01/11/24 06:02 01/11/24 06:02 Oxygen Delivery Method Room Air Weight: 182 lb 0.006 oz Body Mass Index (BMI) 29.2 Intake & Output: Intake and Output for Last 24 Hours 01/09/24 01/10/24 01/11/24 23:59 23:59 23:59 Intake Total 1250 / 1250 991.67 / 991.67 600 / 600 Output Total 450 / 450 500 / 500 Balance 800 / 800 491.67 / 491.67 600 / 600 Lab / Micro Data 01/11/24 05:46 01/11/24 05:46 Labs: Laboratory Results - last 24 hr 01/11/24 05:46: WBC 9.7, RBC 3.39 L, Hgb 12.8, Hct 39.0, MCV 115.0 H, MCH 37.8 H , MCHC 32.8, RDW Std Deviation 65.2 H, RDW Coeff of Ema 15.2 H, Plt Count 196, MPV 10.1, Immature Gran % (Auto) 1.400 H, Neut % (Auto) 66.2, Lymph % (Auto) 24.8, [place] % (Auto) 5.8, Eos % (Auto) 1.5, Baso % (Auto) 0.3, Absolute Neuts (auto) 6.4, Absolute Lymphs (auto) 2.40, Nucleated RBC % 0, Anisocytosis 2+, Sodium 137, Potassium 4.1, Chloride 107, Carbon Dioxide 23.0, Anion Gap 7, BUN 27 H, Creatinine 1.04 H, Estim Creat Clear Calc 42.05, Est GFR (MDRD) Af Amer 65, Est GFR (MDRD) Non-Af 53 L, BUN/Creatinine Ratio 26.0 H, Glucose 98, Calcium 8.9, Total Bilirubin 0.60, AST 19, ALT 22, Alkaline Phosphatase 161 H, Total Protein 6.2 L, Albumin 2.9 L, Globulin 3.3, Albumin/Globulin Ratio 0.9 Micro: Microbiology 01/09/24 13:08 Urine Catheter - Catheter Urine Culture - Final Klebsiella pneumoniae sp pneum Physical Exam Const alert, oriented x3 and no apparent distress General Appearance: cooperative and well developed HEENT normocephalic, head/scalp atraumatic, moist oral mucous membranes and oropharynx normal Eyes PERRL and EOMs intact bilaterally Neck supple and no JVD Lymph Lymphatic: no lymphadenopathy noted and no lymphedema noted Resp normal respiratory effort, normal air movement and clear to auscultation bilaterally Cardio regular rate, regular rhythm, S1 normal heart sound, S2 normal heart sound and no murmurs GI normal to inspection, nondistended, normoactive bowel sounds, soft to palpation, non-tender and non-distended Extremity normal capillary refill, no clubbing, cyanosis or edema and no calf tenderness General Extremity: no tenderness to palpation of joints or extremities Skin General Skin Exam: no breakdown Neuro CN's II-XII intact bilaterally and no focal motor deficits Motor Exam: general weakness Psych thought process normal and cooperative Appearance: appropriate Assessment & Plan Assessment/Plan (1) Hip pain: PLAN: Plan #Intractable left hip pain * imaging done showed evidence of ORIF of left inertrochanteric fracture, and no new fracture * says hip pain is much better * PT/OT On board * fall precautions * PO tylenol, oxycodone and IV morphine prn for pain. * # Probable UTI: WBC is down to 9.7. Urine cultures growing Klebsiella pneumonia. It is sensitive to ceftriaxone so we will continue ceftriaxone. #Hypertension: On amlodipine and lisinopril as well as metoprolol. IV hydralazine as needed. #COPD: Not in exacerbation. Breathing treatments bronchodilators. 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 On hydroxyurea. #Basal cell carcinoma. Located on the right shoulder. Scheduled for removal on 01/25/2024 DVT prophylaxis: On Eliquis Disposition: Patient is quite weak and frail and is a two-person assist. Will benefit from short-term placement in rehab. Case management on board. Charges/Coding Visit Charges Inpatient E&M: 95558 Subs Hosp L2
--- NOTE | 2024-01-11 11:20 | CASEMGMT ---
Addendum entered by Nely Mckeon 01/11/24 11:59: Hospitalist agreeable to order hospital bed. Spoke with pt and dtr and provided a local verbal in network list of DME providers, [facility]. Green sheet on chart should pt dc over the weekend. Original Note: KOBY REA reviewed therapy notes from this morning, KOBY REA into pt room, pt dtr present. Pt lying in bed in no distress. Discussed with pt how her therapy session went this morning, pt states she was painful and couldn't walk far. Discussed with pt and dtr options of still going home with [facility] vs s/t skilled therapy in a facility. Pt dtr became upset and states she wants pt to go home as she has been caring for her. She states she feels she can manage pt at home but KOBY REA will have to speak with FELICE Naqvi. Pt states she wants to go home but asks KOBY REA to speak to son. Spoke with son on speakerphone in room who agrees that pt will return home with [facility] and not go to a facility. They are requesting a hospital bed for homegoing. Requested from hospitalist. Pt states she does not feel that she is ready to go home today. KOBY REA to follow.
[2024-01-11] MEDS: oxyCODONE 5 MG Tablet PO (11:47)
[2024-01-11] MEDS: Mirtazapine 15 MG Tablet PO (21:18)
[2024-01-12 06:00] VITALS: BP 123/64; PULSE 76; RESP 16; TEMP 36.6; O2SAT 98
[2024-01-12 06:23] LABS: Absolute Lymphocyte Count 2.76 X10^3/uL (0.83-4.51); Absolute Neutrophil Count 4.3 X10^3/uL (2.0-7.7); Basophil# 0.02 X10^3/uL; Basophil% 0.3 % (0-1); Eosinophils% 1.3 % (0-5); Hematocrit 36.9 % (37-47); Hemoglobin 12.4 g/dL (12.0-15.0); Lymphocyte # 2.76 X10^3/ul (0.83-4.51); Lymphocyte % 36.2 % (19-41); Mean Corp Hgb Conc 33.6 g/dL (32-36); Mean Corpuscular Hgb 38.6 pg (27.0-32.0); Mean Platelet Vol. 10.2 fl (6.2-12.0); Monocyte# 0.34 X10^3/uL; Monocyte% 4.5 % (0-10); NRBC Flagged by Analyzer 0 % (0-5); Neutrophil # 4.34 X10^3/uL (2.7-7.7); Neutrophil % 56.9 % (47-70); Platelet Count 191 K/mm3 (150-450); RBC Distribution Width CV 15.3 % (11.6-14.6); RBC Distribution Width SD 63.8 fl (35.1-43.9); Red Blood Count 3.21 M/mm3 (4.2-5.4); White Blood Count 7.6 K/mm3 (4.4-11.0)
[2024-01-12 06:47] LABS: ALB/GLOB Ratio 0.9 RATIO (0.9-2.4); AST(SGOT) 19 U/L (15-37); Alanine Aminotransfer ALT/SGPT 22 U/L (13-56); Alkaline Phosphatase 156 U/L (45-117); Anion Gap 6 (5-15); BUN 33 mg/dL (7-18); Chloride 105 mmol/L (98-107); EST Glomerular Filtration Rate 50 mL/min (>60); Est Glom Filt Rate - Afr Amer 60 mL/min (>60); Estimated Creatinine Clearance 39.76 ml/min; Globulin 3.3 g/dL (2.2-4.2); Glucose 84 mg/dL (74-106); Potassium 4.3 mmol/L (3.5-5.1); Protein, Total 6.3 g/dL (6.4-8.2); Sodium Level 135 mmol/L (136-145)
[2024-01-12] MEDS: Arthritis Pain Compound 60 CLICK TUBE TOPICAL ×3 (07:01→21:59)
[2024-01-12] MEDS: Acetaminophen 500 MG Tablet 1000 MG PO ×3 (07:01→22:01)
[2024-01-12 07:54] VITALS: BP 146/72; PULSE 73; RESP 16; TEMP 37.2; O2SAT 97
[2024-01-12] MEDS: Ensure Plus High Protein 120 ML LIQUID PO (08:05)
[2024-01-12] MEDS: APIXABAN 5 MG TABLET PO ×2 (09:12→22:00)
[2024-01-12] MEDS: Escitalopram Oxalate 10 MG Tablet PO (09:13)
[2024-01-12] MEDS: Hydroxyurea 500 MG Capsule PO (09:13)
[2024-01-12] MEDS: Lidocaine 5% Patch 2 PATCH TOPICAL (09:14)
[2024-01-12] MEDS: amLODIPine 10 MG Tablet PO (09:15)
[2024-01-12] MEDS: Pantoprazole Sodium 20 MG Tablet PO (09:15)
[2024-01-12] MEDS: Lisinopril 20 MG Tablet PO (09:15)
[2024-01-12 09:16] VITALS: PULSE 73
[2024-01-12] MEDS: Cholecalciferol (VIT D3) 25 MCG TABLET (1,000 UNITS) PO (09:16)
[2024-01-12] MEDS: Allopurinol 300 MG Tablet PO (09:16)
[2024-01-12] MEDS: Metoprolol Tartrate 50 MG Tablet PO (09:16)
[2024-01-12] MEDS: 0.9% Saline Lock 10 ML Syringe IV (09:17)
[2024-01-12] MEDS: Ceftriaxone 1 GM/50 ML BAG IV (09:18)
[2024-01-12 13:51] VITALS: BP 105/55; PULSE 72; RESP 16; TEMP 37.2; O2SAT 97
--- NOTE | 2024-01-12 14:49 | PN_ITS ---
Subjective Subjective Patient seen and examined. She complained of diarrhea this morning. She had one episode of diarrhea today. She had no other active complaints. Review of systems is othewise negative. Objective Data Objective Data Vital Signs: Vital Signs Temp Pulse Resp BP Pulse Ox O2 Del Method 98.9 F 72 16 105/55 L 97 Room Air 01/12/24 13:51 01/12/24 13:51 01/12/24 13:51 01/12/24 13:51 01/12/24 13:51 01/12/24 13:51 Oxygen Delivery Method Room Air Weight: 182 lb 0.006 oz Body Mass Index (BMI) 29.2 Intake & Output: Intake and Output for Last 24 Hours 01/10/24 01/11/24 01/12/24 23:59 23:59 23:59 Intake Total 991.67 / 991.67 650 / 650 250 / 250 Output Total 500 / 500 300 / 300 225 / 225 Balance 491.67 / 491.67 350 / 350 25 / 25 Lab / Micro Data 01/12/24 05:30 01/12/24 05:30 Labs: Laboratory Results - last 24 hr 01/12/24 05:30: WBC 7.6, RBC 3.21 L, Hgb 12.4, Hct 36.9 L, MCV 115.0 H, MCH 38.6 H, MCHC 33.6, RDW Std Deviation 63.8 H, RDW Coeff of Ema 15.3 H, Plt Count 191, MPV 10.2, Immature Gran % (Auto) 0.800, Neut % (Auto) 56.9, Lymph % (Auto) 36.2, [place] % (Auto) 4.5, Eos % (Auto) 1.3, Baso % (Auto) 0.3, Absolute Neuts (auto) 4.3, Absolute Lymphs (auto) 2.76, Nucleated RBC % 0, Sodium 135 L, Potassium 4.3, Chloride 105, Carbon Dioxide 24.0, Anion Gap 6, BUN 33 H, Creatinine 1.10 H , Estim Creat Clear Calc 39.76, Est GFR (MDRD) Af Amer 60, Est GFR (MDRD) Non-Af 50 L, BUN/Creatinine Ratio 30.0 H, Glucose 84, Calcium 9.0, Total Bilirubin 0.60, AST 19, ALT 22, Alkaline Phosphatase 156 H, Total Protein 6.3 L, Albumin 3.0 L, Globulin 3.3, Albumin/Globulin Ratio 0.9 Micro: Microbiology 01/09/24 13:08 Urine Catheter - Catheter Urine Culture - Final Klebsiella pneumoniae sp pneum Physical Exam Const alert, oriented x3 and no apparent distress General Appearance: cooperative and well developed HEENT normocephalic, head/scalp atraumatic, moist oral mucous membranes and oropharynx normal Eyes PERRL and EOMs intact bilaterally Neck supple and no JVD Lymph Lymphatic: no lymphadenopathy noted and no lymphedema noted Resp normal respiratory effort, normal air movement and clear to auscultation bilaterally Cardio regular rate, regular rhythm, S1 normal heart sound, S2 normal heart sound and no murmurs GI normal to inspection, nondistended, normoactive bowel sounds, soft to palpation, non-tender and non-distended Extremity normal capillary refill, no clubbing, cyanosis or edema and no calf tenderness General Extremity: no tenderness to palpation of joints or extremities Skin General Skin Exam: no breakdown Neuro CN's II-XII intact bilaterally and no focal motor deficits Motor Exam: general weakness Psych thought process normal and cooperative Appearance: appropriate Assessment & Plan Assessment/Plan (1) Hip pain: PLAN: Plan #Intractable left hip pain * imaging done showed evidence of ORIF of left inertrochanteric fracture, and no new fracture * says hip pain is much better * PT/OT On board * fall precautions * PO tylenol, oxycodone and IV morphine prn for pain. * # Probable UTI: WBC is down to 9.7. Urine cultures growing Klebsiella pneumonia. It is sensitive to ceftriaxone. Will switch to PO cefdinir. #Hypertension: On amlodipine and lisinopril as well as metoprolol. IV hydralazine as needed. #COPD: Not in exacerbation. Breathing treatments bronchodilators. 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 On hydroxyurea. #Basal cell carcinoma. Located on the right shoulder. Scheduled for removal on 01/25/2024 DVT prophylaxis: On Eliquis Disposition: Patient will also go home with home health. Family requesting hospital bed at home. Patient requires a hospital bed due to intractable hip pain that is not feasible and under not repaired. Patient needs frequent changes in position to alleviate pain. Hospital bed therefore ordered for patient. Patient to be discharged home with home health once hospital bed is delivered. Charges/Coding Visit Charges Inpatient E&M: 84470 Subs Hosp L2
[2024-01-12] MEDS: oxyCODONE 5 MG Tablet PO (18:00)
[2024-01-12 20:15] VITALS: BP 113/66; PULSE 69; RESP 16; TEMP 37.2; O2SAT 97
[2024-01-12] MEDS: Mirtazapine 15 MG Tablet PO (22:00)
[2024-01-12 22:01] VITALS: PULSE 69
[2024-01-13 02:30] VITALS: BP 138/86; PULSE 71; RESP 16; TEMP 36.5; O2SAT 96
[2024-01-13] MEDS: Arthritis Pain Compound 60 CLICK TUBE TOPICAL ×3 (05:11→22:52)
[2024-01-13] MEDS: Acetaminophen 500 MG Tablet 1000 MG PO ×3 (05:11→22:52)
[2024-01-13 06:54] LABS: Absolute Lymphocyte Count 2.14 X10^3/uL (0.83-4.51); Absolute Neutrophil Count 4.4 X10^3/uL (2.0-7.7); Basophil# 0.03 X10^3/uL; Basophil% 0.4 % (0-1); Eosinophils% 1.4 % (0-5); Hematocrit 37.7 % (37-47); Hemoglobin 12.5 g/dL (12.0-15.0); Lymphocyte # 2.14 X10^3/ul (0.83-4.51); Lymphocyte % 29.8 % (19-41); Mean Corp Hgb Conc 33.2 g/dL (32-36); Mean Corpuscular Hgb 37.8 pg (27.0-32.0); Mean Corpuscular Volume 113.9 fL (81-99); Mean Platelet Vol. 10.4 fl (6.2-12.0); Monocyte# 0.45 X10^3/uL; Monocyte% 6.3 % (0-10); NRBC Flagged by Analyzer 0 % (0-5); Neutrophil # 4.38 X10^3/uL (2.7-7.7); Platelet Count 196 K/mm3 (150-450); RBC Distribution Width CV 14.9 % (11.6-14.6); RBC Distribution Width SD 62.2 fl (35.1-43.9); Red Blood Count 3.31 M/mm3 (4.2-5.4); White Blood Count 7.2 K/mm3 (4.4-11.0)
[2024-01-13 07:19] LABS: ALB/GLOB Ratio 0.9 RATIO (0.9-2.4); AST(SGOT) 19 U/L (15-37); Alanine Aminotransfer ALT/SGPT 20 U/L (13-56); Albumin, Serum 2.9 g/dL (3.2-5.0); Alkaline Phosphatase 165 U/L (45-117); Anion Gap 5 (5-15); BUN 31 mg/dL (7-18); Calcium,Total 8.8 mg/dL (8.5-10.1); Chloride 106 mmol/L (98-107); EST Glomerular Filtration Rate 56 mL/min (>60); Est Glom Filt Rate - Afr Amer 68 mL/min (>60); Estimated Creatinine Clearance 43.73 ml/min; Globulin 3.2 g/dL (2.2-4.2); Glucose 93 mg/dL (74-106); Potassium 4.5 mmol/L (3.5-5.1); Protein, Total 6.1 g/dL (6.4-8.2); Sodium Level 135 mmol/L (136-145)
[2024-01-13 09:51] VITALS: BP 119/84; PULSE 78; RESP 16; TEMP 36.7; O2SAT 96
[2024-01-13] MEDS: Lidocaine 5% Patch 2 PATCH TOPICAL (09:59)
[2024-01-13] MEDS: APIXABAN 5 MG TABLET PO ×2 (09:59→22:52)
[2024-01-13 10:01] VITALS: PULSE 78
[2024-01-13] MEDS: Pantoprazole Sodium 20 MG Tablet PO (10:01)
[2024-01-13] MEDS: Metoprolol Tartrate 50 MG Tablet PO ×2 (10:01→22:51)
[2024-01-13] MEDS: amLODIPine 10 MG Tablet PO (10:01)
[2024-01-13] MEDS: Escitalopram Oxalate 10 MG Tablet PO (10:02)
[2024-01-13] MEDS: Cholecalciferol (VIT D3) 25 MCG TABLET (1,000 UNITS) PO (10:02)
[2024-01-13] MEDS: Hydroxyurea 500 MG Capsule PO (10:03)
[2024-01-13] MEDS: Ceftriaxone 1 GM/50 ML BAG IV (10:07)
[2024-01-13] MEDS: 0.9% Saline Lock 10 ML Syringe IV (10:07)
[2024-01-13] MEDS: Lisinopril 20 MG Tablet PO (10:09)
[2024-01-13] MEDS: Allopurinol 300 MG Tablet PO (10:09)
--- NOTE | 2024-01-13 10:15 | PN.HOSP_ITS ---
Reason for Visit Reason for Visit: Diagnoses Basal cell carcinoma of skin, unspecified (01/09/24) Depression, unspecified (01/09/24) Essential (primary) hypertension (01/09/24) Chronic obstructive pulmonary disease, unspecified (01/09/24) Gastro-esophageal reflux disease without esophagitis (01/09/24) Pain in unspecified hip (01/09/24) Personal history of pulmonary embolism (01/09/24) Objective Data Objective Data Vital Signs: Vital Signs Temp Pulse Resp BP Pulse Ox O2 Del Method 98.0 F 78 16 119/84 H 96 Room Air 01/13/24 09:51 01/13/24 10:01 01/13/24 09:51 01/13/24 09:51 01/13/24 09:51 01/13/24 09:51 Oxygen Delivery Method Room Air Weight: 182 lb 0.006 oz Body Mass Index (BMI) 29.2 Intake & Output: Intake and Output for Last 24 Hours 01/11/24 01/12/24 01/13/24 23:59 23:59 23:59 Intake Total 650 / 650 250 / 500 400 / 400 Output Total 300 / 300 225 / 225 Balance 350 / 350 25 / 275 400 / 400 Lab / Micro Data 01/13/24 06:24 01/13/24 06:24 Labs: Laboratory Results - last 24 hr 01/13/24 06:24: WBC 7.2, RBC 3.31 L, Hgb 12.5, Hct 37.7, MCV 113.9 H, MCH 37.8 H , MCHC 33.2, RDW Std Deviation 62.2 H, RDW Coeff of Ema 14.9 H, Plt Count 196, MPV 10.4, Immature Gran % (Auto) 1.100 H, Neut % (Auto) 61.0, Lymph % (Auto) 29.8, [place] % (Auto) 6.3, Eos % (Auto) 1.4, Baso % (Auto) 0.4, Absolute Neuts (auto) 4.4, Absolute Lymphs (auto) 2.14, Nucleated RBC % 0, Sodium 135 L, Potassium 4.5, Chloride 106, Carbon Dioxide 24.0, Anion Gap 5, B UN 31 H, Creatinine 1.00, Estim Creat Clear Calc 43.73, Est GFR (MDRD) Af Amer 68, Est GFR (MDRD) Non-Af 56 L, BUN/Creatinine Ratio 31.0 H, Glucose 93, Calcium 8.8, Total Bilirubin 0.40, AST 19, ALT 20, Alkaline Phosphatase 165 H, Total Protein 6.1 L, Albumin 2.9 L, Globulin 3.2, Albumin/Globulin Ratio 0.9 Micro: Microbiology 01/09/24 13:08 Urine Catheter - Catheter Urine Culture - Final Klebsiella pneumoniae sp pneum Physical Exam Narrative Seen and examined. Patient states she has pain over the back of the right hip and lower back. Cannot ambulate even 15 to 20 feet without assistance. She lives with her daughter. Does not want to go home because of the pain. Had BM yesterday. Not today Physical exam General: Alert, Oriented x3, Cooperative. BMI 29.4 kg/m? HEENT: Atraumatic, PERRLA, EOMI, Normocephalic Oral: No Gingival or Mucosal Lesions/ Ulcerations Neck: Supple, No JVD, Negative Carotid Bruits Chest wall/Lungs: Air entry diminished in bilateral lung bases. No crepitation/rhonchi Cardiovascular: Regular rate, Regular Rhythm, Normal S1, Normal S2, No M/G/R Abdomen: Bowel Sounds Present, Soft, Non Tender, Non-Distended : No dysuria. No renal angle tenderness. No suprapubic tenderness. Extremities: No edema, Capillary Refill Less than 3 Seconds Skin: No rashes, No breakdown Musculoskeletal: Tenderness present over left ischial/sacral region. Mild tenderness over lumbar region Neurological: Cranial nerves II-XII grossly intact, DTR 2+/4. No acute focal neurological deficit. Psych/Mental Status: Flat affect. Assessment & Plan Assessment/Plan (1) Hip pain: PLAN: Plan #Intractable left hip pain * imaging done showed evidence of ORIF of left inertrochanteric fracture, and no new fracture * Complain that she has severe lower back pain mainly in the posterior aspect of left hip. Cannot ambulate comfortably even short distance. * PT/OT On board * fall precautions * PO tylenol, oxycodone and IV morphine prn for pain. # Probable UTI: WBC is down to 9.7. Urine cultures growing Klebsiella pneumonia. It is sensitive to ceftriaxone. On IV ceftriaxone while in the hospital. #Hypertension: On amlodipine and lisinopril as well as metoprolol. IV hydralazine as needed. #COPD: Not in exacerbation. Breathing treatments bronchodilators. 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 On hydroxyurea. #Basal cell carcinoma. Located on the right shoulder. Scheduled for removal on 01/25/2024 DVT prophylaxis: On Eliquis Disposition: Patient will also go home with home health. Family requesting hospital bed at home. Patient does not feel comfortable going home today because of pain. She states she cannot take care of herself. Charges/Coding Visit Charges Inpatient E&M: 97974 Subs Hosp L2
[2024-01-13 14:08] VITALS: BP 136/63; PULSE 62; RESP 16; TEMP 36.6; O2SAT 98
[2024-01-13] MEDS: oxyCODONE 5 MG Tablet PO (19:15)
[2024-01-13 20:00] VITALS: BP 105/55; PULSE 65; RESP 16; TEMP 36.7; O2SAT 94
[2024-01-13 22:51] VITALS: PULSE 65
[2024-01-13] MEDS: Mirtazapine 15 MG Tablet PO (22:52)
[2024-01-14 03:13] VITALS: BP 118/62; PULSE 62; RESP 16; TEMP 36.6; O2SAT 94
[2024-01-14] MEDS: Acetaminophen 500 MG Tablet 1000 MG PO ×2 (05:20→14:21)
[2024-01-14] MEDS: Arthritis Pain Compound 60 CLICK TUBE TOPICAL ×2 (05:21→14:22)
[2024-01-14 06:26] LABS: Absolute Lymphocyte Count 2.02 X10^3/uL (0.83-4.51); Absolute Neutrophil Count 4.5 X10^3/uL (2.0-7.7); Basophil# 0.02 X10^3/uL; Basophil% 0.3 % (0-1); Eosinophil# 0.13 X10^3/uL; Eosinophils% 1.8 % (0-5); Hemoglobin 12.3 g/dL (12.0-15.0); Lymphocyte # 2.02 X10^3/ul (0.83-4.51); Lymphocyte % 28.2 % (19-41); Mean Corp Hgb Conc 33.2 g/dL (32-36); Mean Corpuscular Hgb 37.4 pg (27.0-32.0); Mean Corpuscular Volume 112.5 fL (81-99); Mean Platelet Vol. 10.2 fl (6.2-12.0); Monocyte# 0.45 X10^3/uL; Monocyte% 6.3 % (0-10); NRBC Flagged by Analyzer 0 % (0-5); Neutrophil # 4.47 X10^3/uL (2.7-7.7); Neutrophil % 62.4 % (47-70); Platelet Count 206 K/mm3 (150-450); RBC Distribution Width CV 14.6 % (11.6-14.6); RBC Distribution Width SD 61.8 fl (35.1-43.9); Red Blood Count 3.29 M/mm3 (4.2-5.4); White Blood Count 7.2 K/mm3 (4.4-11.0)
[2024-01-14 07:08] LABS: ALB/GLOB Ratio 0.9 RATIO (0.9-2.4); AST(SGOT) 20 U/L (15-37); Alanine Aminotransfer ALT/SGPT 20 U/L (13-56); Albumin, Serum 2.9 g/dL (3.2-5.0); Alkaline Phosphatase 162 U/L (45-117); Anion Gap 6 (5-15); BUN 27 mg/dL (7-18); Chloride 104 mmol/L (98-107); Creatinine, Serum 0.82 mg/dL (0.55-1.02); EST Glomerular Filtration Rate 70 mL/min (>60); Est Glom Filt Rate - Afr Amer 85 mL/min (>60); Estimated Creatinine Clearance 53.33 ml/min; Globulin 3.2 g/dL (2.2-4.2); Glucose 93 mg/dL (74-106); Protein, Total 6.1 g/dL (6.4-8.2); Sodium Level 133 mmol/L (136-145)
[2024-01-14 08:56] VITALS: BP 123/65; PULSE 62; RESP 16; TEMP 37.1; O2SAT 96
[2024-01-14] MEDS: Cholecalciferol (VIT D3) 25 MCG TABLET (1,000 UNITS) PO (09:41)
[2024-01-14 09:42] VITALS: PULSE 62
[2024-01-14] MEDS: amLODIPine 10 MG Tablet PO (09:42)
[2024-01-14] MEDS: Metoprolol Tartrate 50 MG Tablet PO (09:42)
[2024-01-14] MEDS: Ceftriaxone 1 GM/50 ML BAG IV (09:42)
[2024-01-14] MEDS: APIXABAN 5 MG TABLET PO (09:42)
[2024-01-14] MEDS: Pantoprazole Sodium 20 MG Tablet PO (09:42)
[2024-01-14] MEDS: Allopurinol 300 MG Tablet PO (09:43)
[2024-01-14] MEDS: Hydroxyurea 500 MG Capsule PO (09:43)
[2024-01-14] MEDS: Lidocaine 5% Patch 2 PATCH TOPICAL (09:44)
[2024-01-14] MEDS: Escitalopram Oxalate 10 MG Tablet PO (09:44)
[2024-01-14] MEDS: Lisinopril 20 MG Tablet PO (09:44)
--- NOTE | 2024-01-14 12:28 | DCINST_ITS ---
Discharge Instructions Diet Discharge Diet: Low fat / Low cholesterol and 2000 mg Sodium Diet Activity Discharge Activity: Return to Normal Activity Weight Bearing Status: Weight bearing as tolerated Dressing / Incision Call your doctor if you observe: Fever of 101 or Higher, Coldness, Increased Pain, Numbness or Tingling, Change in Color, Inability to urinate, Inability to have a bowel movement, Shortness of breath, Dizziness, Fainting spells, Swelling in the ankles, Chest pain, Prolonged hiccupping, Increased palpitations (irregular heartbeat) and Calf discomfort Follow Up Care When: IN 2 WEEKS Test Results: Test results from this visit will be discussed in further detail at your follow- up appointment, if applicable. Discharge Plan Admission Admit Date/Time: 01/09/24 15:13 Primary Reason for Your Visit: Intractable left hip pain, severe degenerative arthritis Attending Provider: Jem Castaneda Primary Care Provider: Chase Maxwell Consulting Providers: Francie Boyer; Brittney Duque Discharge Orders/Prescriptions Prescriptions: New sennosides-docusate sodium [Stimulant Laxative Plus] 8.6-50 mg Tablet 2 tab PO BID PRN PRN (Reason: Constipation) Qty: 0 0RF acetaminophen 500 mg Tablet 1,000 mg PO Q8 Qty: 0 0RF Rx Instructions: Ujmu-pzf-fdesxtl. 1 g every 8 hourly for 7 days and then as needed every 8 hourly for severe Continued amlodipine 10 mg tablet 10 mg PO DAILY metoprolol tartrate 50 mg tablet 50 mg PO BID atorvastatin 40 MG tablet 40 mg PO QHS cholecalciferol (vitamin D3) 1,000 UNIT tablet 1,000 unit PO DAILY Eliquis 5 mg tablet 5 mg PO BID allopurinol 300 mg tablet 300 mg PO DAILY albuterol sulfate 1 INHALER HFA aerosol inhaler 1 - 2 puff INHALATION Q4H PRN (Reason: Wheezing) iuxbjki-reywskovi-kyhn Tablet 1 tab PO QHS hydroxyurea 500 mg capsule 500 mg PO DAILY pantoprazole 20 mg tablet,delayed release (DR/EC) 20 mg PO DAILY mirtazapine 15 mg tablet 15 mg PO QHS lisinopril 20 mg tablet 20 mg PO DAILY escitalopram oxalate 10 mg tablet 10 mg PO DAILY triamcinolone acetonide 0.1 % cream topical mupirocin 2 % ointment topical Discontinued acetaminophen [Tylenol] 325 mg Tablet 650 mg PO Q6H PRN (Reason: Pain 1-10 Or Fever) prednisone 10 mg tablet 10 mg PO DAILY Patient Comments: FINISHED WITH TAPER ON SUNDAY, TAKING ONE DAILY Referrals / Follow Up: Fabrizio Marie MD [Med Staff - Active Staff] - Within 2 Weeks (Left hip pain.) Juan Carlos Graham MD [Med Staff - Active Staff] - Within 2 Weeks (Left hip severe arthritis status post cephalomedullary nailing) Chase Maxwell MD [Primary Care Provider] - 01/16/24 3:20 pm Disposition Disposition (needs filled in before D/C Order can be placed): Home, Self Care
--- NOTE | 2024-01-14 12:34 | DS.PCM_ITS ---
Providers Date of Admission: 01/09/24 Date of Discharge: 01/14/24 Primary Care Physician: Dr. Chase Maxwell MD Reason For Visit: INTRACTABLE HIP PAIN Diagnosis Discharge Diagnosis (1) Hip pain: Status: Acute Code(s): M25.559 - Pain in unspecified hip Plan #Intractable left hip pain * imaging done showed evidence of ORIF of left inertrochanteric fracture, and no new fracture * Complain that she has severe lower back pain mainly in the posterior aspect of left hip. Cannot ambulate comfortably even short distance. * PT/OT On board * fall precautions * PO tylenol, oxycodone and IV morphine prn for pain. 01/14/24: She feels better with respect to her pain. She wants to go home today. She had left hip cephalomedullary done in [place] [address] Elmore. Advised to follow-up in the office in 2 weeks. She can also follow-up with the pain management DrRoxie Marie for pain control. # UTI: WBC is down to 9.7. Urine cultures growing Klebsiella pneumonia. It is sensitive to ceftriaxone. Had 6 days of IV ceftriaxone in the hospital therefore completed antibiotic treatment #Hypertension: On amlodipine and lisinopril as well as metoprolol. IV hydralazine as needed. #COPD: Not in exacerbation. Breathing treatments bronchodilators. 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 On hydroxyurea. #Basal cell carcinoma. Located on the right shoulder. Scheduled for removal on 01/25/2024 DVT prophylaxis: On Eliquis Discharge medication reconciliation done. Discharge follow-up instructions completed. Discharge process discussed with the patient and all questions were answered to patient's satisfaction. Follow with PCP in 1 to 2 weeks Total time spent, exact 35 minutes on discharge meds reconciliation, examination, coordination of care with nurses and ancillary staff, review of imaging and blood test and discussion with the patient on follow-up instructions. Medications at Discharge Home Medications amlodipine 10 mg tablet 10 mg PO DAILY BLOOD PRESSURE 03/27/18 metoprolol tartrate 50 mg tablet 50 mg PO BID HEART 10/17/18 atorvastatin 40 mg tablet 40 mg PO QHS CHOLESTROL 02/11/19 cholecalciferol (vitamin D3) 25 mcg (1,000 unit) tablet 1,000 unit PO DAILY SUPPLEMENT 02/11/19 apixaban 5 mg tablet (Eliquis) 5 mg PO BID BLOOD THINNER 09/28/21 albuterol sulfate 90 mcg/actuation aerosol inhaler 1 - 2 puff INHALATION Q4H PRN Wheezing 07/05/22 allopurinol 300 mg tablet 300 mg PO DAILY GOUT 07/05/22 pibpviz-tkdgxskrw-jzrg tablet 1 tab PO QHS SUPPLEMENT 07/05/22 escitalopram oxalate 10 mg tablet 10 mg PO DAILY DEPRESSION 10/13/23 hydroxyurea 500 mg capsule 500 mg PO DAILY ANEMIA 10/13/23 lisinopril 20 mg tablet 20 mg PO DAILY BLOOD PRESSURE 10/13/23 mirtazapine 15 mg tablet 15 mg PO QHS DEPRESSION 10/13/23 pantoprazole 20 mg tablet,delayed release 20 mg PO DAILY HEARTBURN 10/13/23 mupirocin 2 % topical ointment topical 01/09/24 triamcinolone acetonide 0.1 % topical cream applic topical 01/09/24 acetaminophen 500 mg tablet 1,000 mg (2 x 500 mg) PO Q8 #0 tabs 01/14/24 sennosides 8.6 mg-docusate sodium 50 mg tablet (Stimulant Laxative Plus) 2 tab PO BID PRN PRN Constipation #0 tabs 01/14/24 Physical Exam Narrative Seen and examined. Patient states she has pain over the back of the right hip and lower back is better today. She can stand up and ambulate can go home with home health career counselor. Physical exam General: Alert, Oriented x3, Cooperative. BMI 29.4 kg/m? HEENT: Atraumatic, PERRLA, EOMI, Normocephalic Oral: No Gingival or Mucosal Lesions/ Ulcerations Neck: Supple, No JVD, Negative Carotid Bruits Chest wall/Lungs: Air entry diminished in bilateral lung bases. No crepitation/rhonchi Cardiovascular: Regular rate, Regular Rhythm, Normal S1, Normal S2, No M/G/R Abdomen: Bowel Sounds Present, Soft, Non Tender, Non-Distended : No dysuria. No renal angle tenderness. No suprapubic tenderness. Extremities: No edema, Capillary Refill Less than 3 Seconds Skin: No rashes, No breakdown Musculoskeletal: Mild tenderness present over left ischial/sacral region. Mild tenderness over lumbar region Neurological: Cranial nerves II-XII grossly intact, DTR 2+/4. No acute focal neurological deficit. Psych/Mental Status: Flat affect. Weight / BMI Weight Weight: 182 lb 0.006 oz Body Mass Index (BMI) 29.2 ABG / Lab / Microbiology Data 01/14/24 06:04 01/14/24 06:04 Laboratory: Laboratory Results - last 24 hr 01/14/24 06:04: WBC 7.2, RBC 3.29 L, Hgb 12.3, Hct 37.0, MCV 112.5 H, MCH 37.4 H , MCHC 33.2, RDW Std Deviation 61.8 H, RDW Coeff of Ema 14.6, Plt Count 206, MPV 10.2, Immature Gran % (Auto) 1.000 H, Neut % (Auto) 62.4, Lymph % (Auto) 28.2, [place] % (Auto) 6.3, Eos % (Auto) 1.8, Baso % (Auto) 0.3, Absolute Neuts (auto) 4.5, Absolute Lymphs (auto) 2.02, Nucleated RBC % 0, Sodium 133 L, Potassium 4.0, Chloride 104, Carbon Dioxide 23.0, Anion Gap 6, BUN 27 H, Creatinine 0.82, Estim Creat Clear Calc 53.33, Est GFR (MDRD) Af Amer 85, Est GFR (MDRD) Non-Af 70, BUN/Creatinine Ratio 33.0 H, Glucose 93, Calcium 9.0, Total Bilirubin 0.50, AST 20, ALT 20, Alkaline Phosphatase 162 H, Total Protein 6.1 L, Albumin 2.9 L, Globulin 3.2, Albumin/Globulin Ratio 0.9 Microbiology: Microbiology 01/09/24 13:08 Urine Catheter - Catheter Urine Culture - Final Klebsiella pneumoniae sp pneum D/C Instructions Discharge Diet: Low fat / Low cholesterol and 2000 mg Sodium Diet Weight Bearing Status: Weight bearing as tolerated Call your doctor if you observe: Fever of 101 or Higher, Coldness, Increased Pain, Numbness or Tingling, Change in Color, Inability to urinate, Inability to have a bowel movement, Shortness of breath, Dizziness, Fainting spells, Swelling in the ankles, Chest pain, Prolonged hiccupping, Increased palpitations (irregular heartbeat) and Calf discomfort When: IN 2 WEEKS Meaningful Use Info Meaningful Use Meaningful Use Diagnoses (Choose all that apply): None applicable Ischemic Stroke Statin Dosing Therapy Reference: STATIN DOSE THERAPY REFERENCE: * Patients > 75 years receive moderate or high dose statin therapy. * Patients 75 years or YOUNGER should receive HIGH intensity statin dose unless contraindicated. You will be required to document reason for non-treatment if statin daily dose does not meet guidelines. HIGH DOSE STATIN THERAPY DAILY Atorvastatin > than or = to 40 mg Rosuvastatin > than or = to 20 mg Amlodipine + Atorvastatin > than or = to 2.5/40 mg Ezetimibe + Simvastatin 10/80 mg Simvastatin 80mg Discharge Plan Admission Admit Date/Time: 01/09/24 15:13 Primary Reason for Your Visit: Intractable left hip pain, severe degenerative arthritis Attending Provider: Jem Castaneda Primary Care Provider: Chase Maxwell Consulting Providers: Francie Boyer; Brittney Duque Discharge Orders/Prescriptions Prescriptions: New sennosides-docusate sodium [Stimulant Laxative Plus] 8.6-50 mg Tablet 2 tab PO BID PRN PRN (Reason: Constipation) Qty: 0 0RF acetaminophen 500 mg Tablet 1,000 mg PO Q8 Qty: 0 0RF Rx Instructions: Pnun-toi-kphxeib. 1 g every 8 hourly for 7 days and then as needed every 8 hourly for severe Continued amlodipine 10 mg tablet 10 mg PO DAILY metoprolol tartrate 50 mg tablet 50 mg PO BID atorvastatin 40 MG tablet 40 mg PO QHS cholecalciferol (vitamin D3) 1,000 UNIT tablet 1,000 unit PO DAILY Eliquis 5 mg tablet 5 mg PO BID allopurinol 300 mg tablet 300 mg PO DAILY albuterol sulfate 1 INHALER HFA aerosol inhaler 1 - 2 puff INHALATION Q4H PRN (Reason: Wheezing) sgylcdi-fvawuowle-elro Tablet 1 tab PO QHS hydroxyurea 500 mg capsule 500 mg PO DAILY pantoprazole 20 mg tablet,delayed release (DR/EC) 20 mg PO DAILY mirtazapine 15 mg tablet 15 mg PO QHS lisinopril 20 mg tablet 20 mg PO DAILY escitalopram oxalate 10 mg tablet 10 mg PO DAILY triamcinolone acetonide 0.1 % cream topical mupirocin 2 % ointment topical Discontinued acetaminophen [Tylenol] 325 mg Tablet 650 mg PO Q6H PRN (Reason: Pain 1-10 Or Fever) prednisone 10 mg tablet 10 mg PO DAILY Patient Comments: FINISHED WITH TAPER ON SUNDAY, TAKING ONE DAILY Referrals / Follow Up: Fabrizio Marie MD [Med Staff - Active Staff] - Within 2 Weeks (Left hip pain.) Juan Carlos Graham MD [Med Staff - Active Staff] - Within 2 Weeks (Left hip severe arthritis status post cephalomedullary nailing) Chase Maxwell MD [Primary Care Provider] - 01/16/24 3:20 pm Disposition Disposition (needs filled in before D/C Order can be placed): Home, Self Care Charges/Coding Visit Charges Inpatient E&M: 52010 Disch Hosp >30min
--- NOTE | 2024-01-14 13:18 | CASEMGMT ---
Addendum entered by Jade Bell 01/15/24 08:29: Social Work Pt's caser in Ramonita Roca from [facility] called SW back to confirm discharge. Ramonita requested discharge instructions to be faxed, JIMY faxed over discharge instructions. RAFAEL Franz Original Note: Social Work SW left CM Ramonita Roca letting her know pt is going home today. SW let the covering caser in know that pt is going home today w/[facility]. No further social service needs anticipated at this time. RAFAEL Franz
--- NOTE | 2024-01-14 13:19 | CASEMGMT ---
Order for DC placed. Hospital bed Rx signed by Dr. Castaneda. Referral sent to [facility] at this [facility]. Katey from [facility] states that they can start care tomorrow (01/14). RN CM to pt room at this time. Pt updated with this information and pt states that she feels safe with this plan. Pt states that her daughter will be picking her up from the hospital today. Pt denies further questions or concerns at this time. PLAN: DC Home via pt daughter with [facility] and Hospital bed
[2024-01-14 14:28] VITALS: BP 118/68; PULSE 66; RESP 16; TEMP 37; O2SAT 95
== END 2024-01-14 15:00 | disposition home health service (06) | DRG 556 ==
LOC: ED 14:44 → MS3 15:58
PROVIDERS: Student in an Organized Health Care Education/Training Program; Admitting Provider Internal Medicine; Emergency Provider Emergency Medicine; PCP Internal Medicine; Visit Provider Internal Medicine
DX: M25.552 Pain in left hip (principal); N39.0 Urinary tract infection, site not specified; B96.1 Klebsiella pneumoniae [K. pneumoniae] as the cause of diseases classified elsewhere; E78.00 Pure hypercholesterolemia, unspecified; D75.1 Secondary polycythemia; C44.612 Basal cell carcinoma of skin of right upper limb, including shoulder; J44.9 Chronic obstructive pulmonary disease, unspecified; F32.A Depression, unspecified; I10 Essential (primary) hypertension; I25.10 Atherosclerotic heart disease of native coronary artery without angina pectoris; K21.9 Gastro-esophageal reflux disease without esophagitis; M10.9 Gout, unspecified; Z79.01 Long term (current) use of anticoagulants; Z87.891 Personal history of nicotine dependence; Z86.711 Personal history of pulmonary embolism
CPT/HCPCS: 36415; 71045; 72170; 73560; 73590; 80053; 81001; 82306; 82550; 83735; 84443; 84484; 85025; 87077; 87086; 87088; 87186; 94668; 97162; 97166; 97530; 97535; 97802; 99285; J7030; A4216; J2405

== ENCOUNTER 2024-10-21 09:32 | Emergency (ER) | payer MEDICARE, MEDICAID, SELFPAY ==
[2024-10-21 09:32] VITALS: BP 183/108; PULSE 96; RESP 20; TEMP 36.2; O2SAT 96
--- NOTE | 2024-10-21 09:44 | RAD_ITS ---
PROCEDURE: CHEST 1 VIEW (PORTABLE) 10/21/2024 REASON FOR EXAM: SHORTNESS OF BREATH TECHNIQUE: Frontal view of the chest. COMPARISON: AP chest of 01/09/2024. RAD/Chest 1 View (Portable) IMPRESSION: Chronic lung changes and hyperinflation are again noted. No acute pneumonic pr ocess is seen. No pleural effusion or pneumothorax is noted. The cardiomediastinal silhouette is stable, without evidence of cardiomegaly. Generalized osteopenia is noted. No acute osseous process is evident. No evidence of acute cardiopulmonary disease. Reading Location: [place] [address]
--- NOTE | 2024-10-21 09:44 | EKG12_ITS ---
Test Reason : GENERAL Blood Pressure : */* mmHG Vent. Rate : 92 BPM Atrial Rate : 357 BPM P-R Int : * ms QRS Dur : 72 ms QT Int : 394 ms P-R-T Axes : * -5 16 degrees QTcB Int : 487 ms Atrial flutter premature ventricular or aberrantly conducted complexes Cannot rule out Septal infarct , age undetermined Cannot rule out Inferior infarct , age undetermined Abnormal ECG Confirmed by Samy Zazueta ([id number]), editorial specialist MARISSA MUSA ([id number]) on 10/23/2024 9:56:35 AM Referred By: Confirmed By: Samy Zazueta
--- NOTE | 2024-10-21 09:45 | EDS_ITS ---
HPI History of Present Illness Chief Complaint: General Illness Narrative Narrative: 89-year-old female brought in by her daughter because of generalized weakness and shortness of breath. Patient states that she is not in pain anywhere. Her daughter was concerned because she seemed more short of breath than usual today when she woke up this morning. Patient states she has an occasional cough, but they both deny that she has had fever recently. No dysuria or hematuria, no urinary frequency. She does not have any chest pain or abdominal pain, but states that she has diarrhea that is longstanding/loose stool. Patient states that she has chronic leg swelling as well. Once again, while she denies any pain, she states that she feels ill/not well. [facility] Medical History GERD (gastroesophageal reflux disease) Hip pain Anxiety Chronic pain Rheumatoid arthritis Kidney disease Hepatitis Former smoker Atrial fibrillation Stroke/cerebrovascular accident Chest pain Hypertension DVT (deep venous thrombosis) Fibroids Microcytosis Leukocytosis Debility Osteoporosis Dementia UTI (urinary tract infection) Fall Pulmonary air embolism Ascending aorta dilatation Pure hypercholesterolemia Atherosclerosis of [place] coronary artery of [place] heart without angina pectoris Essential hypertension PSVT (paroxysmal supraventricular tachycardia) COPD (chronic obstructive pulmonary disease) Home Medications ?Medication ?Instructions ?Recorded ?Last Taken ?Type amlodipine 10 mg tablet 10 mg PO DAILY BLOOD PRESSUR E 03/27/18 10/12/23 History metoprolol tartrate 50 mg tablet 50 mg PO BID HEART 10/12/23 History atorvastatin 40 mg tablet 40 mg PO QHS CHOLESTROL 08/2710/12/23 History cholecalciferol (vitamin D3) 25 1,000 unit PO DAILY VARGAS PPLEMENT 02/11/19 10/12/23 History mcg (1,000 unit) tablet apixaban 5 mg tablet (Eliquis) 5 mg PO BID BLOOD THINN ER 09/28/21 10/12/23 History albuterol sulfate 90 mcg/actuation 1 - 2 puff INHALATI ON Q4H PRN 07/05/22 10/12/23 History aerosol inhaler Wheezing allopurinol 300 mg tablet 300 mg PO DAILY GOUT 3 10/12/23 History bdarcgk-frbaohhsp-rjrn tablet 1 tab PO QHS SUPPLEMENT 07/05/22 10/12/23 History escitalopram oxalate 10 mg tablet 10 mg PO DAILY DEPRE SSION 10/13/23 10/12/23 History hydroxyurea 500 mg capsule 500 mg PO DAILY ANEMIA 10/0210/12/23 History lisinopril 20 mg tablet 20 mg PO DAILY BLOOD PRESSUR E 10/13/23 10/12/23 History mirtazapine 15 mg tablet 15 mg PO QHS DEPRESSION 10/0210/12/23 History pantoprazole 20 mg tablet,delayed 20 mg PO DAILY HEART BURN 10/13/23 10/12/23 History release mupirocin 2 % topical ointment topical 01/09/24 Unknow n History triamcinolone acetonide 0.1 % applic topical 01/09/24 Unknown History topical cream acetaminophen 500 mg tablet 1,000 mg (2 x 500 mg) PO Q 8 #0 tabs 01/14/24 Unknown Rx sennosides 8.6 mg-docusate sodium 2 tab PO BID PRN PRN Constipation 01/14/24 Unknown Rx 50 mg tablet (Stimulant Laxative #0 tabs Plus) Allergy/AdvReac Type Severity Reaction Status Date / Time latex Allergy Rash Verified 10/21/24 09:32 Surgical History History of cholecystectomy S/p left hip fracture (~2016) Social History household members: family housing: house Smoking Status: Former smoker caffeine: Yes Type: carbonated beverages, coffee and tea ROS ROS ED ROS Narrative Review of systems positive for generalized weakness, malaise and fatigue. Reported shortness of breath with occasional cough. No dysuria or hematuria, no urinary frequency, no chest pain or abdominal pain. No exacerbating or alleviating factors. EXAM Physical Exam Narrative Exam Narrative: Afebrile. Vital signs noted. Nontoxic-appearing. Cardiovascular examination reveals regular rate and rhythm. Lungs are clear to auscultation bilaterally with mild tachypnea. Abdomen is soft and nontender without guarding or rebound, positive bowel sounds. Neurological examination is nonfocal, nonlateralizing. Awake, alert, interactive. She does have bilateral symmetric pedal edema. Const Vital Signs: 10/21/24 09:32 Temperature 97.1 F L Temperature Source Oral Pulse Rate 96 Respiratory Rate 20 H Blood Pressure 183/108 H Blood Pressure Mean 133 Pulse Ox 96 Oxygen Delivery Method Room Air MDM MDM MDM Narrative Medical decision making narrative: Differential diagnosis includes but not limited to generalized weakness secondary to infection including pneumonia versus urinary tract infection versus dehydration versus other electrolyte abnormality. Given her cough and shortness of breath with leg swelling, she may have component of CHF as well. I reviewed her prior records. I also reviewed her medication list. She sees Dr. Clifford Abernathy and takes hydroxyurea for reported thickening of the blood. Discharge Plan Triage Chief Complaint: General Illness ED Provider: Vinayak Mayer Dx/Rx/DC Orders Prescriptions: No Action amlodipine 10 mg tablet 10 mg PO DAILY metoprolol tartrate 50 mg tablet 50 mg PO BID atorvastatin 40 MG tablet 40 mg PO QHS cholecalciferol (vitamin D3) 1,000 UNIT tablet 1,000 unit PO DAILY Eliquis 5 mg tablet 5 mg PO BID allopurinol 300 mg tablet 300 mg PO DAILY albuterol sulfate 1 INHALER HFA aerosol inhaler 1 - 2 puff INHALATION Q4H PRN (Reason: Wheezing) [id number]-omrapoahg-njgk Tablet 1 tab PO QHS hydroxyurea 500 mg capsule 500 mg PO DAILY pantoprazole 20 mg tablet,delayed release (DR/EC) 20 mg PO DAILY mirtazapine 15 mg tablet 15 mg PO QHS lisinopril 20 mg tablet 20 mg PO DAILY escitalopram oxalate 10 mg tablet 10 mg PO DAILY triamcinolone acetonide 0.1 % cream topical mupirocin 2 % ointment topical sennosides-docusate sodium [Stimulant Laxative Plus] 8.6-50 mg Tablet 2 tab PO BID PRN PRN (Reason: Constipation) Qty: 0 0RF acetaminophen 500 mg Tablet 1,000 mg PO Q8 Qty: 0 0RF Rx Instructions: Qgzv-ovn-rldlzrx. 1 g every 8 hourly for 7 days and then as needed every 8 hourly for severe Primary Care Provider: Chase Maxwell Referrals: Chase Maxwell MD [Primary Care Provider] - Print Language: Macedonian
--- NOTE | 2024-10-21 09:45 | EX.ED.DYSGE1 ---
HPI History of Present Illness Chief Complaint: General Illness Narrative Narrative: 89-year-old female brought in by her daughter because of generalized weakness and shortness of breath. Patient states that she is not in pain anywhere. Her daughter was concerned because she seemed more short of breath than usual today when she woke up this morning. Patient states she has an occasional cough, but they both deny that she has had fever recently. No dysuria or hematuria, no urinary frequency. She does not have any chest pain or abdominal pain, but states that she has diarrhea that is longstanding/loose stool. Patient states that she has chronic leg swelling as well. Once again, while she denies any pain, she states that she feels ill/not well. [facility] Medical History GERD (gastroesophageal reflux disease) Hip pain Anxiety Chronic pain Rheumatoid arthritis Kidney disease Hepatitis Former smoker Atrial fibrillation Stroke/cerebrovascular accident Chest pain Hypertension DVT (deep venous thrombosis) Fibroids Microcytosis Leukocytosis Debility Osteoporosis Dementia UTI (urinary tract infection) Fall Pulmonary air embolism Ascending aorta dilatation Pure hypercholesterolemia Atherosclerosis of [place] coronary artery of [place] heart without angina pectoris Essential hypertension PSVT (paroxysmal supraventricular tachycardia) COPD (chronic obstructive pulmonary disease) Home Medications ?Medication ?Instructions ?Recorded ?Last Taken ?Type metoprolol tartrate 50 mg tablet 50 mg PO BID HEART 03/27/18 10/20/24 History atorvastatin 40 mg tablet 40 mg PO QHS CHOLESTROL 02/11/19 10/20/24 History cholecalciferol (vitamin D3) 25 1,000 unit PO DAILY SUPPLEMENT 02/11/19 10/20/24 History mcg (1,000 unit) tablet apixaban 5 mg tablet (Eliquis) 5 mg PO BID BLOOD THINNER 09/28/21 10/20/24 History albuterol sulfate 90 mcg/actuation 1 - 2 puff INHALATION Q4H PRN 07/05/22 10/20/24 History aerosol inhaler Wheezing allopurinol 300 mg tablet 300 mg PO DAILY GOUT 07/05/22 10/20/24 History escitalopram oxalate 10 mg tablet 10 mg PO DAILY DEPRESSION 10/13/23 10/20/24 History hydroxyurea 500 mg capsule 500 mg PO DAILY ANEMIA 10/13/23 10/20/24 History mirtazapine 15 mg tablet 15 mg PO QHS DEPRESSION 10/13/23 10/20/24 History pantoprazole 20 mg tablet,delayed 20 mg PO DAILY HEARTBURN 10/13/23 10/20/24 History release acetaminophen 500 mg tablet 1,000 mg PO Q8H 10/21/24 10/20/24 History calcium 333 mg-magnesium 133 mg-D3 1 tab PO QHS 10/21/24 10/20/24 History 1.67 mcg-zinc 5 mg tablet colestipol 1 gram tablet 2 g PO BID 10/21/24 10/20/24 History loperamide 2 mg capsule 4 mg PO Q6H PRN loose stool 10/21/24 10/20/24 History (Anti-Diarrheal (loperamide)) metoprolol tartrate 25 mg tablet 25 mg PO BID 10/21/24 10/20/24 History nitroglycerin 0.4 mg sublingual 0.4 mg sublingual Q5M PRN chest 10/21/24 Unknown History tablet pain valsartan 160 mg tablet 160 mg PO DAILY 10/21/24 10/20/24 History Allergy/AdvReac Type Severity Reaction Status Date / Time latex Allergy Rash Verified 10/21/24 09:32 Surgical History History of cholecystectomy S/p left hip fracture (~2016) Social History household members: family housing: house Smoking Status: Former smoker caffeine: Yes Type: carbonated beverages, coffee and tea ROS ROS ED ROS Narrative Review of systems positive for generalized weakness, malaise and fatigue. Reported shortness of breath with occasional cough. No dysuria or hematuria, no urinary frequency, no chest pain or abdominal pain. No exacerbating or alleviating factors. EXAM Physical Exam Narrative Exam Narrative: Afebrile. Vital signs noted. Nontoxic-appearing. Cardiovascular examination reveals regular rate and rhythm. Lungs are clear to auscultation bilaterally with mild tachypnea. Abdomen is soft and nontender without guarding or rebound, positive bowel sounds. Neurological examination is nonfocal, nonlateralizing. Awake, alert, interactive. She does have bilateral symmetric pedal edema. Const Vital Signs: 10/21/24 09:32 10/21/24 11:32 10/21/24 13:00 Temperature 97.1 F L Temperature Source Oral Pulse Rate 96 88 93 Respiratory Rate 20 H 18 20 H Blood Pressure 183/108 H 189/92 H 194/113 H Blood Pressure Mean 133 124 140 Pulse Ox 96 97 97 Oxygen Delivery Method Room Air Room Air MDM MDM MDM Narrative Medical decision making narrative: Differential diagnosis includes but not limited to generalized weakness secondary to infection including pneumonia versus urinary tract infection versus dehydration versus other electrolyte abnormality. Given her cough and shortness of breath with leg swelling, she may have component of CHF as well. I reviewed her prior records. I also reviewed her medication list. She sees Dr. Clifford Abernathy and takes hydroxyurea for reported thickening of the blood. EKG was obtained and interpreted by myself independently as atrial flutter at 92 bpm with PVCs but no acute ST changes. No STEMI. No significant change from October 13, 2023, but that was when she was in atrial fibrillation at 90 bpm. I reviewed her laboratory work and she has normal white count of 7.5 with hemoglobin normal at 12.2, hematocrit 37.5, platelet count normal at 194. Her electrolyte panel had been hemolyzed. Redraw shows normal sodium of 137 with potassium 3.9, CO2 low at 19.4 which I think is nonspecific, glucose of 103 and normal anion gap of 11. LFTs do show alk phos slightly elevated at 126 which I think is nonspecific. BNP is elevated at 5850, however, her chest x-ray shows no evidence of fluid overload on my independent interpretation. I did give her 1 dose of Lasix intravenously. Urinalysis obtained and interpreted. She has 0 WBCs but 3+ bacteria. As she is not having dysuria, her urine was sent for culture and they will call her if she requires antibiotics if there is growth. At this point in time, I feel she can be discharged to follow-up. They did inquire about a dry skin patch on her right forearm with surrounding erythema but no fluctuance. She has a history of basal cell carcinoma. While this may be more of a seborrhea keratosis, her family states that she has a gas blender and I recommend that they follow-up with them for this nonemergent lesion. She also has 1 on her left cheek. At this point in time, I do not feel she requires her prescription for Lasix as I see no evidence of fluid overload on her chest x-ray and she is not hypoxic. I feel she can be discharged to follow-up. Return instructions to the emergency department were reviewed. Patient and family are agreeable to the plan. History & Record Review Discussion w/independent historian: Patient and Family Lab Data Attestation: I reviewed the patient's lab results. Labs: Laboratory Results - last 24 hr 10/21/24 10/21/24 10/21/24 10:02 10:13 13:02 WBC 7.5 RBC 3.28 L Hgb 12.2 Hct 37.5 MCV 114.3 H MCH 37.2 H MCHC 32.5 RDW Std Deviation 63.2 H RDW Coeff of Ema 15.1 H Plt Count 194 MPV 10.6 Immature Gran % (Auto) 0.500 Neut % (Auto) 73.7 H Lymph % (Auto) 20.6 [place] % (Auto) 4.0 Eos % (Auto) 0.8 Baso % (Auto) 0.4 Absolute Neuts (auto) 5.5 Absolute Lymphs (auto) 1.54 Nucleated RBC % 0 Sodium Cancelled 137 Potassium Cancelled 3.9 Chloride Cancelled 106 Carbon Dioxide Cancelled 19.4 L Anion Gap Cancelled 11 BUN Cancelled 15 Creatinine Cancelled 1.01 Estim Creat Clear Calc Cancelled Est GFR (MDRD) Non-Af Cancelled 54 L BUN/Creatinine Ratio Cancelled 14.7 Glucose Cancelled 103 H Calcium Cancelled 9.0 Total Bilirubin Cancelled 0.70 AST Cancelled 18 ALT Cancelled 6 Alkaline Phosphatase Cancelled 126 H NT pro BNP II Cancelled 5850 H Total Protein Cancelled 6.5 Albumin Cancelled 3.5 Globulin Cancelled 3.1 Albumin/Globulin Ratio Cancelled 1.1 Urine Color Straw Urine Clarity Clear Urine pH 7.0 Ur Specific [place] 1.005 Urine Protein 30 H Urine Glucose (UA) Normal Urine Ketones Negative Urine Occult Blood Negative Urine Nitrite Positive H Urine Bilirubin Negative Urine Urobilinogen Normal Ur Leukocyte Esterase 100 H Urine RBC 0-5 SEEN Urine WBC 0-5 SEEN Ur Squamous Epith Cells 0-5 SEEN Urine Bacteria 3+ Urine Mucus 0 SEEN Radiography Chest X-Ray - ED: 1 View, Read by ED Physician and Read by Radiologist Diagnostic Testing: Clinical Impression(s) from Imaging Studies Chest X-Ray 10/21/24 09:44 IMPRESSION: Chronic lung changes and hyperinflation are again noted. No acute pneumonic process is seen. No pleural effusion or pneumothorax is noted. The cardiomediastinal silhouette is stable, without evidence of cardiomegaly. Generalized osteopenia is noted. No acute osseous process is evident. No evidence of acute cardiopulmonary disease. Reading Location: [place] [id number] Discharge Plan Triage Chief Complaint: General Illness ED Provider: Vinayak Mayer Dx/Rx/DC Orders Clinical Impression: Generalized weakness, SOB (shortness of breath), Elevated brain natriuretic peptide (BNP) level Instructions: ED Dyspnea, ED Weakness Uncertain Cause Prescriptions: No Action metoprolol tartrate 50 mg tablet 50 mg PO BID Patient Comments: PT TAKES 25MG AND 50 MG AT THE SAME TIME TO EQUAL 75MG DOSE TWICE DAILY atorvastatin 40 MG tablet 40 mg PO QHS cholecalciferol (vitamin D3) 1,000 UNIT tablet 1,000 unit PO DAILY Eliquis 5 mg tablet 5 mg PO BID allopurinol 300 mg tablet 300 mg PO DAILY albuterol sulfate 1 INHALER HFA aerosol inhaler 1 - 2 puff INHALATION Q4H PRN (Reason: Wheezing) hydroxyurea 500 mg capsule 500 mg PO DAILY pantoprazole 20 mg tablet,delayed release (DR/EC) 20 mg PO DAILY mirtazapine 15 mg tablet 15 mg PO QHS escitalopram oxalate 10 mg tablet 10 mg PO DAILY colestipol 1 gram tablet 2 g PO BID valsartan 160 mg tablet 160 mg PO DAILY metoprolol tartrate 25 mg tablet 25 mg PO BID Patient Comments: PT TAKES 25MG AND 50 MG AT THE SAME TIME TO EQUAL 75MG DOSE TWICE DAILY calc carb-mag ox-D3-zinc gluc 333 mg-133 mg- 1.67 mcg-5 mg tablet 1 tab PO QHS nitroglycerin 0.4 mg tablet, sublingual 0.4 mg sublingual Q5M PRN (Reason: chest pain) loperamide [Anti-Diarrheal (loperamide)] 2 mg capsule 4 mg PO Q6H PRN (Reason: loose stool) acetaminophen 500 mg Tablet 1,000 mg PO Q8H Rx Instructions: [id number]. 1 g every 8 hourly for 7 days and then as needed every 8 hourly for severe Primary Care Provider: Chase Maxwell Referrals: Maxwell,Cahse, MD [Primary Care Provider] - 3-5 Days Activity Restrictions/Additional Instructions: Follow-up with your gas blender as soon as possible for the lesion on your right arm and left cheek. It may require biopsy. Continue your previous medications and routines. Return with increased difficulty breathing, new or worsening symptoms. Your urine was sent for culture. They will call you in a few days if you require antibiotics. Print Language: Swedish Disposition Disposition: Home, Self Care
[2024-10-21 10:11] LABS: Absolute Lymphocyte Count 1.54 X10^3/uL (0.83-4.51); Absolute Neutrophil Count 5.5 X10^3/uL (2.0-7.7); Basophil# 0.03 X10^3/uL; Basophil% 0.4 % (0-1); Eosinophil# 0.06 X10^3/uL; Eosinophils% 0.8 % (0-5); Hematocrit 37.5 % (37-47); Hemoglobin 12.2 g/dL (12.0-15.0); Lymphocyte # 1.54 X10^3/ul (0.83-4.51); Lymphocyte % 20.6 % (19-41); Mean Corp Hgb Conc 32.5 g/dL (32-36); Mean Corpuscular Hgb 37.2 pg (27.0-32.0); Mean Corpuscular Volume 114.3 fL (81-99); Mean Platelet Vol. 10.6 fl (6.2-12.0); NRBC Flagged by Analyzer 0 % (0-5); Neutrophil % 73.7 % (47-70); Platelet Count 194 K/mm3 (150-450); RBC Distribution Width CV 15.1 % (11.6-14.6); RBC Distribution Width SD 63.2 fl (35.1-43.9); Red Blood Count 3.28 M/mm3 (4.2-5.4); White Blood Count 7.5 K/mm3 (4.4-11.0)
[2024-10-21 11:15] LABS: ALB/GLOB Ratio 1.1 RATIO (0.9-2.4); AST(SGOT) 18 U/L (<=31); Alanine Aminotransfer ALT/SGPT 6 U/L (<=34); Albumin, Serum 3.5 g/dL (3.4-4.8); Alkaline Phosphatase 126 U/L (35-104); Anion Gap 11 (5-15); BUN 15 mg/dL (4-19); BUN/Creat Ratio 14.7 RATIO (10-20); Carbon Dioxide 19.4 mmol/L (21.0-32.0); Chloride 106 mmol/L (98-108); Creatinine, Serum 1.01 mg/dL (0.70-1.20); EST Glomerular Filtration Rate 54 (>60); Globulin 3.1 g/dL (2.2-4.2); Glucose 103 mg/dL (70-99); Potassium 3.9 mmol/L (3.3-5.1); Pro- Brain NATRIURETIC PEPTIDE 5850 pg/mL (<=1800); Protein, Total 6.5 g/dL (5.9-8.4); Sodium Level 137 mmol/L (133-145)
[2024-10-21 11:32] VITALS: BP 189/92; PULSE 88; RESP 18; O2SAT 96; O2SAT 97
[2024-10-21 11:58] VITALS: O2SAT 96
[2024-10-21] MEDS: Furosemide 40 MG/4 ML Vial IV (12:33)
[2024-10-21 13:00] VITALS: BP 194/113; PULSE 93; RESP 20; O2SAT 97
[2024-10-21 13:13] LABS: Mucous, Urine 0 SEEN /hpf (<or=2+)
[2024-10-21 13:17] LABS: Color, Urine Straw (Yellow); Glucose, Dipstick Normal (Normal); Ketone-Dipstick Negative (Negative); Leukocyte Esterase-Dipstick 100 /ul (Negative); Nitrite-Dipstick Positive (Negative); Occult Blood-Urine Negative /ul (Negative); Protein-Dipstick 30 mg/dl (Negative); Specific Gravity, Urine 1.005 (1.002-1.030); Urine Bilirubin Dipstick Negative (Negative); Urine Clarity Clear (Clear); Urine Urobilinogen Normal (Normal)
[2024-10-21 14:05] LABS: Bacteria 3+ /hpf (None Seen); Red Blood Cells-Urine 0-5 SEEN /hpf (0-5); White Blood Cells 0-5 SEEN /hpf (0-5)
[2024-10-21 14:06] LABS: Squamous Epithelial Cells - UA 0-5 SEEN /hpf (5-10)
[2024-10-21 14:29] VITALS: BP 179/100; PULSE 84; RESP 14; TEMP 36.2; O2SAT 95
== END 2024-10-21 14:37 | disposition home or self-care (01) ==
PROVIDERS: Emergency Provider Emergency Medicine; PCP Internal Medicine; Visit Provider Emergency Medicine
DX: R53.1 Weakness (principal); M06.9 Rheumatoid arthritis, unspecified; J44.9 Chronic obstructive pulmonary disease, unspecified; R06.02 Shortness of breath; I25.10 Atherosclerotic heart disease of native coronary artery without angina pectoris; M79.89 Other specified soft tissue disorders; R05.9 Cough, unspecified; I10 Essential (primary) hypertension; E78.00 Pure hypercholesterolemia, unspecified; K21.9 Gastro-esophageal reflux disease without esophagitis; F41.9 Anxiety disorder, unspecified; Z79.01 Long term (current) use of anticoagulants; Z79.899 Other long term (current) drug therapy; Z87.891 Personal history of nicotine dependence
CPT/HCPCS: 71045; 80053; 81001; 83880; 85025; 87077; 87086; 87088; 87186; 93005; 96374; 99284; A4216; J1940

== ENCOUNTER 2024-12-11 22:47 | Emergency (ER) | payer MEDICARE, MEDICAID, SELFPAY ==
[2024-12-11 22:49] VITALS: BP 148/98; PULSE 93; RESP 16; TEMP 36.7; O2SAT 97; BMI 31.3
[2024-12-11 23:22] LABS: Hematocrit 36.7 % (37-47); Hemoglobin 11.8 g/dL (12.0-15.0); Immature Granulocytes Count 0.070 X10^3/uL (0.0-0.0); Mean Corp Hgb Conc 32.2 g/dL (32-36); Mean Corpuscular Volume 106.4 fL (81-99); Mean Platelet Vol. 10.6 fl (6.2-12.0); NRBC Flagged by Analyzer 0 % (0-5); Platelet Count 294 K/mm3 (150-450); RBC Distribution Width CV 15.2 % (11.6-14.6); RBC Distribution Width SD 58.9 fl (35.1-43.9); Red Blood Count 3.45 M/mm3 (4.2-5.4); White Blood Count 9.9 K/mm3 (4.4-11.0)
[2024-12-11 23:40] LABS: AST(SGOT) 21 U/L (<=31); Alanine Aminotransfer ALT/SGPT 9 U/L (<=34); Albumin, Serum 3.5 g/dL (3.4-4.8); Alkaline Phosphatase 203 U/L (35-104); Anion Gap 9 (5-15); BUN 13 mg/dL (4-19); BUN/Creat Ratio 11.7 RATIO (10-20); Calcium,Total 8.4 mg/dL (7.6-11.0); Carbon Dioxide 23.9 mmol/L (21.0-32.0); Chloride 100 mmol/L (98-108); Estimated Creatinine Clearance 41.48 ml/min (50-250); Globulin 2.8 g/dL (2.2-4.2); Glucose 86 mg/dL (70-99); Potassium 3.6 mmol/L (3.3-5.1)
[2024-12-12 00:49] VITALS: BP 146/83; PULSE 85; RESP 18; TEMP 36.7; O2SAT 98
[2024-12-12 01:25] VITALS: BP 146/83; PULSE 85; RESP 18; TEMP 36.7; O2SAT 98
== END 2024-12-12 01:26 | disposition home or self-care (01) ==
PROVIDERS: Emergency Provider Emergency Medicine; PCP Internal Medicine; Referring Provider Emergency Medicine; Visit Provider Emergency Medicine
DX: R53.1 Weakness (principal); M06.9 Rheumatoid arthritis, unspecified; F03.90 Unspecified dementia, unspecified severity, without behavioral disturbance, psychotic disturbance, mood disturbance, and anxiety; J44.9 Chronic obstructive pulmonary disease, unspecified; R11.2 Nausea with vomiting, unspecified; I89.0 Lymphedema, not elsewhere classified; G89.29 Other chronic pain; I25.10 Atherosclerotic heart disease of native coronary artery without angina pectoris; I10 Essential (primary) hypertension; E78.00 Pure hypercholesterolemia, unspecified; F32.A Depression, unspecified; Z79.899 Other long term (current) drug therapy; Z86.711 Personal history of pulmonary embolism; Z86.718 Personal history of other venous thrombosis and embolism; Z87.891 Personal history of nicotine dependence
CPT/HCPCS: 80053; 85025; 99285; A4216

== ENCOUNTER 2024-12-26 17:19 | Emergency (ER) | payer MEDICARE, MEDICAID, SELFPAY ==
[2024-12-26 17:21] VITALS: BP 179/102; PULSE 94; RESP 18; TEMP 36.6; O2SAT 99; BMI 30.4
--- NOTE | 2024-12-26 17:55 | CT_ITS ---
PROCEDURE: BRAIN/HEAD WITHOUT CONTRAST 12/26/2024 REASON FOR EXAM: CONFUSION TECHNIQUE: BRAIN/HEAD WITHOUT CONTRAST Coronal and Sagittal reconstruction series were provided. One or more dose reduction techniques were used (e.g., Automated exposure control, adjustment of the mA and/or kV according to patient size, use of iterative reconstruction technique. RADIATION DOSE SUMMARY: CTDlvol: 44.99 mGy DLP: 812 0.98 mGycm COMPARISON: 12/22/2023 FINDINGS: Mild periventricular chronic microvascular changes. No intracranial mass or hemorrhage. Negative for hydrocephalus. Sinuses are clear and bony calvarium intact. CT/Brain/Head without Contrast IMPRESSION: No acute abnormality Reading Location: [id number]
--- NOTE | 2024-12-26 17:56 | EX.ED.DYSGE1 ---
HPI History of Present Illness Chief Complaint: General Illness Detail of Chief Complaint: Not feeling well Informant: patient and family Narrative Narrative: Patient brought to the emergency department by her daughter with complaint of not feeling well for several days. She has been complaining of increased shortness of breath with activity. Yesterday she complained some chest pain daughter gave 1 nitro and the pain seemed to resolve. Daughter thinks patient's more confused than usual. She has history of A-fib and was on Eliquis but was recently taken off the Eliquis. Patient denies dysuria urgency or frequency. She denies abdominal pain. She currently denies any chest pain. Patient has history of dementia. [facility] Medical History GERD (gastroesophageal reflux disease) Hip pain Anxiety Chronic pain Rheumatoid arthritis Kidney disease Hepatitis Former smoker Atrial fibrillation Stroke/cerebrovascular accident Chest pain Hypertension DVT (deep venous thrombosis) Fibroids Microcytosis Leukocytosis Debility Osteoporosis Dementia UTI (urinary tract infection) Fall Pulmonary air embolism Ascending aorta dilatation Pure hypercholesterolemia Atherosclerosis of [place] coronary artery of [place] heart without angina pectoris Essential hypertension PSVT (paroxysmal supraventricular tachycardia) COPD (chronic obstructive pulmonary disease) Home Medications ?Medication ?Instructions ?Recorded ?Last Taken ?Type metoprolol tartrate 50 mg tablet 50 mg PO BID HEART 03/27/18 10/20/24 History atorvastatin 40 mg tablet 40 mg PO QHS CHOLESTROL 02/11/19 10/20/24 History cholecalciferol (vitamin D3) 25 1,000 unit PO DAILY SUPPLEMENT 02/11/19 10/20/24 History mcg (1,000 unit) tablet apixaban 5 mg tablet (Eliquis) 5 mg PO BID BLOOD THINNER 09/28/21 10/20/24 History allopurinol 300 mg tablet 300 mg PO DAILY GOUT 07/05/22 10/20/24 History escitalopram oxalate 10 mg tablet 10 mg PO DAILY DEPRESSION 10/13/23 10/20/24 History hydroxyurea 500 mg capsule 500 mg PO DAILY ANEMIA 10/13/23 10/20/24 History mirtazapine 15 mg tablet 15 mg PO QHS DEPRESSION 10/13/23 10/20/24 History pantoprazole 20 mg tablet,delayed 20 mg PO DAILY HEARTBURN 10/13/23 10/20/24 History release acetaminophen 500 mg tablet 1,000 mg PO Q8H 10/21/24 10/20/24 History calcium 333 mg-magnesium 133 mg-D3 1 tab PO QHS 10/21/24 10/20/24 History 1.67 mcg-zinc 5 mg tablet colestipol 1 gram tablet 2 g PO BID 10/21/24 10/20/24 History loperamide 2 mg capsule 4 mg PO Q6H PRN loose stool 10/21/24 10/20/24 History (Anti-Diarrheal (loperamide)) metoprolol tartrate 25 mg tablet 25 mg PO BID 10/21/24 10/20/24 History nitroglycerin 0.4 mg sublingual 0.4 mg sublingual Q5M PRN chest 10/21/24 Unknown History tablet pain valsartan 160 mg tablet 160 mg PO DAILY 10/21/24 10/20/24 History Allergy/AdvReac Type Severity Reaction Status Date / Time latex Allergy Rash Verified 12/26/24 17:21 Surgical History History of cholecystectomy S/p left hip fracture (~2016) Social History household members: family housing: house Smoking Status: Former smoker caffeine: Yes Type: carbonated beverages, coffee and tea ROS ROS ED Review of Systems ROS Unobtainable: other Constitutional Constitutional ED: Reports lethargy; Denies chills, fever(s), sweats or weight loss Eyes Eyes: Denies blurry vision, change in vision or diplopia ENT ENT ED: Denies rhinorrhea or sore throat Cardiovascular Cardiovascular: Reports chest pain; Denies orthopnea or racing heartbeat Respiratory/Chest Respiratory/Chest: Reports dyspnea and dyspnea on exertion; Denies cough, orthopnea or sputum Gastrointestinal Gastrointestinal: Denies abdominal pain, diarrhea, nausea or vomiting Genitourinary Genitourinary ED: Denies dysuria, hematuria or urinary frequency Musculoskeletal Musculoskeletal: Denies arthralgias, back pain, myalgias or neck pain Integumentary Denies abscess, Abrasions or rash Neurologic Neurologic: Reports weakness; Denies headache(s) Psychiatric Psychiatric: Denies anxiety, depression or suicidal thoughts Endocrine Endocrinology: Denies polydipsia, polyphagia or polyuria Hematologic/Lymphatic Hematologic/Lymphatic: Denies easy bleeding, easy bruising or lymphadenopathy Allergic/Immunologic Allergic/Immunologic ED: Denies mouth swelling, tongue swelling or urticaria EXAM Physical Exam Const Vital Signs: 12/26/24 17:21 12/26/24 17:41 12/26/24 19:20 Temperature 97.8 F Temperature Source Oral Pulse Rate 94 84 Respiratory Rate 18 18 Respiratory Effort Normal Short of Breath Respiratory Pattern Normal Blood Pressure 179/102 H 170/112 H Blood Pressure Mean 127 131 Pulse Ox 99 86 Oxygen Delivery Method Room Air Room Air Positive well nourished and well developed General Appearance ED: well developed and NAD HEENT Reports TM's clear and moist mucous membranes normocephalic and atraumatic; Negative for trauma or tenderness Tympanic Membrane ED: Yes TM's clear Eyes PERRL and EOMs intact bilaterally General Eye ED: Negative for pale conjunctiva or scleral icterus Neck no lymphadenopathy, supple and no JVD General: Negative for tenderness Chest Wall inspection of chest normal and palpation of chest normal Chest: Negative for tenderness Resp normal respiratory effort and clear to auscultation bilaterally Effort and Inspection: Negative for respiratory distress or pain with movement Auscultation: Negative for rhonchi, wheezes or diminished lung sounds Cardio regular rate, regular rhythm, S1 normal heart sound, S2 normal heart sound and no murmurs Peripheral Pulses: pulses 2+ throughout GI normal to inspection, nondistended, normoactive bowel sounds, soft to palpation, non-tender, non-distended and no masses Back/Spine no CVA tenderness and no thoracic nor lumbar tenderness Extremity normal to inspection General Extremety ED: Negative for edema General Extremity: Negative for edema Neuro oriented x3, CN's II-XII intact bilaterally, no sensory deficits noted and gait normal Sensorium / Orientation: awake, alert, oriented to person, oriented to place and oriented to time Motor Exam: strength 5/5 throughout and strength abnormal Psych mental status grossly normal Skin no rashes or lesions noted and no wounds MDM MDM MDM Narrative Medical decision making narrative: Patient presents with shortness of breath and just not feeling well. Clinically looks well and is nontoxic-appearing. She has history of dementia in light of the history comes from the patient's daughter. I Established. EKG obtained showed atrial fibrillation with rate of 87 bpm with no acute ST segment changes. CBC with differential shows white count 10.5 with hemoglobin 13 and platelet count of 315. Chemistries unremarkable. Troponin was normal at 11. Urinalysis without signs of infection. 1 view chest x-ray obtained interpreted by myself no evidence of infiltrate or pneumothorax or acute disease process. I felt there was likely some scarring or atelectasis in the right lower lobe. We will ambulate the patient with pulse ox in the lungs as her O2 sat maintains well discharged to home and advised to follow-up with primary care physician within next 2 to 5 days. I do not feel she is having acute coronary syndrome. Lab Data Attestation: I reviewed the patient's lab results. Labs: Laboratory Results - last 24 hr 12/26/24 12/26/24 18:20 18:30 WBC 10.5 RBC 4.00 L Hgb 13.1 Hct 40.6 MCV 101.5 H MCH 32.8 H MCHC 32.3 RDW Std Deviation 57.4 H RDW Coeff of Ema 15.6 H Plt Count 315 MPV 10.9 Immature Gran % (Auto) 0.900 Neut % (Auto) 77.8 H Lymph % (Auto) 16.9 L [place] % (Auto) 3.1 Eos % (Auto) 0.9 Baso % (Auto) 0.4 Absolute Neuts (auto) 8.2 H Absolute Lymphs (auto) 1.78 Nucleated RBC % 0 Sodium 136 Potassium 3.8 Chloride 102 Carbon Dioxide 22.9 Anion Gap 11 BUN 11 Creatinine 0.90 Estim Creat Clear Calc 48.58 L Est GFR (MDRD) Non-Af 62 BUN/Creatinine Ratio 11.7 Glucose 86 Calcium 9.1 Troponin T High Sens 11 Urine Color Yellow Urine Clarity Clear Urine pH 6.5 Ur Specific [place] 1.010 Urine Protein 30 H Urine Glucose (UA) Normal Urine Ketones Negative Urine Occult Blood 10 H Urine Nitrite Negative Urine Bilirubin Negative Urine Urobilinogen Normal Ur Leukocyte Esterase 500 H Urine RBC 0 SEEN Urine WBC 5-10 SEEN Ur Squamous Epith Cells 0 SEEN Urine Bacteria 1+ Urine Mucus 0 SEEN Radiography Diagnostic Testing: Clinical Impression(s) from Imaging Studies Brain CT 12/26/24 17:55 IMPRESSION: No acute abnormality Reading Location: [facility] EKG Initial EKG: Attestation: I personally reviewed and interpreted this EKG as follows: Comments: Atrial fibrillation with ventricular rate of 87 bpm with no acute ST segment changes Discharge Plan Triage Chief Complaint: General Illness ED Provider: Gianluca Davis Dx/Rx/DC Orders Clinical Impression: Dyspnea, Atrial fibrillation, Dementia Instructions: Dementia Daily Care, ED AFIB, ED Dyspnea Prescriptions: No Action metoprolol tartrate 50 mg tablet 50 mg PO BID Patient Comments: PT TAKES 25MG AND 50 MG AT THE SAME TIME TO EQUAL 75MG DOSE TWICE DAILY atorvastatin 40 MG tablet 40 mg PO QHS cholecalciferol (vitamin D3) 1,000 UNIT tablet 1,000 unit PO DAILY Eliquis 5 mg tablet 5 mg PO BID allopurinol 300 mg tablet 300 mg PO DAILY hydroxyurea 500 mg capsule 500 mg PO DAILY pantoprazole 20 mg tablet,delayed release (DR/EC) 20 mg PO DAILY mirtazapine 15 mg tablet 15 mg PO QHS escitalopram oxalate 10 mg tablet 10 mg PO DAILY colestipol 1 gram tablet 2 g PO BID valsartan 160 mg tablet 160 mg PO DAILY metoprolol tartrate 25 mg tablet 25 mg PO BID Patient Comments: PT TAKES 25MG AND 50 MG AT THE SAME TIME TO EQUAL 75MG DOSE TWICE DAILY calc carb-mag ox-D3-zinc gluc 333 mg-133 mg- 1.67 mcg-5 mg tablet 1 tab PO QHS nitroglycerin 0.4 mg tablet, sublingual 0.4 mg sublingual Q5M PRN (Reason: chest pain) loperamide [Anti-Diarrheal (loperamide)] 2 mg capsule 4 mg PO Q6H PRN (Reason: loose stool) acetaminophen 500 mg Tablet 1,000 mg PO Q8H Rx Instructions: [id number]. 1 g every 8 hourly for 7 days and then as needed every 8 hourly for severe Primary Care Provider: Chase Maxwell Referrals: Chase Maxwell MD [Primary Care Provider] - 3-5 Days Print Language: [place] Disposition Disposition: Home, Self Care
[2024-12-26 18:30] LABS: Hematocrit 40.6 % (37-47); Hemoglobin 13.1 g/dL (12.0-15.0); Immature Granulocytes Count 0.100 X10^3/uL (0.0-0.0); Mean Corp Hgb Conc 32.3 g/dL (32-36); Mean Corpuscular Volume 101.5 fL (81-99); Mean Platelet Vol. 10.9 fl (6.2-12.0); NRBC Flagged by Analyzer 0 % (0-5); Platelet Count 315 K/mm3 (150-450); RBC Distribution Width CV 15.6 % (11.6-14.6); RBC Distribution Width SD 57.4 fl (35.1-43.9); Red Blood Count 4.00 M/mm3 (4.2-5.4); White Blood Count 10.5 K/mm3 (4.4-11.0)
[2024-12-26 18:40] LABS: Mucous, Urine 0 SEEN /hpf (<or=2+); Red Blood Cells-Urine 0 SEEN /hpf (0-5); Squamous Epithelial Cells - UA 0 SEEN /hpf (5-10)
[2024-12-26 18:41] LABS: Color, Urine Yellow (Yellow); Glucose, Dipstick Normal (Normal); Ketone-Dipstick Negative (Negative); Leukocyte Esterase-Dipstick 500 /ul (Negative); Nitrite-Dipstick Negative (Negative); Occult Blood-Urine 10 /ul (Negative); Protein-Dipstick 30 mg/dl (Negative); Specific Gravity, Urine 1.010 (1.002-1.030); Urine Bilirubin Dipstick Negative (Negative)
--- NOTE | 2024-12-26 18:48 | RAD_ITS ---
PROCEDURE: CHEST 1 VIEW (PORTABLE) 12/26/2024 REASON FOR EXAM: DYSPNEA TECHNIQUE: Frontal view of the chest. COMPARISON: 10/21/2024 FINDINGS: Lungs/Pleura: No focal consolidation, pneumothorax, or sizable pleural effusion. Mild bibasilar streaky/discoid atelectasis. Central pulmonary vascular congestion. Heart/Mediastinum: Cardiomegaly. Tortuous and calcified thoracic aorta. Bones/Soft tissues: Degenerative changes of the spine. Qualitative osteopenia. RAD/Chest 1 View (Portable) IMPRESSION: Cardiomegaly with vascular congestion. No consolidation or pleural effusion. Reading Location: [id number]
[2024-12-26 18:57] LABS: Anion Gap 11 (5-15); BUN 11 mg/dL (4-19); BUN/Creat Ratio 11.7 RATIO (10-20); Calcium,Total 9.1 mg/dL (7.6-11.0); Carbon Dioxide 22.9 mmol/L (21.0-32.0); Chloride 102 mmol/L (98-108); Estimated Creatinine Clearance 48.58 ml/min (50-250); Glucose 86 mg/dL (70-99); Potassium 3.8 mmol/L (3.3-5.1); Troponin T High Sensitivity 11 ng/L (<=14)
[2024-12-26 19:20] VITALS: BP 170/112; PULSE 84; RESP 18; O2SAT 86
[2024-12-26 19:57] VITALS: BP 153/88; PULSE 81; RESP 16; TEMP 36.6; O2SAT 94
== END 2024-12-26 19:58 | disposition home or self-care (01) ==
PROVIDERS: Emergency Provider Emergency Medicine; PCP Internal Medicine; Visit Provider Emergency Medicine
DX: R06.00 Dyspnea, unspecified (principal); M06.9 Rheumatoid arthritis, unspecified; F03.90 Unspecified dementia, unspecified severity, without behavioral disturbance, psychotic disturbance, mood disturbance, and anxiety; J44.9 Chronic obstructive pulmonary disease, unspecified; I48.91 Unspecified atrial fibrillation; I10 Essential (primary) hypertension; R07.9 Chest pain, unspecified; I25.10 Atherosclerotic heart disease of native coronary artery without angina pectoris; E78.00 Pure hypercholesterolemia, unspecified; K21.9 Gastro-esophageal reflux disease without esophagitis; Z79.01 Long term (current) use of anticoagulants; Z79.899 Other long term (current) drug therapy; Z86.711 Personal history of pulmonary embolism; Z86.718 Personal history of other venous thrombosis and embolism; Z87.891 Personal history of nicotine dependence; Z86.73 Personal history of transient ischemic attack (TIA), and cerebral infarction without residual deficits
CPT/HCPCS: 70450; 71045; 80048; 81001; 84484; 85025; 93005; 99284; A4216

== ENCOUNTER 2025-02-06 15:58 | Emergency (ER) | payer MEDICARE, MEDICAID, SELFPAY ==
[2025-02-06 15:59] VITALS: BP 123/98; PULSE 102; RESP 16; TEMP 36.6; O2SAT 96; BMI 29.2
--- NOTE | 2025-02-06 16:37 | CT_ITS ---
EXAM: CT BRAIN/HEAD WITHOUT CONTRAST; SPINE CERVICAL WITHOUT CONTRAST CLINICAL HISTORY: FALL COMPARISON: 12/26/2024, 12/22/2023 TECHNIQUE: Noncontrast CT images of the head and cervical spine with multiplanar reconstructions. Dose reduction techniques were used including intermediate exposure control (AEC),iterative reconstruction technique, and/or mA and/or KV dose adjustments based on patient's size. FINDINGS: HEAD: No acute intracranial hemorrhage, extra-axial collection, mass effect or evidence of acute infarct. Mild-moderate generalized brain parenchymal volume loss and chronic microangiopathic changes. Unremarkable orbits. Atherosclerotic vascular calcifications. Intact skull base and calvarium. Clear paranasal sinuses and mastoid air cells. CERVICAL SPINE: No acute fracture or subluxation. Straightening of the cervical lordosis is likely positional and/or degenerative in nature. Multilevel spondylotic changes with varying degrees of disc space narrowing, anterior osteophytosis, uncovertebral spurring and hypertrophic facet arthropathy. Elongated styloid processes. No prevertebral soft tissue swelling. Atherosclerotic vascular calcifications. CT/Spine Cervical without Contras IMPRESSION: No acute traumatic findings. Chronic/degenerative changes as described. Reading Location: [id number]
--- NOTE | 2025-02-06 16:37 | CT_ITS ---
EXAM: CT BRAIN/HEAD WITHOUT CONTRAST; SPINE CERVICAL WITHOUT CONTRAST CLINICAL HISTORY: FALL COMPARISON: 12/26/2024, 12/22/2023 TECHNIQUE: Noncontrast CT images of the head and cervical spine with multiplanar reconstructions. Dose reduction techniques were used including intermediate exposure control (AEC),iterative reconstruction technique, and/or mA and/or KV dose adjustments based on patient's size. FINDINGS: HEAD: No acute intracranial hemorrhage, extra-axial collection, mass effect or evidence of acute infarct. Mild-moderate generalized brain parenchymal volume loss and chronic microangiopathic changes. Unremarkable orbits. Atherosclerotic vascular calcifications. Intact skull base and calvarium. Clear paranasal sinuses and mastoid air cells. CERVICAL SPINE: No acute fracture or subluxation. Straightening of the cervical lordosis is likely positional and/or degenerative in nature. Multilevel spondylotic changes with varying degrees of disc space narrowing, anterior osteophytosis, uncovertebral spurring and hypertrophic facet arthropathy. Elongated styloid processes. No prevertebral soft tissue swelling. Atherosclerotic vascular calcifications. CT/Brain/Head without Contrast IMPRESSION: No acute traumatic findings. Chronic/degenerative changes as described. Reading Location: [id number]
--- NOTE | 2025-02-06 16:40 | EX.ED.DYSGE1 ---
HPI <ALLY Mendez - Last Filed: 02/06/25 21:06> History of Present Illness Chief Complaint: Fall Narrative Narrative: 89-year-old female with PMH of HTN, A-fib on Eliquis, COPD, dementia is brought in by her daughter for evaluation of chest pain and back pain. Patient fell at 3:30 AM on 02/05. She called out for her daughter and when she went in the room she was sitting on her butt with her back against the wall. She was able to get up and get back to bed with her walker. She felt fine yesterday during the day but now since this morning is complaining of chest and back pain. She is ambulatory. She does not seem short of breath has had no nausea or vomiting or other changes. The daughter gave her nitro x 1 without a change in her symptoms. PFSH <ALLY Mendez - Last Filed: 02/06/25 21:06> [facility] Medical History GERD (gastroesophageal reflux disease) Hip pain Anxiety Chronic pain Rheumatoid arthritis Kidney disease Hepatitis Former smoker Atrial fibrillation Stroke/cerebrovascular accident Chest pain Hypertension DVT (deep venous thrombosis) Fibroids Microcytosis Leukocytosis Debility Osteoporosis Dementia UTI (urinary tract infection) Fall Pulmonary air embolism Ascending aorta dilatation Pure hypercholesterolemia Atherosclerosis of [place] coronary artery of [place] heart without angina pectoris Essential hypertension PSVT (paroxysmal supraventricular tachycardia) COPD (chronic obstructive pulmonary disease) Home Medications ?Medication ?Instructions ?Recorded ?Last Taken ?Type metoprolol tartrate 50 mg tablet 50 mg PO BID HEART 03/27/18 10/20/24 History atorvastatin 40 mg tablet 40 mg PO QHS CHOLESTROL 02/11/19 10/20/24 History cholecalciferol (vitamin D3) 25 1,000 unit PO DAILY SUPPLEMENT 02/11/19 10/20/24 History mcg (1,000 unit) tablet apixaban 5 mg tablet (Eliquis) 5 mg PO BID BLOOD THINNER 09/28/21 10/20/24 History allopurinol 300 mg tablet 300 mg PO DAILY GOUT 07/05/22 10/20/24 History escitalopram oxalate 10 mg tablet 10 mg PO DAILY DEPRESSION 10/13/23 10/20/24 History hydroxyurea 500 mg capsule 500 mg PO DAILY ANEMIA 10/13/23 10/20/24 History mirtazapine 15 mg tablet 15 mg PO QHS DEPRESSION 10/13/23 10/20/24 History pantoprazole 20 mg tablet,delayed 20 mg PO DAILY HEARTBURN 10/13/23 10/20/24 History release acetaminophen 500 mg tablet 1,000 mg PO Q8H 10/21/24 10/20/24 History calcium 333 mg-magnesium 133 mg-D3 1 tab PO QHS 10/21/24 10/20/24 History 1.67 mcg-zinc 5 mg tablet colestipol 1 gram tablet 2 g PO BID 10/21/24 10/20/24 History loperamide 2 mg capsule 4 mg PO Q6H PRN loose stool 10/21/24 10/20/24 History (Anti-Diarrheal (loperamide)) metoprolol tartrate 25 mg tablet 25 mg PO BID 10/21/24 10/20/24 History nitroglycerin 0.4 mg sublingual 0.4 mg sublingual Q5M PRN chest 10/21/24 Unknown History tablet pain valsartan 160 mg tablet 160 mg PO DAILY 10/21/24 10/20/24 History Allergy/AdvReac Type Severity Reaction Status Date / Time latex Allergy Rash Verified 02/06/25 15:59 Surgical History History of cholecystectomy S/p left hip fracture (~2016) Social History household members: family housing: house Smoking Status: Former smoker caffeine: Yes Type: carbonated beverages, coffee and tea ROS <ALLY Mendez - Last Filed: 02/06/25 21:06> ROS ED ROS Narrative Constitutional: Negative for fever, chills, malaise. CVS: Positive for chest pain. Respiratory: Negative for shortness of breath, cough. GI: Negative for abdominal pain, nausea, vomiting. EXAM <ALLY Mendez - Last Filed: 02/06/25 21:06> Physical Exam Narrative Exam Narrative: CONST: Patient sitting in no acute distress. EYES: Normal inspection. NECK: Normal inspection. RESP: No respiratory distress, CTAB. Tender over the chest wall without bruising or deformity or crepitus. CVS: Regular rate and rhythm, no murmur, no gallop. ABD: Soft and nontender, no guarding or rebound, nondistended. Back: Normal inspection, midline thoracic and lumbar tenderness without step-offs. SKIN: Color normal, no rash, warm, dry, intact. EXTREMITIES: Normal appearance, 1 cm skin tear on right forearm, full range of motion of upper and lower extremities, 2+ radial and DP pulses. NEURO: Alert to self and place, answers basic questions appropriately. PSYCH: Normal affect. Const Vital Signs: 02/06/25 15:59 02/06/25 17:31 02/06/25 17:58 Temperature 97.8 F Temperature Source Oral Pulse Rate 102 H 79 Respiratory Rate 16 20 H Respiratory Effort Normal Respiratory Depth Normal Respiratory Pattern Normal Blood Pressure 123/98 H 173/100 H Blood Pressure Mean 106 124 Pulse Ox 96 96 Oxygen Delivery Method Room Air Room Air Room Air 02/06/25 19:00 02/06/25 20:29 Temperature 98.2 F Temperature Source Pulse Rate 85 97 Respiratory Rate 13 16 Respiratory Effort Respiratory Depth Respiratory Pattern Blood Pressure 173/100 H 156/107 H Blood Pressure Mean 124 123 Pulse Ox 15 99 Oxygen Delivery Method Room Air <Dr. Miguel Angel Carpenter DO - Last Filed: 02/06/25 22:47> Physical Exam Const Vital Signs: 02/06/25 15:59 02/06/25 17:31 02/06/25 17:58 Temperature 97.8 F Temperature Source Oral Pulse Rate 102 H 79 Respiratory Rate 16 20 H Respiratory Effort Normal Respiratory Depth Normal Respiratory Pattern Normal Blood Pressure 123/98 H 173/100 H Blood Pressure Mean 106 124 Pulse Ox 96 96 Oxygen Delivery Method Room Air Room Air Room Air 02/06/25 19:00 02/06/25 20:29 Temperature 98.2 F Temperature Source Pulse Rate 85 97 Respiratory Rate 13 16 Respiratory Effort Respiratory Depth Respiratory Pattern Blood Pressure 173/100 H 156/107 H Blood Pressure Mean 124 123 Pulse Ox 15 99 Oxygen Delivery Method Room Air MDM <ALLY Mendez - Last Filed: 02/06/25 21:06> MDM MDM Narrative Medical decision making narrative: History gathered from: Patient and her daughter Differential includes but not limited to chest wall contusion, rib fracture, pneumothorax 89-year-old female with dementia, A-fib on Eliquis had an unwitnessed fall 2 days ago. She landed on her butt against a wall and called out by her daughter who arrived quickly afterward. She felt fine yesterday but today is complaining of chest pain and back pain. She appears well and nontoxic. Vital stable. She has no external signs of injury. She is tender over the anterior chest wall and thoracic and lumbar spine without a focal area. There is no step-offs. There is no bruising. She is moving all extremities and neurovascularly intact. Since she is on Eliquis and the fall was unwitnessed I ordered CT scans of her head and neck which showed no acute findings. X-rays of the chest, thoracic and lumbar spine are all negative for acute findings. CBC and BMP are unremarkable. EKG is nonischemic and serial troponins are 16 and 18 ruling out ACS. I suspect her pain is related to the fall and musculoskeletal. I advised ice and Tylenol and she was discharged in stable condition. History & Record Review Discussion w/independent historian: Patient and Family Additional record(s) reviewed:: Prior ED visit Lab Data Attestation: I reviewed the patient's lab results. Labs: Laboratory Results - last 24 hr 02/06/25 02/06/25 17:02 19:18 WBC 13.5 H RBC 4.46 Hgb 13.6 Hct 43.6 MCV 97.8 MCH 30.5 MCHC 31.2 L RDW Std Deviation 62.5 H RDW Coeff of Ema 17.6 H Plt Count 304 MPV 11.5 Immature Gran % (Auto) 0.700 Neut % (Auto) 84.0 H Lymph % (Auto) 11.8 L [place] % (Auto) 2.2 Eos % (Auto) 1.1 Baso % (Auto) 0.2 Absolute Neuts (auto) 11.4 H Absolute Lymphs (auto) 1.59 Nucleated RBC % 0 Sodium 141 Potassium 3.3 Chloride 107 Carbon Dioxide 21.2 Anion Gap 12 BUN 15 Creatinine 1.13 Estim Creat Clear Calc 37.88 L Est GFR (MDRD) Non-Af 47 L BUN/Creatinine Ratio 13.6 Glucose 161 H Calcium 9.4 Troponin T High Sens 16 H D Troponin T Hi Sens 2 Hr 18 H Radiography Diagnostic Testing: Clinical Impression(s) from Imaging Studies Brain CT 02/06/25 16:37 IMPRESSION: No acute traumatic findings. Chronic/degenerative changes as described. Reading Location: [facility] Cervical Spine CT 02/06/25 16:37 IMPRESSION: No acute traumatic findings. Chronic/degenerative changes as described. Reading Location: [facility] Chest X-Ray 02/06/25 17:35 IMPRESSION: No acute abnormality Reading Location: [facility] [address] Lumbar Spine X-Ray 02/06/25 17:35 IMPRESSION: No acute abnormality. Chronic appearing deformities with concavity of the superior aspect of L1 and L2. Reading Location: [facility] [address] Thoracic Spine X-Ray 02/06/25 17:35 IMPRESSION: No evidence of acute fracture or malalignment. Mild spondylotic changes. Reading Location: [facility] ED attending interpretation of 1 view chest x-ray shows no displaced rib fracture or pneumothorax. ED attending interpretation of thoracic spine shows no acute fracture. ED attending interpretation lumbar spine shows no acute fracture. <Dr. Miguel Angel Carpenter, DO - Last Filed: 02/06/25 22:47> [facility] Lab Data Labs: Laboratory Results - last 24 hr 02/06/25 02/06/25 17:02 19:18 WBC 13.5 H RBC 4.46 Hgb 13.6 Hct 43.6 MCV 97.8 MCH 30.5 MCHC 31.2 L RDW Std Deviation 62.5 H RDW Coeff of Ema 17.6 H Plt Count 304 MPV 11.5 Immature Gran % (Auto) 0.700 Neut % (Auto) 84.0 H Lymph % (Auto) 11.8 L [place] % (Auto) 2.2 Eos % (Auto) 1.1 Baso % (Auto) 0.2 Absolute Neuts (auto) 11.4 H Absolute Lymphs (auto) 1.59 Nucleated RBC % 0 Sodium 141 Potassium 3.3 Chloride 107 Carbon Dioxide 21.2 Anion Gap 12 BUN 15 Creatinine 1.13 Estim Creat Clear Calc 37.88 L Est GFR (MDRD) Non-Af 47 L BUN/Creatinine Ratio 13.6 Glucose 161 H Calcium 9.4 Troponin T High Sens 16 H D Troponin T Hi Sens 2 Hr 18 H Radiography Diagnostic Testing: Clinical Impression(s) from Imaging Studies Brain CT 02/06/25 16:37 IMPRESSION: No acute traumatic findings. Chronic/degenerative changes as described. Reading Location: [facility] Cervical Spine CT 02/06/25 16:37 IMPRESSION: No acute traumatic findings. Chronic/degenerative changes as described. Reading Location: [facility] Chest X-Ray 02/06/25 17:35 IMPRESSION: No acute abnormality Reading Location: [facility] Lumbar Spine X-Ray 02/06/25 17:35 IMPRESSION: No acute abnormality. Chronic appearing deformities with concavity of the superior aspect of L1 and L2. Reading Location: [facility] [address] Thoracic Spine X-Ray 02/06/25 17:35 IMPRESSION: No evidence of acute fracture or malalignment. Mild spondylotic changes. Reading Location: [facility] EKG Initial EKG: Attestation: I personally reviewed and interpreted this EKG as follows: Interpretation: Atrial Flutter (95) and Non-Specific ST Changes Comments: EKG was obtained. On my independent interpretation, it shows atrial flutter with variable block with a rate of 95. QRS interval was normal at 64 ms. QTc interval was normal at 456 ms. Brooks was normal. There are nonspecific ST-T wave changes. Prior EKG tracings: available for review Prior: Unchanged (12/26/2024) Treatment and Re-Evaluation :: I have personally performed a face to face assessment of the patient and have reviewed the GRACIE Note. I performed a substantive portion of the visit including all aspects of the following. My buchanan findings include: History: Patient presents after a fall that occurred 2 days ago. Patient fell and landed on her buttocks. Patient fell against a wall. Patient thinks she hit the back of her head. Family states patient was doing well yesterday. Daughter states she gave the patient 1 sublingual nitroglycerin yesterday for her chest pain. Patient was given another 1 today. 6. Patient denies any shortness of breath. Patient denies any paresthesias or weakness. Daughter states patient was going into hospice for her dementia. Exam: Vital signs are stable. Patient is afebrile. Patient is in no acute distress. Oral mucosa is pink and moist. Neck is supple. Trachea is midline. There is no JVD. Heart was regular rate and rhythm. Lungs are clear and equal bilaterally. Abdomen is soft. Bowel sounds are normal. There is no tenderness. Cranial nerves II through XII are intact. There are no focal motor or sensory deficits. Medical Decision Making: Differential diagnosis includes cranial bleeding, closed head injury, cervical spine fracture, cervical strain, thoracic fracture, lumbar fracture, spondylolisthesis, cardiac dysrhythmia, cardiac ischemia, pneumonia, and bronchitis. EKG will be obtained to assess for cardiac dysrhythmia and cardiac ischemia. CT scan of the brain will be obtained to assess for intracranial bleeding. CT scan of the cervical spine will be obtained to assess for cervical spine fracture and spondylolisthesis. X-rays of the lumbar spine and thoracic spine will be obtained to assess for compression fracture and spondylolisthesis. CBC will be obtained to assess for leukocytosis and anemia. Basic metabolic profile will be obtained to assess for electrolyte abnormality and renal function. High-sensitivity troponin will be obtained to assess for cardiac ischemia. CBC was reviewed. There is a mild leukocytosis of 13.5. The remainder is within normal limits. Basic metabolic profile was reviewed and was essentially within normal limits. Initial high-sensitivity troponin was reviewed and was 16. 2-hour repeat high-sensitivity troponin was reviewed and was 18. CT scan of the brain was obtained. There is no acute intracranial abnormality. This was interpreted by the radiologist and was also independently reviewed by myself. CT scan of the cervical spine was obtained. There is no acute fracture or spondylolisthesis. There is no soft tissue swelling. This was interpreted by the radiologist and was also independently reviewed by myself. Portable 1 view chest x-ray was obtained. On my independent interpretation, lung paez are clear. There is normal cardiac silhouette. Bony thorax is normal. There is no acute process noted. Radiologist also interpreted the x-ray and agrees. X-rays of the lumbar spine were obtained. There are 2 views. On my independent interpretation, there is no acute fracture or spondylolisthesis. There are some degenerative changes noted. There is a chronic deformity of the superior aspect of L1 and L2. Radiologist also interpreted the x-rays and agrees. X-rays of the thoracic spine were obtained. There are 3 views. On my independent interpretation, there is no acute fracture or spondylolisthesis. There are degenerative changes noted. Radiologist also interpreted the x-rays and agrees. Patient and family were advised of the findings. Patient was instructed to follow-up with her primary care physician in 5 to 7 days. Patient instructed return if worse in any way. Patient and family understood and were agreeable with the plan. All questions were answered. Discharge Plan Triage Chief Complaint: Fall ED Midlevel Provider: Marisa Murdock ED Provider: Miguel Angel Carpenter Dx/Rx/DC Orders Clinical Impression: Chest pain, Back pain, Fall Instructions: Bruises (Contusions) Prescriptions: No Action metoprolol tartrate 50 mg tablet 50 mg PO BID Patient Comments: PT TAKES 25MG AND 50 MG AT THE SAME TIME TO EQUAL 75MG DOSE TWICE DAILY atorvastatin 40 MG tablet 40 mg PO QHS cholecalciferol (vitamin D3) 1,000 UNIT tablet 1,000 unit PO DAILY Eliquis 5 mg tablet 5 mg PO BID allopurinol 300 mg tablet 300 mg PO DAILY hydroxyurea 500 mg capsule 500 mg PO DAILY pantoprazole 20 mg tablet,delayed release (DR/EC) 20 mg PO DAILY mirtazapine 15 mg tablet 15 mg PO QHS escitalopram oxalate 10 mg tablet 10 mg PO DAILY colestipol 1 gram tablet 2 g PO BID valsartan 160 mg tablet 160 mg PO DAILY metoprolol tartrate 25 mg tablet 25 mg PO BID Patient Comments: PT TAKES 25MG AND 50 MG AT THE SAME TIME TO EQUAL 75MG DOSE TWICE DAILY calc carb-mag ox-D3-zinc gluc 333 mg-133 mg- 1.67 mcg-5 mg tablet 1 tab PO QHS nitroglycerin 0.4 mg tablet, sublingual 0.4 mg sublingual Q5M PRN (Reason: chest pain) loperamide [Anti-Diarrheal (loperamide)] 2 mg capsule 4 mg PO Q6H PRN (Reason: loose stool) acetaminophen 500 mg Tablet 1,000 mg PO Q8H Rx Instructions: [id number]-[id number]. 1 g every 8 hourly for 7 days and then as needed every 8 hourly for severe Primary Care Provider: Chase Maxwell Referrals: Chase Maxwell MD [Primary Care Provider] - Activity Restrictions/Additional Instructions: There are no broken bones or internal injuries from her fall. You can use ice and Tylenol every 6 hours as needed for pain. Print Language: Italian Disposition Disposition: Home, Self Care Discharge Date/Time: 02/06/25 20:39
--- NOTE | 2025-02-06 17:35 | RAD_ITS ---
PROCEDURE: CHEST 1 VIEW (PORTABLE) 02/06/2025 REASON FOR EXAM: FALL TECHNIQUE: Frontal view of the chest. FINDINGS: Cardiomegaly. Mild hyperinflation. Degenerative changes in both shoulders RAD/Chest 1 View (Portable) IMPRESSION: No acute abnormality Reading [facility]
--- NOTE | 2025-02-06 17:35 | RAD_ITS ---
PROCEDURE: THORACIC SPINE 3 VIEWS 02/06/2025 REASON FOR EXAM: PAIN TECHNIQUE: Procedure Code: RADSPT Modality: DX Procedure: THORACIC SPINE 3 VIEWS COMPARISON: 12/22/2023 FINDINGS: No evidence of acute fracture or subluxation. Alignment is anatomic. Vertebral body heights are preserved. Relatively well preserved disc spaces. Mild multilevel spondylotic changes with endplate sclerosis and anterior bridging osteophytes, and facet hypertrophy. Grossly unremarkable soft tissues. Atherosclerotic vascular calcifications. Cardiomegaly. RAD/Thoracic Spine 3 Views IMPRESSION: No evidence of acute fracture or malalignment. Mild spondylotic changes. Reading Location: [id number]
--- NOTE | 2025-02-06 17:35 | RAD_ITS ---
PROCEDURE: LUMBAR SPINE 2 OR 3 VIEWS 02/06/2025 REASON FOR EXAM: FALL TECHNIQUE: Procedure Code: RADSPLL Modality: DX Procedure: LUMBAR SPINE 2 OR 3 VIEWS FINDINGS: Vascular calcification. Degenerative grade 1 subluxation of L3 upon L4. Chronic appearing concavity at L1 and L2. RAD/Lumbar Spine 2 or 3 Views IMPRESSION: No acute abnormality. Chronic appearing deformities with concavity of the supe rior aspect of L1 and L2. Reading Location[facility]
[2025-02-06 17:43] LABS: Hematocrit 43.6 % (37-47); Hemoglobin 13.6 g/dL (12.0-15.0); Immature Granulocytes Count 0.090 X10^3/uL (0.0-0.0); Mean Corp Hgb Conc 31.2 g/dL (32-36); Mean Corpuscular Volume 97.8 fL (81-99); Mean Platelet Vol. 11.5 fl (6.2-12.0); NRBC Flagged by Analyzer 0 % (0-5); Platelet Count 304 K/mm3 (150-450); RBC Distribution Width CV 17.6 % (11.6-14.6); RBC Distribution Width SD 62.5 fl (35.1-43.9); Red Blood Count 4.46 M/mm3 (4.2-5.4); White Blood Count 13.5 K/mm3 (4.4-11.0)
--- NOTE | 2025-02-06 17:48 | EKG12_ITS ---
Test Reason : CP Blood Pressure : */* mmHG Vent. Rate : 95 BPM Atrial Rate : 380 BPM P-R Int : * ms QRS Dur : 64 ms QT Int : 362 ms P-R-T Axes : * 12 61 degrees QTcB Int : 454 ms Atrial flutter with variable A-V block Septal infarct , age undetermined Abnormal ECG Confirmed by Samy Zazueta ([id number]), script editor BRUNO HARRISON ([id number]) on 02/10/2025 10:25:16 AM Referred By: SADIA/DARIUS Confirmed By: Samy Zazueta
[2025-02-06 17:58] VITALS: BP 173/100; PULSE 79; RESP 20; O2SAT 96
[2025-02-06 18:16] LABS: Anion Gap 12 (5-15); BUN 15 mg/dL (4-19); BUN/Creat Ratio 13.6 RATIO (10-20); Calcium,Total 9.4 mg/dL (7.6-11.0); Carbon Dioxide 21.2 mmol/L (21.0-32.0); Chloride 107 mmol/L (98-108); Estimated Creatinine Clearance 37.88 ml/min (50-250); Glucose 161 mg/dL (70-99); Potassium 3.3 mmol/L (3.3-5.1)
[2025-02-06 18:33] LABS: Troponin T High Sensitivity 16 ng/L (<=14)
[2025-02-06 19:00] VITALS: BP 173/100; PULSE 85; RESP 13; O2SAT 15
[2025-02-06 20:16] LABS: Troponin T High Sens 2 HR 18 ng/L (<=14)
[2025-02-06 20:29] VITALS: BP 156/107; PULSE 97; RESP 16; TEMP 36.8; O2SAT 99
--- NOTE | 2025-02-06 20:29 | ED.RN ---
previous RN documented respirations in O2 sats. see new VS.
== END 2025-02-06 20:39 | disposition home or self-care (01) ==
PROVIDERS: Physician Assistant; Emergency Provider Emergency Medicine; PCP Internal Medicine; Visit Provider Emergency Medicine
DX: R07.9 Chest pain, unspecified (principal); J44.9 Chronic obstructive pulmonary disease, unspecified; I48.91 Unspecified atrial fibrillation; I10 Essential (primary) hypertension; I25.10 Atherosclerotic heart disease of native coronary artery without angina pectoris; M54.9 Dorsalgia, unspecified; Z87.891 Personal history of nicotine dependence; Z79.01 Long term (current) use of anticoagulants; Z86.73 Personal history of transient ischemic attack (TIA), and cerebral infarction without residual deficits; E78.00 Pure hypercholesterolemia, unspecified; Z79.899 Other long term (current) drug therapy; K21.9 Gastro-esophageal reflux disease without esophagitis; Z90.49 Acquired absence of other specified parts of digestive tract; W19.XXXA Unspecified fall, initial encounter
CPT/HCPCS: 70450; 71045; 72072; 72100; 72125; 80048; 84484; 85025; 93005; 99282; A4216